=== PATIENT | female | born 1975 | race Caucasian/White ===

== ENCOUNTER 2019-04-24 13:04 | Outpatient (CLI) | payer OTHER, SELFPAY ==
[2019-04-24 14:05] LABS: Alanine Aminotransferase 18 U/L (14-59); Albumin Level 3.8 g/dL (3.4-5.0); Alkaline Phosphatase 133 U/L (46-116); Anion Gap 14.6 mmol/L (7-16); Aspartate Amino Transferase 16 U/L (15-37); Bilirubin,Total 0.3 mg/dL (0.00-1.00); Blood Urea Nitrogen 18 mg/dL (7-18); Carbon Dioxide 28 mmol/L (21-32); Chloride 98 mmol/L (98-108); Cholesterol 177 mg/dL (0-200); Estimated Glomerular Filt Rate 53; Glucose 221 mg/dL (70-99); HDL Direct 48 mg/dL (40-60); LDL Cholesterol Calculated 113 mg/dL (<130); Osmolality Calculated 292 mOsm/kg (285-295); Potassium 3.6 mmol/L (3.5-5.1); Sodium 137 mmol/L (136-145); Triglycerides 78 mg/dL (0-150)
[2019-04-29 04:31] LABS: Hepatitis A Antibody IgM Nonreactive; Hepatitis B Core Antibody Nonreactive (Nonreactive); Hepatitis B Surface Antigen Nonreactive (Nonreactive); Hepatitis C Signal to Cutoff 0.01 ratio (<1.00); Hepatitis C Virus Antibody Nonreactive (Nonreactive)
== END 2019-04-24 13:05 | disposition home or self-care (01) ==
LOC: CHSLAB 13:07
PROVIDERS: PCP Nurse Practitioner Family; Visit Provider Nurse Practitioner Family
DX: E10.9 Type 1 diabetes mellitus without complications (principal); Z20.5 Contact with and (suspected) exposure to viral hepatitis
CPT/HCPCS: 36415; 80053; 80061; 80074; 83036

== ENCOUNTER 2019-08-07 19:58 | Emergency (ER) | payer OTHER, SELFPAY ==
--- NOTE | ~2019-08-07 | XR_ITS ---
EXAMINATION: XR foot LT min 3V DATE: 08/07/2019 20:36 INDICATION: Left foot pain TECHNIQUE: Dorsoplantar, lateral, and 2 oblique views of the left foot were obtained. COMPARISON: 03/15/2018 FINDINGS: There is no fracture, dislocation, or subluxation. The bones and joint spaces are normal. C alcified atherosclerosis is noted. IMPRESSION: 1. No acute osseous abnormality. 2. Calcified atherosclerosis somewhat atypical for patient age. Reviewed, dictated and finalized at location A.
--- NOTE | ~2019-08-07 | XR_ITS ---
EXAMINATION: XR knee LT 3V DATE: 08/07/2019 20:35 INDICATION: Left knee pain TECHNIQUE: Three views of the left knee were obtained. COMPARISON: None. FINDINGS: Alignment is normal. No fracture or osteochondral lesion. There is mild tricompartmental os teoarthritis characterized by tiny marginal osteophytes. No joint effusion/synovitis. Calcified athe rosclerosis is noted. IMPRESSION: 1. No acute osseous abnormality. 2. Calcified atherosclerosis somewhat atypical for patient age. Reviewed, dictated and finalized at location A.
[2019-08-07 20:16] VITALS: BP 149/85; PULSE 100; RESP 15; TEMP 36.8; O2SAT 100
--- NOTE | 2019-08-07 20:20 | ED.GENADULT ---
HPI - General Adult General Chief complaint: Extremity Injury, Lower Stated complaint: l foot pain Source: patient History of Present Illness HPI narrative: Lucy is a 44F with a PMH of anxiety depression and insulin dependent diabetes as well as tobacco abuse that presented to the ED with pain in her left foot after a fall. 30 minutes before coming to the ED she tripped, fell, then had immediate pain in her left foot and knee where she had an abriason. She did not hit her head and has no headache or neck pain. Her foot feels like when she broke it before. Related Data Allergies Allergy/AdvReac Type Severity Reaction Status Date / Time metformin [From Glucophage] Allergy Mild Unknown Verified 07/19/19 11:08 Review of Systems Constitutional: Constitutional: Denies chills and Denies fever(s) Eyes: Eyes: Reports no additional eye complaints Cardiovascular: Cardiovascular: Reports no additional cardiovascular complaints Respiratory: Respiratory: Reports no additional respiratory complaints Gastrointestinal: Gastrointestinal: Reports no additional gastrointestinal complaints Genitourinary: Genitourinary: Reports no additional female genitourinary complaints Musculoskeletal: Musculoskeletal: Reports as per HPI Integumentary/Breasts: Skin/Breast: Reports system reviewed and no additional complaints, except as docu Neurologic: Reports system reviewed and no additional complaints, except as documented Psychiatric: Psychiatric: Reports no additional psychiatric complaints [facility] Past Medical History Medical History Depression GERD (gastroesophageal reflux disease) Tobacco dependence syndrome Type 1 diabetes Surgical History Surgical History History of bilateral tubal ligation 2012 Social History Social History Smoking packs per day: 1 Smoking cigarettes per day: 20.0 Smoking status: Current every day smoker Tobacco type: cigarettes Additional smoking assessment comments: Patient states she uses vape at 6mg of nicotine Exam Const: General: cooperative and healthy appearing Other: Well appearing that walked into the ED with a limp favoring her left foot HENMT: Head: normal to inspection Eyes: General: appearance normal, both eyes and all related structures Neck: Neck: normal visual inspection Resp: Effort & Inspection: normal respiratory effort, able to speak in complete sentences and no cough Cardio: Jugular venous distension: no JVD Rate: regular rate Skin: General skin exam: normal color and no rashes or lesions noted Neuro: General: oriented to person, oriented to place and oriented to time Extrem: General: normal to inspection Other: TTP over the medial side of the dorsal foot without swelling or erythema. 4x4cm abraison of the left knee. No TTP of it. Psych: Appearance: grossly normal and well kempt Course Course Emergency Course: Lucy was seen and evaluated. Ordered radiographs of the left foot and knee. EXAMINATION: XR foot LT min 3V DATE: 08/07/2019 20:36 INDICATION: Left foot pain TECHNIQUE: Dorsoplantar, lateral, and 2 oblique views of the left foot were obtained. COMPARISON: 03/15/2018 FINDINGS: There is no fracture, dislocation, or subluxation. The bones and joint spaces are normal. Calcified atherosclerosis is noted. IMPRESSION: 1. No acute osseous abnormality. 2. Calcified atherosclerosis somewhat atypical for patient age. EXAMINATION: XR knee LT 3V DATE: 08/07/2019 20:35 INDICATION: Left knee pain TECHNIQUE: Three views of the left knee were obtained. COMPARISON: None. FINDINGS: Alignment is normal. No fracture or osteochondral lesion. There is mild tricompartmental osteoarthritis characterized by tiny marginal osteophytes. No joint effusion/synovitis. Calcified atherosclerosis is noted. IMPRESSION: 1.
[2019-08-07] MEDS: KETOROLAC (*BKC) 60 MG/2 ML VIAL 30 MG IM (20:37)
[2019-08-07 21:01] VITALS: RESP 15; O2SAT 100
== END 2019-08-07 21:03 | disposition home or self-care (01) ==
PROVIDERS: Emergency Provider Family Medicine; PCP Nurse Practitioner Family
DX: M79.672 Pain in left foot (principal)
CPT/HCPCS: 73562; 73630; 96372; 99282; 99284; J1885

== ENCOUNTER 2019-08-15 11:34 | Outpatient (CLI) | payer OTHER, SELFPAY ==
[2019-08-15 12:43] LABS: Creatinine Urine 73.47 mg/dL (40-278)
[2019-08-15 13:01] LABS: MALB Creatinine Ratio 4.6 mg/g (0-30); Microalbumin Urine Random 3.4 mg/L
[2019-08-15 13:03] LABS: Alanine Aminotransferase 27 U/L (14-59); Albumin Level 3.2 g/dL (3.4-5.0); Alkaline Phosphatase 171 U/L (46-116); Anion Gap 13.7 mmol/L (7-16); Aspartate Amino Transferase 23 U/L (15-37); Bilirubin,Total 0.3 mg/dL (0.00-1.00); Blood Urea Nitrogen 10 mg/dL (7-18); Calcium 8.5 mg/dL (8.5-10.1); Carbon Dioxide 27 mmol/L (21-32); Chloride 99 mmol/L (98-108); Cholesterol 171 mg/dL (0-200); Estimated Glomerular Filt Rate 54; Glucose 331 mg/dL (70-99); HDL Direct 60 mg/dL (40-60); LDL Cholesterol Calculated 87 mg/dL (<130); Osmolality Calculated 292 mOsm/kg (285-295); Potassium 4.7 mmol/L (3.5-5.1); Sodium 135 mmol/L (136-145); Total Protein 6.3 g/dL (6.4-8.2); Triglycerides 119 mg/dL (0-150)
[2019-08-15 13:15] LABS: Hemoglobin A1C 11.8 % (<5.7)
== END 2019-08-15 11:35 | disposition home or self-care (01) ==
PROVIDERS: PCP Nurse Practitioner Family; Visit Provider Nurse Practitioner Family
DX: E10.9 Type 1 diabetes mellitus without complications (principal)
CPT/HCPCS: 36415; 80053; 80061; 82043; 83036

== ENCOUNTER 2019-08-30 04:30 | Emergency (ER) | payer OTHER, SELFPAY ==
[2019-08-30 04:30] VITALS: BP 105/74; PULSE 110; RESP 20; TEMP 36.2; O2SAT 98
--- NOTE | 2019-08-30 04:47 | ECG_ITS ---
Measurements Intervals [place] Rate: 91 P: 53 IN: 127 QRS: 24 QRSD: 82 T: 40 QT: 377 QTc: 465 Interpretive Statements SINUS RHYTHM LOW QRS VOLTAGE IN PRECORDIAL LEADS RSR' IN V1 OR V2, CONSIDER RIGHT VENTRICULAR HYPERTROPHY OR RIGHT VCD BORDERLINE ECG Electronically Signed On 08-30-2019 7:18:08 CDT by Moises Gerardo D.O.
[2019-08-30] MEDS: ONDANSETRON INJ 4 MG/2 ML VIAL IV PUSH (05:10)
[2019-08-30] MEDS: SODIUM CHLORIDE 0.9% IV 1,000 ML 999 ML IV CONT (05:10)
[2019-08-30 05:27] LABS: Base Excess ABG -2.5 mmol/L (0-2); Carboxyhemoglobin 2.6 % (0-1.5); HCO3 ABG 21.4 mmol/L (23-29); Methemoglobin ABG 0.2 % (0-1.5); Oxygen Content ABG 15.6 %vol (16.0-22.0); Oxygen Saturation ABG 83.7 % (95-97); Oxyhemoglobin 81.4 % (94-100); PCO2 ABG 34.5 mmHg (35-45); PO2 ABG 42.8 mmHg (80-90); Reduced Hemoglobin 15.8 % (0-1.5); Total Hemoglobin 13.7 g/dL; pH ABG 7.41 (7.35-7.45)
[2019-08-30 05:28] LABS: Device ROOM AIR; Modified Allen's Test Pass; Site Drawn RIGHT RADIAL
--- NOTE | 2019-08-30 05:30 | PC.NURSE ---
no vomiting since arrival to er
[2019-08-30 05:31] LABS: Basophils Absolute Auto 0.08 K/mm3 (0.00-0.10); Basophils Percent Auto 0.9 % (0.0-1.0); Eosinophils Absolute Auto 0.48 K/mm3 (0.02-0.50); Eosinophils Percent Auto 5.4 % (1.0-6.0); Hematocrit 37.5 % (35.0-49.0); Hemoglobin 13.2 g/dL (12.0-15.0); Immature Granulocyte Absolute 0.03 K/mm3 (0.00-0.00); Immature Granulocyte Percent A 0.3 % (0.0-0.0); Lymphocytes Percent Auto 49.3 % (18.0-42.0); Mean Corpuscular HGB Conc 35.2 g/dL (32.0-36.0); Mean Corpuscular Hemoglobin 30.6 pg (27.0-31.0); Mean Corpuscular Volume 86.8 fL (78.0-102.0); Mean Platelet Volume 10.2 fl (9.2-11.8); Monocytes Absolute Auto 0.35 K/mm3 (0.10-0.90); Monocytes Percent Auto 3.9 % (2.0-11.0); Neutrophils Absolute Auto 3.6 K/mm3 (1.7-7.2); Neutrophils Percent Auto 40.2 % (50.0-70.0); Platelet Count Result 338 K/mm3 (150-420); Red Blood Count 4.32 M/mm3 (4.20-5.40); Red Cell Distribution Width 12.1 % (11.6-14.4); White Blood Count 8.9 K/mm3 (4.8-10.8)
[2019-08-30 05:38] LABS: Pregnancy On Board Control Positive; Urine Pregnancy Test Negative
[2019-08-30 05:47] LABS: Alanine Aminotransferase 22 U/L (14-59); Albumin Level 3.5 g/dL (3.4-5.0); Alkaline Phosphatase 180 U/L (46-116); Anion Gap 11.6 mmol/L (7-16); Aspartate Amino Transferase 17 U/L (15-37); Bilirubin,Total 0.3 mg/dL (0.00-1.00); Blood Urea Nitrogen 14 mg/dL (7-18); Calcium 8.2 mg/dL (8.5-10.1); Carbon Dioxide 28 mmol/L (21-32); Chloride 100 mmol/L (98-108); Estimated CRCL calculation 49 ml/min; Estimated Glomerular Filt Rate 50; Osmolality Calculated 304 mOsm/kg (285-295); Phosphorus 2.4 mg/dL (2.6-4.7); Potassium 3.6 mmol/L (3.5-5.1); Sodium 136 mmol/L (136-145)
[2019-08-30 05:52] LABS: Lactic Acid 1.8 mmol/L (0.4-2.0)
[2019-08-30 05:53] LABS: Glucose Point of Care 377 (65-105)
[2019-08-30 05:56] LABS: Glucose 492 mg/dL (70-99)
[2019-08-30] MEDS: INSULIN HUMAN REGULAR (*BKC) 100 UNITS/ML 7 UNITS IV PUSH (06:05)
--- NOTE | 2019-08-30 06:08 | ED.GENADULT ---
HPI - General Adult General Chief complaint: Unspecified Stated complaint: Vomiting Source: patient Mode of arrival: ambulatory Limitations: no limitations History of Present Illness HPI narrative: This is a 44-year-old female that presents with some history of diabetes type 1 with some blood sugars around 492, patient is currently on Lantus and lispro insulin last A1c noted in her primary care physician's chart was 11 point 2. Currently she is having mild abdominal discomfort diffuse location with some nausea currently no vomiting, there is no chest pain no fever chills no shortness of breath the patient is compliant with her medication. Onset (ago): hour(s) Radiation: abdomen Severity: mild Severity scale (1-10): 2 Pain Consistency: constant Relieving factors: none Exacerbating factors: none Associated symptoms: nausea/vomiting Related Data Home Medications Medication Instructions Recorded Confirmed sertraline 50 mg PO DAILY 08/30/19 08/30/19 Allergies Allergy/AdvReac Type Severity Reaction Status Date / Time metformin [From Glucophage] Allergy Mild Unknown Verified 08/15/19 10:51 Review of Systems Review of Systems: All systems reviewed & are unremarkable except as noted in HPI and below PMFSH Past Medical History Medical History BMI 24.0-24.9, adult Depression GERD (gastroesophageal reflux disease) Tobacco dependence syndrome Type 1 diabetes Surgical History Surgical History History of bilateral tubal ligation 2012 Family History Family History Father Family history of coronary artery disease Family history of type 2 diabetes mellitus Social History Social History Smoking packs per day: 1 Smoking cigarettes per day: 20.0 Smoking status: Current every day smoker Tobacco type: cigarettes Additional smoking assessment comments: Patient states she uses vape at 6mg of nicotine Exam Const: General: no acute distress Orientation/consciousness: patient oriented x3 HENMT: Head: normal to inspection Eyes: Conjunctivae: conjunctivae normal Pupils: Equal, round and reactive pupils present Neck: Neck: normal visual inspection Chest: Chest palpation & inspection: normal inspection of the chest Resp: Effort & Inspection: normal respiratory effort Auscultation: clear to auscultation bilaterally Cardio: Rate: regular rate Rhythm: regular rhythm GI: GI Palp: Yes Soft to palpation Skin: General skin exam: normal color Rashes: no rashes Psych: Appearance: grossly normal Mental Status: mental status grossly normal Course Course Emergency Course: After reassessment of patient after receiving IV fluids, and reviewed labs with the patient and reassured her that she is not in DKA and her current blood sugars are 377 and will be giving her 7units of regular insulin. The patient appears more comfortable currently her abdominal discomfort has some decreased and currently there is no nausea or vomiting. repeat blood sugar after 7units of regular insulin was 277. Vital Signs Vital signs: Vital Signs Temperature 36.2 C L 08/30/19 04:30 Pulse Rate 110 H 08/30/19 04:30 Respiratory Rate 08/30/19 04:30 Blood Pressure 105/74 08/30/19 04:30 Pulse Oximetry 98 08/30/19 04:30 Temperature 36.2 C L 08/30/19 04:30 Pulse Rate 110 H 08/30/19 04:30 Respiratory Rate 08/30/19 04:30 Blood Pressure 105/74 08/30/19 04:30 Pulse Oximetry 98 08/30/19 04:30 Medical Decision Making Vital Signs Vital Signs: Vital Signs Temperature 36.2 C L 08/30/19 04:30 Pulse Rate 110 H 08/30/19 04:30 Respiratory Rate 08/30/19 04:30 Blood Pressure 105/74 08/30/19 04:30 Pulse Oximetry 98 08/30/19 04:30 Temperature 36.2 C L 08/30/19 04:30
[2019-08-30 06:15] LABS: Add Urine Microscopic? YES; Appearance Urine Sl Cloudy (Clear); Bilirubin Urine Negative (Negative); Blood Urine 3+ (Negative); Color Urine Yellow (Yellow); Glucose Urine UA 3+ (Negative); Ketones Urine Negative (Negative); Leukocyte Esterase Ur Negative (Negative); Nitrate Urine Positive (Negative); Protein Urine Negative (Negative); Specific Grav Ur <= 1.005 (1.010-1.020); Urobilinogen Urine 0.2 mg/dL (0.2-1.0); pH Urine 5.5 (5.0-8.0)
[2019-08-30 06:21] LABS: Bacteria Urine 3+ /hpf; RBC Urine >75 /hpf (0-2); Squamous Epithelial Cell Urine None seen /hpf (Few); WBC Urine 0-3 /hpf (0-3)
[2019-08-30 06:24] VITALS: BP 137/76; PULSE 94; RESP 20; TEMP 36.6; O2SAT 100
--- NOTE | 2019-08-30 06:25 | PC.NURSE ---
resting per cot, watching tv and on cell phone.
[2019-08-30 06:37] LABS: Glucose Point of Care 272 (65-105)
[2019-08-30 06:38] VITALS: BP 122/77; PULSE 78; RESP 20; O2SAT 98
== END 2019-08-30 06:41 | disposition home or self-care (01) ==
PROVIDERS: Emergency Provider Emergency Medicine; PCP Nurse Practitioner Family
DX: E10.9 Type 1 diabetes mellitus without complications (principal); N30.00 Acute cystitis without hematuria
CPT/HCPCS: 36415; 36600; 80053; 81001; 81025; 82375; 82805; 82948; 83050; 83605; 83735; 84100; 85025; 87040; 93005; 96361; 96374; 96375; 99284; J1815; J2405; J7030

== ENCOUNTER 2019-12-28 18:24 | Observation (INO) | payer OTHER, SELFPAY ==
--- NOTE | ~2019-12-28 | XR_ITS ---
XR chest 2V DATE: 12/28/2019 19:03 INDICATION: Shortness of breath TECHNIQUE: PA and lateral views COMPARISON: 03/08/2017 PA chest FINDINGS: Diffuse osteopenia. No pulmonary infiltrate or consolidation, pleural effusion or pulmonary vascular congestion or pneumo thorax. Normal heart size. No hilar or mediastinal enlargement. IMPRESSION: No active cardiopulmonary disease Reviewed, dictated and finalized at location A.
[2019-12-28 18:30] VITALS: BP 98/59; PULSE 102; PULSE 98; RESP 14; TEMP 36.6; O2SAT 98
[2019-12-28 18:40] LABS: Glucose Point of Care > 450 (65-105)
--- NOTE | 2019-12-28 18:43 | ED.GENADULT ---
HPI - General Adult General Chief complaint: Unspecified Stated complaint: Keeps Blacking out Source: patient Mode of arrival: ambulatory History of Present Illness HPI narrative: This is a 44-year-old female that has a history diabetes type 1 on insulin, who presents with episode of weakness while at work with nausea, and just felt that her chest was tight then took her breath away. No audible wheezing no fever chills no abdominal pain no dysuria no frequency had diarrhea constipation is patient has for not taking her insulin today and or has not eaten throughout the day. Currently there is no chest pain no headaches no blurry vision. Onset (ago): hour(s) Pain Consistency: constant Relieving factors: none Exacerbating factors: none Associated symptoms: nausea/vomiting, shortness of breath and weakness Related Data Allergies Allergy/AdvReac Type Severity Reaction Status Date / Time metformin [From Glucophage] Allergy Mild Unknown Verified 08/15/19 10:51 Review of Systems Review of Systems: All systems reviewed & are unremarkable except as noted in HPI and below PMFSH Past Medical History Medical History BMI 24.0-24.9, adult Depression GERD (gastroesophageal reflux disease) Tobacco dependence syndrome Type 1 diabetes Surgical History Surgical History History of bilateral tubal ligation 2012 Family History Family History Father Family history of coronary artery disease Family history of type 2 diabetes mellitus Social History Social History Smoking packs per day: 1 Smoking cigarettes per day: 20.0 Smoking status: Current every day smoker Tobacco type: cigarettes Additional smoking assessment comments: Patient states she uses vape at 6mg of nicotine Exam Const: General: cooperative, healthy appearing and anxious HENMT: Head: normal to inspection Ears: hearing grossly normal bilaterally General nose exam: Normal external nose present Face and sinus: normal facial exam Mouth: Yes Normal oral and palatal mucosa present Eyes: General: appearance normal, both eyes and all related structures Alignment and Position: alignment normal Eyelids: eyelids normal Conjunctivae: conjunctivae normal Sclera: sclerae normal Cornea: corneas normal Neck: Neck: normal visual inspection, full ROM, no lymphadenopathy and no meningeal signs Thyroid: thyroid normal Lymphatic: no lymphadenopathy noted Chest: Chest palpation & inspection: normal inspection of the chest Resp: Effort & Inspection: normal respiratory effort and able to speak in complete sentences Auscultation: clear to auscultation bilaterally Cardio: Jugular venous distension: no JVD Palpation: normal PMI Rate: regular rate Rhythm: regular rhythm Heart sounds: S1 normal heart sound present GI: Inspection: normal to inspection Skin: General skin exam: normal color and no rashes or lesions noted Neuro: General: oriented to person, oriented to place, oriented to time, patient oriented x3, gait normal, tone normal, moves all extremities, Normal light touch and pain sensation and no meningeal signs Psych: Appearance: grossly normal and well kempt Mental Status: mental status grossly normal Speech and movement: Normal speech and movement present Affect: normal affect Thought process: Normal thought process present Thought content: Yes Normal thought content present Course Course Emergency Course: Patient current sitting comfortably received IV fluids, and had a blood sugar of 517 received 10 units of insulin. Will admit the patient to observation and spoke with patient about admission. Medical Decision Making Lab Data Labs: Lab Results 12/28/19 Range/Units 18:31 POC Capillary Glucose > 450 H (65-105) mg/dl
--- NOTE | 2019-12-28 18:48 | ECG_ITS ---
Measurements Intervals [place] Rate: 94 P: 34 NV: 125 QRS: 24 QRSD: 77 T: 33 QT: 349 QTc: 437 Interpretive Statements SINUS RHYTHM INCOMPLETE RIGHT BUNDLE BRANCH BLOCK LOW QRS VOLTAGE IN PRECORDIAL LEADS BASELINE ARTIFACT- II, III, AVL, AVF, V3 BORDERLINE ECG Electronically Signed On 12-29-2019 8:52:22 CDT by Moises Gerardo D.O.
[2019-12-28] MEDS: SODIUM CHLORIDE 0.9% IV 1,000 ML 999 ML IV CONT (19:11)
[2019-12-28 19:17] LABS: Base Excess ABG -5.8 mmol/L (0-2); HCO3 ABG 17.2 mmol/L (23-29); Oxygen Content ABG 17.1 %vol (16.0-22.0); Oxygen Saturation ABG 93.8 % (95-97); Oxyhemoglobin 91.3 % (94-100); PCO2 ABG 27.2 mmHg (35-45); PO2 ABG 69.9 mmHg (80-90); Total Hemoglobin 13.3 g/dL; pH ABG 7.42 (7.35-7.45)
[2019-12-28 19:18] LABS: Device ROOM AIR; Modified Allen's Test Pass; Site Drawn LEFT RADIAL
[2019-12-28 19:23] LABS: Hematocrit 37.6 % (35.0-49.0); Mean Corpuscular HGB Conc 34.6 g/dL (32.0-36.0); Mean Corpuscular Hemoglobin 29.7 pg (27.0-31.0); Platelet Count Result 336 K/mm3 (150-420); Red Blood Count 4.37 M/mm3 (4.20-5.40); Red Cell Distribution Width 12.5 % (11.6-14.4); White Blood Count 8.5 K/mm3 (4.8-10.8)
[2019-12-28 19:35] LABS: D Dimer 0.49 mg/L (0.19-0.50)
[2019-12-28 19:48] LABS: Alanine Aminotransferase 17 U/L (14-59); Albumin Level 3.4 g/dL (3.4-5.0); Alkaline Phosphatase 109 U/L (46-116); Anion Gap 14 mmol/L (8-16); Aspartate Amino Transferase 11 U/L (15-37); Bilirubin,Total 0.7 mg/dL (0.00-1.00); Blood Urea Nitrogen 15 mg/dL (7-18); Calcium 8.7 mg/dL (8.5-10.1); Carbon Dioxide 21 mmol/L (21-32); Chloride 97 mmol/L (98-108); Estimated CRCL calculation 39 ml/min; Estimated Glomerular Filt Rate 38; Potassium 4.2 mmol/L (3.5-5.1); Sodium 132 mmol/L (136-145); Total Protein 7.2 g/dL (6.4-8.2)
[2019-12-28 19:50] LABS: Troponin I < 0.02 ng/mL (0.00-0.056)
[2019-12-28 19:52] LABS: Glucose 517 mg/dL (70-99); Lipase 102 U/L (73-393); Magnesium 1.8 mg/dL (1.8-2.4); Osmolality Calculated 297 mOsm/kg (285-295)
[2019-12-28] MEDS: INSULIN HUMAN REGULAR (*BKC) 100 UNITS/ML 10 UNITS IV PUSH (20:08)
[2019-12-28 20:28] LABS: Add Urine Microscopic? YES; Appearance Urine Sl Cloudy (Clear); Bilirubin Urine Negative (Negative); Blood Urine Negative (Negative); Color Urine Yellow (Yellow); Glucose Urine UA 3+ (Negative); Ketones Urine Negative (Negative); Leukocyte Esterase Ur Negative (Negative); Nitrate Urine Negative (Negative); Protein Urine Negative (Negative); Urobilinogen Urine 0.2 mg/dL (0.2-1.0); pH Urine 5.5 (5.0-8.0)
[2019-12-28 20:34] LABS: Glucose Point of Care 296 (65-105)
[2019-12-28 20:38] LABS: Bacteria Urine 2+ /hpf; RBC Urine None seen /hpf (0-2); Squamous Epithelial Cell Urine Few /hpf (Few); WBC Clumps Urine Present /hpf; WBC Urine 0-3 /hpf (0-3)
[2019-12-28 20:39] LABS: Mucus Urine Few /lpf
[2019-12-28 20:45] LABS: Amphetamine Screen Urine Negative (Negative); Barbiturate Screen Urine Negative (Negative); Benzodiazepines Screen Urine Negative (Negative); Cannabinoid Screen Urine Negative (Negative); Cocaine Screen Urine Negative (Negative); Methadone Screen Urine Negative (Negative); Opiate Screen Urine Negative (Negative); Phencyclidine Screen Urine Negative (Negative)
[2019-12-28 21:00] VITALS: BP 121/77; PULSE 90; RESP 12; O2SAT 100
--- NOTE | 2019-12-28 21:02 | PC.NURSE ---
RN CONTACTED DOMINIQUE RN AT 2014 TO REQUEST OBS BED. ROOM 205 PROVIDED. REGISTRATION NOTIFIED.
--- NOTE | 2019-12-28 21:15 | ADMGEN ---
This patient, Lucy Arambula, was admitted to 2nd Floor Room 205-2. Patient oriented to hospital policies and general routines including ID bracelet, bed and alarms, visiting hours, pain management, procedures, bathroom and other care routines, personal items, smoking policy, room service/diet, and visiting hours. Valuables list has been completed. Patient encouraged to report perceived risks to care and to ask questions if they do not understand what they are told or what they should do.
[2019-12-28 21:24] VITALS: BMI 24.9
--- NOTE | 2019-12-28 21:30 | PC.NURSE ---
pt blood glucose still decreasing, pt given sandwich and cottage cheese
[2019-12-28 21:41] LABS: Glucose Point of Care 159 (65-105)
[2019-12-28 22:00] VITALS: BP 121/89; PULSE 107; RESP 16; TEMP 36.8; O2SAT 100
[2019-12-28] MEDS: SODIUM CHLORIDE 0.9% IV 1,000 ML 100 ML IV CONT (22:10)
--- NOTE | 2019-12-28 23:15 | PC.NURSE ---
pt resting in bed watching tv, denies any pain or needs at this time, no c/o dizziness, iv fluids infusing per order
--- NOTE | 2019-12-29 00:15 | PC.NURSE ---
pt resting in bed watching tv, denies any pain or needs at this time, no c/o dizziness
--- NOTE | 2019-12-29 02:12 | PC.NURSE ---
pt sleeping, respirations even and regular, no evidence of distress noted at this time, iv fluids infusing per order
[2019-12-29 03:46] VITALS: BP 104/68; PULSE 88; RESP 16; TEMP 36.9; O2SAT 97
--- NOTE | 2019-12-29 04:00 | PC.NURSE ---
pt ambulated to bathroom, tolerated well, no c/o dizziness or lightheadedness, iv fluids infusing per order
--- NOTE | 2019-12-29 06:04 | PC.NURSE ---
pt sleeping, respirations even and regular, no s/s of distress noted
[2019-12-29 07:26] LABS: Basophils Absolute Auto 0.09 K/mm3 (0.00-0.10); Eosinophils Absolute Auto 0.35 K/mm3 (0.02-0.50); Eosinophils Percent Auto 3.9 % (1.0-6.0); Hematocrit 33.7 % (35.0-49.0); Hemoglobin 11.8 g/dL (12.0-15.0); Immature Granulocyte Absolute 0.02 K/mm3 (0.00-0.00); Immature Granulocyte Percent A 0.2 % (0.0-0.0); Lymphocytes Absolute Auto 4.71 K/mm3 (1.10-4.50); Lymphocytes Percent Auto 52.4 % (18.0-42.0); Mean Corpuscular Hemoglobin 30.2 pg (27.0-31.0); Mean Corpuscular Volume 86.2 fL (78.0-102.0); Mean Platelet Volume 9.5 fl (9.2-11.8); Monocytes Percent Auto 5.6 % (2.0-11.0); Neutrophils Absolute Auto 3.3 K/mm3 (1.7-7.2); Neutrophils Percent Auto 36.9 % (50.0-70.0); Platelet Count Result 300 K/mm3 (150-420); Red Blood Count 3.91 M/mm3 (4.20-5.40); Red Cell Distribution Width 12.7 % (11.6-14.4)
--- NOTE | 2019-12-29 07:30 | PC.NURSE ---
cooperative, no complaints of dizziness, up in dependent in room
[2019-12-29 07:42] LABS: Alanine Aminotransferase 17 U/L (14-59); Albumin Level 2.8 g/dL (3.4-5.0); Alkaline Phosphatase 91 U/L (46-116); Anion Gap 9 mmol/L (8-16); Aspartate Amino Transferase 10 U/L (15-37); Bilirubin,Total 0.5 mg/dL (0.00-1.00); Blood Urea Nitrogen 17 mg/dL (7-18); Calcium 7.8 mg/dL (8.5-10.1); Carbon Dioxide 23 mmol/L (21-32); Chloride 108 mmol/L (98-108); Estimated CRCL calculation 59 ml/min; Estimated Glomerular Filt Rate > 60; Glucose 115 mg/dL (70-99); Osmolality Calculated 292 mOsm/kg (285-295); Potassium 4.1 mmol/L (3.5-5.1); Sodium 140 mmol/L (136-145); Total Protein 5.5 g/dL (6.4-8.2)
[2019-12-29 07:49] VITALS: PULSE 83; RESP 18; TEMP 36.6; O2SAT 95
[2019-12-29 07:49] LABS: Magnesium 1.8 mg/dL (1.8-2.4)
--- NOTE | 2019-12-29 08:30 | PC.NURSE ---
states takes lantus at night, refused this am, ate well for breakfast, fluids infused, wanting to go home, no dizzyness when up, back to baseline
[2019-12-29] MEDS: SERTRALINE HCL 50 MG TABLET PO (08:40)
[2019-12-29] MEDS: QUEtiapine FUMARATE 100 MG TABLET PO (08:40)
--- NOTE | 2019-12-29 08:45 | PM.SD ---
Same Day Admit/Disch: HPI History of Present Illness Chief complaint: Keeps Blacking out Narrative: Lucy Arambula is a 44 year old female that presented to the ED yesterday with complaints of lightheaded,and dizziness. Patient has a past medical history of diabetes type 1, tobacco dependence, GERD, depression. According to patient she was at work yesterday and started experiencing lightheadedness and dizziness with blurry vision and sob while at work . Patient noted that she works 2 blocks from her home and did not feel safe to walk home she was transported here to our ED. Patient's vital signs are 104/68, 83, 18, 98, 95% on room air. Patient labs are sodium 140 potassium 4.1 BUN 17, creatinine 0.97, blood sugar 115, WBCs 9.0, hemoglobin 11.8, hematocrit 33.7, platelets 300, chest x-ray unremarkable, EKG sinus rhythm with a heart rate of 91, blood cultures pending, lactic acid within normal limits and troponin within normal limits. On admission patient's blood sugar was 517 patient has received a total of 25 units and on high dose sliding scale blood sugars currently below 200. Patient denies any lightheadedness, dizziness, syncopal episodes, visual disturbance since admission. Patient admitted for hypoglycemia. Patient agrees that she is ready for discharge. The patient denies SOB, CP, palpitation, extremity numbness, lightheadedness, dizziness, constipation, diarrhea, chills, or fever. [facility] Past Medical History Medical History (Updated 12/28/19 @ 20:31 by [facility]) BMI 24.0-24.9, adult Depression GERD (gastroesophageal reflux disease) Tobacco dependence syndrome Type 1 diabetes Surgical History Surgical History History of bilateral tubal ligation 2012 Family History Family History Father Family history of coronary artery disease Family history of type 2 diabetes mellitus Social History Social History Smoking packs per day: 1 Smoking cigarettes per day: 20.0 Years smoked: 30 Smoking pack-years: 30.00 Smoking status: Current every day smoker Tobacco type: cigarettes Additional smoking assessment comments: Patient states she uses vape at 6mg of nicotine Alcohol intake: never Substance use: current Substance use type: marijuana Last use: 12/27/19 Gender identity (if verbalized by the patient): Female Spiritual care concerns: No Same Day Admit/Disch: Med Pre-admit Medications Home Medications Medication Instructions Recorded Confirmed Type insulin glargine 100 unit/mL (3 15 unit SUB-Q DAILY #15 ml 04/24/19 12/28/19 Rx mL) subcutaneous pen insulin lispro 100 unit/mL See Rx Instructions SUB-Q QAM #15 04/24/19 12/28/19 Rx subcutaneous pen ml quetiapine 100 mg tablet 100 mg PO BID #60 tablet 10/01/19 12/28/19 Rx sertraline 50 mg tablet 50 mg PO DAILY #30 tablet 12/10/19 12/28/19 Rx pantoprazole [Protonix] 20 mg PO QAM 28 Days #28 tablet 12/29/19 Rx Exam Narrative: Exam Narrative: GENERAL: This is a well-nourished, well-developed patient, in no apparent distress. HEAD: normocephalic, atraumatic. EYES: PERRL. Sclera clear/white. Vision is grossly intact. EARS: External ears normal, auditory canals clear and without drainage, TMs normal without perforation. Hearing grossly intact. NOSE: External nose normal with no obvious nasal discharge, nares without redness, no rhinorrhea. THROAT: Mucous membranes moist, posterior pharynx clear. NECK: Neck supple, non-tender without lymphadenopathy, masses or thyromegaly. CARDIOVASCULAR: Regular rate and rhythm without murmurs, gallops, or rubs. RESPIRATORY: Clear to auscultation. Breath sounds equal bilaterally. No wheezes, rales, or rhonchi. GASTROINTESTINAL: Abdomen soft, non-tender, nondistended. Bowel sounds are active. No hepato-splenomegaly, or palpable masses.
--- NOTE | 2019-12-29 09:29 | PC.NURSE ---
will discharge after rounds today, states can shower at home, denies needs at this time, given coffee per request
--- NOTE | 2019-12-29 10:24 | PC.NURSE ---
INFLUENZA INJECTION GIVEN PRIOR TO DISCHARGE TO LEFT ARM
--- NOTE | 2019-12-29 10:40 | PC.NURSE ---
SALINE LOCK REMOVED, DISCHARGE TO HOME, PERSONAL ITEMS RETURNED, DISCHARGE INSTRUCTIONS REVIEWED, NO QUESTIONS OR CONCERNS VOICED
--- NOTE | 2020-01-01 12:52 | PC.NURSE ---
Discharge call back attempted x2 without success.
== END 2019-12-29 10:40 | disposition home or self-care (01) ==
LOC: CHSED 18:29 → CHS2ND 20:31
PROVIDERS: Admitting Provider Emergency Medicine; Emergency Provider Emergency Medicine; PCP Nurse Practitioner Family; Visit Provider Emergency Medicine
DX: E10.65 Type 1 diabetes mellitus with hyperglycemia (principal); E87.1 Hypo-osmolality and hyponatremia; K21.9 Gastro-esophageal reflux disease without esophagitis; F32.9 Major depressive disorder, single episode, unspecified; F17.210 Nicotine dependence, cigarettes, uncomplicated; Z79.4 Long term (current) use of insulin; Z23 Encounter for immunization
CPT/HCPCS: 36415; 36600; 71046; 80053; 80307; 81001; 82805; 83605; 83690; 83735; 84484; 85025; 85027; 85380; 87040; 90471; 90653; 93005; 96360; 96361; 96374; 99283; 99285; A9270; G0008; G0378; G0379; J1815; J7030

== ENCOUNTER 2020-02-08 18:04 | Emergency (ER) | payer OTHER, SELFPAY ==
--- NOTE | ~2020-02-08 | XR_ITS ---
EXAMINATION: XR chest-chest tube insert/pos EXAM DATE: 02/08/2020 23:23 INDICATION: Chest tube insertion. TECHNIQUE: Portable AP frontal chest x-ray was obtained. Comparison is made to prior examination from earlier 02/07. FINDINGS: Endotracheal tube has been retracted, is now about 1 cm above the chayo. There is been int erval reexpansion of most of the left lung with residual pockets of atelectasis. There is a left-side d chest tube which is in the axilla, does not appear to be extending into the pleural cavity. Feeding tube is in position. Moderate to large amount of colonic gas. IMPRESSION: 1. ET tube above chayo, could be safely retracted 1 additional centimeter. 2. Mostly reexpanded left lung with some residual atelectasis. 3. Left-sided chest tube along the axilla soft tissue. No evidence of pneumothorax. Reviewed, dictated and finalized at location A. LOADER IMPRESSION: 1. ET tube above chayo, could be safely retracted 1 additional centimeter. 2. Mostly reexpanded left lung with some residual atelectasis. 3. Left-sided chest tube along the axilla soft tissue. No evidence of pneumoth orax.
--- NOTE | ~2020-02-08 | CT_ITS ---
EXAMINATION: CT brain wo con DATE: 02/08/2020 19:26 INDICATION: Overdose. Unresponsive. TECHNIQUE: Computed tomography (CT) of the head was performed without intravenous contrast. Sagittal and coronal reconstructions were performed. The mA was adjusted according to patient size. Iterative reconstruction technique was employed. The dose-length product was 681.00 mGy-cm. COMPARISON: head CT dated 04/04/17 FINDINGS: No acute intracranial hemorrhage, acute infarction or abnormal extra axial fluid collection. Ventricl es are normal and symmetric. No mass/mass effect. Mild mucosal thickening in the paranasal sinuses wi th small amount of fluid layering in the right maxillary and left sphenoid sinuses. The orbits, paran yong sinuses and mastoid air cells are normal. IMPRESSION: 1. No acute intracranial process. Reviewed, dictated and finalized at [facility]. ER PANTY HOSE
--- NOTE | ~2020-02-08 | XR_ITS ---
EXAMINATION: XR chest ET placement EXAM DATE: 02/08/2020 21:59 INDICATION: ET tube placement. TECHNIQUE: Portable AP frontal chest x-ray was obtained. Comparison is made to prior examination from 12/28/2019. FINDINGS: There is an endotracheal tube in the right mainstem bronchus, with completely collapsed lef t lung. Tube should be retracted 5 cm. Feeding tube is in position. Right lung is clear. Can't evaluate cardiac silhouette. Moderate to large amount of colonic gas. Ther e are no osseous abnormalities identified. IMPRESSION: ET tube in right mainstem, should be retracted 5 cm. Collapsed left lung. STAT Rad radiologist phoned, discussed this case with clinician as per documentation in their report, which was faxed and scanned into PACS with this exam. Reviewed, dictated and finalized at location A. PHONE OPERATORS SUPERVISOR IMPRESSION: ET tube in right mainstem, should be retracted 5 cm. Collapsed left lung. STAT Rad radiologist phoned, discussed this case with clinician as per document ation in their report, which was faxed and scanned into PACS with this exam.
--- NOTE | ~2020-02-08 | XR_ITS ---
EXAMINATION: XR abdomen NG/feed tube insert EXAM DATE: 02/08/2020 21:58 INDICATION: NG Tube placement . TECHNIQUE: Frontal projection(s) of the abdomen for interpretation. There is no prior study for edith mckoy. FINDINGS: Feeding tube tip and side-port overlie the position of collapsed stomach, adequate. Moderat e to large amount of colonic gas. No dilated small bowel. There is no organomegaly. IMPRESSION: 1. Feeding tube adequate. 2. Moderate to large colonic gas. Reviewed, dictated and finalized at location A. NT KILN OPERATOR
[2020-02-08 18:04] VITALS: BP 106/71; PULSE 73; RESP 26; TEMP 36.6; O2SAT 98
--- NOTE | 2020-02-08 18:14 | ECG_ITS ---
Measurements Intervals [place] Rate: 76 P: 42 [place]: 176 QRS: -88 QRSD: 114 T: 59 QT: 414 QTc: 467 Interpretive Statements SINUS RHYTHM LEFT AXIS DEVIATION INCOMPLETE RIGHT BUNDLE BRANCH BLOCK BASELINE ARTIFACT- I, III, AVR, AVL, AVF, V1-V3 BORDERLINE ECG Electronically Signed On 02-10-2020 7:29:37 [employer]ATIONS LEADER by Moises Gerardo D.O.
[2020-02-08 18:30] VITALS: RESP 26
[2020-02-08] MEDS: LORazepam INJ (*CRX) 2 MG/ML VIAL IV PUSH (18:40)
[2020-02-08] MEDS: SODIUM CHLORIDE 0.9% IV 1,000 ML 999 ML IV CONT ×3 (18:49→20:30)
[2020-02-08 18:51] LABS: Add Urine Microscopic? YES; Appearance Urine Sl Cloudy (Clear); Bilirubin Urine Negative (Negative); Blood Urine Negative (Negative); Color Urine Yellow (Yellow); Glucose Urine UA 3+ (Negative); Ketones Urine 1+ (Negative); Leukocyte Esterase Ur Negative LEU/UL (Negative); Nitrate Urine Positive (Negative); Protein Urine Negative (Negative); Urobilinogen Urine 0.2 mg/dL (0.2-1.0)
[2020-02-08 18:56] LABS: Basophils Absolute Auto 0.07 K/mm3 (0.00-0.10); Basophils Percent Auto 0.7 % (0.0-1.0); Eosinophils Absolute Auto 0.21 K/mm3 (0.02-0.50); Eosinophils Percent Auto 2.1 % (1.0-6.0); Hematocrit 37.9 % (35.0-49.0); Hemoglobin 13.1 g/dL (12.0-15.0); Immature Granulocyte Absolute 0.04 K/mm3 (0.00-0.00); Immature Granulocyte Percent A 0.4 % (0.0-0.0); Lymphocytes Absolute Auto 2.92 K/mm3 (1.10-4.50); Lymphocytes Percent Auto 29.2 % (18.0-42.0); Mean Corpuscular HGB Conc 34.6 g/dL (32.0-36.0); Mean Corpuscular Hemoglobin 29.2 pg (27.0-31.0); Mean Corpuscular Volume 84.6 fL (78.0-102.0); Mean Platelet Volume 9.8 fl (9.2-11.8); Monocytes Absolute Auto 0.44 K/mm3 (0.10-0.90); Monocytes Percent Auto 4.4 % (2.0-11.0); Neutrophils Absolute Auto 6.3 K/mm3 (1.7-7.2); Neutrophils Percent Auto 63.2 % (50.0-70.0); Platelet Count Result 370 K/mm3 (150-420); Red Blood Count 4.48 M/mm3 (4.20-5.40); Red Cell Distribution Width 12.1 % (11.6-14.4)
[2020-02-08 19:00] LABS: Partial Thromboplastin Time 26.8 SEC (22.3-31.6); Prothrombin Time 10.5 Seconds (9.64-11.0)
[2020-02-08 19:02] LABS: RBC Urine 0-2 /hpf (0-2); Squamous Epithelial Cell Urine None seen /hpf (Few); WBC Urine 0-3 /hpf (0-3)
[2020-02-08 19:02] LABS: Lactic Acid Reflex 3.7 mmol/L (0.4-2.0)
[2020-02-08 19:03] LABS: Bacteria Urine 4+ /hpf
--- NOTE | 2020-02-08 19:09 | PC.NURSE ---
poison control notified at [phone]
[2020-02-08 19:10] LABS: Amphetamine Screen Urine Negative (Negative); Barbiturate Screen Urine Negative (Negative); Benzodiazepines Screen Urine Negative (Negative); Cannabinoid Screen Urine Negative (Negative); Cocaine Screen Urine Negative (Negative); Methadone Screen Urine Negative (Negative); Opiate Screen Urine Negative (Negative); Phencyclidine Screen Urine Negative (Negative)
[2020-02-08 19:15] LABS: Acetaminophen 0 ug/mL (10-30); Ammonia < 10 umol/L (11-32); Creatine Kinase 57 U/L (26-192); Ethanol < 3 mg/dL (0-6); Phosphorus 3.6 mg/dL (2.6-4.7); Salicylate 2.7 mg/dL (2.8-20.0)
--- NOTE | 2020-02-08 19:16 | PC.NURSE ---
posin control contacted at 1918 for updated history
[2020-02-08 19:19] LABS: Anion Gap 14 mmol/L (8-16); Blood Urea Nitrogen 11 mg/dL (7-18); Carbon Dioxide 21 mmol/L (21-32); Chloride 98 mmol/L (98-108); Estimated CRCL calculation 48 ml/min; Estimated Glomerular Filt Rate 45; Potassium 4.1 mmol/L (3.5-5.1); Sodium 133 mmol/L (136-145)
[2020-02-08 19:20] LABS: Alanine Aminotransferase 18 U/L (14-59); Albumin Level 3.4 g/dL (3.4-5.0); Alkaline Phosphatase 116 U/L (46-116); Aspartate Amino Transferase 11 U/L (15-37); Bilirubin,Total 0.8 mg/dL (0.00-1.00); Glucose 423 mg/dL (70-99); Osmolality Calculated 293 mOsm/kg (285-295); Total Protein 6.9 g/dL (6.4-8.2)
[2020-02-08 19:21] LABS: Magnesium 1.8 mg/dL (1.8-2.4)
[2020-02-08 19:25] LABS: SARS-CoV-2 Ag Negative (Negative)
[2020-02-08 19:35] LABS: Base Excess ABG -8.2 mmol/L (0-2); HCO3 ABG 17.3 mmol/L (23-29); Oxygen Content ABG 16.2 %vol (16.0-22.0); Oxygen Saturation ABG 97.1 % (95-97); Oxyhemoglobin 93.8 % (94-100); PCO2 ABG 35.9 mmHg (35-45); PO2 ABG 100.3 mmHg (80-90); Total Hemoglobin 12.2 g/dL
[2020-02-08 19:36] LABS: Device NASAL CANNULA; Modified Allen's Test Unable to perform; Site Drawn LEFT RADIAL
[2020-02-08] MEDS: ETOMIDATE 20 MG/10 ML AMPUL 40 MG (20:00)
[2020-02-08] MEDS: SUCCINYLCHOLINE CHLORIDE 200 MG/10 ML SYRINGE (20:00)
--- NOTE | 2020-02-08 20:09 | PC.NURSE ---
RSI: 20 ETOMIDATE, 100 SUCCINYLCHOLINE. NUMEROUS UNSUCCESSFUL ATTEMPTS. LMA PLACED WITH 45 ML BALLOON. VITAL SIGNS STABILIZING. VENT SETTING 360, RATE 16, AND 100%. ERP CONTACTING [facility] FOR POSSIBLE TRANSFER. REGISTRATION CONTACTING [facility], [facility], [facility].
--- NOTE | 2020-02-08 20:19 | ED.OVERDOSE ---
HPI - Overdose General Chief Complaint: Overdose Stated Complaint: ambulance Source: patient and EMS Mode of arrival: EMS Limitations: altered mental status History of Present Illness HPI Narrative: This is a 44-year-old female that presents via EMS after she took an unknown amount of sertraline / Vistaril / Seroquel an attempt to commit suicide. The patient was some found by family members and called EMS and was brought into the emergency department. The patient apparently received an eviction notice some and was distraught and attempted suicide. Upon presentation the patient had mild chronic jerks with hyperreflexia, initially appeared alert but unresponsive and ventrally became unresponsive with some sluggish pupils had myoclonic jerks and hyperreflexia. Patient has a history of diabetes type 1 on insulin and some currently afebrile. EKG was obtained which showed incomplete right bundle-branch block with no prolonged QTC interval. The patient upon arrival was unresponsive but more alert and subsequently became less and less responsive. No known quantity of medications were missing from her bottles that were brought via EMS that were with some sertraline and Seroquel and Vistaril and initially according to patient she took approximately 100 pills. complaint: intentional overdose Onset (ago): hour(s) Timing confirmed by: other Intent: suicide attempt Related Data Allergies Allergy/AdvReac Type Severity Reaction Status Date / Time metformin [From Glucophage] Allergy Mild Unknown Verified 01/08/20 10:56 Review of Systems Review of Systems: All systems reviewed & are unremarkable except as noted in HPI and below PMFSH Past Medical History Medical History (Updated 02/08/20 @ 21:04 by Darshan Frost MD) BMI 24.0-24.9, adult Depression GERD (gastroesophageal reflux disease) Tobacco dependence syndrome Type 1 diabetes Surgical History Surgical History History of bilateral tubal ligation 2012 Family History Family History Father Family history of coronary artery disease Family history of type 2 diabetes mellitus Social History Social History Smoking packs per day: 1 Smoking cigarettes per day: 20.0 Years smoked: 30 Smoking pack-years: 30.00 Tobacco type: cigarettes Additional smoking assessment comments: Patient states she uses vape at 6mg of nicotine Alcohol intake: never Substance use: current Substance use type: marijuana Last use: 12/27/19 Gender identity (if verbalized by the patient): Female Spiritual care concerns: No Exam Const: General: ill appearing HENMT: Other: Pupils some mildly reactive to light Neck: Neck: no lymphadenopathy Resp: Effort & Inspection: labored Cardio: Rate: regular rate Rhythm: regular rhythm GI: GI Palp: Yes Soft to palpation Other: distant Back/Spine/Pelvis: Back: no CVA tenderness Skin: General skin exam: normal color Rashes: no rashes Neuro: Other: lethargic Extrem: General: no pedal edema Course Course Emergency Course: reassessment patient the patient's pupils were sluggish attempted intubation and eventually placed LMA patient has a to peripheral access lines with IV fluids normal saline given pressure initially had dropped after being given succinylcholine and /Ativan and etomidate currently receiving IV fluids and all pressure currently 99/77. Respiratory was called for assistance and LMA was eventually placed after numerous attempts at intubation and currently on a vent with 100% oxygen satting at 98%. Patient currently stable on a vent with LMA and placed and with IV fluids received. patient also had a seizure event and was given 2 mg of Ativan. Current reassessment patient is satting 100%, blood pressure currently is 101/70. Talk to automotive detailer
--- NOTE | 2020-02-08 20:35 | PC.NURSE ---
Vent check done per respiratory Wanda Sinha COPER HAND. hr 66 spo2 84% c02 18, ventilatory rate dropped to 18.
[2020-02-08 20:47] LABS: Glucose Point of Care 363 (65-105)
--- NOTE | 2020-02-08 21:18 | PC.NURSE ---
2105 100mg succinylcholine as directed by ERP
[2020-02-08] MEDS: SODIUM CHLORIDE 0.9% IV 2,000 ML 999 ML (21:31)
[2020-02-08 21:41] LABS: Reflex Lactic Acid Yes or No Add Lactic
[2020-02-08 22:24] VITALS: BP 75/40; PULSE 50
[2020-02-08] MEDS: DOPamine 400 MG/D5W 250 ML 400 MG/250 ML BAG 27 MG IV CONT (22:24)
[2020-02-08] MEDS: VECURONIUM BROMIDE 10 MG VIAL (22:40)
[2020-02-08 22:46] VITALS: BP 80/60; PULSE 64; RESP 18; O2SAT 96
--- NOTE | 2020-02-08 22:52 | PC.NURSE ---
MARK PENA at [facility], nurse receiving pt updated on pt status and departure.
--- NOTE | 2020-02-09 00:38 | PC.NURSE ---
DOPAMINE INFUSING UPON ARRIVAL TO [facility] ICU ROOM 6. SEE BECKY OLIVEIRALIGHT EQUIPMENT OPERATOR FOR STOP TIME
--- NOTE | 2020-02-09 00:46 | PC.NURSE ---
2053 RN CONTACTED CHRISTIANO NUÑEZ TO CHECK ON THE WELLBEING ON PATIENTS 14 YEAR OLD DAUGHTER. RN REQUESTING THAT POLICE CONTACT DCFS, PTS DAUGHTER HAS NO PROPER PARENTAL PERSON AT THIS TIME DURING PATIENTS CONDITION. OFFICER PATRICIO STATES HE WILL DO A WELL CHILD CHECK AND CONTACT DCFS.
--- NOTE | 2020-02-09 12:32 | PC.NURSE ---
[address] TEE VECURONIUM 10 MG GIVEN IVP
--- NOTE | 2020-02-09 15:59 | PC.NURSE ---
RN contacted [facility] for patients unsupervised 14 year old daughter. RN spoke with Lupe Mata and was provided with an intake #[id number]. Lupe states she will initiate an investigation right away. BECKY then contacted [employer] to perform well-child check on minor. Officer Kyleigh states he also called [facility] on 02/08/20 (intake #[id number]).
== END 2020-02-08 22:46 | disposition short-term general hospital (02) ==
PROVIDERS: Emergency Provider Emergency Medicine; PCP Nurse Practitioner Family
DX: G93.40 Encephalopathy, unspecified (principal); R73.9 Hyperglycemia, unspecified; T50.902A Poisoning by unspecified drugs, medicaments and biological substances, intentional self-harm, initial encounter; T50.912A Poisoning by multiple unspecified drugs, medicaments and biological substances, intentional self-harm, initial encounter
CPT/HCPCS: 31500; 36415; 36600; 70450; 80053; 80307; 81001; 82140; 82550; 82805; 83605; 83735; 84100; 84443; 85025; 85610; 85730; 87077; 87086; 87088; 87186; 87426; 93005; 96361; 96365; 96375; 99285; J0330; J1265; J2060; J7030

== ENCOUNTER 2020-02-09 00:26 | Inpatient (IN) | payer OTHER, SELFPAY ==
[2020-02-08 23:25] VITALS: PULSE 70; O2SAT 96
[2020-02-09] VITALS (46 sets, daily range): BP systolic 89–165; BP diastolic 55–123; PULSE 63–90; RESP 13–29; TEMP 35.8–36.4; O2SAT 95–100; BMI 28.1
--- NOTE | ~2020-02-09 | CT_ITS ---
EXAMINATION: CT soft tiss nk chst ab pel w EXAM DATE: 02/09/2020 01:53 INDICATION: Pneumothorax - r/o tracheal injury. TECHNIQUE: Spiral CT of the neck, chest, abdomen and pelvis was performed following intravenous injec tion of 100 mL Omnipaque 350. Axial, coronal and sagittal images of the neck were reviewed. Axial, coronal and sagittal images of the chest were reviewed. Coronal maximum intensity pixel images of ch est reviewed. Axial, coronal and sagittal images of the abdomen and pelvis were reviewed. The dose- length product (DLP) for this examination was 1616.83 mGy-cm. The exposure was tailored according to patient size (auto mA exposure control), and iterative reconstruction (ASIR) was used as additional dose reduction technique. Comparison is made to prior examination from 12/30/2011. FINDINGS: Nasogastric and endotracheal tubes present. Endotracheal tube tip is slightly in the left m ainstem bronchus, but both lungs are being aerated at present. Nasopharyngeal opacities, retropharyng eal edema likely from these tubes. NECK: No evidence of tracheal injury. The thyroid gland is unremarkable. The submandibular and par otid glands are symmetric. There is no cervical lymphadenopathy. There are no masses identified. Parapharyngeal and pre-glottic fat planes are preserved. The opacified vasculature is patent. The orbits are unremarkable. Some fluid within the right maxillary, bilateral sphenoid and ethmoid sin uses. There is cervical spondylosis. The tongue appears edematous. CHEST: There is a chest tube within the left chest lateral wall, just external to the ribs. There is completely collapsed left lower lobe. There is right lower lobe segmental atelectasis. No pneumomedi astinum. There are no pleural or pericardial effusions. There is endobronchial mucus or debris with in the left mainstem bronchus. Can't exclude aspiration pneumonitis There is no mediastinal, hilar o r axillary lymphadenopathy. There is no pneumothorax. Heart normal in size. No evidence of adithya nary arterial calcification. Old right rib fractures. ABDOMEN PELVIS: Small to moderate amount of nonspecific free pelvic fluid and small amount of perihep atic ascites. Stomach wall appears diffusely edematous. Consider gastroenteritis. The liver, spleen, adrenal glands and pancreas are unremarkable. Gallbladder is unremarkable. No biliary obstruction. Portal and splenic veins are patent. Kidneys enhance symmetrically. There is no hydronephrosis. There is bicornuate uterus. Balloon catheter within collapsed bladder. There is mild mucosal wall edema, possible cystitis. Correlate with urinalysis. There is no retroperitoneal or pelvic lymphaden opathy. The appendix is normal. Colon is moderately distended with gas and fluid, correlate for diarrhea. No free intraperitoneal gas. There are no osteoblastic or osteolytic lesions identified. IMPRESSION: 1. ET tube tip entering left mainstem bronchus; please note this was subsequently repositioned on a chest x-ray obtained after this. 2. Left-sided chest tube external to the pleural cavity. No evidence of pneumothorax. Consider remov ing. 3. Left lower lobe collapse, with endobronchial mucus or debris. Aspiration pneumonitis not excludab le. 4. Right lung segmental atelectasis. 5. Nonspecific gastric wall edema and significantly distended colon mostly with gas but also fluid. Consider gastroenteritis. 6. Possible cystitis, correlate with urinalysis. Reviewed, dictated and finalized at location A. G[employer] MARKETING SALES IMPRESSION: 1. ET tube tip entering left mainstem bronchus; please note this was subsequen tly repositioned on a chest x-ray obtained after this. 2. Left-sided chest tube external to the pleural cavity. No
--- NOTE | ~2020-02-09 | XR_ITS ---
XR chest 2V 02/11/2020 13:52 Indication: Pneumonia. Procedure: AP and lateral views of the chest Comparison: 02/08/2020 Findings: Retrocardiac infiltrates. Possible small effusion. Heart size normal. Multiple healed right rib fractures. No acute osseous abnormality. Impression: 1: Retrocardiac infiltrates, atelectasis versus pneumonia. Reviewed, dictated and finalized at location A. CARDIOLOGY Impression: 1: Retrocardiac infiltrates, atelectasis versus pneumonia.
--- NOTE | ~2020-02-09 | XR_ITS ---
XR chest 1V portable 02/10/2020 09:14 Indication: Aspiration pneumonia Procedure: AP portable chest Comparison: Comparison to multiple prior studies sequentially, with oldest reviewed study dated 01/19. Findings: NG tube in the stomach. Heart size normal. Left basilar infiltrates. No focal pneumonia, ed hui, pleural effusion or pneumothorax. There are healed right lower rib fractures. Impression: 1: Left basilar infiltrates which may represent atelectasis and/or pneumonia. Reviewed, dictated and finalized at location A. TAL WATCH ASSEMBLER Impression: 1: Left basilar infiltrates which may represent atelectasis and/or pneumonia.
--- NOTE | ~2020-02-09 | XR_ITS ---
XR abdomen obstructive series 02/10/2020 11:27 INDICATION: Distended colon TECHNIQUE: KUB COMPARISON: 02/09/2020 FINDINGS: Bowel gas pattern is normal. Decreased bowel gas in the colon compared with prior study. NG tube in the stomach. Retrocardiac airspace disease may represent atelectasis and/or pneumonia. There is no evidence of free air, mass, organomegaly, ascites or obstruction. No abnormal calculi are see n. The bones appear intact. IMPRESSION: 1: No acute abdominal abnormality identified. 2: Retrocardiac airspace consolidation, which may represent atelectasis and/or pneumonia. Reviewed, dictated and finalized at location A. D EXAMINER
--- NOTE | ~2020-02-09 | XR_ITS ---
EXAMINATION: XR chest 1V portable EXAM DATE: 02/09/2020 09:03 INDICATION: Chest tube removal. Respiratory failure. TECHNIQUE: Portable AP frontal chest x-ray was obtained. Comparison is made to prior examination from earlier same day. FINDINGS: Endotracheal tube tip is 4 centimeters above the chayo. Feeding tube is in position. The left chest tube has been removed. There is segmental left lower lobe, subsegmental bilateral upper lobe atelectasis. Possible small pl eural effusion. There is no pneumothorax suspected. The cardiomediastinal silhouette is prominent but magnified on this AP technique. There are old right mid rib fractures laterally. Compared to prior study, the atelectasis is improving. IMPRESSION: 1. ET, NG tube in position 2. Improving bilateral atelectasis. Left basilar pneumonia or aspiration not excludable. Reviewed, dictated and finalized at location A. ECT ECONOMIST IMPRESSION: 1. ET, NG tube in position 2. Improving bilateral atelectasis. Left basilar pneumonia or aspiration not e xcludable.
--- NOTE | ~2020-02-09 | XR_ITS ---
EXAMINATION: XR chest 1V portable EXAM DATE: 02/09/2020 01:07 INDICATION: Intubation. TECHNIQUE: Portable AP frontal chest x-ray was obtained. Comparison is made to prior examination from 02/07. FINDINGS: Endotracheal tube tip is 1 centimeters above the chayo. This could be safely retracted 1- 2 cm. There is a feeding tube in position. There is a left-sided chest tube along the axilla soft tis della, with no evidence of left pneumothorax. Scattered regions of left lung segmental atelectasis although it is mostly aerated. Some linear right suprahilar airspace disease probably subsegmental atelectasis as well. Moderate to large amount of c olonic gas. The cardiomediastinal silhouette is prominent but magnified on this AP technique. Osseous IMPRESSION: 1. ET tube could be safely retracted 1-2 cm. 2. Left chest tube axillary soft tissue without pneumothorax identified. 3. Nasogastric tube in position. 4. Segmental left-sided, subsegmental right-sided atelectasis. Reviewed, dictated and finalized at location A. ING AND EMBOSSING UNIT OPERATOR
--- NOTE | ~2020-02-09 | XR_ITS ---
EXAMINATION: XR abdomen obstructive series EXAM DATE: 02/09/2020 09:54 INDICATION: Abdominal distention. TECHNIQUE: Frontal upright projection of the upper abdomen, frontal projection of the lower abdomen f or interpretation. Comparison is made to prior examination from 02/08/2020. FINDINGS: There is been interval improvement in amount of gaseous distention of the abdomen compared to yesterday's exam, moderately distended transverse colon and rectosigmoid colon remains, mostly verónica led with gas. Nonobstructive bowel gas pattern. Feeding tube is in position. There is no organomegaly . No evidence of free intraperitoneal gas. Left basilar atelectasis. IMPRESSION: 1. Improving amount of colonic gaseous distention. 2. Feeding tube in position. Reviewed, dictated and finalized at location A. MAN
[2020-02-09 00:25] LABS: Alveolar/Arterial O2 Gradient 598.8 mmHg; Base Excess ABG -13.8 mEq/l (+/-2.0); Fractional Inspired Oxygen 100 %; HCO3 ABG 14.8 mEq/l (22.0-26.0); Oxygen Content ABG 16.7 %vol (16.0-22.0); Oxygen Saturation ABG 88.3 % (95.0-100.0); PCO2 ABG 44.6 mmHg (35.0-45.0); PO2 ABG 69.6 mmHg (80.0-100.0); Total Hemoglobin 13.3 g/dL (12.0-18.0)
[2020-02-09 00:29] LABS: Arterial Blood Gas Vent Mode CMV; Arterial Blood Gas Ventilator rate 14 /MIN; Device VENTILATOR; Modified Allen's Test Unable to perform; Site Drawn RIGHT RADIAL; pH ABG 7.139 (7.350-7.450)
[2020-02-09 00:30] LABS: Arterial Blood Gas PEEP 5 cmH2O; Arterial Blood Gas Tidal Volume 360 ml
--- NOTE | 2020-02-09 00:30 | ECG_ITS ---
Measurements Intervals [place] Rate: 69 P: 56 [place]: 191 QRS: 26 QRSD: 120 T: 30 QT: 516 QTc: 555 Interpretive Statements SINUS RHYTHM INTRAVENTRICULAR CONDUCTION DELAY PROLONGED QT INTERVAL ABNORMAL ECG Electronically Signed On 02-09-2020 8:33:36 SENIOR FRONT END WEB DEVELOPER by Moises Gerardo D.O.
[2020-02-09] MEDS: NOREPINEPHRINE 8 MG/D5W 250 ML 8 MG/250 ML BAG 28.13 MG IV CONT (00:58)
--- NOTE | 2020-02-09 01:23 | PM.IMHP ---
H&P: HPI History of Present Illness Date/Time: 02/09/20 01:23 Chief complaint: direct admission from [facility] Narrative: this is a 44-year-old female who presented to our hospital as a direct admission secondary to an intentional suicide attempt and respiratory failure. Apparently the patient was found by her family members and it was believed that she overdosed on sertraline, Seroquel, and Vistaril. it is believed that she took about 100 pills. The patient arrived to the emergency room with mild clonic jerks and hyperreflexia and sluggish pupil reflex. She was initially alert but quickly became unresponsive. ER provider attempted to intubate the patient numerous times and finally had to place an LMA. The patient became hypotensive and was treated with approximately 4 L of IV fluids. CT brain was obtained which was unremarkable for acute pathology. Our reconciling clerk, Dr. Waters was consulted by ER provider. I was called and discussed the case with ER provider and shortly afterwards accepted the patient for transfer to our facility. Afterwards ER provider re-intubated the patient and repeat CXR demonstrated a complete left sided atelectasis. A 16 gauge Angiocath was placed midclavicular 2nd intercostal space by ER provider and subsequent chest tube was placed in the [facility]. Left lower extremity IO was placed and the patient was started on IV Dopamine for vasopressor support. On arrival to our hospital, the patient was on 20 mcgs of IV Dopamine. The patient is not currently on any sedatives and is not responsive to any painful stimuli. She has dilated and sluggishly reactive pupils. Review of Systems Review of Systems: ROS unobtainable: Yes unobtainable due to medical condition and unobtainable due to mental status PMF Past Medical History Medical History (Updated 02/09/20 @ 05:09 by Julius Akhtar MD) BMI 24.0-24.9, adult Depression GERD (gastroesophageal reflux disease) Tobacco dependence syndrome Type 1 diabetes Surgical History Surgical History History of bilateral tubal ligation 2012 Family History Family History Father Family history of coronary artery disease Family history of type 2 diabetes mellitus Social History Social History Smoking packs per day: 1 Smoking cigarettes per day: 20.0 Years smoked: 30 Smoking pack-years: 30.00 Tobacco type: cigarettes Additional smoking assessment comments: Patient states she uses vape at 6mg of nicotine Alcohol intake: never Substance use: current Substance use type: marijuana Last use: 12/27/19 Gender identity (if verbalized by the patient): Female Spiritual care concerns: No Comments Past medical histories are unobtainable secondary to medical condition. Meds Home Medications and Allergies Home Medications Medication Instructions Recorded Confirmed Type insulin glargine 100 unit/mL (3 15 unit SUB-Q DAILY #15 ml 04/24/19 02/08/20 Rx mL) subcutaneous pen insulin lispro 100 unit/mL See Rx Instructions SUB-Q QAM #15 04/24/19 02/08/20 Rx subcutaneous pen ml quetiapine 100 mg tablet 100 mg PO BID #60 tablet 10/01/19 02/08/20 Rx pantoprazole [Protonix] 20 mg PO QAM 28 Days #28 tablet 12/29/19 02/08/20 Rx blood sugar diagnostic #400 ea 01/08/20 02/08/20 Rx blood-glucose meter #1 ea 01/08/20 02/08/20 Rx capsaicin 0.075 % topical cream 1 applic TOPICAL TID #57 g 01/08/20 02/08/20 Rx diclofenac sodium 50 mg 50 mg PO TID PRN #45 tablet 01/08/20 02/08/20 Rx tablet,delayed release hydroxyzine HCl 25 mg tablet 25 mg PO TID PRN #20 tablet 01/08/20 02/08/20 Rx lancets 26 gauge #400 ea 01/08/20 02/08/20 Rx lancing device with lancets kit #100 ea 01/08/20 02/08/20 Rx sertraline 50 mg tablet 50 mg PO DAILY #30 tablet 01/08/20 02/08/20 Rx Allergies Aller
--- NOTE | 2020-02-09 02:13 | P.PCNBED_ITS ---
Procedures Central Line Placement Right Femoral: Central Line Date: 02/09/20 Central Line Time: 01:00 Performed Emergently - Given emergent patient condition, temporal constraints may have precluded informed consent.: Yes Time Out Performed: Yes Patient Position: supine Patient placed on monitor/pulse ox: Yes Provider Prep: mask, sterile gown, sterile gloves, Max. sterile barrier precautions, cap and hand hygiene with conventional soap/water or alcohol based hand rub Central line prep: 2% Chlorhexidine scrub Sterile US Technique with sterile gel/sterile probe covers: Yes Central line lumen inserted: triple Portuguese: 7 Length (cm): 20 Depth of Insertion (cm): 20 Post Procedure: sutured in place, good blood return, all ports aspirated, flushed, capped, transparent dressing, securement product and aseptic technique maintained throughout procedure Patient tolerated procedure: well Complications: none Additional comments: Date of service was 02/09/2020 at 01:00 hrs.
[2020-02-09] MEDS: PANTOPRAZOLE SODIUM IV 40 MG VIAL IV PUSH (03:09)
[2020-02-09 03:24] LABS: INR 0.9; Prothrombin Time 13.2 Seconds (11.1-14.7)
--- NOTE | 2020-02-09 03:34 | PC.NURSE ---
This patient, Lucy Arambula, was admitted to Intensive Care Unit-6 on 02/08/20 at 2315 Patient/family oriented to hospital policies and general routines including ID bracelet, bed and alarms, visiting hours, pain management, procedures, bathroom and other care routines, personal items, smoking policy, room service/diet, and visiting hours. Information on how to activate the Rapid Response Team has been discussed. Patient/Family are encouraged to report perceived risks to care and to ask questions if they do not understand what they are told or what they should do.
--- NOTE | 2020-02-09 03:47 | PC.NURSE ---
RECEIVED THIS PATIENT A DIRECT ADMIT FROM [facility]. CURRENTLY HAS DOPAMINE RUNNING AT 20MCG THROUGH AN IO SITE TO THE LEFT TIBIA. PATIENT IS UNRESPONSIVE, PUPILS ARE DILATED AND VERY SLUGGISH. INTUBATED WITH A LEFT PLEURAL CHEST TUBE IN PLACE THAT IS WITHOUT AIR LEAK. NO RESPONSE TO DEEP PAIN. NG TO RIGHT NARE PLACED TO LWIS. PATIENT'S SON, LIZABETH CALLED FOR AN UPDATE. I ALSO SPOKE WITH POISON CONTROL OF [place] FOR AN UPDATE. DR RAMSAY AT THE BEDSIDE FOR CVL INSERTION WHICH WAS DONE SUCCESSFULLY TO THE RIGHT FEMORAL VEIN.
--- NOTE | 2020-02-09 03:53 | PC.NURSE ---
TO CAT SCAN VIA BED WITH RT AND SPECIAL EDUCATION ASSOCIATE AT 0130
[2020-02-09] MEDS: SODIUM CHLORIDE 0.9% IV 1,000 ML 125 ML IV CONT ×2 (03:54→12:22)
[2020-02-09 03:55] LABS: Ethanol < 10 mg/dL (<10); Lactic Acid Reflex 1.2 mmol/L (0.7-2.1)
[2020-02-09 04:02] LABS: Anion Gap 8 mmol/L (8-16); Blood Urea Nitrogen 11 mg/dL (7-17); Calcium 6.4 mg/dL (8.4-10.2); Carbon Dioxide 19 mmol/L (22-30); Chloride 110 mmol/L (98-107); Estimated CRCL calculation 74 ml/min; Estimated Glomerular Filt Rate > 60; Glucose 347 mg/dL (65-105); Potassium 4.9 mmol/L (3.4-5.0); Sodium 137 mmol/L (137-145)
[2020-02-09 04:08] LABS: Troponin I < 0.012 ng/mL (0.000-0.034)
--- NOTE | 2020-02-09 04:12 | PC.NURSE ---
LEVOPHED DRIP STARTED AT 15 MCG AND DOPAMINE DISCONTINUED AT 0114. B/P REMAINS STABLE.. SHOULD BE ABLE TO WEAN LEVOPHED.
[2020-02-09 04:17] LABS: Anion Gap 8 mmol/L (8-16); Blood Urea Nitrogen 11 mg/dL (7-17); Calcium 6.4 mg/dL (8.4-10.2); Carbon Dioxide 19 mmol/L (22-30); Chloride 110 mmol/L (98-107); Estimated CRCL calculation 74 ml/min; Estimated Glomerular Filt Rate > 60; Glucose 350 mg/dL (65-105); Potassium 4.8 mmol/L (3.4-5.0); Sodium 137 mmol/L (137-145)
--- NOTE | 2020-02-09 04:35 | PC.NURSE ---
LT TIBIA IO CATHETER REMOVED WITHOUT DIFFICULTY.
[2020-02-09 04:58] LABS: Alveolar/Arterial O2 Gradient 540.9 mmHg; Base Excess ABG -12.2 mEq/l (+/-2.0); Fractional Inspired Oxygen 100 %; HCO3 ABG 14.1 mEq/l (22.0-26.0); Oxygen Content ABG 19.4 %vol (16.0-22.0); Oxygen Saturation ABG 98.4 % (95.0-100.0); Oxyhemoglobin 97.4 % THb (90.0-100.0); PCO2 ABG 33.7 mmHg (35.0-45.0); PO2 ABG 138.4 mmHg (80.0-100.0); PO2 FiO2 Ratio Arterial Blood 1.38 %
--- NOTE | 2020-02-09 05:00 | ECG_ITS ---
Measurements Intervals [place] Rate: 67 P: 48 WV: 188 QRS: 9 QRSD: 101 T: 42 QT: 502 QTc: 532 Interpretive Statements SINUS RHYTHM LOW QRS VOLTAGE- DIFFUSE LEADS PROLONGED QT INTERVAL ABNORMAL ECG Electronically Signed On 02-09-2020 17:07:37 INTERLACER by Moises Gerardo D.O.
[2020-02-09 05:02] LABS: Device VENTILATOR; Modified Allen's Test Pass; Site Drawn RIGHT RADIAL; pH ABG 7.239 (7.350-7.450)
[2020-02-09 05:03] LABS: Arterial Blood Gas PEEP 5 cmH2O; Arterial Blood Gas Tidal Volume 360 ml; Arterial Blood Gas Vent Mode CMV; Arterial Blood Gas Ventilator rate 14 /MIN
[2020-02-09] MEDS: INSULIN ASPART (*BKC) 100 UNITS/ML SUB-Q ×2 (06:38→09:19)
[2020-02-09 07:18] LABS: Ammonia < 9 umol/L (9-30)
--- NOTE | 2020-02-09 07:48 | PC.NURSE ---
Unable to complete [place] suicide screening score due to patient clinical condition
[2020-02-09 08:24] LABS: Folic Acid 16.3 ng/mL (2.76->20)
[2020-02-09] MEDS: CALCIUM GLUC 2,000 MG/NS 100ML 2,000 MG/100 ML BAG 100 MG IVPB (09:08)
[2020-02-09] MEDS: MAGNESIUM SULF 2 GM/WATER 50ML 2 GM/50 ML BAG IVPB (09:08)
[2020-02-09] MEDS: SODIUM BICARBONATE 8.4% 50 MEQ/50 ML VIAL IV PUSH (09:08)
[2020-02-09] MEDS: LACTATED RINGERS 1,000 ML 999 ML IV CONT (09:08)
[2020-02-09] MEDS: INSULIN GLARGINE (*BKC) 100 UNITS/ML 10 UNITS SUB-Q (09:09)
--- NOTE | 2020-02-09 09:10 | PM.PROC ---
Procedure Note - Detailed Date of procedure: 02/09/20 Pre-op diagnosis: direct admission from [facility] Recent attempted placement of a left chest tube. Post-op diagnosis: same Procedure performed: Removal of left-sided chest tube which was extra thoracic. Description of procedure: Procedure done with expected consent since patient is incapacitated and on the ventilator. Also no reachable next of kin contact. Brief history: Patient is a 44-year-old female who presented to the emergency room in [place] as an overdose patient. It became necessary to intubate her and apparently intubation was difficult. First a chest x-ray showed the endotracheal tube into the right main stem bronchus and complete atelectatic collapse of the left lung. This was mistaken as possible Lt pneumothorax so a decompressive needle was placed anteriorly and then attempted chest tube placement was done on the left which later chest x-ray and CT scan revealed was still extrathoracic going up along the chest wall but outside the chest cavity. I talked to Dr. Julius Akhtar who admitted the patient last night and after sorting out the details he asked me to stop by today and remove the extrathoracic tube and closed the wound. I check with Dr. Waters today and she is doing okay on the vent and they are planning on extubating her. Therefore, I came by to remove the chest tube. Procedure note: With patient Laying in her ICU bed we carefully removed all the tape on the chest tube prior to switching to more sterile technique. The tube appeared to be held in place by a single silk suture which was not positioned to be able close the wound. Following this using a sterile gloves I carefully prepped the area with Betadine and used a suture removal kit an a 2-0 silk on a Fransico needle to 1st remove the suture holding the in the tube, remove the tube, and then placed local anesthetic in both the edges of the wound since the patient was becoming alert. Local anesthetic used was 1% plain xylocaine approximately 3 cc. Following this 2 simple sutures of 2- 0 silk were used to approximate the wound edges and a dressing of 2 x 2 and tape was applied. I asked the nurses to replace this tomorrow and begin applying bacitracin to the wound followed by gauze and tape dressing to be changed daily. Patient tolerated the procedure well. Implants: none Anesthesia: local (1% plain xylocaine) Surgeon: Andrea Craig MD Patent Law Specialist: BECKY Montalvo, ICU nurse Estimated blood loss (mL): 1 Drains: No Packing: No Pathology: none sent Complications: No immediate complications Condition: stable Disposition: ICU Findings: And approximate 3 cm transverse incision in the lateral chest wall on the left. Wound edges were clean. Minimal bleeding occurred as I close the wound.
[2020-02-09 09:25] LABS: Glucose Point of Care 311 (65-105)
[2020-02-09 09:25] LABS: Glucose Point of Care 217 (65-105)
[2020-02-09 11:07] LABS: Alveolar/Arterial O2 Gradient 176.4 mmHg; Base Excess ABG -5.4 mEq/l (+/-2.0); Fractional Inspired Oxygen 40 %; HCO3 ABG 18.4 mEq/l (22.0-26.0); Oxygen Content ABG 16.6 %vol (16.0-22.0); Oxyhemoglobin 94.1 % THb (90.0-100.0); PCO2 ABG 30.6 mmHg (35.0-45.0); PO2 ABG 73.6 mmHg (80.0-100.0); PO2 FiO2 Ratio Arterial Blood 1.84 %; Total Hemoglobin 12.5 g/dL (12.0-18.0); pH ABG 7.396 (7.350-7.450)
[2020-02-09 11:08] LABS: Arterial Blood Gas Vent Mode SPONTANEOUS; Device VENTILATOR; Modified Allen's Test Pass; Site Drawn RIGHT RADIAL
[2020-02-09 11:09] LABS: Arterial Blood Gas PEEP 5 cmH2O; Arterial Blood Gas Pressure Support 8 cmH2O
--- NOTE | 2020-02-09 11:20 | WPDCNINT ---
Assessment and Plan Assessment and plan (1) Acute respiratory failure: Qualifiers: Respiratory failure complication: unspecified whether with hypoxia or hypercapnia Qualified Code(s): J96.00 - Acute respiratory failure, unspecified whether with hypoxia or hypercapnia Code(s): J96.00 - Acute respiratory failure, unspecified whether with hypoxia or hypercapnia Status: Acute Assessment and Plan: Patient with acute respiratory failure likely related to encephalopathy secondary to intentional drug overdose -patient was unable to protect her airway and was intubated at the outside hospital by the ER physician after multiple attempts -, peep of 5 and 40% FiO2 on CMV mode of ventilation -patient is off sedation, will place patient on SBT and evaluate for extubation -patient did will on her SBT, she did not have cuff leak, give patient Decadron and re-evaluate later this afternoon (2) Intentional drug overdose: Qualifiers: Encounter type: initial encounter Qualified Code(s): T50.902A - Poisoning by unspecified drugs, medicaments and biological substances, intentional self-harm, initial encounter Code(s): T50.902A - Poisoning by unspecified drugs, medicaments and biological substances, intentional self-harm, initial encounter Status: Acute Assessment and Plan: Patient with intentional overdose of Seroquel, Vistaril, sertraline. According the records his believe that she took about 100 pills -patient is stressed she was given eviction notice -she is at high risk for serotonin syndrome, currently no rigidity, no hyperreflexia, CK levels within normal limits -will continue to monitor closely (3) Suicide attempt by multiple drug overdose: Qualifiers: Encounter type: initial encounter Qualified Code(s): T50.912A - Poisoning by multiple unspecified drugs, medicaments and biological substances, intentional self-harm, initial encounter Code(s): T50.912A - Poisoning by multiple unspecified drugs, medicaments and biological substances, intentional self-harm, initial encounter Status: Acute Assessment and Plan: Patient with suicide attempt, will have one-to-one sitter -suicide precaution -once patient is extubated and medically stable will have care coordination and crisis management evaluate the patient -patient will need to be placed at a facility (4) Encephalopathy acute: Code(s): G93.40 - Encephalopathy, unspecified Status: Acute Assessment and Plan: Acute encephalopathy likely related to multiple medication ingestion -patient adequately fluid-resuscitated, good urine output -this morning off all sedation, patient is awake, follows simple commands and nods to questions -continue to monitor (5) Type 1 diabetes: Qualifiers: Diabetes mellitus complication status: without complication Qualified Code(s): E10.9 - Type 1 diabetes mellitus without complications Code(s): E10.9 - Type 1 diabetes mellitus without complications Status: Acute Assessment and Plan: Patient hyperglycemic -switched to high-dose sliding scale and added Lantus (6) Tobacco dependence syndrome: Code(s): F17.200 - Nicotine dependence, unspecified, uncomplicated Status: Acute Assessment and Plan: Patient currently intubated, extubated patient will be counseled for tobacco cessation (7) Pneumothorax: Qualifiers: Encounter type: initial encounter Code(s): J93.9 - Pneumothorax, unspecified Status: Acute Assessment and Plan: Pneumothorax diagnosed at an outside facility, CT chest and or chest x-ray did not reveal any pneumothorax, chest tube was placed at the outside hospital [facility] which was in the extrathoracic space. -surgery was consulted for removal of the chest tube, appreciate Dr. Craig's evaluation, and recommendations. Chest tube was removed this morning Additional Plan Discussed
[2020-02-09] MEDS: DEXTROSE 50% 25 GM/50 ML SYRINGE IV PUSH (13:45)
[2020-02-09 13:52] LABS: Glucose Point of Care < 20 (65-105)
[2020-02-09 13:52] LABS: Glucose Point of Care < 20 (65-105)
--- NOTE | 2020-02-09 14:20 | PM.IMPN ---
Progress Note: A&P Assessment and Plan (1) Acute respiratory failure: Qualifiers: Respiratory failure complication: unspecified whether with hypoxia or hypercapnia Qualified Code(s): J96.00 - Acute respiratory failure, unspecified whether with hypoxia or hypercapnia Code(s): J96.00 - Acute respiratory failure, unspecified whether with hypoxia or hypercapnia Status: Acute Assessment and Plan: The patient has been admitted to the ICU, telemetry. Continue ventilatory support and wean off of ventilator when possible. Monitor ABG. RT assess and treat. We will sedate the patient with Versed and fentanyl if she wakes up or becomes combative. Acute respiratory failure is likely secondary to multiple drug overdose. Mathematics Academic Chair, Dr. Waters has been consulted. 02/09/20 14:20 Patient is a 44-year-old female with history of depression, type 1 diabetes, and substance abuse, patient is under lot of stress from social and financial situation and took several for anti depression medication an attempt to commit suicide, was found unresponsive by her family, was taken to the [facility] and from there patient was transferred to the hospital and was intubated, patient was not able to protect her airways, currently patient is on vent unable to provide any history review of symptom, patient is on SBT in hope patient will be extubated today. Upon arrival patient was in septic shock with a elevated lactic acid and hypotension however white counts are normal, chest x-ray does not show any significant infiltrate there is no fever, will follow-up on blood and urine culture, will continue to monitor the patient, once the patient is off vent and clinically stable will have crisis team evaluate the patient, will benefit going into inpatient psychiatry care for further evaluation and management (2) Encephalopathy acute: Code(s): G93.40 - Encephalopathy, unspecified Status: Acute Assessment and Plan: Likely secondary to drug overdose, respiratory failure, and possible septic shock. Neurochecks when possible. We will need to evaluate the patient's mental status once she is extubated and awake. The patient is currently not making any purposeful movements and she is on mechanical ventilation. TSH w/ reflex T4, B12 and folate, ammonia levels. (3) Intentional drug overdose: Qualifiers: Encounter type: initial encounter Qualified Code(s): T50.902A - Poisoning by unspecified drugs, medicaments and biological substances, intentional self-harm, initial encounter Code(s): T50.902A - Poisoning by unspecified drugs, medicaments and biological substances, intentional self-harm, initial encounter Status: Acute Assessment and Plan: The patient's daughter had mentioned to ER staff that the patient was distraught over an eviction notice and wanted to commit suicide. Suicide precautions. Continue supportive care. Monitor EKG. Monitor cardiopulmonary function closely. Poison control has been consulted. Crisis intervention when possible. (4) Suicide attempt by multiple drug overdose: Qualifiers: Encounter type: initial encounter Qualified Code(s): T50.912A - Poisoning by multiple unspecified drugs, medicaments and biological substances, intentional self-harm, initial encounter Code(s): T50.912A - Poisoning by multiple unspecified drugs, medicaments and biological substances, intentional self-harm, initial encounter Status: Acute Assessment and Plan: Suicide precautions. One on one sitter. Harm precautions. The patient will likely need to be transferred to inpatient psychiatry when she is medically stable. (5) Prolonged QT interval: Code(s): R94.31 - Abnormal electrocardiogram [ECG] [EKG] Status: Acute Assessment and Plan: appears to be secondary to sertraline and Seroquel overdose. We will monitor QTC closely. We will consider l
[2020-02-09 14:33] LABS: Glucose Point of Care 47 (65-105)
[2020-02-09] MEDS: DEXTROSE 5% 1,000 ML 1,000 ML 50 ML IVPB (14:43)
[2020-02-09 16:00] LABS: Glucose Point of Care 30 (65-105)
[2020-02-09] MEDS: DEXTROSE 10% 1,000 ML 50 ML IV CONT (16:15)
[2020-02-09 18:26] LABS: Glucose Point of Care 61 (65-105)
--- NOTE | 2020-02-09 18:49 | PC.NURSE ---
[facility] contacted for welfare check on daughter Any, intake# [id number]
[2020-02-09] MEDS: DEXAMETHASONE SOD PHOS INJ 4 MG/ML VIAL IV PUSH (19:01)
[2020-02-09 21:34] LABS: Glucose Point of Care 132 (65-105)
[2020-02-09 23:10] LABS: Glucose Point of Care 184 (65-105)
[2020-02-10] VITALS (15 sets, daily range): BP systolic 86–107; BP diastolic 42–72; PULSE 82–94; RESP 16–22; TEMP 36–37.8; O2SAT 96–100
[2020-02-10] MEDS: DEXAMETHASONE SOD PHOS INJ 4 MG/ML VIAL IV PUSH ×3 (00:27→13:34)
[2020-02-10 00:39] LABS: Glucose Point of Care 228 (65-105)
[2020-02-10] MEDS: DEXTROSE 5%/0.9% SOD CHL 1,000 ML 70 ML IV CONT (01:50)
--- NOTE | 2020-02-10 02:38 | PC.NURSE ---
transfered to 231 report givene to giovana pt on room air. IVF d5ns @70. pt c/o kevan galeana clamped for transport
--- NOTE | 2020-02-10 02:50 | PC.NURSE ---
This patient, Lucy Arambula, was received from [ ic[facility]6] on 02/10/20 at 0250. Patient/family oriented to unit policies and routines
[2020-02-10] MEDS: ACETAMINOPHEN 325 MG TABLET 650 MG PO (03:11)
[2020-02-10 05:57] LABS: Anion Gap 7 mmol/L (8-16); Blood Urea Nitrogen 9 mg/dL (7-17); Calcium 7.1 mg/dL (8.4-10.2); Carbon Dioxide 23 mmol/L (22-30); Chloride 108 mmol/L (98-107); Estimated CRCL calculation 73 ml/min; Estimated Glomerular Filt Rate > 60; Glucose 262 mg/dL (65-105); Magnesium 1.8 mg/dL (1.6-2.3); Potassium 3.1 mmol/L (3.4-5.0); Sodium 138 mmol/L (137-145)
[2020-02-10 06:03] LABS: Hemoglobin A1C 10.1 % (<5.7)
[2020-02-10 06:05] LABS: Basophils Percent Auto 0.1 % (0.2-1.2); Hemoglobin 9.7 g/dL (12.0-15.0); Immature Granulocyte Percent A 0.6 % (0-0.5); Lymphocytes Absolute Auto 0.88 K/mm3 (0.9-3.2); Lymphocytes Percent Auto 5.5 % (18.3-44.2); Mean Corpuscular HGB Conc 35.9 g/dl (32-36); Mean Corpuscular Hemoglobin 29.9 pg (26-34); Mean Corpuscular Volume 83.3 fl (80-100); Mean Platelet Volume 10.3 fl (7.4-10.4); Monocytes Absolute Auto 0.3 K/mm3 (0.1-0.6); Monocytes Percent Auto 1.6 % (2.6-8.5); Neutrophils Absolute Auto 14.8 K/mm3 (1.3-6.7); Neutrophils Percent Auto 92.2 % (45.5-73.1); Platelet Count Result 248 k/mm3 (150-375); Red Blood Count 3.24 M/mm3 (4.2-5.4); Red Cell Distribution Width 12.4 % (11.5-14.5); White Blood Count 16.1 K/mm3 (4.5-10.0)
[2020-02-10 06:29] LABS: Glucose Point of Care 292 (65-105)
--- NOTE | 2020-02-10 08:48 | ECG_ITS ---
Measurements Intervals Brent Rate: 89 P: 65 IA: 128 QRS: 14 QRSD: 86 T: 64 QT: 395 QTc: 482 Interpretive Statements SINUS RHYTHM LOW QRS VOLTAGE- DIFFUSE LEADS BORDERLINE ECG Electronically Signed On 02-10-2020 11:01:11 FREIGHT TEAM ASSOCIATE by Moises Gerardo D.O.
--- NOTE | 2020-02-10 08:49 | WPDINTPN ---
Progress Note: A&P Assessment and Plan (1) Intentional drug overdose: Qualifiers: Encounter type: initial encounter Qualified Code(s): T50.902A - Poisoning by unspecified drugs, medicaments and biological substances, intentional self-harm, initial encounter <Angela Wilkins PA-C - Last Filed: 02/10/20 09:56> Code(s): T50.902A - Poisoning by unspecified drugs, medicaments and biological substances, intentional self-harm, initial encounter <Angela Wilkins PA-C - Last Filed: 02/10/20 09:56> Status: Acute <Angela Wilkins PA-C - Last Filed: 02/10/20 09:56> Assessment and Plan: Patient with intentional overdose of Seroquel, Vistaril, sertraline. According the records his believe that she took about 100 pills -patient is stressed she was given eviction notice -she is at high risk for serotonin syndrome, currently no rigidity, no hyperreflexia -Check CK level -Check Qtc, last being 532 -will continue to monitor closely <Angela Wilkins PA-C - Last Filed: 02/10/20 09:56> (2) Acute respiratory failure: Qualifiers: Respiratory failure complication: unspecified whether with hypoxia or hypercapnia Qualified Code(s): J96.00 - Acute respiratory failure, unspecified whether with hypoxia or hypercapnia <Angela Wilkins PA-C - Last Filed: 02/10/20 09:56> Code(s): J96.00 - Acute respiratory failure, unspecified whether with hypoxia or hypercapnia <Angela Wilkins PA-C - Last Filed: 02/10/20 09:56> Status: Acute <Angela Wilkins PA-C - Last Filed: 02/10/20 09:56> Assessment and Plan: Patient with acute respiratory failure likely related to encephalopathy secondary to intentional drug overdose -patient was unable to protect her airway and was intubated at the outside hospital by the ER physician after multiple attempts 02/07 -patient is doing well and back to baseline, 97% on room air -Decadron ordered for inflammation from multiple attempts of intubation at outside area hospital <Angela Wilkins PA-C - Last Filed: 02/10/20 09:56> (3) Type 1 diabetes: Qualifiers: Diabetes mellitus complication status: without complication Qualified Code(s): E10.9 - Type 1 diabetes mellitus without complications <Angela Wilknis PA-C - Last Filed: 02/10/20 09:56> Code(s): E10.9 - Type 1 diabetes mellitus without complications <Angela Wilkins PA-C - Last Filed: 02/10/20 09:56> Status: Chronic <Angela Wilkins PA-C - Last Filed: 02/10/20 09:56> Assessment and Plan: Last glucose 292 -Ranges from 20-311 -A1c 10.1 -Lantus was previously given 02/08 but caused hypoglycemia so this is on hold -Glucose will likely worsen with Decadron, will monitor -Pt on basaglar 15 u at home with SSI with a range of 3-15U -Continue Accu-Cheks, sliding scale insulin coverage. Hypoglycemia protocol. <Angela Wilkins PA-C - Last Filed: 02/10/20 09:56> (4) Encephalopathy acute: Code(s): G93.40 - Encephalopathy, unspecified <Angela Wilkins PA-C - Last Filed: 02/10/20 09:56> Status: Inactive <Angela Wilkins PA-C - Last Filed: 02/10/20 09:56> Assessment and Plan: Likely secondary to drug overdose, respiratory failure, and possible septic shock. -back to baseline -TSH w/ reflex T4, B12 and folate, ammonia levels normal. <Angela Wilkins PA-C - Last Filed: 02/10/20 09:56> (5) Suicide attempt by multiple drug overdose: Qualifiers: Encounter type: initial encounter Qualified Code(s): T50.912A - Poisoning by multiple unspecified drugs, medicaments and biological substances, intentional self-harm, initial encounter <Angela Wilkins PA-C - Last Filed: 02/10/20 09:56> Code(s): T50.912A - Poisoning by multiple unspecified drugs, medicaments and biological substances, intentional self-harm, initial encounter <Angela
[2020-02-10] MEDS: SODIUM CHLORIDE 0.9% IV 1,000 ML 75 ML IV CONT (09:52)
[2020-02-10 09:58] LABS: Creatine Kinase 203 U/L (30-135)
[2020-02-10 11:59] LABS: Glucose Point of Care 278 (65-105)
[2020-02-10] MEDS: INSULIN ASPART (*BKC) 100 UNITS/ML SUB-Q (13:32)
[2020-02-10] MEDS: CENTRAL LINE FLUSH 10 ML IV PUSH (13:34)
[2020-02-10 15:38] LABS: Vancomycin Trough 11.8 ug/mL (10.0-20.0)
[2020-02-10 16:50] LABS: Glucose Point of Care 157 (65-105)
--- NOTE | 2020-02-10 18:25 | PM.IMPN ---
Progress Note: A&P Assessment and Plan (1) Intentional drug overdose: Qualifiers: Encounter type: initial encounter Qualified Code(s): T50.902A - Poisoning by unspecified drugs, medicaments and biological substances, intentional self-harm, initial encounter Code(s): T50.902A - Poisoning by unspecified drugs, medicaments and biological substances, intentional self-harm, initial encounter Status: Acute Assessment and Plan: Patient with intentional overdose of Seroquel, Vistaril, sertraline. According the records his believe that she took about 100 pills -patient is stressed she was given eviction notice -she is at high risk for serotonin syndrome, currently no rigidity, no hyperreflexia -Check CK level -Check Qtc, last being 532 -will continue to monitor closely 02/10/20 18:25 Patient is a 44-year-old female with history of depression, type 1 diabetes, and substance abuse, patient is under lot of stress from social and financial situation and took several for anti depression medication an attempt to commit suicide, was found unresponsive by her family, was taken to the [place] [facility] and from there patient was transferred to the hospital and was intubated, patient was not able to protect her airways, on 02/08 patient was on SBT later patient was extubated, Upon arrival patient was in septic shock with a elevated lactic acid and hypotension however white counts were normal, chest x-ray did not show any significant and free however suspect patient may have aspiration pneumonia and takes time for to manifest an x-ray, is repeat x-ray today shows infiltrate, patient is treated with cefepime and vancomycin patient was transferred out of ICU and to IMU today, patient still is quite distraughted and unable to provide review of symptom or history and with sitter, will continue present managed once clinically stable will have crisis team evaluate the patient patient will benefit with inpatient psychiatry care (2) Acute respiratory failure: Qualifiers: Respiratory failure complication: unspecified whether with hypoxia or hypercapnia Qualified Code(s): J96.00 - Acute respiratory failure, unspecified whether with hypoxia or hypercapnia Code(s): J96.00 - Acute respiratory failure, unspecified whether with hypoxia or hypercapnia Status: Acute Assessment and Plan: Patient with acute respiratory failure likely related to encephalopathy secondary to intentional drug overdose -patient was unable to protect her airway and was intubated at the outside hospital by the ER physician after multiple attempts 02/07 -patient is doing well and back to baseline, 97% on room air -Decadron ordered for inflammation from multiple attempts of intubation at outside area hospital (3) Type 1 diabetes: Qualifiers: Diabetes mellitus complication status: without complication Qualified Code(s): E10.9 - Type 1 diabetes mellitus without complications Code(s): E10.9 - Type 1 diabetes mellitus without complications Status: Chronic Assessment and Plan: Last glucose 292 -Ranges from 20-311 -A1c 10.1 -Lantus was previously given 02/08 but caused hypoglycemia so this is on hold -Glucose will likely worsen with Decadron, will monitor -Pt on basaglar 15 u at home with SSI with a range of 3-15U -Continue Accu-Cheks, sliding scale insulin coverage. Hypoglycemia protocol. (4) Encephalopathy acute: Code(s): G93.40 - Encephalopathy, unspecified Status: Inactive Assessment and Plan: Likely secondary to drug overdose, respiratory failure, and possible septic shock. -back to baseline -TSH w/ reflex T4, B12 and folate, ammonia levels normal. (5) Suicide attempt by multiple drug overdose: Qualifiers: Encounter type: initial encounter Qualified Code(s): T50.912A - Poisoning by multiple unspecified drugs, medicaments and biological substance
[2020-02-10 22:16] LABS: Glucose Point of Care 224 (65-105)
[2020-02-11] VITALS (11 sets, daily range): BP systolic 102–135; BP diastolic 52–68; PULSE 76–92; RESP 12–18; TEMP 36.6–37.1; O2SAT 97–100
[2020-02-11 00:26] LABS: Glucose Point of Care 235 (65-105)
[2020-02-11] MEDS: INSULIN ASPART (*BKC) 100 UNITS/ML SUB-Q ×2 (00:43→12:53)
[2020-02-11] MEDS: CENTRAL LINE FLUSH 10 ML IV PUSH ×2 (00:43→06:13)
[2020-02-11] MEDS: SODIUM CHLORIDE 0.9% IV 1,000 ML 100 ML IV CONT ×2 (00:46→11:08)
[2020-02-11 05:31] LABS: Basophils Percent Auto 0.1 % (0.2-1.2); Eosinophils Percent Auto 0.1 % (0-4.4); Hematocrit 28.1 % (37.0-47.0); Immature Granulocyte Absolute 0.08 K/mm3 (0.00-0.031); Immature Granulocyte Percent A 0.5 % (0-0.5); Lymphocytes Absolute Auto 3.19 K/mm3 (0.9-3.2); Lymphocytes Percent Auto 21.3 % (18.3-44.2); Mean Corpuscular HGB Conc 35.6 g/dl (32-36); Mean Corpuscular Hemoglobin 30.1 pg (26-34); Mean Corpuscular Volume 84.6 fl (80-100); Mean Platelet Volume 10.4 fl (7.4-10.4); Monocytes Absolute Auto 0.7 K/mm3 (0.1-0.6); Monocytes Percent Auto 4.8 % (2.6-8.5); Neutrophils Percent Auto 73.2 % (45.5-73.1); Platelet Count Result 252 k/mm3 (150-375); Red Blood Count 3.32 M/mm3 (4.2-5.4); Red Cell Distribution Width 12.8 % (11.5-14.5)
[2020-02-11 05:47] LABS: Alanine Aminotransferase 18 U/L (4-35); Albumin Level 2.5 g/dL (3.5-5.1); Alkaline Phosphatase 82 U/L (38-126); Anion Gap 5 mmol/L (8-16); Aspartate Amino Transferase 22 U/L (14-36); Bilirubin,Total 0.6 mg/dL (0.2-1.3); Blood Urea Nitrogen 13 mg/dL (7-17); Calcium 7.6 mg/dL (8.4-10.2); Carbon Dioxide 24 mmol/L (22-30); Chloride 109 mmol/L (98-107); Creatine Kinase 136 U/L (30-135); Estimated CRCL calculation 65 ml/min; Estimated Glomerular Filt Rate > 60; Glucose 154 mg/dL (65-105); Magnesium 1.9 mg/dL (1.6-2.3); Potassium 3.2 mmol/L (3.4-5.0); Sodium 138 mmol/L (137-145)
[2020-02-11 06:09] LABS: Glucose Point of Care 187 (65-105)
[2020-02-11 09:13] LABS: Glucose Point of Care 168 (65-105)
[2020-02-11 11:52] LABS: Glucose Point of Care 223 (65-105)
[2020-02-11] MEDS: POTASSIUM CHLORIDE 20 MEQ PACKET (FOR LIQUID) 40 MEQ PO (12:24)
[2020-02-11] MEDS: NEOMYCIN/POLYMYXIN/BACITRACIN OINTMENT PACKET 1 PACKET TOPICAL (12:37)
--- NOTE | 2020-02-11 15:38 | PM.IMPN ---
Progress Note: A&P Assessment and Plan (1) Intentional drug overdose: Qualifiers: Encounter type: initial encounter Qualified Code(s): T50.902A - Poisoning by unspecified drugs, medicaments and biological substances, intentional self-harm, initial encounter Code(s): T50.902A - Poisoning by unspecified drugs, medicaments and biological substances, intentional self-harm, initial encounter Status: Acute Assessment and Plan: Patient with intentional overdose of Seroquel, Vistaril, sertraline. According the records his believe that she took about 100 pills -patient is stressed she was given eviction notice -she is at high risk for serotonin syndrome, currently no rigidity, no hyperreflexia -Check CK level -Check Qtc, last being 532 -will continue to monitor closely 02/11/20 15:38 Patient is a 44-year-old female with history of depression, type 1 diabetes, and substance abuse, patient is under lot of stress from social and financial situation and took several for anti depression medication an attempt to commit suicide, was found unresponsive by her family, was taken to the [facility] [facility] and from there patient was transferred to the hospital and was intubated, patient was not able to protect her airways, on 02/08 patient was on SBT later patient was extubated, Upon arrival patient was in septic shock with a elevated lactic acid and hypotension however white counts were normal, chest x-ray did not show any significant infiltrates however suspect patient may have aspiration pneumonia and takes time for to manifest an x-ray, CT scan of the abdomen showed retrocardiac infiltrate and is repeat x-ray today shows infiltrate, patient is treated with cefepime and vancomycin patient was transferred out of ICU and to IMU on 02/09, there was concern the patient may have aspirated and was placed on NG tube, patient had a BM today, we clamped NG tube for 4hrs, remained clinically stable, we removed the NG tube will start the patient on full liquid and advance as tolerated, patient still is quite distraughted and unable to provide review of symptom or history and with sitter, will continue present management once clinically stable will have crisis team evaluate the patient patient will benefit with inpatient psychiatry care. Will culture so far no growth, wound culture is growing E coli pansensitive will continue cefepime, (2) Acute respiratory failure: Qualifiers: Respiratory failure complication: unspecified whether with hypoxia or hypercapnia Qualified Code(s): J96.00 - Acute respiratory failure, unspecified whether with hypoxia or hypercapnia Code(s): J96.00 - Acute respiratory failure, unspecified whether with hypoxia or hypercapnia Status: Acute Assessment and Plan: Patient with acute respiratory failure likely related to encephalopathy secondary to intentional drug overdose -patient was unable to protect her airway and was intubated at the outside hospital by the ER physician after multiple attempts 02/07 -patient is doing well and back to baseline, 97% on room air -Decadron ordered for inflammation from multiple attempts of intubation at outside area hospital (3) Type 1 diabetes: Qualifiers: Diabetes mellitus complication status: without complication Qualified Code(s): E10.9 - Type 1 diabetes mellitus without complications Code(s): E10.9 - Type 1 diabetes mellitus without complications Status: Chronic Assessment and Plan: Last glucose 292 -Ranges from 20-311 -A1c 10.1 -Lantus was previously given 02/08 but caused hypoglycemia so this is on hold -Glucose will likely worsen with Decadron, will monitor -Pt on basaglar 15 u at home with SSI with a range of 3-15U -Continue Accu-Cheks, sliding scale insulin coverage. Hypoglycemia protocol. Patient is started on full liquid will closely monitor patient blood sugar and adjust her insulin as needed
[2020-02-11 16:52] LABS: Glucose Point of Care 108 (65-105)
[2020-02-11 20:06] LABS: Glucose Point of Care 430 (65-105)
[2020-02-12 05:10] LABS: Vancomycin Trough 20.7 ug/mL (10.0-20.0)
[2020-02-12 08:00] VITALS: BP 119/56; PULSE 77; RESP 20; TEMP 36.6; O2SAT 98
[2020-02-12] MEDS: INSULIN ASPART (*BKC) 100 UNITS/ML SUB-Q ×3 (08:48→17:24)
[2020-02-12 09:12] LABS: Hematocrit 29.8 % (37.0-47.0); Hemoglobin 10.6 g/dL (12.0-15.0); Mean Corpuscular HGB Conc 35.6 g/dl (32-36); Mean Corpuscular Hemoglobin 29.9 pg (26-34); Mean Corpuscular Volume 84.2 fl (80-100); Mean Platelet Volume 9.8 fl (7.4-10.4); Platelet Count Result 269 k/mm3 (150-375); Red Blood Count 3.54 M/mm3 (4.2-5.4); Red Cell Distribution Width 12.5 % (11.5-14.5); White Blood Count 9.2 K/mm3 (4.5-10.0)
[2020-02-12 09:21] LABS: Glucose Point of Care 395 (65-105)
[2020-02-12 09:27] LABS: Alanine Aminotransferase 16 U/L (4-35); Albumin Level 2.9 g/dL (3.5-5.1); Alkaline Phosphatase 95 U/L (38-126); Anion Gap 12 mmol/L (8-16); Aspartate Amino Transferase 17 U/L (14-36); Bilirubin,Total 0.8 mg/dL (0.2-1.3); Blood Urea Nitrogen 14 mg/dL (7-17); Calcium 7.6 mg/dL (8.4-10.2); Carbon Dioxide 21 mmol/L (22-30); Chloride 101 mmol/L (98-107); Estimated CRCL calculation 65 ml/min; Estimated Glomerular Filt Rate > 60; Glucose 375 mg/dL (65-105); Magnesium 1.6 mg/dL (1.6-2.3); Potassium 3.8 mmol/L (3.4-5.0); Sodium 134 mmol/L (137-145)
[2020-02-12 11:41] LABS: Glucose Point of Care 351 (65-105)
[2020-02-12 12:00] VITALS: BP 131/71; PULSE 93; RESP 18; TEMP 36.9; O2SAT 97
--- NOTE | 2020-02-12 12:10 | PM.IMPN ---
Progress Note: A&P Assessment and Plan (1) Intentional drug overdose: Qualifiers: Encounter type: initial encounter Qualified Code(s): T50.902A - Poisoning by unspecified drugs, medicaments and biological substances, intentional self-harm, initial encounter Code(s): T50.902A - Poisoning by unspecified drugs, medicaments and biological substances, intentional self-harm, initial encounter Status: Acute Assessment and Plan: Patient with intentional overdose of Seroquel, Vistaril, sertraline. According the records his believe that she took about 100 pills -patient is stressed she was given eviction notice -she is at high risk for serotonin syndrome, currently no rigidity, no hyperreflexia -Check CK level -Check Qtc, last being 532 -will continue to monitor closely 02/12/20 12:10 Patient is a 44-year-old female with history of depression, type 1 diabetes, and substance abuse, patient is under lot of stress from social and financial situation and took several for anti depression medication an attempt to commit suicide, was found unresponsive by her family, was taken to the [facility] and from there patient was transferred to the hospital and was intubated, patient was not able to protect her airways, on 02/08 patient was on SBT later patient was extubated, Upon arrival patient was in septic shock with a elevated lactic acid and hypotension however white counts were normal, chest x-ray did not show any significant infiltrates however suspect patient may have aspiration pneumonia and takes time for to manifest an x-ray, CT scan of the abdomen showed retrocardiac infiltrate and is repeat x-ray today shows infiltrate, patient is treated with cefepime and vancomycin patient was transferred out of ICU and to IMU on 02/09, there was concern the patient may have aspirated and was placed on NG tube, patient had a BM today, we clamped NG tube for 4hrs, remained clinically stable, we removed the NG tube will start the patient on full liquid and advance as tolerated, patient still is quite distraughted and unable to provide review of symptom or history and with sitter, will continue present management once clinically stable will have crisis team evaluate the patient patient will benefit with inpatient psychiatry care. Will culture so far no growth, urine culture is growing E coli pansensitive will continue cefepime. today 02/11 today patient states feeling better was able to eat her breakfast denies any a nausea vomiting or abdominal pain, patient does complain slight dry cough but no fever or chills, patient white count is normal today, patient does not have any fever, patient chest x-ray showed retrocardiac infiltrate, will stop the IV antibiotic and switch her over to oral antibiotics for the pneumonia, she is clinically stable and clear to be discharged to inpatient psychiatry care, I believe patient will benefit from psychiatric evaluation and management (2) Acute respiratory failure: Qualifiers: Respiratory failure complication: unspecified whether with hypoxia or hypercapnia Qualified Code(s): J96.00 - Acute respiratory failure, unspecified whether with hypoxia or hypercapnia Code(s): J96.00 - Acute respiratory failure, unspecified whether with hypoxia or hypercapnia Status: Acute Assessment and Plan: Patient with acute respiratory failure likely related to encephalopathy secondary to intentional drug overdose -patient was unable to protect her airway and was intubated at the outside hospital by the ER physician after multiple attempts 02/07 -patient is doing well and back to baseline, 97% on room air -Decadron ordered for inflammation from multiple attempts of intubation at outside area hospital (3) Type 1 diabetes: Qualifiers: Diabetes mellitus complication status: without complication Qualified Code(s): E10.9 - Type 1 diabetes mellitus without complications
[2020-02-12 16:00] VITALS: BP 131/64; PULSE 90; RESP 16; TEMP 37; O2SAT 99
[2020-02-12 16:47] LABS: Glucose Point of Care 223 (65-105)
[2020-02-12] MEDS: ENOXAPARIN 40 MG/0.4 ML SYRINGE SUB-Q (17:23)
[2020-02-12 19:57] VITALS: BP 148/91; PULSE 101; RESP 20; TEMP 36.5; O2SAT 100
[2020-02-12 20:49] LABS: Glucose Point of Care 167 (65-105)
[2020-02-12] MEDS: AMOXICILLIN/CLAVULANATE K 500-125 MG TAB 1 TABLET PO (21:07)
[2020-02-12 22:33] LABS: Glucose Point of Care 178 (65-105)
[2020-02-12 23:55] VITALS: BP 133/65; PULSE 75; RESP 16; TEMP 36.7; O2SAT 99
[2020-02-13] MEDS: AMOXICILLIN/CLAVULANATE K 500-125 MG TAB 1 TABLET PO (05:08)
[2020-02-13 07:41] LABS: Alanine Aminotransferase 12 U/L (4-35); Albumin Level 2.5 g/dL (3.5-5.1); Alkaline Phosphatase 92 U/L (38-126); Anion Gap 11 mmol/L (8-16); Aspartate Amino Transferase 18 U/L (14-36); Bilirubin,Total 0.6 mg/dL (0.2-1.3); Blood Urea Nitrogen 10 mg/dL (7-17); Calcium 7.2 mg/dL (8.4-10.2); Carbon Dioxide 22 mmol/L (22-30); Chloride 100 mmol/L (98-107); Estimated CRCL calculation 73 ml/min; Estimated Glomerular Filt Rate > 60; Glucose 388 mg/dL (65-105); Potassium 3.6 mmol/L (3.4-5.0); Sodium 133 mmol/L (137-145)
--- NOTE | 2020-02-13 07:51 | PM.TDS ---
Transfer Discharge Sum: Prov Provider Date of admission: 02/09/20 00:26 Primary care physician: Shraddha Ward NP Admitting clinician: Julius Akhtar MD Consults: 02/09/20 00:28 Consult to Physician Routine Comment: Consulting Provider: Randall Waters director call center sales/MD group to consult: Dr. Waters Reason for consultation: ICU admit Has provider been notified: Yes 02/09/20 03:30 Consult to Physician Routine Comment: Consulting Provider: Hermes Craig director call center sales/MD group to consult: Dr. Craig Reason for consultation: Left sided chest tube removal. Has provider been notified: Yes DS: Admitting Diagnosis Admitting Diagnosis Admitting Diagnosis: Overdose, Acute respiratory failure DS: Discharge Diagnosis Discharge Diagnosis (1) Intentional drug overdose: Qualifiers: Encounter type: initial encounter Qualified Code(s): T50.902A - Poisoning by unspecified drugs, medicaments and biological substances, intentional self-harm, initial encounter Code(s): T50.902A - Poisoning by unspecified drugs, medicaments and biological substances, intentional self-harm, initial encounter Status: Acute Assessment and Plan: Patient with intentional overdose of Seroquel, Vistaril, sertraline. According the records his believe that she took about 100 pills -patient is stressed she was given eviction notice -she is at high risk for serotonin syndrome, currently no rigidity, no hyperreflexia -Check CK level -Check Qtc, last being 532 -will continue to monitor closely 02/12/20 12:10 Patient is a 44-year-old female with history of depression, type 1 diabetes, and substance abuse, patient is under lot of stress from social and financial situation and took several for anti depression medication an attempt to commit suicide, was found unresponsive by her family, was taken to the [facility] and from there patient was transferred to the hospital and was intubated, patient was not able to protect her airways, on 02/08 patient was on SBT later patient was extubated, Upon arrival patient was in septic shock with a elevated lactic acid and hypotension however white counts were normal, chest x-ray did not show any significant infiltrates however suspect patient may have aspiration pneumonia and takes time for to manifest an x-ray, CT scan of the abdomen showed retrocardiac infiltrate and is repeat x-ray today shows infiltrate, patient is treated with cefepime and vancomycin patient was transferred out of ICU and to IMU on 02/09, there was concern the patient may have aspirated and was placed on NG tube, patient had a BM today, we clamped NG tube for 4hrs, remained clinically stable, we removed the NG tube will start the patient on full liquid and advance as tolerated, patient still is quite distraughted and unable to provide review of symptom or history and with sitter, will continue present management once clinically stable will have crisis team evaluate the patient patient will benefit with inpatient psychiatry care. Will culture so far no growth, urine culture is growing E coli pansensitive will continue cefepime. today 02/11 today patient states feeling better was able to eat her breakfast denies any a nausea vomiting or abdominal pain, patient does complain slight dry cough but no fever or chills, patient white count is normal today, patient does not have any fever, patient chest x-ray showed retrocardiac infiltrate, will stop the IV antibiotic and switch her over to oral antibiotics for the pneumonia, she is clinically stable and clear to be discharged to inpatient psychiatry care, I believe patient will benefit from psychiatric evaluation and management (2) Acute respiratory failure: Qualifiers: Respiratory failure complication: unspecified whether with hypoxia or hypercapnia Qualified Code(s): J96.00 - Acute respiratory failure, unspecified whether with hypoxia or hypercap
== END 2020-02-13 06:50 | disposition other institution (70) | DRG 817 ==
LOC: ANHICU 17:24 → ANHIMU 02-10 05:07 → ANHICU 02-18 14:42 → ANHIMU 02-18 14:42
PROVIDERS: Internal Medicine; Physician Assistant; Admitting Provider Family Medicine; PCP Nurse Practitioner Family; Visit Provider Family Medicine
DX: T43.592A Poisoning by other antipsychotics and neuroleptics, intentional self-harm, initial encounter (principal); T43.222A Poisoning by selective serotonin reuptake inhibitors, intentional self-harm, initial encounter; J96.00 Acute respiratory failure, unspecified whether with hypoxia or hypercapnia; J69.0 Pneumonitis due to inhalation of food and vomit; G93.40 Encephalopathy, unspecified; R94.31 Abnormal electrocardiogram [ECG] [EKG]; A41.9 Sepsis, unspecified organism; R65.21 Severe sepsis with septic shock; R56.9 Unspecified convulsions; E87.2 Acidosis; J98.11 Atelectasis; E10.9 Type 1 diabetes mellitus without complications; F17.210 Nicotine dependence, cigarettes, uncomplicated; K21.9 Gastro-esophageal reflux disease without esophagitis; F32.9 Major depressive disorder, single episode, unspecified; F19.10 Other psychoactive substance abuse, uncomplicated; Z59.8 Other problems related to housing and economic circumstances; Z79.4 Long term (current) use of insulin; Z79.899 Other long term (current) drug therapy
CPT/HCPCS: 36415; 36600; 70491; 71045; 71046; 71260; 74019; 74177; 80048; 80053; 80076; 80202; 80307; 82140; 82550; 82607; 82746; 82805; 83036; 83605; 83735; 84484; 85025; 85027; 85610; 85730; 87040; 93005; 94002; A9270; C1751; C9113; J0610; J0692; J1100; J1650; J1815; J2250; J3010; J3370; J3475; J3480; J7030; J7042; J7070; J7120; Q9967

== ENCOUNTER 2020-04-20 23:34 | Observation (INO) | payer OTHER, SELFPAY ==
--- NOTE | ~2020-04-20 | CT_ITS ---
EXAMINATION: CTA chest PE protocol EXAM DATE: 04/21/2020 12:25 INDICATION: Elevated d-dimer, shortness of breath. TECHNIQUE: Spiral CTA of the chest (pulmonary arteries) was performed with 100 cc Omnipaque 350 intr avenous contrast injection. Images were acquired during the pulmonary arterial phase. Coronal maxi mum intensity projection 3D-reconstructions were created by the technologist on dedicated workstation . Axial, coronal and sagittal reformatted images were reviewed. The dose-length product (DLP) for t his examination was 248.04 mGy-cm. The exposure was tailored according to patient size (auto mA exp osure control), and iterative reconstruction (ASIR) was used as additional dose reduction technique. Comparison is made to prior examination from 02/09/2020. FINDINGS: Pulmonary arteries are well opacified and without intraluminal filling defects. No thora cic aortic dissection. There is right upper lobe granuloma, resolution of the previously seen extens aicha bilateral airspace disease. There are no pleural or pericardial effusions. Tracheobronchial tr ee is patent. There is no mediastinal, hilar or axillary lymphadenopathy. There is no pneumothora x. Heart normal in size. No evidence of coronary arterial calcification. Upper abdomen is unrema rkable. There is old sternal fracture with nonunion. There are old right rib fractures. IMPRESSION: 1. No pulmonary emboli or acute findings. 2. Chronic sternal fracture with nonunion. Reviewed, dictated and finalized at location B. ACTOR PLANT OPERATOR
--- NOTE | ~2020-04-20 | XR_ITS ---
XR chest 1V portable DATE: 04/21/2020 01:10 INDICATION: Shortness of breath TECHNIQUE: Portable AP chest on April 21, 2020 at 0113 hours COMPARISON: 02/11/2020 AP chest FINDINGS: Heart size is within normal range. No hilar or mediastinal enlargement. The lungs are clear of infiltrate or consolidation. No pleural effusion or pulmonary vascular congestion or pneumothorax . Diffuse osteopenia. Old healed right rib fracture deformities. IMPRESSION: No active cardiopulmonary disease; resolution of left lower lung infiltrate or atelectasi s since 02/11/2020 Reviewed, dictated and finalized at location A. LED NURSING CASE MANAGER IMPRESSION: No active cardiopulmonary disease; resolution of left lower lung in filtrate or atelectasis since 02/11/2020
[2020-04-20 23:35] VITALS: BP 116/81; PULSE 120; RESP 20; TEMP 38.3; O2SAT 100
[2020-04-21] VITALS (13 sets, daily range): BP systolic 74–110; BP diastolic 45–71; PULSE 98–110; RESP 18–20; TEMP 36.6–38.3; O2SAT 93–100
--- NOTE | 2020-04-21 00:03 | ECG_ITS ---
Measurements Intervals [place] Rate: 113 P: 58 WV: 129 QRS: 17 QRSD: 69 T: 58 QT: 340 QTc: 468 Interpretive Statements SINUS TACHYCARDIA BASELINE ARTIFACT- II, III, AVR, AVL, AVF, V1-V6 ABNORMAL ECG Electronically Signed On 04-21-2020 7:41:47 DIGITAL PUBLISHING SPECIALIST by Moises Gerardo D.O.
--- NOTE | 2020-04-21 00:13 | ED.FEVER ---
HPI - Fever General Chief Complaint: Syncope Stated Complaint: sob Time Seen by Provider: 04/21/20 00:03 Source: patient Mode of arrival: EMS Limitations: no limitations History of Present Illness HPI Narrative: 45-year-old woman with a history of type 1 diabetes and smoking comes in today complaining of fever off and on for last week and progressively worse shortness breath and cough. Patient states that she also an episode where she passed out in the shower this evening. She had loss of consciousness. She states her cough is productive, she has had intermittent vomiting, abdominal pain, chest pressure, and back pain. She denies hemoptysis, hematemesis, melena, diarrhea, and rash. She denies specific sick exposures. MD elicited complaint: fever Onset (ago): week(s) (1) Exacerbating factors: nothing Relieving factors: nothing Associated symptoms: myalgias, headache, cough, chest pain, shortness of breath, abdominal pain, nausea and vomiting Related Data Home Medications Medication Instructions Recorded Confirmed insulin aspart U-100 100 unit/mL 5 unit SUBCUT BIDWMEAL ml 03/17/20 04/20/20 (3 mL) subcutaneous pen insulin glargine 100 unit/mL (3 10 unit SUBCUT QPM ml 03/17/20 04/20/20 mL) subcutaneous pen pantoprazole 40 mg tablet,delayed 40 mg PO DAILY tablet 03/17/20 04/20/20 release Allergies Allergy/AdvReac Type Severity Reaction Status Date / Time metformin [From Glucophage] Allergy Mild Unknown Verified 03/17/20 13:35 Review of Systems Constitutional: Constitutional: Denies chills, Reports fatigue and Reports fever(s) Eyes: Eyes: Denies change in vision and Denies photophobia ENT: Denies dysphagia, Denies nasal congestion and Denies sore throat Cardiovascular: Cardiovascular: Reports chest pain and Denies radiating jaw, neck or arm pain Respiratory: Respiratory: Reports cough, Reports dyspnea and Denies wheezing Gastrointestinal: Gastrointestinal: Reports abdominal pain, Denies diarrhea, Reports nausea and Reports vomiting Genitourinary: Genitourinary: Denies hematuria, Denies nocturia and Denies dysuria Musculoskeletal: Musculoskeletal: Denies arthralgias and Denies joint swelling Integumentary/Breasts: Skin/Breast: Denies pruritus, Denies erythema and Denies rash Neurologic: Denies vertigo, Denies dizziness, Reports syncope, Denies focal weakness and Reports numbness (Chronic at distal lower extremities) Hematologic/Lymphatic: Hematologic/Lymphatic: Denies easy bleeding and Denies easy bruising Allergic/Immunologic: Allergic/Immunologic: Denies lip swelling and Denies throat swelling [facility] Past Medical History Medical History (Updated 04/21/20 @ 02:08 by Julius Griffith MD) BMI 24.0-24.9, adult Depression GERD (gastroesophageal reflux disease) Tobacco dependence syndrome Type 1 diabetes Surgical History Surgical History History of bilateral tubal ligation 2012 Family History Family History Father Family history of coronary artery disease Family history of type 2 diabetes mellitus Social History Social History Smoking packs per day: 1 Smoking cigarettes per day: 20.0 Years smoked: 30 Smoking pack-years: 30.00 Smoking status: Never smoker Tobacco type: cigarettes Additional smoking assessment comments: Patient states she uses vape at 6mg of nicotine Alcohol intake: current Substance use: former Substance use type: heroin, amphetamines, methamphetamine and prescription drug Last use: 12/27/19 Gender identity (if verbalized by the patient): Female Spiritual care concerns: No Exam Const: General: alert and ill appearing (mildly) acutely Orientation/consciousness: patient oriented x3 Other: Mild acute distress HENMT: Head: normal to inspection Ears: external ears normal
[2020-04-21] MEDS: SODIUM CHLORIDE 0.9% IV 1,000 ML 999 ML IV CONT (00:36)
[2020-04-21] MEDS: ONDANSETRON INJ 4 MG/2 ML VIAL IV PUSH (00:36)
[2020-04-21 01:02] LABS: Basophils Absolute Auto 0.11 K/mm3 (0.00-0.10); Basophils Percent Auto 0.6 % (0.0-1.0); Eosinophils Absolute Auto 0.02 K/mm3 (0.02-0.50); Eosinophils Percent Auto 0.1 % (1.0-6.0); Hematocrit 35.4 % (35.0-49.0); Hemoglobin 12.3 g/dL (12.0-15.0); Immature Granulocyte Percent A 0.5 % (0.0-0.0); Lymphocytes Absolute Auto 1.03 K/mm3 (1.10-4.50); Lymphocytes Percent Auto 5.4 % (18.0-42.0); Mean Corpuscular HGB Conc 34.7 g/dL (32.0-36.0); Mean Corpuscular Volume 83.5 fL (78.0-102.0); Mean Platelet Volume 10.1 fl (9.2-11.8); Monocytes Absolute Auto 0.53 K/mm3 (0.10-0.90); Monocytes Percent Auto 2.8 % (2.0-11.0); Neutrophils Absolute Auto 17.2 K/mm3 (1.7-7.2); Neutrophils Percent Auto 90.6 % (50.0-70.0); Platelet Count Result 275 K/mm3 (150-420); Red Blood Count 4.24 M/mm3 (4.20-5.40)
[2020-04-21 01:13] LABS: Add Urine Microscopic? YES; Appearance Urine Clear (Clear); Bilirubin Urine Negative (Negative); Blood Urine Negative (Negative); Color Urine Yellow (Yellow); Glucose Urine UA 3+ (Negative); Ketones Urine 1+ (Negative); Leukocyte Esterase Ur Negative LEU/UL (Negative); Nitrate Urine Positive (Negative); Protein Urine Negative (Negative); Urobilinogen Urine 0.2 mg/dL (0.2-1.0)
[2020-04-21 01:20] LABS: Alanine Aminotransferase 15 U/L (14-59); Albumin Level 3.3 g/dL (3.4-5.0); Alkaline Phosphatase 126 U/L (46-116); Anion Gap 12 mmol/L (8-16); Aspartate Amino Transferase 13 U/L (15-37); Bilirubin,Total 0.8 mg/dL (0.00-1.00); Blood Urea Nitrogen 16 mg/dL (7-18); CRP 3.8 mg/dL (0.0-0.9); Calcium 8.3 mg/dL (8.5-10.1); Carbon Dioxide 23 mmol/L (21-32); Chloride 98 mmol/L (98-108); Estimated CRCL calculation 47 ml/min; Estimated Glomerular Filt Rate 48; Glucose 231 mg/dL (70-99); Lipase 57 U/L (73-393); Osmolality Calculated 284 mOsm/kg (285-295); Potassium 4.7 mmol/L (3.5-5.1); Sodium 133 mmol/L (136-145); Total Protein 6.7 g/dL (6.4-8.2)
[2020-04-21 01:24] LABS: Lactic Acid Reflex 2.3 mmol/L (0.4-2.0)
[2020-04-21 01:28] LABS: Bacteria Urine 4+ /hpf; RBC Urine 0-2 /hpf (0-2); Squamous Epithelial Cell Urine Few /hpf (Few)
[2020-04-21 01:34] LABS: INR 0.9; Prothrombin Time 9.9 Seconds (9.50-12.10)
[2020-04-21 01:36] LABS: D Dimer 0.53 mg/L (0.19-0.50)
[2020-04-21 01:44] LABS: Influenza Control Valid (Valid); SARS-CoV-2 Ag Negative (Negative)
[2020-04-21 01:45] LABS: Partial Thromboplastin Time < 20.0 SEC (23.90-30.70)
[2020-04-21] MEDS: ACETAMINOPHEN 500 MG TABLET 1000 MG PO (02:00)
[2020-04-21] MEDS: PROMETHAZINE HCL 25 MG/ML AMPUL IM (02:02)
--- NOTE | 2020-04-21 02:45 | ADMGEN ---
This patient, Lucy Arambula, was admitted to 2nd Floor Room 210-1. Patient/family oriented to hospital policies and general routines including ID bracelet, bed and alarms, visiting hours, pain management, procedures, bathroom and other care routines, personal items, smoking policy, room service/diet, and visiting hours. Admitted as OBS for UTI. COVID pending Information on how to activate the Rapid Response Team has been discussed. Patient/Family are encouraged to report perceived risks to care and to ask questions if they do not understand what they are told or what they should do.
[2020-04-21 02:52] LABS: Amphetamine Screen Urine Negative (Negative); Barbiturate Screen Urine Negative (Negative); Benzodiazepines Screen Urine Negative (Negative); Cannabinoid Screen Urine Negative (Negative); Cocaine Screen Urine Negative (Negative); Methadone Screen Urine Negative (Negative); Opiate Screen Urine Negative (Negative); Phencyclidine Screen Urine Negative (Negative)
[2020-04-21] MEDS: SODIUM CHLORIDE 0.9% IV 1,000 ML 200 ML IV CONT (03:10)
[2020-04-21] MEDS: hydrOXYzine HCL 25 MG TABLET 50 MG PO ×4 (03:10→21:06)
[2020-04-21] MEDS: QUEtiapine FUMARATE 100 MG TABLET PO ×2 (03:10→23:27)
[2020-04-21 04:07] LABS: Reflex Lactic Acid Yes or No Add Lactic
[2020-04-21 06:14] LABS: Lactic Acid 1.1 mmol/L (0.4-2.0)
[2020-04-21 07:49] LABS: Glucose Point of Care 283 (65-105)
[2020-04-21] MEDS: PANTOPRAZOLE 40 MG TABLET PO (08:56)
[2020-04-21] MEDS: buPROPion HCL XL (24 HR) 150 MG TABCR 300 MG PO (08:57)
--- NOTE | 2020-04-21 09:00 | PC.NURSE ---
Patient refused patch
[2020-04-21] MEDS: SODIUM CHLORIDE 0.9% IV 500 ML 999 ML IV CONT (09:04)
[2020-04-21] MEDS: ESCITALOPRAM OXALATE 10 MG TABLET 20 MG PO (09:13)
[2020-04-21 11:59] LABS: Glucose Point of Care 227 (65-105)
--- NOTE | 2020-04-21 13:06 | PC.NURSE ---
NS at 200ml/hr was discontinued when bolus was given. Notified AMARILYS Alston. Awaiting AMARILYS Alston orders.
[2020-04-21] MEDS: MIDODRINE HCL 2.5 MG TABLET 10 MG PO ×2 (13:09→16:31)
--- NOTE | 2020-04-21 13:32 | PM.IMHP ---
H&P: HPI History of Present Illness Date/Time: 04/21/20 13:32 Chief Complaint: shortness of breath cough Narrative: Lucy Arambula is a 45 year old female who was admitted as an observation patient for urinary tract infection acute renal failure. Patient came to the hospital for increased shortness of breath and coughing over the past couple days with 1 episode of passing out in the shower with loss of consciousness. Patient Mets to having fevers off and on for about a week along with a productive cough intermittent vomiting. Review of Systems Constitutional: Constitutional: Reports no additional constitutional complaints, Denies body ache(s), Denies chills, Reports fever(s) (Often on past week), Reports headache(s) and Reports weakness Cardiovascular: Cardiovascular: Reports no additional cardiovascular complaints, Denies chest pain, Denies chest pain at rest and Denies chest pain with activity Respiratory: Respiratory: Reports no additional respiratory complaints and Reports dyspnea (this is improved little today) Gastrointestinal: Gastrointestinal: Reports no additional gastrointestinal complaints Comments: denied abdominal pain vomiting nausea today Musculoskeletal: Musculoskeletal: Reports muscle weakness [facility] Past Medical History Medical History (Updated 04/21/20 @ 13:56 by HARPAL Allen) BMI 24.0-24.9, adult Depression GERD (gastroesophageal reflux disease) Tobacco dependence syndrome Type 1 diabetes Surgical History Surgical History History of bilateral tubal ligation 2012 Family History Family History Father Family history of coronary artery disease Family history of type 2 diabetes mellitus Social History Social History Smoking packs per day: 1 Smoking cigarettes per day: 20.0 Years smoked: 30 Smoking pack-years: 30.00 Smoking status: Current every day smoker Tobacco type: cigarettes Additional smoking assessment comments: Patient states she uses vape at 6mg of nicotine Alcohol intake: unknown Substance use: unknown Substance use type: former substance user Last use: 12/27/19 Gender identity (if verbalized by the patient): Female Spiritual care concerns: No Meds Home Medications and Allergies Home Medications Medication Instructions Recorded Confirmed Type blood sugar diagnostic #400 ea 01/08/20 04/20/20 Rx blood-glucose meter #1 ea 01/08/20 04/20/20 Rx lancets 26 gauge #400 ea 01/08/20 04/20/20 Rx lancing device with lancets kit #100 ea 01/08/20 04/20/20 Rx pen needle, diabetic 32 gauge x #100 ea 03/04/20 04/20/20 Rx 1/4 bupropion HCl 300 mg 24 hr tablet, 300 mg PO DAILY #14 tablet 03/17/20 04/20/20 Rx extended release insulin aspart U-100 100 unit/mL 5 unit SUBCUT BIDWMEAL ml 03/17/20 04/20/20 History (3 mL) subcutaneous pen insulin glargine 100 unit/mL (3 10 unit SUBCUT QPM ml 03/17/20 04/20/20 History mL) subcutaneous pen pantoprazole 40 mg tablet,delayed 40 mg PO DAILY tablet 03/17/20 04/20/20 History release diclofenac sodium 50 mg See Rx Instructions .ROUTE 04/03/20 04/20/20 Rx tablet,delayed release .COMPLEX #45 tablet escitalopram oxalate 20 mg tablet 20 mg PO DAILY #14 tablet 04/13/20 04/20/20 Rx hydroxyzine HCl 25 mg tablet 50 mg PO Q6H #20 tablet 04/13/20 04/20/20 Rx quetiapine 100 mg tablet 100 mg PO .qhs #14 tablet 04/13/20 04/20/20 Rx Allergies Allergy/AdvReac Type Severity Reaction Status Date / Time metformin [From Glucophage] Allergy Mild Unknown Verified 03/17/20 13:35 Vital Signs Vital Signs - 24 hr 04/20/20 23:35 04/21/20 00:01 04/21/20 01:54 Temperature 101 F H Pulse Rate 120 H 110 H Respiratory Rate 20 20 Blood Pressure 116/81 107/71 Pulse Oximetry 100 100 100 04/21/20 02:09 04/21/20 02:35 04/21/20 08:01 Temperat
[2020-04-21 13:37] LABS: Pregnancy On Board Control Positive; Urine Pregnancy Test Negative
[2020-04-21] MEDS: SODIUM CHLORIDE 0.9% IV 1,000 ML 100 ML IV CONT ×2 (14:12→23:50)
[2020-04-21 16:53] LABS: Glucose Point of Care 270 (65-105)
[2020-04-21] MEDS: INSULIN GLARGINE (*BKC) 100 UNITS/ML 10 UNITS SUB-Q (17:57)
[2020-04-22] VITALS: BP 101/49; PULSE 83; RESP 20; TEMP 37.1; O2SAT 93
[2020-04-22 00:10] LABS: Glucose Point of Care 364 (65-105)
[2020-04-22 00:37] LABS: SARS-CoV-2 RNA PCR Negative
--- NOTE | 2020-04-22 04:02 | PC.NURSE ---
IV antibiotic infusing as ordered; Pt was offered her hydroxyzine 50 mg but she refused to take them and said I dont take antipsychotics in the middle of the night-turn the light off .
[2020-04-22 05:52] LABS: Hematocrit 30.1 % (35.0-49.0); Hemoglobin 10.4 g/dL (12.0-15.0); Mean Corpuscular HGB Conc 34.6 g/dL (32.0-36.0); Mean Corpuscular Hemoglobin 28.6 pg (27.0-31.0); Mean Corpuscular Volume 82.7 fL (78.0-102.0); Mean Platelet Volume 9.8 fl (9.2-11.8); Platelet Count Result 225 K/mm3 (150-420); Red Blood Count 3.64 M/mm3 (4.20-5.40); Red Cell Distribution Width 13.4 % (11.6-14.4); White Blood Count 8.2 K/mm3 (4.8-10.8)
[2020-04-22 06:00] LABS: Anion Gap 12 mmol/L (8-16); Blood Urea Nitrogen 12 mg/dL (7-18); Calcium 7.5 mg/dL (8.5-10.1); Carbon Dioxide 21 mmol/L (21-32); Chloride 104 mmol/L (98-108); Estimated CRCL calculation 53 ml/min; Estimated Glomerular Filt Rate 55; Glucose 321 mg/dL (70-99); Osmolality Calculated 295 mOsm/kg (285-295); Potassium 4.1 mmol/L (3.5-5.1); Sodium 137 mmol/L (136-145)
[2020-04-22 07:55] LABS: Glucose Point of Care 283 (65-105)
[2020-04-22 08:00] VITALS: BP 103/64; BP 106/59; PULSE 90; PULSE 93; RESP 20; TEMP 36.9; O2SAT 98
[2020-04-22 08:01] VITALS: BP 100/66; PULSE 98
[2020-04-22 08:02] VITALS: BP 99/65; PULSE 106
[2020-04-22] MEDS: ESCITALOPRAM OXALATE 10 MG TABLET 20 MG PO (08:33)
[2020-04-22] MEDS: hydrOXYzine HCL 25 MG TABLET 50 MG PO (08:33)
[2020-04-22] MEDS: buPROPion HCL XL (24 HR) 150 MG TABCR 300 MG PO (08:33)
[2020-04-22] MEDS: MIDODRINE HCL 2.5 MG TABLET 10 MG PO ×2 (08:33→12:25)
[2020-04-22] MEDS: PANTOPRAZOLE 40 MG TABLET PO (08:33)
--- NOTE | 2020-04-22 11:15 | PM.DS ---
DS: Admitting Diagnosis Admitting Diagnosis Admitting Diagnosis: UTI, Dehydration, ARF <Nirav NewtonFranco Morgan APN-C - Last Filed: 04/22/20 11:41> DS: Discharge Diagnosis Discharge Diagnosis (1) UTI (urinary tract infection): Qualifiers: Hematuria presence: without hematuria Urinary tract infection type: site unspecified Qualified Code(s): N39.0 - Urinary tract infection, site not specified <Nirav NewtonFranco Morgan APN-C - Last Filed: 04/22/20 11:41> Code(s): N39.0 - Urinary tract infection, site not specified <Nirav NewtonFranco Morgan APN-C - Last Filed: 04/22/20 11:41> Status: Acute <Nirav Stark ROSALIA Morgan-C - Last Filed: 04/22/20 11:41> Assessment and Plan: 04/21/2020 patient is currently on Rocephin blood in urine cultures pending 04/22/2020 patient has received 2 doses of Rocephin previous UTI from 02/07 culture shows E coli susceptible to Augmentin will discharge patient with same, currently blood and urine cultures are still pending <Nirav NewtonFranco Morgan APN-C - Last Filed: 04/22/20 11:41> (2) Acute dehydration: Code(s): E86.0 - Dehydration <Nirav NewtonFranco Morgan APN-C - Last Filed: 04/22/20 11:41> Status: Acute <Nirav NewtonFranco Morgan APN-C - Last Filed: 04/22/20 11:41> Assessment and Plan: 04/21/2020 patient was given 1 L saline bolus in the ER followed by 1 L infused over 5 hours yesterday another 500 mL bolus today due to decreased blood pressure with positive response though orthostatic pressure while standing was low now will continue with 100 mL normal saline per hour, patient is taking p.o. fluids well, midodrine was added to patient's medication list due to low BP 04/22/2020 patient has received over 3 L of saline the IV and over last 24 hours has been taking p.o. fluids very well patient was instructed to continue p.o. fluids when at home <Nirav Morgan APN-C - Last Filed: 04/22/20 11:41> (3) Acute renal failure (ARF): Qualifiers: Acute renal failure type: unspecified Qualified Code(s): N17.9 - Acute kidney failure, unspecified <Nirav Morgan CFO CONTROLLER-C - Last Filed: 04/22/20 11:41> Code(s): N17.9 - Acute kidney failure, unspecified <Nirav Morgan CFO CONTROLLER-C - Last Filed: 04/22/20 11:41> Status: Acute <Nirav Morgan CFO CONTROLLER-C - Last Filed: 04/22/20 11:41> Assessment and Plan: 04/21/2020 patient received a total of 2.5 L saline now normal saline infusing at 100 mils per hour will monitor labs 04/22/2020 renal function has improved <Nirav Morgan CFO CONTROLLER-C - Last Filed: 04/22/20 11:41> (4) Tobacco dependence syndrome: Code(s): F17.200 - Nicotine dependence, unspecified, uncomplicated <Nirav Morgan CFO CONTROLLER-C - Last Filed: 04/22/20 11:41> Status: Acute <Nirav Morgan CFO CONTROLLER-C - Last Filed: 04/22/20 11:41> Assessment and Plan: 04/21/2020 patient given nicotine patch, smoking cessation education 04/22/2020 patient states that does she has been refusing the nicotine patches and does not need script for them <Nirav Morgan CFO CONTROLLER-C - Last Filed: 04/22/20 11:41> (5) Depression: Code(s): F32.9 - Major depressive disorder, single episode, unspecified <Nirav Morgan CFO CONTROLLER-C - Last Filed: 04/22/20 11:41> Status: Acute <Nirav Morgan CFO CONTROLLER-C - Last Filed: 04/22/20 11:41> Assessment and Plan: 04/21/2020 continue home medication monitor patient's status 04/22/2020 continue home medication on discharge <Nirav Morgan CFO CONTROLLER-C - Last Filed: 04/22/20 11:41> (6) Type 1 diabetes: Qualifiers: Diabetes mellitus complication status: without complication Qualified Code(s): E10.9 - Type 1 diabetes mellitus without complications <HARPAL Allen - Last Filed: 04/22/20 11:41> Code(s): E10.9 - Type 1 diabetes mellitus without complications <HARPAL Allen - Last Filed: 04/22/20 11:41> Status: Acute <Nirav Morgan
[2020-04-22 11:52] LABS: Glucose Point of Care 255 (65-105)
--- NOTE | 2020-04-24 10:08 | PC.NURSE ---
Pt states she received and understood her discharge instructions. Pt has no other questions or comments.
== END 2020-04-22 12:55 | disposition home or self-care (01) ==
LOC: CHSED 04-21 02:08 → CHS2ND 04-21 07:11
PROVIDERS: Nurse Practitioner Family; Admitting Provider Emergency Medicine; Emergency Provider Emergency Medicine; PCP Nurse Practitioner Family; Visit Provider Emergency Medicine
DX: N39.0 Urinary tract infection, site not specified (principal); E86.0 Dehydration; N17.9 Acute kidney failure, unspecified; E10.8 Type 1 diabetes mellitus with unspecified complications; I95.9 Hypotension, unspecified; K21.9 Gastro-esophageal reflux disease without esophagitis; R79.89 Other specified abnormal findings of blood chemistry; S22.20XK Unspecified fracture of sternum, subsequent encounter for fracture with nonunion; F17.200 Nicotine dependence, unspecified, uncomplicated; F32.9 Major depressive disorder, single episode, unspecified; Z68.24 Body mass index [BMI] 24.0-24.9, adult; Z79.4 Long term (current) use of insulin; Z20.822 Contact with and (suspected) exposure to COVID-19
CPT/HCPCS: 36415; 71045; 71275; 80048; 80053; 80307; 81001; 81025; 82948; 83605; 83690; 85025; 85027; 85380; 85610; 85730; 86140; 87040; 87077; 87086; 87088; 87186; 87426; 87804; 93005; 96361; 96365; 96372; 96375; 99285; A9270; C9803; G0378; G0379; J0696; J1815; J2405; J2550; J7030; J7040; Q9967; U0003; U0005

== ENCOUNTER 2020-09-15 11:06 | Outpatient (NON) | payer OTHER, SELFPAY | END 2020-09-15 11:07 | disposition home or self-care (01) | LOC: CHSLAB 11:08 | PROVIDERS: PCP Nurse Practitioner Family; Visit Provider Nurse Practitioner Family | DX: N39.0 Urinary tract infection, site not specified (principal) | CPT/HCPCS: 87077; 87086; 87088; 87186; 87491; 87591; 87624; 88175; G0145 ==

== ENCOUNTER 2021-03-01 16:59 | Outpatient (CLI) | payer OTHER, SELFPAY ==
[2021-03-01 19:04] LABS: SARS-CoV-2 RNA PCR Negative (Negative)
[2021-03-01 19:18] LABS: Influenza A QL RT-PCR Negative (Negative); Influenza B QL RT-PCR Negative (Negative)
== END 2021-03-01 17:00 | disposition home or self-care (01) ==
LOC: CHSLAB 17:01
PROVIDERS: Nurse Practitioner Family; PCP Internal Medicine; Visit Provider Internal Medicine
DX: J06.9 Acute upper respiratory infection, unspecified (principal); Z20.822 Contact with and (suspected) exposure to COVID-19
CPT/HCPCS: 87502; C9803; U0003; U0005

== ENCOUNTER 2023-03-21 14:54 | Outpatient (CLI) | payer OTHER, SELFPAY ==
[2023-03-21 15:18] LABS: Basophils Absolute Auto 0.12 K/mm3 (0.00-0.10); Basophils Percent Auto 1.8 % (0.0-1.0); Eosinophils Absolute Auto 0.25 K/mm3 (0.02-0.50); Eosinophils Percent Auto 3.7 % (1.0-6.0); Hemoglobin 12.5 g/dL (12.0-15.0); Immature Granulocyte Absolute 0.02 K/mm3 (0.00-0.00); Immature Granulocyte Percent A 0.3 % (0.0-0.0); Lymphocytes Absolute Auto 2.89 K/mm3 (1.10-4.50); Lymphocytes Percent Auto 43.3 % (18.0-42.0); Mean Corpuscular HGB Conc 33.8 g/dL (32.0-36.0); Mean Corpuscular Volume 85.8 fL (78.0-102.0); Mean Platelet Volume 9.3 fl (9.2-11.8); Monocytes Absolute Auto 0.36 K/mm3 (0.10-0.90); Monocytes Percent Auto 5.4 % (2.0-11.0); Neutrophils Percent Auto 45.5 % (50.0-70.0); Platelet Count Result 409 K/mm3 (150-420); Red Blood Count 4.31 M/mm3 (4.20-5.40); Red Cell Distribution Width 12.1 % (11.6-14.4); White Blood Count 6.7 K/mm3 (4.8-10.8)
[2023-03-21 15:55] LABS: Alanine Aminotransferase 35 U/L (14-59); Albumin Level 3.8 g/dL (3.4-5.0); Alkaline Phosphatase 175 U/L (46-116); Anion Gap 6 mmol/L (8-16); Aspartate Amino Transferase 17 U/L (15-37); Bilirubin,Total 0.7 mg/dL (0.00-1.00); Blood Urea Nitrogen 17 mg/dL (7-18); Carbon Dioxide 29 mmol/L (21-32); Chloride 99 mmol/L (98-108); Cholesterol 215 mg/dL (0-200); Estimated Glomerular Filt Rate 50; Glucose 286 mg/dL (70-99); HDL Direct 106 mg/dL (40-60); LDL Cholesterol Calculated 101 mg/dL (<130); Osmolality Calculated 289 mOsm/kg (285-295); Potassium 4.6 mmol/L (3.5-5.1); Sodium 134 mmol/L (136-145); Total Protein 6.9 g/dL (6.4-8.2); Triglycerides 42 mg/dL (0-150)
[2023-03-22 12:16] LABS: Hemoglobin A1C 13.8 % (<5.7)
[2023-03-24 12:25] LABS: Vitamin D 25 Hydroxy 25 ng/mL (30-100)
== END 2023-03-21 14:55 | disposition home or self-care (01) ==
LOC: CHSLAB 14:57
PROVIDERS: PCP Nurse Practitioner Family; Visit Provider Nurse Practitioner Family
DX: E10.9 Type 1 diabetes mellitus without complications (principal); Z13.6 Encounter for screening for cardiovascular disorders; I10 Essential (primary) hypertension; Z79.899 Other long term (current) drug therapy; E10.65 Type 1 diabetes mellitus with hyperglycemia
CPT/HCPCS: 36415; 80053; 80061; 82306; 83036; 83735; 85025

== ENCOUNTER 2023-05-16 02:58 | Emergency (ER) | payer OTHER, SELFPAY ==
[2023-05-16] VITALS (16 sets, daily range): BP systolic 135–160; BP diastolic 84–105; PULSE 91–99; RESP 9–21; TEMP 35.3; O2SAT 98–100
--- NOTE | ~2023-05-16 | CT_ITS ---
Non-contrast Head CT History: Weakness COMPARISON: 02/08/2020 Technique: Axial non-contrast imaging of the brain was performed. Dose reduction technique was used on this scan by utilizing automated exposure control and iterative reconstruction technique. The dose -length product (DLP) was 681.00 mGy-cm. Findings: There is no evidence of intracranial hemorrhage, mass lesion, or acute infarct. Brain par enchyma appears normal. The ventricles and subarachnoid spaces are normal in size. The calvarium ap pears normal. The visualized paranasal sinuses and mastoid air cells are clear. Impression: No significant abnormality seen. Reviewed, dictated and finalized at location . OR NET PROGRAMMER Impression: No significant abnormality seen.
--- NOTE | 2023-05-16 03:03 | ECG_ITS ---
Measurements Intervals [place] Rate: 91 P: 50 [place]: 139 QRS: 7 QRSD: 81 T: 31 QT: 402 QTc: 497 Interpretive Statements SINUS RHYTHM LOW QRS VOLTAGE IN PRECORDIAL LEADS [QRS DEFLECTION < 1.0 mV IN CHEST LEADS] COMPARED TO ECG 04/21/2020 00:19:51 THE RATE IS SLOWER Electronically Signed On 05-16-2023 12:48:47 GRINDER SET UP OPERATOR by Chetna Irvin M.D.
[2023-05-16 03:04] LABS: Glucose Point of Care 138 mg/dl (65-105)
--- NOTE | 2023-05-16 03:09 | ED.GENADULT ---
HPI - General Adult General Chief complaint: Unspecified Stated complaint: low blood sugar Time Seen by Provider: 05/16/23 03:03 History of Present Illness HPI narrative: Lucy is a 48F with a PMH of DMI, takotsubo cardiomyelopathy, mood disorder, and GERD that was brought in by EMS for AMS and hypoglycemia. She was seen earlier in the day and was found to have a slightly low blood sugar and was given food. They were called back out to the house and she was obtunded with a sugar in the 40s. She was given nasal glucose which did not bring her sugar up so she was given a bag of D10. She did improve but she is still confused. She is A&Ox3, but is struggling to concentrate and Related Data Home Medications Medication Instructions Recorded Confirmed Women's Daily Multivitamin 1 tablet PO DAILY 05/16/23 05/16/23 escitalopram oxalate 20 mg tablet See Rx Instructions .Route .COMPLEX 05/16/23 05/16/23 (Lexapro) famotidine 20 mg tablet (Pepcid) See Rx Instructions .Route .COMPLEX 05/16/23 05/16/23 quetiapine 100 mg tablet (Seroquel) See Rx Instructions .Route .COMPLEX 05/16/23 05/16/23 Allergies Allergy/AdvReac Type Severity Reaction Status Date / Time metformin [From Glucophage] Allergy Mild Unknown Verified 05/16/23 03:23 Review of Systems Review of Systems: All systems reviewed & are unremarkable except as noted in HPI and below PMFSH Past Medical History Medical History Acute dehydration Acute renal failure (ARF) Acute vaginitis Amphetamine abuse Aspiration pneumonia Atelectasis of left lung BMI 24.0-24.9, adult Depression Elevated d-dimer GERD (gastroesophageal reflux disease) Hyperglycemia Hypotension Left wrist pain Metabolic acidosis Methamphetamine abuse Person under investigation for COVID-19 Pneumothorax Septic shock Tobacco dependence syndrome Type 1 diabetes Type 1 diabetes UTI (urinary tract infection) Weakness Well woman exam Surgical History Surgical History History of bilateral tubal ligation 2012 Family History Family History Father Family history of coronary artery disease Family history of type 2 diabetes mellitus Social History Social History Smoking packs per day: 1 Smoking cigarettes per day: 20.0 Years smoked: 30 Smoking pack-years: 30.00 Smoking status: Current every day smoker Tobacco type: cigarettes Additional smoking assessment comments: Patient states she uses vape at 6mg of nicotine Alcohol intake: unknown Substance use: unknown Substance use type: former substance user Last use: 12/27/19 Gender identity (if verbalized by the patient): Female Spiritual care concerns: No Exam Const: General: cooperative, healthy appearing, comfortable, no acute distress, well developed, alert, awake and Physically active Orientation/consciousness: oriented to person, oriented to place and oriented to time HENMT: Head: normal to inspection, normocephalic and atraumatic Ears: hearing grossly normal bilaterally and external ears normal Face/Nose/Sinus: Normal external nose present Eyes: General: appearance normal, both eyes and all related structures Periorbital: periorbital findings normal Sclera: sclerae normal Pupils: Equal, round and reactive pupils present Neck: Neck: normal visual inspection Chest: Chest palpation & inspection: normal inspection of the chest Resp: Effort & Inspection: normal respiratory effort, able to speak in complete sentences and no respiratory distress Auscultation: clear to auscultation bilaterally Cardio: Jugular venous distension: no JVD Rate: regular rate Rhythm: regular rhythm Skin: General skin exam: normal color and no rashes or lesions noted Neuro: General: oriented to person, oriented
--- NOTE | 2023-05-16 03:25 | PC.NURSE ---
patient returned from imaging. changed into fresh pants as hers had become saturated due to incontinence. patient given sandwich, chips, applesauce and a regular soda in attempt to boost BG numbers, encouraged to eat however patient states I don't like to eat. I only eat because I have to. Patient again encouraged by RN to at least drink the soda and eat some of the snacks provided. patient awaiting results.
[2023-05-16 03:47] LABS: Glucose Point of Care 105 mg/dl (65-105)
--- NOTE | 2023-05-16 03:49 | PC.NURSE ---
patient awake and alert, BG rechecked. VSS. patient again encouraged to eat the food provided by RN. lab phoned for blood draw.
[2023-05-16 04:07] LABS: Basophils Absolute Auto 0.15 K/mm3 (0.00-0.10); Basophils Percent Auto 1.7 % (0.0-1.0); Eosinophils Absolute Auto 0.57 K/mm3 (0.02-0.50); Eosinophils Percent Auto 6.5 % (1.0-6.0); Hematocrit 34.4 % (35.0-49.0); Hemoglobin 11.1 g/dL (12.0-15.0); Immature Granulocyte Absolute 0.06 K/mm3 (0.00-0.00); Immature Granulocyte Percent A 0.7 % (0.0-0.0); Lymphocytes Absolute Auto 2.46 K/mm3 (1.10-4.50); Mean Corpuscular HGB Conc 32.3 g/dL (32.0-36.0); Mean Corpuscular Hemoglobin 28.2 pg (27.0-31.0); Mean Corpuscular Volume 87.5 fL (78.0-102.0); Mean Platelet Volume 8.8 fl (9.2-11.8); Monocytes Absolute Auto 0.52 K/mm3 (0.10-0.90); Monocytes Percent Auto 5.9 % (2.0-11.0); Neutrophils Percent Auto 57.2 % (50.0-70.0); Platelet Count Result 349 K/mm3 (150-420); Red Blood Count 3.93 M/mm3 (4.20-5.40); Red Cell Distribution Width 13.1 % (11.6-14.4); White Blood Count 8.8 K/mm3 (4.8-10.8)
[2023-05-16 04:26] LABS: Alanine Aminotransferase 82 U/L (14-59); Albumin Level 3.3 g/dL (3.4-5.0); Alkaline Phosphatase 245 U/L (46-116); Anion Gap 7 mmol/L (8-16); Aspartate Amino Transferase 107 U/L (15-37); Bilirubin,Total 0.4 mg/dL (0.00-1.00); Blood Urea Nitrogen 20 mg/dL (7-18); Calcium 8.3 mg/dL (8.5-10.1); Carbon Dioxide 30 mmol/L (21-32); Chloride 102 mmol/L (98-108); Estimated CRCL calculation 64 ml/min; Estimated Glomerular Filt Rate > 60; Glucose 98 mg/dL (70-99); Magnesium 1.9 mg/dL (1.8-2.4); Osmolality Calculated 290 mOsm/kg (285-295); Potassium 3.8 mmol/L (3.5-5.1); Sodium 139 mmol/L (136-145); Total Protein 6.8 g/dL (6.4-8.2); Troponin I 5.9 ng/L (0.00-60.4)
[2023-05-16 04:28] LABS: Ethanol < 3 mg/dL (0-6)
--- NOTE | 2023-05-16 04:37 | PC.NURSE ---
patient awake and alert, finished applesauce and is eating sandwich at this time. provided with warm blanket and BG rechecked. RN monitoring. patient aware of request for urine specimen, stating Why?! after RN asked for specimen. education provided.
[2023-05-16 04:38] LABS: Glucose Point of Care 121 mg/dl (65-105)
--- NOTE | 2023-05-16 04:46 | PC.NURSE ---
Dr. Salgado at bedside for patient reevaluation, updated on improved BG and patient is actively eating a sandwich. plan for discharge, pending patient ride home.
== END 2023-05-16 05:05 | disposition home or self-care (01) ==
PROVIDERS: Emergency Provider Family Medicine; PCP Nurse Practitioner Family
DX: E10.649 Type 1 diabetes mellitus with hypoglycemia without coma (principal); R74.01 Elevation of levels of liver transaminase levels; F17.210 Nicotine dependence, cigarettes, uncomplicated
CPT/HCPCS: 36415; 70450; 80053; 80307; 82948; 83735; 84484; 85025; 93005; 99284

== ENCOUNTER 2023-06-14 09:52 | Outpatient (CLI) | payer OTHER, SELFPAY ==
--- NOTE | ~2023-06-14 | US_ITS ---
EXAMINATION: US abdomen complete DATE: 06/14/2023 10:27 INDICATION: Right upper quadrant pain TECHNIQUE: Multiple grayscale and Doppler ultrasound images of the abdomen were obtained. COMPARISON: None available FINDINGS: The head and body of the pancreas are normal. The pancreatic tail is obscured by bowel gas. The liver is normal with normal echogenicity and echotexture. No surface nodularity. Normal hepatope fannie flow in the main portal vein. The gallbladder is normal with no abnormal wall thickening, pericho lecystic fluid or stones. The normal common bile duct measures 2 mm. There was no sonographic Gary sign. The visualized portions of the aorta and inferior vena cava are normal. The spleen is normal in appearance and measures 8.2 cm. The right kidney measures 9.9 x 3.9 x 4.4 cm. The left kidney measures 10.0 x 3.8 x 5.2 cm. The kidneys demonstrate normal parenchymal echogenicit y. There is no hydronephrosis. IMPRESSION: 1. No sonographic correlate for the patient's symptoms. Reviewed, dictated and finalized at location F.
--- NOTE | 2023-06-14 10:00 | ECG_ITS ---
Measurements Intervals [place] Rate: 97 P: 69 [place]: 140 QRS: 89 QRSD: 76 T: 68 QT: 355 QTc: 451 Interpretive Statements SINUS RHYTHM RSR' IN V1 OR V2, PROBABLY NORMAL VARIANT NORMAL ECG COMPARED TO ECG 05/16/2023 03:17:36 NO SIGNIFICANT CHANGES Electronically Signed On 06-14-2023 10:38:45 CDT by Moises Gerardo D.O.
== END 2023-06-14 09:53 | disposition home or self-care (01) ==
LOC: CHSIMG 09:56
PROVIDERS: PCP Nurse Practitioner Family; Visit Provider Nurse Practitioner Family
DX: R10.11 Right upper quadrant pain (principal); R94.31 Abnormal electrocardiogram [ECG] [EKG]
CPT/HCPCS: 76700; 93005

== ENCOUNTER 2023-07-06 11:20 | Outpatient (CLI) | payer OTHER, SELFPAY ==
[2023-07-06 11:34] LABS: Basophils Absolute Auto 0.11 K/mm3 (0.00-0.10); Basophils Percent Auto 1.1 % (0.0-1.0); Eosinophils Absolute Auto 0.47 K/mm3 (0.02-0.50); Eosinophils Percent Auto 4.7 % (1.0-6.0); Hematocrit 38.5 % (35.0-49.0); Hemoglobin 13.4 g/dL (12.0-15.0); Immature Granulocyte Absolute 0.04 K/mm3 (0.00-0.00); Immature Granulocyte Percent A 0.4 % (0.0-0.0); Lymphocytes Percent Auto 32.1 % (18.0-42.0); Mean Corpuscular HGB Conc 34.8 g/dL (32-36); Mean Corpuscular Hemoglobin 29.2 pg (27.0-31.0); Mean Corpuscular Volume 83.9 fL (78.0-102.0); Mean Platelet Volume 9.4 fl (9.2-11.8); Monocytes Absolute Auto 0.48 K/mm3 (0.10-0.90); Monocytes Percent Auto 4.8 % (2.0-11.0); Neutrophils Absolute Auto 5.67 K/mm3 (1.70-7.20); Neutrophils Percent Auto 56.9 % (50.0-70.0); Platelet Count Result 349 K/mm3 (150-420); Red Blood Count 4.59 M/mm3 (4.20-5.40); Red Cell Distribution Width 12.8 % (11.6-14.4)
[2023-07-06 11:41] LABS: Hemoglobin A1C 12.4 % (<5.7)
[2023-07-06 13:02] LABS: Alanine Aminotransferase 31 U/L (14-59); Albumin Level 3.7 g/dL (3.4-5.0); Alkaline Phosphatase 198 U/L (46-116); Anion Gap 8 mmol/L (4-12); Aspartate Amino Transferase 21 U/L (15-37); Bilirubin,Total 0.5 mg/dL (0.00-1.00); Blood Urea Nitrogen 25 mg/dL (7-18); Calcium 8.6 mg/dL (8.5-10.1); Carbon Dioxide 29 mmol/L (21-32); Chloride 98 mmol/L (98-108); Estimated Glomerular Filt Rate 46; Free T4 Free Thyroxine 0.81 ng/dL (0.76-1.46); Glucose 322 mg/dL (70-99); Iron 46 ug/dL (50-170); Magnesium 1.9 mg/dL (1.8-2.4); Osmolality Calculated 296 mOsm/kg (285-295); Potassium 4.4 mmol/L (3.5-5.1); Sodium 135 mmol/L (136-145); Thyroid Stimulating Hormone 4.24 uIU/mL (0.36-3.74); Vitamin B12 652 pg/mL (193-986)
[2023-07-08 03:48] LABS: Vitamin D 25 Hydroxy 31 ng/mL (30-100)
== END 2023-07-06 11:21 | disposition home or self-care (01) ==
LOC: CHSLAB 11:21
PROVIDERS: PCP Nurse Practitioner Family; Visit Provider Nurse Practitioner Family
DX: D64.9 Anemia, unspecified (principal); Z79.899 Other long term (current) drug therapy; R53.83 Other fatigue; E10.9 Type 1 diabetes mellitus without complications
CPT/HCPCS: 36415; 80053; 82306; 82607; 83036; 83540; 83735; 84439; 84443; 85025

== ENCOUNTER 2023-12-11 11:34 | Outpatient (CLI) | payer OTHER, SELFPAY ==
[2023-12-11 11:54] LABS: Basophils Percent Auto 1.2 % (0.0-1.0); Eosinophils Absolute Auto 0.35 K/mm3 (0.02-0.50); Eosinophils Percent Auto 4.2 % (1.0-6.0); Hematocrit 35.3 % (35.0-49.0); Hemoglobin 12.4 g/dL (12.0-15.0); Immature Granulocyte Absolute 0.02 K/mm3 (0.00-0.00); Immature Granulocyte Percent A 0.2 % (0.0-0.0); Lymphocytes Absolute Auto 3.16 K/mm3 (1.10-4.50); Lymphocytes Percent Auto 37.7 % (18.0-42.0); Mean Corpuscular HGB Conc 35.1 g/dL (32-36); Mean Corpuscular Volume 85.3 fL (78.0-102.0); Mean Platelet Volume 9.6 fl (9.2-11.8); Monocytes Absolute Auto 0.45 K/mm3 (0.10-0.90); Monocytes Percent Auto 5.4 % (2.0-11.0); Neutrophils Absolute Auto 4.31 K/mm3 (1.70-7.20); Neutrophils Percent Auto 51.3 % (50.0-70.0); Platelet Count Result 362 K/mm3 (150-420); Red Blood Count 4.14 M/mm3 (4.20-5.40); Red Cell Distribution Width 11.9 % (11.6-14.4); White Blood Count 8.4 K/mm3 (4.8-10.8)
[2023-12-11 12:49] LABS: Alanine Aminotransferase 40 U/L (14-59); Albumin Level 3.8 g/dL (3.4-5.0); Alkaline Phosphatase 271 U/L (46-116); Anion Gap 9 mmol/L (4-12); Aspartate Amino Transferase 24 U/L (15-37); Bilirubin,Total 0.6 mg/dL (0.00-1.00); Blood Urea Nitrogen 17 mg/dL (7-18); Calcium 9.2 mg/dL (8.5-10.1); Carbon Dioxide 28 mmol/L (21-32); Chloride 93 mmol/L (98-108); Estimated Glomerular Filt Rate 47; Iron 65 ug/dL (50-170); Magnesium 1.9 mg/dL (1.8-2.4); Osmolality Calculated 290 mOsm/kg (285-295); Percent Iron Saturation 26 % (12-57); Potassium 4.6 mmol/L (3.5-5.1); Sodium 130 mmol/L (136-145); Total Protein 7.2 g/dL (6.4-8.2)
[2023-12-11 12:52] LABS: Glucose 446 mg/dL (70-99)
[2023-12-12 06:34] LABS: Vitamin D 25 Hydroxy 38 ng/mL (30-100)
== END 2023-12-11 11:35 | disposition home or self-care (01) ==
PROVIDERS: PCP Nurse Practitioner Family; Visit Provider Nurse Practitioner Family
DX: E61.2 Magnesium deficiency (principal); E61.1 Iron deficiency; Z79.899 Other long term (current) drug therapy
CPT/HCPCS: 36415; 80053; 82306; 83540; 83550; 83735; 85025

== ENCOUNTER 2024-03-09 10:57 | Outpatient (CLI) | payer OTHER, SELFPAY ==
[2024-03-09 12:28] LABS: MALB Creatinine Ratio 276.6 mg/g (0-30); Microalbumin Urine Random 107.6 mg/L
[2024-03-09 13:04] LABS: Alanine Aminotransferase 61 U/L (14-59); Alkaline Phosphatase 259 U/L (46-116); Anion Gap 9 mmol/L (4-12); Aspartate Amino Transferase 62 U/L (15-37); Bilirubin,Total 0.4 mg/dL (0.00-1.00); Blood Urea Nitrogen 16 mg/dL (7-18); Calcium 8.9 mg/dL (8.5-10.1); Carbon Dioxide 28 mmol/L (21-32); Chloride 103 mmol/L (98-108); Cholesterol 206 mg/dL (0-200); Estimated Glomerular Filt Rate 59; Free T4 Free Thyroxine 0.69 ng/dL (0.76-1.46); Glucose 89 mg/dL (70-99); HDL Direct 71 mg/dL (40-60); LDL Cholesterol Calculated 124 mg/dL (<130); Osmolality Calculated 290 mOsm/kg (285-295); Sodium 140 mmol/L (136-145); Thyroid Stimulating Hormone 5.25 uIU/mL (0.36-3.74); Triglycerides 54 mg/dL (0-150); Vitamin B12 470 pg/mL (193-986)
[2024-03-12 04:04] LABS: Vitamin D 25 Hydroxy 29 ng/mL (30-100)
[2024-03-12 05:53] LABS: C-Peptide <0.10 ng/mL (0.80-3.85)
[2024-03-15 14:14] LABS: Glutamic acid decarboxylase AA >250 IU/mL (<5)
== END 2024-03-09 10:58 | disposition home or self-care (01) ==
LOC: CHSLAB 10:58
PROVIDERS: PCP Nurse Practitioner Family; Visit Provider Nurse Practitioner Family
DX: E11.9 Type 2 diabetes mellitus without complications (principal)
CPT/HCPCS: 36415; 80053; 80061; 82043; 82306; 82607; 84439; 84443; 84681; 86341

== ENCOUNTER 2024-04-08 12:57 | Outpatient (CLI) | payer OTHER, SELFPAY ==
--- NOTE | ~2024-04-08 | US_ITS ---
EXAMINATION: US arterial ankle brachial ind DATE: 04/08/2024 14:41 INDICATION: Peripheral vascular disease with claudication TECHNIQUE: Segmental pressures and plethysmographic and Doppler waveforms of the brachial and lower e xtremity arteries were obtained. COMPARISON: None. FINDINGS: Right and left brachial artery pressures of 143 mm Hg and 147 mm Hg, respectively, are concordant (no rmal difference <= 30 mmHg). The right ankle-brachial index (CHIQUIS) is 1.07 (normal >= 0.9-1.0). The right great toe-brachial index (TBI) is 0.92 (normal >= 0.65). Arterial Doppler waveforms are biphasic with brisk systolic upstrokes at the right dorsalis pedis artery. There is reversed flow in the right posterior tibial artery. The left CHIQUIS is 1.14. The left TBI is 0.86. Arterial Doppler waveforms are biphasic with brisk systol ic upstrokes at the left dorsalis pedis artery. No dopplerable waveform identified at the region of t he left posterior tibial artery. IMPRESSION: 1. No discernible dopplerable arterial waveform at the left posterior tibial artery and reverse flow in the right posterior tibial artery. ABIs and TBIs however remain normal. Reviewed, dictated and finalized at location A. ESQUE DANCER IMPRESSION: 1. No discernible dopplerable arterial waveform at the left posterior tibial ar iker and reverse flow in the right posterior tibial artery. ABIs and TBIs howev er remain normal.
== END 2024-04-08 12:58 | disposition home or self-care (01) ==
LOC: CHSIMG 12:59
PROVIDERS: PCP Nurse Practitioner Family; Visit Provider Nurse Practitioner Family
DX: I73.9 Peripheral vascular disease, unspecified (principal)
CPT/HCPCS: 93922

== ENCOUNTER 2024-04-14 07:19 | Observation (INO) | payer OTHER, SELFPAY ==
[2024-04-14] VITALS (32 sets, daily range): BP systolic 115–158; BP diastolic 61–107; PULSE 108–127; RESP 16–20; TEMP 36.3–37.3; O2SAT 90–100; BMI 27.9
--- NOTE | ~2024-04-14 | XR_ITS ---
Portable chest x-ray Comparison: 04/21/2020 Clinical History: Shortness of breath Findings: There is patchy airspace consolidation extensively involving the right midlung region. Pos sible mild haziness left lung base. Cardiomediastinal silhouette is stable. Bones and soft tissues a re unremarkable. Impression: Patchy airspace consolidation and extensive on the right midlung region. Possible minimal involvement left lung base. Findings are suspicious for pneumonia, versus possibly asymmetric pulmonary edema pa ttern. Correlate clinically. Reviewed, dictated and finalized at location M. ORATE SECURITY OFFICER Impression: Patchy airspace consolidation and extensive on the right midlung region. Possib le minimal involvement left lung base. Findings are suspicious for pneumonia, v ersus possibly asymmetric pulmonary edema pattern. Correlate clinically.
--- NOTE | ~2024-04-14 | CT_ITS ---
Clinical Indication: Shortness of breath, elevated d-dimer CT Scan of the Chest with Contrast: Technique: Contiguous sections were acquired throughout the chest after intravenous administration of 100 cc of Omnipaque 350. Dose reduction technique was used on this scan by utilizing automated expos ure control and iterative reconstruction technique. The dose-length product (DLP) was 236.33 mGy-cm. COMPARISON: 04/21/2020 Findings: There is no evidence of any significant mediastinal, hilar or axillary lymphadenopathy. There is no f illing defect in the pulmonary arterial tree to suggest pulmonary embolus. There is no evidence of ao rtic dissection or aneurysm. There is no evidence of pleural or pericardial effusion. There is patchy consolidation predominantly in the right upper and lower lobes, with more mild involv ement in the right middle lobe. There is additional patchy consolidation at the left lower lobe. Images through the upper abdomen reveal no abnormalities. 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 Impression: No evidence of pulmonary embolus, aortic dissection, or aortic aneurysm. Multifocal, bilateral pneumonia, worse in the right upper and lower lobes. Please see details above. Reviewed, dictated and finalized at location . IC RELATIONS OFFICER Impression: No evidence of pulmonary embolus, aortic dissection, or aortic aneurysm. Multifocal, bilateral pneumonia, worse in the right upper and lower lobes. Plea se see details above.
--- NOTE | 2024-04-14 07:27 | ECG_ITS ---
Test Date: 2024-04-14 07:58:48 Measurements Intervals [place] Rate: 125 P: 52 [place]: 135 QRS: -9 QRSD: 68 T: 43 QT: 296 QTc: 428 Interpretive Statements SINUS TACHYCARDIA LOW QRS VOLTAGE IN PRECORDIAL LEADS [QRS DEFLECTION < 1.0 mV IN CHEST LEADS] ABNORMAL RHYTHM ECG No previous ECG available for comparison Electronically Signed On 04-14-2024 22:08:24 CARPET INSTALLATION SPECIALIST by Jimenez Mariscal M.D.
[2024-04-14 07:29] LABS: Glucose Point of Care > 450 mg/dl (65-105)
--- NOTE | 2024-04-14 07:34 | ED_ITS ---
HPI - General Adult General Chief complaint: Unspecified Stated complaint: hyperglycemia Source: patient and EMS Mode of arrival: EMS Limitations: no limitations History of Present Illness HPI narrative: Patient is a 49-year-old female with diabetes mellitus type 1 and here for hyperglycemia in the 400 range and higher overnight. She has an insulin basal pump and she turned off last night and for Dr. Ramirez gone. The insulin pump is back on at this time. She has some shortness of breath at times. No chest pain. Onset (ago): day(s) (1) Radiation: non-radiation Severity: moderate ( Elevated blood sugar) Severity scale (1-10): 5 Quality: other ( no pain) Pain Consistency: other ( none) Relieving factors: none Exacerbating factors: none Associated symptoms: nausea/vomiting and shortness of breath Treatments prior to arrival: none Related Data Allergies Allergy/AdvReac Type Severity Reaction Status Date / Time metformin (From Glucophage) Allergy Mild Unknown Verified 03/28/24 15:21 Review of Systems 2 Review of Systems: All systems reviewed & are unremarkable except as noted in HPI and below Constitutional: Constitutional: Reports no additional constitutional complaints Eyes: Eyes: Reports no additional eye complaints ENT: Reports system reviewed and no additional complaints, except as documented Cardiovascular: Cardiovascular: Reports no additional cardiovascular complaints Respiratory: Respiratory: Reports no additional respiratory complaints Gastrointestinal: Gastrointestinal: Reports no additional gastrointestinal complaints Genitourinary: Genitourinary: Reports no additional female genitourinary complaints Musculoskeletal: Musculoskeletal: Reports no additional musculoskeletal complaints Integumentary/Breasts: Skin/Breast: Reports system reviewed and no additional complaints, except as docu Neurologic: Reports system reviewed and no additional complaints, except as documented Psychiatric: Psychiatric: Reports no additional psychiatric complaints Endocrine: Endocrine: Reports no additional endocrine complaints Hematologic/Lymphatic: Hematologic/Lymphatic: Reports no additional hematologic/lymphatic complaints Allergic/Immunologic: Allergic/Immunologic: Reports no additional allergic/immunologic complaints [facility] Past Medical History Medical History Methamphetamine abuse Amphetamine abuse Acute vaginitis Well woman exam Hypotension Elevated d-dimer Person under investigation for COVID-19 Acute renal failure (ARF) Acute dehydration UTI (urinary tract infection) Aspiration pneumonia Metabolic acidosis Atelectasis of left lung Septic shock Pneumothorax Left wrist pain Type 1 diabetes Weakness Hyperglycemia BMI 24.0-24.9, adult Tobacco dependence syndrome Depression GERD (gastroesophageal reflux disease) Type 1 diabetes Surgical History Surgical History History of bilateral tubal ligation 2012 Family History Family History Father Family history of coronary artery disease Family history of type 2 diabetes mellitus Social History Social History Smoking packs per day: 1 Smoking cigarettes per day: 20.0 Years smoked: 30 Smoking pack-years: 30.00 Smoking status: Current every day smoker Tobacco type: cigarettes Additional smoking assessment comments: Patient states she uses vape at 6mg of nicotine Alcohol intake: unknown Substance use: unknown Substance use type: former substance user Last use: 12/27/19 Do You Feel Safe in your Home?: Yes Lack of Transportation: YES Lack of Food: Never True Current Housing: I Have Housing Concerned About Future Housing: No Difficulty Paying Gas/Electric Bills: Decline to Answer Difficulty Paying for Meds: No Currently Unemployed: Decline to Answer Education: High School Diploma/GED Difficulty w/ Childcare or Family Care: No Gender identity (if verbalized by the patient): Female Spiritual care concerns: No Exam 2 Const: General: cooperative, healthy appearing and comfortable HENMT: Head: normal to inspection, No palpable skull fracture present and normocephalic Eyes: General: appearance normal, both eyes and all related structures V isual Naik: normal visual naik by confrontation Alignment and Position: a lignment normal Neck: Neck: normal visual inspection, full ROM and no lymphadenopathy Chest: Chest palpation & inspection: normal inspection of the chest, normal palpation of entire chest wall and normal inspection of the chest Resp: Effort & Inspection: normal respiratory effort, able to speak in complete sentences, normal respiratory pattern, not labored, no nasal flaring, no paradoxical thoraco-abdom movements, no pursed lip breathing, no respiratory distress and no retractions Auscultation: not clear to auscultation bilaterally and crackles ( Lower lung naik) bilateral Cardio: Jugular venous distension: no JVD Palpation: normal PMI Rate: r egular rate Rhythm: regular rhythm Heart sounds: S1 normal heart sound present and S2 normal heart sound present GI: Inspection: normal to inspection GI Palp: No abdominal tenderness Back/Spine/Pelvis: Back: no CVA tenderness Skin: General skin exam: normal color, no rashes or lesions noted and elasticity normal Neuro: General: oriented to person, oriented to place, oriented to time, patient oriented x3, gait normal, tone normal and moves all extremities Extrem: General: normal to inspection, full ROM, capillary refill normal and normal exam except as noted Psych: Appearance: grossly normal, well kempt and not disheveled Course Vital Signs Vital signs: Vital Signs Temperature 37.3 C 04/14/24 07:30 Pulse Rate 127 H 04/14/24 07:30 Respiratory Rate 18 04/14/24 07:30 Blood Pressure 150/69 H 04/14/24 07:30 Pulse Oximetry 100 04/14/24 07:30 Oxygen Delivery Room Air 04/14/24 07:30 Temperature 37.3 C 04/14/24 07:30 Pulse Rate 126 H 04/14/24 08:15 Respiratory Rate 20 04/14/24 08:15 Blood Pressure 158/75 H 04/14/24 08:15 Pulse Oximetry 96 04/14/24 08:15 Oxygen Delivery Room Air 04/14/24 08:15 Medical Decision Making MDM Narrative Medical decision making narrative: patient is a 49-year-old female diabetes mellitus type 1 with hyperglycemia. We will do a diabetic 1 workup at this time. she will get insulin IV. We will give her IV fluids. Patient has bilateral pneumonia and we will admit to this facility at this time. Patient agrees. Vital Signs Vital Signs: Vital Signs Temperature 37.3 C 04/14/24 07:30 Pulse Rate 127 H 04/14/24 07:30 Respiratory Rate 18 04/14/24 07:30 Blood Pressure 150/69 H 04/14/24 07:30 Pulse Oximetry 100 04/14/24 07:30 Oxygen Delivery Room Air 04/14/24 07:30 Temperature 37.3 C 04/14/24 07:30 Pulse Rate 126 H 04/14/24 08:15 Respiratory Rate 20 04/14/24 08:15 Blood Pressure 158/75 H 04/14/24 08:15 Pulse Oximetry 96 04/14/24 08:15 Oxygen Delivery Room Air 04/14/24 08:15 Lab Data Lab results reviewed: Yes I reviewed the patient's lab results. 04/14/24 07:52 04/14/24 07:52 Labs: Lab Results 04/14/24 04/14/24 04/14/24 Range/Units 07:23 07:52 08:08 WBC 11.6 H (4.8-10.8) K/mm3 RBC 3.22 L (4.20-5.40) M/mm3 Hgb 9.4 L (12.0-15.0) g/dL Hct 28.4 L (35.0-49.0) % MCV 88.2 (78.0-102.0) fL MCH 29.2 (27.0-31.0) pg MCHC 33.1 (32-36) g/dL RDW 12.8 (11.6-14.4) % Plt Count 319 (150-420) K/mm3 MPV 9.5 (9.2-11.8) fl Immature Gran % (Auto) 0.3 H (0.0-0.0) % Neut % (Auto) 80.9 H (50.0-70.0) % Lymph % (Auto) 12.4 L (18.0-42.0) % Charles % (Auto) 4.7 (2.0-11.0) % Eos % (Auto) 1.2 (1.0-6.0) % Baso % (Auto) 0.5 (0.0-1.0) % Lymph # (Auto) 1.44 (1.10-4.50) K/mm3 Charles # (Auto) 0.54 (0.10-0.90) K/mm3 Eos # (Auto) 0.14 (0.02-0.50) K/mm3 Baso # (Auto) 0.06 (0.00-0.10) K/mm3 Abs Immat Gran (auto) 0.04 H (0.00-0.00) K/mm3 Absolute Neuts (auto) 9.37 H (1.70-7.20) K/mm3 Absolute Nucleated RBC 0.00 (0.00-0.00) K/mm3 Nucleated RBC % 0.0 (0-0.0) % PT 10.0 (9.50-12.1) Seconds INR 0.9 APTT 25.5 (23.9-30.70) Sec D-Dimer 0.93 H* (0.19-0.50) mg/L Sodium 140 (136-145) mmol/L Potassium 4.9 (3.5-5.1) mmol/L Chloride 107 (98-108) mmol/L Carbon Dioxide 27 (21-32) mmol/L Anion Gap 6 (4-12) mmol/L BUN 23 H (7-18) mg/dL Creatinine 1.41 H (0.55-1.02) mg/dL Estim Creat Clear Calc 44 ml/min Estimated GFR 40 L (59 - ) Glucose 413 H* (70-99) mg/dL POC Capillary Glucose > 450 H 409 H (65-105) mg/dl Calculated Osmolality 310 H (285-295) mOsm/kg Lactic Acid 2.1 H (0.4-2.0) mmol/L Calcium 8.3 L (8.5-10.1) mg/dL Total Bilirubin 0.6 (0.00-1.00) mg/dL AST 41 H (15-37) U/L ALT 47 (14-59) U/L Alkaline Phosphatase 259 H (46-116) U/L Troponin I 22.5 (0.00-60.4) ng/L NT-Pro-B Natriuret Pep 703 H (0-125) pg/mL Total Protein 6.0 L (6.4-8.2) g/dL Albumin 2.8 L (3.4-5.0) g/dL Acetone Level Negative (Negative) 04/14/24 04/14/24 Range/Units 09:15 10:11 WBC (4.8-10.8) K/mm3 RBC (4.20-5.40) M/mm3 Hgb (12.0-15.0) g/dL Hct (35.0-49.0) % MCV (78.0-102.0) fL MCH (27.0-31.0) pg MCHC (32-36) g/dL RDW (11.6-14.4) % Plt Count (150-420) K/mm3 MPV (9.2-11.8) fl Immature Gran % (Auto) (0.0-0.0) % Neut % (Auto) (50.0-70.0) % Lymph % (Auto) (18.0-42.0) % Charles % (Auto) (2.0-11.0) % Eos % (Auto) (1.0-6.0) % Baso % (Auto) (0.0-1.0) % Lymph # (Auto) (1.10-4.50) K/mm3 Charles # (Auto) (0.10-0.90) K/mm3 Eos # (Auto) (0.02-0.50) K/mm3 Baso # (Auto) (0.00-0.10) K/mm3 Abs Immat Gran (auto) (0.00-0.00) K/mm3 Absolute Neuts (auto) (1.70-7.20) K/mm3 Absolute Nucleated RBC (0.00-0.00) K/mm3 Nucleated RBC % (0-0.0) % PT (9.50-12.1) Seconds INR APTT (23.9-30.70) Sec D-Dimer (0.19-0.50) mg/L Sodium (136-145) mmol/L Potassium (3.5-5.1) mmol/L Chloride (98-108) mmol/L Carbon Dioxide (21-32) mmol/L Anion Gap (4-12) mmol/L BUN (7-18) mg/dL Creatinine (0.55-1.02) mg/dL Estim Creat Clear Calc ml/min Estimated GFR (59 - ) Glucose (70-99) mg/dL POC Capillary Glucose 300 H 221 H (65-105) mg/dl Calculated Osmolality (285-295) mOsm/kg Lactic Acid (0.4-2.0) mmol/L Calcium (8.5-10.1) mg/dL Total Bilirubin (0.00-1.00) mg/dL AST (15-37) U/L ALT (14-59) U/L Alkaline Phosphatase (46-116) U/L Troponin I (0.00-60.4) ng/L NT-Pro-B Natriuret Pep (0-125) pg/mL Total Protein (6.4-8.2) g/dL Albumin (3.4-5.0) g/dL Acetone Level (Negative) ABG Data ABG results: 04/14/24 07:52 Puncture Site Right radial ABG pH 7.45 ABG pCO2 28.0 L ABG pO2 79.3 L ABG PO2/FiO2 Ratio Not Reportable ABG HCO3 18.9 L ABG O2 Saturation 94.4 L ABG O2 Content 14.9 L ABG Base Excess -4.0 L A-a Gradient Not Reportable Oxyhemoglobin 94.0 O2 Delivery Device Room air O2 Liters/Min 0.0 Imaging Data Attestation: I personally reviewed and interpreted this imaging study as follows: Radiologist's impression: Chest x-ray shows Impression: Patchy airspace consolidation and extensive on the right midlung region. Possible minimal involvement left lung base. Findings are suspicious for pneumonia, versus possibly asymmetric pulmonary edema pattern. Correlate clinically. CTA of the chest shows Impression: No evidence of pulmonary embolus, aortic dissection, or aortic aneurysm. Multifocal, bilateral pneumonia, worse in the right upper and lower lobes. Please see details above. ECG Data EKG #1: Attestation: I personally reviewed and interpreted this ECG as follows: ECG completion date: 04/14/24 ECG completion time: 09:12 EKG Interpretation: tachycardia, no ectopy, no ST changes, normal QRS, normal QT and NL axis Discharge Plan Discharge Clinical Impression: SILVESTRE (acute kidney injury), Elevated liver enzymes Type 1 diabetes Qualifiers: Diabetes mellitus complication status: without complication Qualified Code(s): E10.9 - Type 1 diabetes mellitus without complications Pneumonia Qualifiers: Pneumonia type: due to unspecified organism Laterality: bilateral Lung location: unspecified part of lung Qualified Code(s): J18.9 - Pneumonia, unspecified organism Patient Disposition: [facility] Condition: Improved Patient Language: Citizen Of [place] Prescriptions: No Action (DME) Dexcom G7 Sensor Device See Rx Instructions .ROUTE .MEDSUPPLY Qty: 9 3RF Rx Instructions: Use to monitor glcuose (DME) Dexcom G7 Grazing Aide Misc See Rx Instructions .Route Qty: 1 1RF Rx Instructions: As directed (DME) urine glucose-ketones test Strip See Rx Instructions .ROUTE .MEDSUPPLY Qty: 50 0RF Rx Instructions: As directed glucose [Dex4 Glucose] 4 gram tablet,chewable 16 g PO Q15M PRN (Reason: hypoglycemia) Qty: 60 1RF Rx Instructions: until symptoms of low blood sugar are controlled (DME) OneTouch Ultra Test Strip See Rx Instructions .Route Qty: 100 2RF Rx Instructions: QID quetiapine 150 mg tablet 150 mg PO QHS Qty: 135 2RF insulin lispro [Humalog KwikPen Insulin] 100 unit/mL insulin pen 10 unit subcut BID Qty: 15 2RF Rx Instructions: BID with meal (DME) lancets [OneTouch UltraSoft 2 Lancet] 30 gauge misc See Rx Instructions .Route Qty: 200 2RF Rx Instructions: QID (DME) blood-glucose meter [OneTouch Ultra2 Meter] Misc See Rx Instructions .ROUTE .COMPLEX Qty: 1 0RF Dose Instruction: USE DIRECTED Rx Instructions: USE DIRECTED (DME) pen needle, diabetic [TRUEplus Pen Needle] 31 gauge x 1/4 needle See Rx Instructions .ROUTE .COMPLEX Qty: 100 0RF Dose Instruction: INJECT FOUR TIMES DAILY FOR INSULIN INJECTIONS Rx Instructions: INJECT FOUR TIMES DAILY FOR INSULIN INJECTIONS famotidine 20 mg tablet See Rx Instructions .ROUTE .COMPLEX Qty: 90 0RF Dose Instruction: TAKE 1 TABLET BY MOUTH ONCE DAILY AT BEDTIME NEEDED FOR HEARTBURN Rx Instructions: TAKE 1 TABLET BY MOUTH ONCE DAILY AT BEDTIME NEEDED FOR HEARTBURN levothyroxine 100 mcg capsule 100 mcg PO DAILY Qty: 90 1RF escitalopram oxalate 20 mg tablet See Rx Instructions .ROUTE .COMPLEX Qty: 90 0RF Dose Instruction: Take 1 tablet by mouth once daily Rx Instructions: Take 1 tablet by mouth once daily Follow-up/Referrals: Shraddha Ward [employer]ATOR [Primary Care Provider] - Time of Disposition: 10:22
[2024-04-14 07:57] LABS: HCO3 ABG 18.9 mmol/L (23-29); Oxygen Content ABG 14.9 %vol (16.0-22.0); Oxygen Saturation ABG 94.4 % (95-97); PO2 ABG 79.3 mmHg (80-90); pH ABG 7.45 (7.35-7.45)
[2024-04-14] MEDS: SODIUM CHLORIDE 0.9% IV 1,000 ML 999 ML IV CONT (08:02)
[2024-04-14 08:04] LABS: Basophils Absolute Auto 0.06 K/mm3 (0.00-0.10); Basophils Percent Auto 0.5 % (0.0-1.0); Eosinophils Absolute Auto 0.14 K/mm3 (0.02-0.50); Eosinophils Percent Auto 1.2 % (1.0-6.0); Hematocrit 28.4 % (35.0-49.0); Hemoglobin 9.4 g/dL (12.0-15.0); Immature Granulocyte Absolute 0.04 K/mm3 (0.00-0.00); Immature Granulocyte Percent A 0.3 % (0.0-0.0); Lymphocytes Absolute Auto 1.44 K/mm3 (1.10-4.50); Lymphocytes Percent Auto 12.4 % (18.0-42.0); Mean Corpuscular HGB Conc 33.1 g/dL (32-36); Mean Corpuscular Hemoglobin 29.2 pg (27.0-31.0); Mean Corpuscular Volume 88.2 fL (78.0-102.0); Mean Platelet Volume 9.5 fl (9.2-11.8); Monocytes Absolute Auto 0.54 K/mm3 (0.10-0.90); Monocytes Percent Auto 4.7 % (2.0-11.0); Neutrophils Absolute Auto 9.37 K/mm3 (1.70-7.20); Neutrophils Percent Auto 80.9 % (50.0-70.0); Platelet Count Result 319 K/mm3 (150-420); Red Blood Count 3.22 M/mm3 (4.20-5.40); Red Cell Distribution Width 12.8 % (11.6-14.4); White Blood Count 11.6 K/mm3 (4.8-10.8)
[2024-04-14 08:10] LABS: Glucose Point of Care 409 mg/dl (65-105)
[2024-04-14 08:22] LABS: Device ROOM AIR; INR 0.9; Modified Allen's Test Pass; Partial Thromboplastin Time 25.5 Sec (23.9-30.70); Site Drawn RIGHT RADIAL
[2024-04-14 08:24] LABS: D Dimer 0.93 mg/L (0.19-0.50)
[2024-04-14 08:25] LABS: Lactic Acid Reflex 2.1 mmol/L (0.4-2.0)
[2024-04-14 08:36] LABS: Alanine Aminotransferase 47 U/L (14-59); Albumin Level 2.8 g/dL (3.4-5.0); Alkaline Phosphatase 259 U/L (46-116); Anion Gap 6 mmol/L (4-12); Aspartate Amino Transferase 41 U/L (15-37); Bilirubin,Total 0.6 mg/dL (0.00-1.00); Blood Urea Nitrogen 23 mg/dL (7-18); Calcium 8.3 mg/dL (8.5-10.1); Carbon Dioxide 27 mmol/L (21-32); Chloride 107 mmol/L (98-108); Estimated CRCL calculation 44 ml/min; Estimated Glomerular Filt Rate 40; NT Pro B Type Natriuretic Pept 703 pg/mL (0-125); Osmolality Calculated 310 mOsm/kg (285-295); Potassium 4.9 mmol/L (3.5-5.1); Sodium 140 mmol/L (136-145); Troponin I 22.5 ng/L (0.00-60.4)
[2024-04-14 09:14] LABS: Glucose 413 mg/dL (70-99)
[2024-04-14 09:17] LABS: Acetone Negative (Negative)
[2024-04-14 09:18] LABS: Glucose Point of Care 300 mg/dl (65-105)
[2024-04-14] MEDS: levoFLOXacin 500 MG/D5W 100 ML 500 MG/100 ML BAG 100 MG IVPB (09:19)
[2024-04-14] MEDS: ACETAMINOPHEN 325 MG TABLET 650 MG PO (09:23)
[2024-04-14 10:14] LABS: Glucose Point of Care 221 mg/dl (65-105)
--- NOTE | 2024-04-14 11:00 | ED_ITS ---
HPI - General Adult General Chief complaint: Unspecified <Lindsay Finney APRN - Last Filed: 04/14/24 14:14> Stated complaint: hyperglycemia <Lindsay Finney APRN - Last Filed: 04/14/24 14:14> ERROR CHART <Lindsay Finney APRN - Last Filed: 04/14/24 14:14> Source: patient and EMS <Lindsay Finney APRN - Last Filed: 04/14/24 14:14> Mode of arrival: EMS <Lindsay Finney APRN - Last Filed: 04/14/24 14:14> Limitations: no limitations <Lindsay Finney APRN - Last Filed: 04/14/24 14:14> History of Present Illness HPI narrative: error chart <Donald Simmons MD - Last Filed: 04/14/24 11:02> Severity scale (1-10): 5 <Lindsay Finney APRN - Last Filed: 04/14/24 14:14> Quality: other ( no pain) <Lindsay Finney APRN - Last Filed: 04/14/24 14:14> Relieving factors: none <Lindsay Finney APRN - Last Filed: 04/14/24 14:14> Exacerbating factors: none <Lindsay Finney APRN - Last Filed: 04/14/24 14:14> Associated symptoms: nausea/vomiting and shortness of breath <Lindsay Finney APRN - Last Filed: 04/14/24 14:14> Treatments prior to arrival: none <Lindsay Finney APRN - Last Filed: 04/14/24 14:14> Related Data Allergies/adverse reactions: Allergies Allergy/AdvReac Type Severity Reaction Status Date / Time metformin (From Glucophage) Allergy Mild Unknown Verified 04/14/24 11:01 <Lindsay Finney APRN - Last Filed: 04/14/24 14:14> PMFSH Past Medical History Medical History: Medical History (Updated 04/14/24 @ 12:02 by Lindsay Finney APRN) Hypothyroidism Methamphetamine abuse Amphetamine abuse Acute vaginitis Well woman exam Hypotension Elevated d-dimer Person under investigation for COVID-19 Acute renal failure (ARF) Acute dehydration UTI (urinary tract infection) Aspiration pneumonia Metabolic acidosis Atelectasis of left lung Septic shock Pneumothorax Left wrist pain Type 1 diabetes Weakness Hyperglycemia BMI 24.0-24.9, adult Tobacco dependence syndrome Depression GERD (gastroesophageal reflux disease) Type 1 diabetes <Lindsay Finney APRN - Last Filed: 04/14/24 14:14> Surgical History Surgical History: Surgical History History of bilateral tubal ligation 2012 <Lindsay Finney APRN - Last Filed: 04/14/24 14:14> Family History Family History: Family History Father Family history of coronary artery disease Family history of type 2 diabetes mellitus <Lindsay Finney APRN - Last Filed: 04/14/24 14:14> Social History Social History: Social History (Updated 04/14/24 @ 12:01 by Lindsay Finney APRN) Social History: denies any illicit drug use, still smokes and vapes, she does not consume any alcohol. She lives with a roommate. Smoking packs per day: 1 Smoking cigarettes per day: 20.0 Years smoked: 30 Smoking pack-years: 30.00 Smoking status: Current every day smoker Tobacco type: cigarettes Additional smoking assessment comments: Patient states she uses vape at 6mg of nicotine Alcohol intake: unknown Substance use: unknown Substance use type: former substance user Last use: 12/27/19 Do You Feel Safe in your Home?: Yes Lack of Transportation: YES Lack of Food: Never True Current Housing: I Have Housing Concerned About Future Housing: No Difficulty Paying Gas/Electric Bills: Decline to Answer Difficulty Paying for Meds: No Currently Unemployed: Decline to Answer Education: High School Diploma/GED Difficulty w/ Childcare or Family Care: No Gender identity (if verbalized by the patient): Female Spiritual care concerns: No <Lindsay Finney APRN - Last Filed: 04/14/24 14:14> Course Vital Signs Vital signs: Vital Signs Temperature 99.1 F 04/14/24 07:30 Pulse Rate 127 H 04/14/24 07:30 Respiratory Rate 18 04/14/24 07:30 Blood Pressure 150/69 H 04/14/24 07:30 Pulse Oximetry 100 04/14/24 07:30 Oxygen Delivery Room Air 04/14/24 07:30 Temperature 98.3 F 04/14/24 11:31 Pulse Rate 114 H 04/14/24 11:45 Respiratory Rate 16 04/14/24 11:45 Blood Pressure 117/65 04/14/24 11:31 Pulse Oximetry 95 04/14/24 11:45 Oxygen Delivery Room Air 04/14/24 11:45 <Lindsay Finney APRN - Last Filed: 04/14/24 14:14> Vital Signs Temperature 99.1 F 04/14/24 07:30 Pulse Rate 127 H 04/14/24 07:30 Respiratory Rate 18 04/14/24 07:30 Blood Pressure 150/69 H 04/14/24 07:30 Pulse Oximetry 100 04/14/24 07:30 Oxygen Delivery Room Air 04/14/24 07:30 Temperature 98.3 F 04/14/24 11:31 Pulse Rate 114 H 04/14/24 11:45 Respiratory Rate 16 04/14/24 11:45 Blood Pressure 117/65 04/14/24 11:31 Pulse Oximetry 95 04/14/24 11:45 Oxygen Delivery Room Air 04/14/24 11:45 <Donald Simmons MD - Last Filed: 04/14/24 11:02> Medical Decision Making Vital Signs Vital Signs: Vital Signs Temperature 99.1 F 04/14/24 07:30 Pulse Rate 127 H 04/14/24 07:30 Respiratory Rate 18 04/14/24 07:30 Blood Pressure 150/69 H 04/14/24 07:30 Pulse Oximetry 100 04/14/24 07:30 Oxygen Delivery Room Air 04/14/24 07:30 Temperature 98.3 F 04/14/24 11:31 Pulse Rate 114 H 04/14/24 11:45 Respiratory Rate 16 04/14/24 11:45 Blood Pressure 117/65 04/14/24 11:31 Pulse Oximetry 95 04/14/24 11:45 Oxygen Delivery Room Air 04/14/24 11:45 <Lindsay Finney APRN - Last Filed: 04/14/24 14:14> Vital Signs Temperature 99.1 F 04/14/24 07:30 Pulse Rate 127 H 04/14/24 07:30 Respiratory Rate 18 04/14/24 07:30 Blood Pressure 150/69 H 04/14/24 07:30 Pulse Oximetry 100 04/14/24 07:30 Oxygen Delivery Room Air 04/14/24 07:30 Temperature 98.3 F 04/14/24 11:31 Pulse Rate 114 H 04/14/24 11:45 Respiratory Rate 16 04/14/24 11:45 Blood Pressure 117/65 04/14/24 11:31 Pulse Oximetry 95 04/14/24 11:45 Oxygen Delivery Room Air 04/14/24 11:45 <Donald Simmons MD - Last Filed: 04/14/24 11:02> Lab Data Result diagrams: 04/14/24 07:52 04/14/24 13:43 <Lindsay Finney APRN - Last Filed: 04/14/24 14:14> Labs: Lab Results 04/14/24 04/14/24 04/14/24 Range/Units 07:23 07:52 08:08 WBC 11.6 H (4.8-10.8) K/mm3 RBC 3.22 L (4.20-5.40) M/mm3 Hgb 9.4 L (12.0-15.0) g/dL Hct 28.4 L (35.0-49.0) % MCV 88.2 (78.0-102.0) fL MCH 29.2 (27.0-31.0) pg MCHC 33.1 (32-36) g/dL RDW 12.8 (11.6-14.4) % Plt Count 319 (150-420) K/mm3 MPV 9.5 (9.2-11.8) fl Immature Gran % (Auto) 0.3 H (0.0-0.0) % Neut % (Auto) 80.9 H (50.0-70.0) % Lymph % (Auto) 12.4 L (18.0-42.0) % [place] % (Auto) 4.7 (2.0-11.0) % Eos % (Auto) 1.2 (1.0-6.0) % Baso % (Auto) 0.5 (0.0-1.0) % Lymph # (Auto) 1.44 (1.10-4.50) K/mm3 [place] # (Auto) 0.54 (0.10-0.90) K/mm3 Eos # (Auto) 0.14 (0.02-0.50) K/mm3 Baso # (Auto) 0.06 (0.00-0.10) K/mm3 Abs Immat Gran (auto) 0.04 H (0.00-0.00) K/mm3 Absolute Neuts (auto) 9.37 H (1.70-7.20) K/mm3 Absolute Nucleated RBC 0.00 (0.00-0.00) K/mm3 Nucleated RBC % 0.0 (0-0.0) % PT 10.0 (9.50-12.1) Seconds INR 0.9 APTT 25.5 (23.9-30.70) Sec D-Dimer 0.93 H* (0.19-0.50) mg/L Sodium 140 (136-145) mmol/L Potassium 4.9 (3.5-5.1) mmol/L Chloride 107 (98-108) mmol/L Carbon Dioxide 27 (21-32) mmol/L Anion Gap 6 (4-12) mmol/L BUN 23 H (7-18) mg/dL Creatinine 1.41 H (0.55-1.02) mg/dL Estim Creat Clear Calc 44 ml/min Estimated GFR 40 L (59 - ) Glucose 413 H* (70-99) mg/dL POC Capillary Glucose > 450 H 409 H (65-105) mg/dl Calculated Osmolality 310 H (285-295) mOsm/kg Lactic Acid 2.1 H (0.4-2.0) mmol/L Calcium 8.3 L (8.5-10.1) mg/dL Total Bilirubin 0.6 (0.00-1.00) mg/dL AST 41 H (15-37) U/L ALT 47 (14-59) U/L Alkaline Phosphatase 259 H (46-116) U/L Troponin I 22.5 (0.00-60.4) ng/L NT-Pro-B Natriuret Pep 703 H (0-125) pg/mL Total Protein 6.0 L (6.4-8.2) g/dL Albumin 2.8 L (3.4-5.0) g/dL Urine Color Pending Urine Appearance Pending Urine pH Pending Ur Specific [place] Pending Urine Protein Pending Urine Glucose (UA) Pending Urine Ketones Pending Ur Blood (Man) Pending Urine Nitrate Pending Urine Bilirubin Pending Urine Urobilinogen Pending Leukocyte Esterase Rfl Pending Acetone Level Negative (Negative) 04/14/24 04/14/24 Range/Units 09:15 10:11 WBC (4.8-10.8) K/mm3 RBC (4.20-5.40) M/mm3 Hgb (12.0-15.0) g/dL Hct (35.0-49.0) % MCV (78.0-102.0) fL MCH (27.0-31.0) pg MCHC (32-36) g/dL RDW (11.6-14.4) % Plt Count (150-420) K/mm3 MPV (9.2-11.8) fl Immature Gran % (Auto) (0.0-0.0) % Neut % (Auto) (50.0-70.0) % Lymph % (Auto) (18.0-42.0) % [place] % (Auto) (2.0-11.0) % Eos % (Auto) (1.0-6.0) % Baso % (Auto) (0.0-1.0) % Lymph # (Auto) (1.10-4.50) K/mm3 [place] # (Auto) (0.10-0.90) K/mm3 Eos # (Auto) (0.02-0.50) K/mm3 Baso # (Auto) (0.00-0.10) K/mm3 Abs Immat Gran (auto) (0.00-0.00) K/mm3 Absolute Neuts (auto) (1.70-7.20) K/mm3 Absolute Nucleated RBC (0.00-0.00) K/mm3 Nucleated RBC % (0-0.0) % PT (9.50-12.1) Seconds INR APTT (23.9-30.70) Sec D-Dimer (0.19-0.50) mg/L Sodium (136-145) mmol/L Potassium (3.5-5.1) mmol/L Chloride (98-108) mmol/L Carbon Dioxide (21-32) mmol/L Anion Gap (4-12) mmol/L BUN (7-18) mg/dL Creatinine (0.55-1.02) mg/dL Estim Creat Clear Calc ml/min Estimated GFR (59 - ) Glucose (70-99) mg/dL POC Capillary Glucose 300 H 221 H (65-105) mg/dl Calculated Osmolality (285-295) mOsm/kg Lactic Acid (0.4-2.0) mmol/L Calcium (8.5-10.1) mg/dL Total Bilirubin (0.00-1.00) mg/dL AST (15-37) U/L ALT (14-59) U/L Alkaline Phosphatase (46-116) U/L Troponin I (0.00-60.4) ng/L NT-Pro-B Natriuret Pep (0-125) pg/mL Total Protein (6.4-8.2) g/dL Albumin (3.4-5.0) g/dL Urine Color Urine Appearance Urine pH Ur Specific [place] Urine Protein Urine Glucose (UA) Urine Ketones Ur Blood (Man) Urine Nitrate Urine Bilirubin Urine Urobilinogen Leukocyte Esterase Rfl Acetone Level (Negative) <Lindsay Finney, [employer]ATOR - Last Filed: 04/14/24 14:14> Lab Results 04/14/24 04/14/24 04/14/24 Range/Units 07:23 07:52 08:08 WBC 11.6 H (4.8-10.8) K/mm3 RBC 3.22 L (4.20-5.40) M/mm3 Hgb 9.4 L (12.0-15.0) g/dL Hct 28.4 L (35.0-49.0) % MCV 88.2 (78.0-102.0) fL MCH 29.2 (27.0-31.0) pg MCHC 33.1 (32-36) g/dL RDW 12.8 (11.6-14.4) % Plt Count 319 (150-420) K/mm3 MPV 9.5 (9.2-11.8) fl Immature Gran % (Auto) 0.3 H (0.0-0.0) % Neut % (Auto) 80.9 H (50.0-70.0) % Lymph % (Auto) 12.4 L (18.0-42.0) % [place] % (Auto) 4.7 (2.0-11.0) % Eos % (Auto) 1.2 (1.0-6.0) % Baso % (Auto) 0.5 (0.0-1.0) % Lymph # (Auto) 1.44 (1.10-4.50) K/mm3 [place] # (Auto) 0.54 (0.10-0.90) K/mm3 Eos # (Auto) 0.14 (0.02-0.50) K/mm3 Baso # (Auto) 0.06 (0.00-0.10) K/mm3 Abs Immat Gran (auto) 0.04 H (0.00-0.00) K/mm3 Absolute Neuts (auto) 9.37 H (1.70-7.20) K/mm3 Absolute Nucleated RBC 0.00 (0.00-0.00) K/mm3 Nucleated RBC % 0.0 (0-0.0) % PT 10.0 (9.50-12.1) Seconds INR 0.9 APTT 25.5 (23.9-30.70) Sec D-Dimer 0.93 H* (0.19-0.50) mg/L Sodium 140 (136-145) mmol/L Potassium 4.9 (3.5-5.1) mmol/L Chloride 107 (98-108) mmol/L Carbon Dioxide 27 (21-32) mmol/L Anion Gap 6 (4-12) mmol/L BUN 23 H (7-18) mg/dL Creatinine 1.41 H (0.55-1.02) mg/dL Estim Creat Clear Calc 44 ml/min Estimated GFR 40 L (59 - ) Glucose 413 H* (70-99) mg/dL POC Capillary Glucose > 450 H 409 H (65-105) mg/dl Calculated Osmolality 310 H (285-295) mOsm/kg Lactic Acid 2.1 H (0.4-2.0) mmol/L Calcium 8.3 L (8.5-10.1) mg/dL Total Bilirubin 0.6 (0.00-1.00) mg/dL AST 41 H (15-37) U/L ALT 47 (14-59) U/L Alkaline Phosphatase 259 H (46-116) U/L Troponin I 22.5 (0.00-60.4) ng/L NT-Pro-B Natriuret Pep 703 H (0-125) pg/mL Total Protein 6.0 L (6.4-8.2) g/dL Albumin 2.8 L (3.4-5.0) g/dL Urine Color Pending Urine Appearance Pending Urine pH Pending Ur Specific [place] Pending Urine Protein Pending Urine Glucose (UA) Pending Urine Ketones Pending Ur Blood (Man) Pending Urine Nitrate Pending Urine Bilirubin Pending Urine Urobilinogen Pending Leukocyte Esterase Rfl Pending Acetone Level Negative (Negative) 04/14/24 04/14/24 Range/Units 09:15 10:11 WBC (4.8-10.8) K/mm3 RBC (4.20-5.40) M/mm3 Hgb (12.0-15.0) g/dL Hct (35.0-49.0) % MCV (78.0-102.0) fL MCH (27.0-31.0) pg MCHC (32-36) g/dL RDW (11.6-14.4) % Plt Count (150-420) K/mm3 MPV (9.2-11.8) fl Immature Gran % (Auto) (0.0-0.0) % Neut % (Auto) (50.0-70.0) % Lymph % (Auto) (18.0-42.0) % [place] % (Auto) (2.0-11.0) % Eos % (Auto) (1.0-6.0) % Baso % (Auto) (0.0-1.0) % Lymph # (Auto) (1.10-4.50) K/mm3 [place] # (Auto) (0.10-0.90) K/mm3 Eos # (Auto) (0.02-0.50) K/mm3 Baso # (Auto) (0.00-0.10) K/mm3 Abs Immat Gran (auto) (0.00-0.00) K/mm3 Absolute Neuts (auto) (1.70-7.20) K/mm3 Absolute Nucleated RBC (0.00-0.00) K/mm3 Nucleated RBC % (0-0.0) % PT (9.50-12.1) Seconds INR APTT (23.9-30.70) Sec D-Dimer (0.19-0.50) mg/L Sodium (136-145) mmol/L Potassium (3.5-5.1) mmol/L Chloride (98-108) mmol/L Carbon Dioxide (21-32) mmol/L Anion Gap (4-12) mmol/L BUN (7-18) mg/dL Creatinine (0.55-1.02) mg/dL Estim Creat Clear Calc ml/min Estimated GFR (59 - ) Glucose (70-99) mg/dL POC Capillary Glucose 300 H 221 H (65-105) mg/dl Calculated Osmolality (285-295) mOsm/kg Lactic Acid (0.4-2.0) mmol/L Calcium (8.5-10.1) mg/dL Total Bilirubin (0.00-1.00) mg/dL AST (15-37) U/L ALT (14-59) U/L Alkaline Phosphatase (46-116) U/L Troponin I (0.00-60.4) ng/L NT-Pro-B Natriuret Pep (0-125) pg/mL Total Protein (6.4-8.2) g/dL Albumin (3.4-5.0) g/dL Urine Color Urine Appearance Urine pH Ur Specific [place] Urine Protein Urine Glucose (UA) Urine Ketones Ur Blood (Man) Urine Nitrate Urine Bilirubin Urine Urobilinogen Leukocyte Esterase Rfl Acetone Level (Negative) <Donald Simmons MD - Last Filed: 04/14/24 11:02> ABG Data ABG results: 04/14/24 07:52 Puncture Site Right radial ABG pH 7.45 ABG pCO2 28.0 L ABG pO2 79.3 L ABG PO2/FiO2 Ratio Not Reportable ABG HCO3 18.9 L ABG O2 Saturation 94.4 L ABG O2 Content 14.9 L ABG Base Excess -4.0 L A-a Gradient Not Reportable Oxyhemoglobin 94.0 O2 Delivery Device Room air O2 Liters/Min 0.0 <Lindsay Finney APRN - Last Filed: 04/14/24 14:14> 04/14/24 07:52 Puncture Site Right radial ABG pH 7.45 ABG pCO2 28.0 L ABG pO2 79.3 L ABG PO2/FiO2 Ratio Not Reportable ABG HCO3 18.9 L ABG O2 Saturation 94.4 L ABG O2 Content 14.9 L ABG Base Excess -4.0 L A-a Gradient Not Reportable Oxyhemoglobin 94.0 O2 Delivery Device Room air O2 Liters/Min 0.0 <Donald Simmons MD - Last Filed: 04/14/24 11:02> Discharge Plan Discharge Clinical Impression: SILVESTRE (acute kidney injury), Elevated liver enzymes, Regular sinus tachycardia Type 1 diabetes Qualifiers: Diabetes mellitus complication status: without complication Qualified Code(s): E10.9 - Type 1 diabetes mellitus without complications Pneumonia Qualifiers: Pneumonia type: due to unspecified organism Laterality: bilateral Lung location: unspecified part of lung Qualified Code(s): J18.9 - Pneumonia, unspecified organism <Lindsay Finney APRN - Last Filed: 04/14/24 14:14> Patient Disposition: [facility] <Lindsay Finney APRN - Last Filed: 04/14/24 14:14> Condition: Improved <Lindsay Finney APRN - Last Filed: 04/14/24 14:14> Time of Disposition: 10:22 <Lindsay Finney APRN - Last Filed: 04/14/24 14:14> 10:22 <Donald Simmons MD - Last Filed: 04/14/24 11:02>
[2024-04-14 11:01] LABS: Reflex Lactic Acid Yes or No Add Lactic
--- NOTE | 2024-04-14 11:01 | P.HP_ITS ---
H&P: HPI History of Present Illness Date/Time: 04/14/24 11:01 Chief Complaint: hyperglycemia SOB Narrative: This is a 49 year old female with a significant past medical history of type 1 DM, depression, GERD, current daily smoker who presented to the hospital with complaints of hyperglycemia and shortness of breath. Patient states that she initially came in for her hyperglycemia. She reports that last night her blood sugars dropped to 45 after her evening bolus with her dinner. Her insulin pump list of should off since then and when she woke up she had high blood sugars prompting her to come in for further evaluation. She denies any fever, chills, nausea, vomiting, diarrhea, abdominal pain, chest pain, shortness a breath. She did have a sore throat, postnasal drip, and productive cough. she also has been reporting foul odor with her urine. Work up in the hospital included A chest x- ray which showed patchy airspace consolidation in right mid lung region suspicious for pneumonia. Chest CTA was negative for PE, aortic dissection, aortic aneurysm; showed multifocal bilateral pneumonia worse in the right upper and lower lobes. Initial labs showed a white blood cell count of 11.6, hemoglobin 9.4, D-dimer 0.93, creatinine 1.41, EGFR 40, initial blood sugar greater than 450 now down to 221, lactic acid 2.1, AST 41, alkaline phos 259, proBNP 703, troponin 22.5. Blood cultures were obtained and pending. EKG showed sinus tachycardia with a rate of 125, QTC 428. Patient was given 1 L of normal saline, Tylenol, 6 units of regular insulin IV push, and a dose of Levaquin while in the ED. Review of Systems Review of Systems: All systems reviewed & are unremarkable except as noted in HPI and below Constitutional: Constitutional: Reports as per HPI and Reports no additional constitutional complaints Eyes: Eyes: Reports as per HPI and Reports no additional eye complaints ENT: Reports system reviewed and no additional complaints, except as documented and Reports as per HPI Cardiovascular: Cardiovascular: Reports as per HPI and Reports no additional cardiovascular complaints Respiratory: Respiratory: Reports as per HPI and Reports no additional respiratory complaints Gastrointestinal: Gastrointestinal: Reports as per HPI and Reports no additional gastrointestinal complaints Genitourinary: Genitourinary: Reports no additional female genitourinary complaints and Reports as per HPI Musculoskeletal: Musculoskeletal: Reports no additional musculoskeletal complaints and Reports as per HPI Integumentary/Breasts: Skin/Breast: Reports system reviewed and no additional complaints, except as docu and Reports as per HPI Neurologic: Reports system reviewed and no additional complaints, except as documented and Reports as per HPI Psychiatric: Psychiatric: Reports no additional psychiatric complaints and Reports as per HPI [facility] Past Medical History Medical History (Updated 04/14/24 @ 12:02 by Lindsay Finney APRN) Hypothyroidism Methamphetamine abuse Amphetamine abuse Acute vaginitis Well woman exam Hypotension Elevated d-dimer Person under investigation for COVID-19 Acute renal failure (ARF) Acute dehydration UTI (urinary tract infection) Aspiration pneumonia Metabolic acidosis Atelectasis of left lung Septic shock Pneumothorax Left wrist pain Type 1 diabetes Weakness Hyperglycemia BMI 24.0-24.9, adult Tobacco dependence syndrome Depression GERD (gastroesophageal reflux disease) Type 1 diabetes Surgical History Surgical History History of bilateral tubal ligation 2012 Family History Family History Father Family history of coronary artery disease Family history of type 2 diabetes mellitus Social History Social History (Updated 04/14/24 @ 12:01 by Lindsay Finney APRN) Social History: denies any illicit drug use, still smokes and vapes, she does not consume any alcohol. She lives with a roommate. Smoking packs per day: 1 Smoking cigarettes per day: 20.0 Years smoked: 30 Smoking pack-years: 30.00 Smoking status: Current every day smoker Tobacco type: cigarettes Additional smoking assessment comments: Patient states she uses vape at 6mg of nicotine Alcohol intake: unknown Substance use: unknown Substance use type: former substance user Last use: 12/27/19 Do You Feel Safe in your Home?: Yes Lack of Transportation: YES Lack of Food: Never True Current Housing: I Have Housing Concerned About Future Housing: No Difficulty Paying Gas/Electric Bills: Decline to Answer Difficulty Paying for Meds: No Currently Unemployed: Decline to Answer Education: High School Diploma/GED Difficulty w/ Childcare or Family Care: No Gender identity (if verbalized by the patient): Female Spiritual care concerns: No Meds Home Medications and Allergies Home Medications ?Medication ?Instructions ?Recorded ?Confirmed ?Type insulin lispro 100 unit/mL 10 unit (0.1 mL) subcut BID #15 mL 03/24/23 02/21/24 Rx subcutaneous pen (Humalog KwikPen (U-100) Insulin) lancets 30 gauge (OneTouch #200 ea 04/13/23 02/21/24 Rx UltraSoft 2 Lancet) blood-glucose meter (OneTouch #1 ea 07/10/23 02/21/24 Rx Ultra2 Meter) blood sugar diagnostic (OneTouch #100 ea 12/11/23 02/21/24 Rx Ultra Test strips) pen needle, diabetic 31 gauge x #100 ea 01/15/24 02/21/24 Rx 1/4 (TRUEplus Pen Needle) blood-glucose meter,continuous #1 ea 02/21/24 02/21/24 Rx (Dexcom G7 Recreation Professor) blood-glucose sensor (Dexcom G7 #9 ea 02/21/24 02/21/24 Rx Sensor device) glucose 4 gram chewable tablet 16 g (4 x 4 gram) PO Q15M PRN 02/21/24 02/21/24 Rx (Dex4 Glucose) hypoglycemia #60 tabs urine glucose-ketones test #50 ea 02/21/24 02/21/24 Rx famotidine 20 mg tablet See Rx Instructions .Route 03/04/24 Rx .COMPLEX #90 tabs levothyroxine 100 mcg capsule 100 mcg PO DAILY #90 caps 03/12/24 Rx quetiapine 150 mg tablet 150 mg PO QHS #135 tabs 03/28/24 03/28/24 Rx escitalopram oxalate 20 mg tablet See Rx Instructions .Route 04/01/24 Rx .COMPLEX #90 tabs Allergies Allergy/AdvReac Type Severity Reaction Status Date / Time metformin (From Glucophage) Allergy Mild Unknown Verified 04/14/24 11:01 Vital Signs Vital Signs - 24 hr 04/14/24 07:30 04/14/24 07:30 04/14/24 08:15 Temperature 99.1 F Pulse Rate 127 H 126 H 126 H Respiratory Rate 18 20 20 Blood Pressure 150/69 H 123/61 158/75 H Pulse Oximetry 100 96 96 Oxygen Delivery Room Air Room Air Room Air Exam Narrative: General: In no acute distress, well nourished Head: atraumatic, no encephalopathy Eyes: PERRLA, sclera clear ENT: moist mucous membranes, nasal passages clear , missing teeth Neck: supple, no JVD, no adenopathy, trachea midline Cardiac: Normal S1 and S2. RRR,No murmur, gallops or friction rubs, peripheral pulses intact. Respiratory: bilateral lower lobe crackles, right upper lobe crackles, left upper lobe clear, productive cough, postnasal drip, no other adventitious lung sounds, currently on room air Gastrointestinal: soft, non-distended, non-tender, normoactive bowel sounds. : voiding without difficulty. Extremities: moves all extremities well, no edema Skin: clean, dry, intact. No wounds or lesions. Neuro: Alert and oriented x4, cranial nerves intact, no neuro deficits. Psych: normal mood, normal affect, interactive H&P: Results Labs Labs: Short CBC 04/14/24 Range/Units 07:52 WBC 11.6 H (4.8-10.8) K/mm3 Hgb 9.4 L (12.0-15.0) g/dL Hct 28.4 L (35.0-49.0) % Plt Count 319 (150-420) K/mm3 BMP 04/14/24 07:52 Sodium 140 Potassium 4.9 Chloride 107 Carbon Dioxide 27 BUN 23 H Creatinine 1.41 H Glucose 413 H* Calcium 8.3 L Cardiac Enzymes 04/14/24 Range/Units 07:52 Troponin I 22.5 (0.00-60.4) ng/L Liver Function 04/14/24 Range/Units 07:52 Total Bilirubin 0.6 (0.00-1.00) mg/dL AST 41 H (15-37) U/L ALT 47 (14-59) U/L Alkaline Phosphatase 259 H (46-116) U/L Albumin 2.8 L (3.4-5.0) g/dL Imaging Chest x-ray: Radiologist's impression: Portable chest x-ray Comparison: 04/21/2020 Clinical History: Shortness of breath Findings: There is patchy airspace consolidation extensively involving the right midlung region. Possible mild haziness left lung base. Cardiomediastinal silhouette is stable. Bones and soft tissues are unremarkable. Impression: Patchy airspace consolidation and extensive on the right midlung region. Possible minimal involvement left lung base. Findings are suspicious for pneumonia, versus possibly asymmetric pulmonary edema pattern. Correlate clinically. Reviewed, dictated and finalized at location . ANCE EDUCATION COORDINATOR Chest CTA: Radiologist's impression: CT Scan of the Chest with Contrast: Technique: Contiguous sections were acquired throughout the chest after intravenous administration of 100 cc of Omnipaque 350. Dose reduction technique was used on this scan by utilizing automated exposure control and iterative reconstruction technique. The dose-length product (DLP) was 236.33 mGy-cm. COMPARISON: 04/21/2020 Findings: There is no evidence of any significant mediastinal, hilar or axillary lymphadenopathy. There is no filling defect in the pulmonary arterial tree to suggest pulmonary embolus. There is no evidence of aortic dissection or a neurysm. There is no evidence of pleural or pericardial effusion. There is patchy consolidation predominantly in the right upper and lower lobes, with more mild involvement in the right middle lobe. There is additional patchy consolidation at the left lower lobe. Images through the upper abdomen reveal no abnormalities. 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 Impression: No evidence of pulmonary embolus, aortic dissection, or aortic aneurysm. Multifocal, bilateral pneumonia, worse in the right upper and lower lobes. Please see details above. Reviewed, dictated and finalized at location . ANCE EDUCATION COORDINATOR Assessment and Plan Assessment and plan (1) Pneumonia: Qualifiers: Laterality: bilateral Lung location: unspecified part of lung Pneumonia type: due to unspecified organism Qualified Code(s): J18.9 - Pneumonia, unspecified organism Code(s): J18.9 - Pneumonia, unspecified organism Status: Acute Assessment and Plan: * did not meet SIRS criteria however heart rate was 125, lactic acid 2.1 * chest x-ray showed patchy airspace consolidation in right mid lung region suspicious for pneumonia * chest CTA was negative for pulmonary embolism, aortic dissection, aortic aneurysm. It did show multifocal bilateral pneumonia worse in the right upper and lower lobes * initial white blood cell count 11.6, D-dimer 0.93, lactic acid 2.1 * patient was given 1 L of normal saline while in the ED * blood cultures were obtained and pending * continue Levaquin * DuoNebs p.r.n. (2) Type 1 diabetes: Qualifiers: Diabetes mellitus complication status: without complication Qualified Code(s): E10.9 - Type 1 diabetes mellitus without complications Code(s): E10.9 - Type 1 diabetes mellitus without complications Status: Acute Assessment and Plan: initial blood sugar greater than 450. Patient normally wears an insulin pump however that was off overnight. She restarted her insulin pump while in the ED in her blood sugar corrected to 221. She is not in DKA, anion gap of 6, pH 7.45 * Blood sugars ranging 221-310 * Hgb A1C 11.6 on 02/21/2024 * Accu checks AC/HS * moderate dose SSI ordered * Lantus 12 units ordered for tonight * hypoglycemic protocol in place * Diabetic diet ordered * insulin pump on hold (3) Hypothyroidism: Code(s): E03.9 - Hypothyroidism, unspecified Status: Acute Assessment and Plan: * continue Synthroid (4) Depression: Code(s): F32.9 - Major depressive disorder, single episode, unspecified Status: Acute Assessment and Plan: * continue home medication Quality VTE Prophylaxis VTE prophylaxis: pharmacologic ordered Hospitalist [facility] Advance Care Plan I have confirmed that the patient's Advanced Care Plan is present, code status is documented, or surrogate decision maker is listed in patient medical record.: Yes Medication Reconciliation I have utilized all available resources to obtain, update and review the patients current medications (includes all prescriptions, OTC, herbals, cannabis, and nutritional supplements).: Yes The patient is not eligible for med reconciliation; the patient is in a emergent medical situation where delaying treatment would jeopardize the patients health.: Yes
--- NOTE | 2024-04-14 11:45 | ADMGEN ---
This patient, Lucy Arambula, was admitted to 2nd Floor Room 204-2. Patient/family oriented to hospital policies and general routines including ID bracelet, bed and alarms, visiting hours, pain management, procedures, bathroom and other care routines, personal items, smoking policy, room service/diet, and visiting hours. Information on how to activate the Rapid Response Team has been discussed. Patient/Family are encouraged to report perceived risks to care and to ask questions if they do not understand what they are told or what they should do.
[2024-04-14 12:06] LABS: Glucose Point of Care 62 mg/dl (65-105)
--- NOTE | 2024-04-14 12:42 | PC.NURSE ---
Called [facility] GUILLERMO for confirmation of medications. Insulin supplies not picked up since December. Pt informs she is now on insulin pump.
--- NOTE | 2024-04-14 12:51 | PC.NURSE ---
Informed PLC TECHNICIAN of admission and home meds confirmed.
[2024-04-14 13:57] LABS: Estimated CRCL calculation 48 ml/min; Estimated Glomerular Filt Rate 46
[2024-04-14 14:13] LABS: Add Urine Microscopic? YES; Bilirubin Urine Negative (Negative); Blood Urine Trace-intact (Negative); Color Urine Light Yellow (Yellow); Glucose Urine UA 3+ (Negative); Ketones Urine Negative (Negative); Leukocyte Esterase Ur 1+ LEU/UL (Negative); Nitrate Urine Negative (Negative); Protein Urine Trace (Negative); Urobilinogen Urine 0.2 mg/dL (0.2-1.0); pH Urine 5.5 (5.0-8.0)
[2024-04-14 14:25] LABS: Appearance Urine Cloudy (Clear); RBC Urine 0-2 /hpf (0-2); WBC Clumps Urine Present /hpf; WBC Urine 21-30 /hpf (0-3)
[2024-04-14 14:26] LABS: Amorphous Sediment Urine Heavy; Bacteria Urine 4+ /hpf; Squamous Epithelial Cell Urine Moderate /hpf (Few)
[2024-04-14 14:42] LABS: Glucose Point of Care 219 mg/dl (65-105)
--- NOTE | 2024-04-14 14:42 | PC.NURSE ---
LIBRARIAN ASSISTANT called concerned with admitting blood sugar of 62. Informed LIBRARIAN ASSISTANT she consumed lunch right after blood sugar taken. LIBRARIAN ASSISTANT requested to recheck.
--- NOTE | 2024-04-14 14:45 | PC.NURSE ---
Informed SECOND MATE blood sugar reading now 212.
--- NOTE | 2024-04-14 14:50 | PC.NURSE ---
Insulin pump placed in med room, marker with sticker.
[2024-04-14 17:01] LABS: Glucose Point of Care 324 mg/dl (65-105)
[2024-04-14] MEDS: INSULIN HUMAN LISPRO (*BKC) 1,000 UNITS/10 ML VIAL SUB-Q (17:09)
[2024-04-14] MEDS: ONDANSETRON INJ 4 MG/2 ML VIAL IV PUSH (18:01)
[2024-04-14] MEDS: QUEtiapine FUMARATE 25 MG TABLET 50 MG PO (20:47)
[2024-04-14] MEDS: QUEtiapine FUMARATE 100 MG TABLET PO (20:47)
[2024-04-14] MEDS: ESCITALOPRAM OXALATE 10 MG TABLET 20 MG PO (20:47)
[2024-04-14] MEDS: INSULIN GLARGINE (*BKC) 1,000 UNITS/10 ML VIAL 12 UNITS SUB-Q (20:48)
[2024-04-14] MEDS: FAMOTIDINE 20 MG TABLET PO (20:48)
[2024-04-14 20:56] LABS: Glucose Point of Care 234 mg/dl (65-105)
[2024-04-14] MEDS: NICOTINE (*PBKC) 21 MG PATCH 1 PATCH TRANSDERM (21:26)
[2024-04-15 04:00] VITALS: PULSE 107
[2024-04-15 05:54] LABS: Basophils Absolute Auto 0.06 K/mm3 (0.00-0.10); Basophils Percent Auto 0.5 % (0.0-1.0); Eosinophils Absolute Auto 0.19 K/mm3 (0.02-0.50); Eosinophils Percent Auto 1.6 % (1.0-6.0); Hematocrit 23.1 % (35.0-49.0); Hemoglobin 7.7 g/dL (12.0-15.0); Immature Granulocyte Absolute 0.03 K/mm3 (0.00-0.00); Immature Granulocyte Percent A 0.3 % (0.0-0.0); Lymphocytes Absolute Auto 2.92 K/mm3 (1.10-4.50); Lymphocytes Percent Auto 25.2 % (18.0-42.0); Mean Corpuscular HGB Conc 33.3 g/dL (32-36); Mean Corpuscular Hemoglobin 29.4 pg (27.0-31.0); Mean Corpuscular Volume 88.2 fL (78.0-102.0); Mean Platelet Volume 9.6 fl (9.2-11.8); Monocytes Absolute Auto 0.74 K/mm3 (0.10-0.90); Monocytes Percent Auto 6.4 % (2.0-11.0); Neutrophils Absolute Auto 7.65 K/mm3 (1.70-7.20); Platelet Count Result 262 K/mm3 (150-420); Red Blood Count 2.62 M/mm3 (4.20-5.40); Red Cell Distribution Width 13.2 % (11.6-14.4); White Blood Count 11.6 K/mm3 (4.8-10.8)
[2024-04-15] MEDS: LEVOTHYROXINE SODIUM 100 MCG TABLET PO (06:07)
[2024-04-15 06:10] LABS: Alanine Aminotransferase 41 U/L (14-59); Albumin Level 2.3 g/dL (3.4-5.0); Alkaline Phosphatase 187 U/L (46-116); Anion Gap 7 mmol/L (4-12); Aspartate Amino Transferase 23 U/L (15-37); Bilirubin,Total 0.7 mg/dL (0.00-1.00); Blood Urea Nitrogen 23 mg/dL (7-18); Calcium 8.1 mg/dL (8.5-10.1); Carbon Dioxide 28 mmol/L (21-32); Chloride 107 mmol/L (98-108); Estimated CRCL calculation 43 ml/min; Estimated Glomerular Filt Rate 40; Glucose 136 mg/dL (70-99); Osmolality Calculated 299 mOsm/kg (285-295); Potassium 3.8 mmol/L (3.5-5.1); Sodium 142 mmol/L (136-145); Total Protein 5.3 g/dL (6.4-8.2)
[2024-04-15 08:00] VITALS: BP 133/71; PULSE 106; PULSE 107; RESP 20; TEMP 36.9; O2SAT 96
[2024-04-15 08:10] LABS: Glucose Point of Care 118 mg/dl (65-105)
[2024-04-15] MEDS: ENOXAPARIN 40 MG/0.4 ML SYRINGE SUB-Q (09:14)
[2024-04-15] MEDS: NICOTINE (*PBKC) 21 MG PATCH 1 PATCH TRANSDERM (09:51)
--- NOTE | 2024-04-15 10:54 | P.DS_ITS ---
DS: Admitting Diagnosis Discharge Date 04/15/24 Admitting Diagnosis Pneumonia type 1 diabetes mellitus hypothyroidism depression DS: Discharge Diagnosis Discharge Diagnosis (1) Pneumonia: Qualifiers: Laterality: bilateral Lung location: unspecified part of lung Pneumonia type: due to unspecified organism Qualified Code(s): J18.9 - Pneumonia, unspecified organism Code(s): J18.9 - Pneumonia, unspecified organism Status: Acute (2) Type 1 diabetes: Qualifiers: Diabetes mellitus complication status: without complication Qualified Code(s): E10.9 - Type 1 diabetes mellitus without complications Code(s): E10.9 - Type 1 diabetes mellitus without complications Status: Acute (3) Hypothyroidism: Code(s): E03.9 - Hypothyroidism, unspecified Status: Acute (4) Depression: Code(s): F32.9 - Major depressive disorder, single episode, unspecified Status: Acute DS: Summary Hospital Course Reason for hospitalization: Pneumonia type 1 diabetes mellitus hypothyroidism depression Hospital Course: This is a 49 year old female with a significant past medical history of type 1 DM, depression, GERD, current daily smoker who presented to the hospital with complaints of hyperglycemia and shortness of breath. Patient states that she initially came in for her hyperglycemia. She reports that last night her blood sugars dropped to 45 after her evening bolus with her dinner. Her insulin pump list of should off since then and when she woke up she had high blood sugars p rompting her to come in for further evaluation. She denies any fever, chills, nausea, vomiting, diarrhea, abdominal pain, chest pain, shortness a breath. She did have a sore throat, postnasal drip, and productive cough. she also has been reporting foul odor with her urine. Work up in the hospital included A chest x- ray which showed patchy airspace consolidation in right mid lung region suspicio us for pneumonia. Chest CTA was negative for PE, aortic dissection, aortic aneurysm; showed multifocal bilateral pneumonia worse in the right upper and lower lobes. Initial labs showed a white blood cell count of 11.6, hemoglobin 9.4, D-dimer 0.93, creatinine 1.41, EGFR 40, initial blood sugar greater than 450 now down to 221, lactic acid 2.1, AST 41, alkaline phos 259, proBNP 703, troponin 22.5. Blood cultures were obtained and pending. EKG showed sinus tachycardia with a rate of 125, QTC 428. Patient was given 1 L of normal saline, Tylenol, 6 units of regular insulin IV push, and a dose of Levaquin while in the ED. Her blood sugars stabilized. She has not required any oxygen overnight. she is stable for discharge today. She can restart her home insulin pump and then follow up with her livestock speculator which she already has set up for Monday. We will start her on Levaquin for 7 day course. She will need to follow up with her primary care physician after finishing the Levaquin. a UA was obtained which showed 1+ leukocyte, 21-30 urine WBC, moderate urine squamous epithelial cells, heavy amorphous sediment, 4+ urine bacteria. Urine culture was obtained and pending. Urine cultures reviewed in the past were positive for E coli which were pansensitive. We will continue her on Oral Levaquin and watch the culture. final diagnosis: community-acquired pneumonia, hyperglycemia, acute UTI Status at Discharge Cognitive/behavioral status at discharge: alert oriented x3 Functional status at discharge: independent ambulation Overall status at discharge: patient is progressing back to baseline Time Spent with Patient Time attestation: Total time spent providing and/or coordinating discharge services: Time spent: Greater than 30 minutes Exam Narrative: General: In no acute distress, well nourished Cardiac: Normal S1 and S2. RRR,No murmur, gallops or friction rubs, peripheral pulses intact. Respiratory: bilateral lower lobe crackles, right upper lobe crackles, left upper lobe clear, productive cough, postnasal drip, no other adventitious lung sounds, currently on room air Gastrointestinal: soft, non-distended, non-tender, normoactive bowel sounds. : voiding without difficulty. Neuro: Alert and oriented x4 DS: Data Data Completed and Pending Completed studies during hospitalization: chest CTA chest x-ray Pending studies at discharge: urine culture Labs on day of discharge: Labs from last 24 hours 04/15/24 04/15/24 04/14/24 08:04 05:22 20:53 WBC 11.6 H RBC 2.62 L Hgb 7.7 L Hct 23.1 L MCV 88.2 MCH 29.4 MCHC 33.3 RDW 13.2 Plt Count 262 MPV 9.6 Immature Gran % (Auto) 0.3 H Neut % (Auto) 66.0 Lymph % (Auto) 25.2 [place] % (Auto) 6.4 Eos % (Auto) 1.6 Baso % (Auto) 0.5 Lymph # (Auto) 2.92 [place] # (Auto) 0.74 Eos # (Auto) 0.19 Baso # (Auto) 0.06 Abs Immat Gran (auto) 0.03 H Absolute Neuts (auto) 7.65 H Absolute Nucleated RBC 0.00 Nucleated RBC % 0.0 Sodium 142 Potassium 3.8 Chloride 107 Carbon Dioxide 28 Anion Gap 7 BUN 23 H Creatinine 1.41 H Estim Creat Clear Calc 43 Estimated GFR 40 L Glucose 136 H POC Capillary Glucose 118 H 234 H Calculated Osmolality 299 H Lactic Acid Calcium 8.1 L Total Bilirubin 0.7 AST 23 ALT 41 Alkaline Phosphatase 187 H Total Protein 5.3 L Albumin 2.3 L Urine Color Urine Appearance Urine pH Ur Specific [place] Urine Protein Urine Glucose (UA) Urine Ketones Ur Blood (Man) Urine Nitrate Urine Bilirubin Urine Urobilinogen Leukocyte Esterase Rfl Urine RBC Urine WBC Urine WBC Clumps Ur Squamous Epith Cells Amorphous Sediment Urine Bacteria 04/14/24 04/14/24 04/14/24 16:55 14:41 13:43 WBC RBC Hgb Hct MCV MCH MCHC RDW Plt Count MPV Immature Gran % (Auto) Neut % (Auto) Lymph % (Auto) [place] % (Auto) Eos % (Auto) Baso % (Auto) Lymph # (Auto) [place] # (Auto) Eos # (Auto) Baso # (Auto) Abs Immat Gran (auto) Absolute Neuts (auto) Absolute Nucleated RBC Nucleated RBC % Sodium Potassium Chloride Carbon Dioxide Anion Gap BUN Creatinine 1.24 H Estim Creat Clear Calc 48 Estimated GFR 46 L Glucose POC Capillary Glucose 324 H 219 H Calculated Osmolality Lactic Acid 1.0 Calcium Total Bilirubin AST ALT Alkaline Phosphatase Total Protein Albumin Urine Color Urine Appearance Urine pH Ur Specific [place] Urine Protein Urine Glucose (UA) Urine Ketones Ur Blood (Man) Urine Nitrate Urine Bilirubin Urine Urobilinogen Leukocyte Esterase Rfl Urine RBC Urine WBC Urine WBC Clumps Ur Squamous Epith Cells Amorphous Sediment Urine Bacteria 04/14/24 04/14/24 12:01 07:52 WBC RBC Hgb Hct MCV MCH MCHC RDW Plt Count MPV Immature Gran % (Auto) Neut % (Auto) Lymph % (Auto) [place] % (Auto) Eos % (Auto) Baso % (Auto) Lymph # (Auto) [place] # (Auto) Eos # (Auto) Baso # (Auto) Abs Immat Gran (auto) Absolute Neuts (auto) Absolute Nucleated RBC Nucleated RBC % Sodium Potassium Chloride Carbon Dioxide Anion Gap BUN Creatinine Estim Creat Clear Calc Estimated GFR Glucose POC Capillary Glucose 62 L Calculated Osmolality Lactic Acid Calcium Total Bilirubin AST ALT Alkaline Phosphatase Total Protein Albumin Urine Color Light yellow Urine Appearance Cloudy A Urine pH 5.5 Ur Specific [place] 1.010 Urine Protein Trace H Urine Glucose (UA) 3+ H Urine Ketones Negative Ur Blood (Man) Trace-intact H Urine Nitrate Negative Urine Bilirubin Negative Urine Urobilinogen 0.2 Leukocyte Esterase Rfl 1+ H Urine RBC 0-2 Urine WBC 21-30 H Urine WBC Clumps Present H Ur Squamous Epith Cells Moderate H Amorphous Sediment Heavy H Urine Bacteria 4+ H Preliminary micro results at discharge 04/14/24 08:00 Blood Culture - Preliminary Blood 04/14/24 07:52 Blood Culture - Preliminary Blood Procedures/Treatments: none Discharge Plan Discharge Attending physician on discharge: Carlos Levi Discharging Clinician: Lindsay Finney Anticipated Discharge Date/Time: 04/15/24 10:49 Patient Disposition: Home, Self-Care Activity: as tolerated Diet: as tolerated and diabetic Discharge Instructions: * Finish all your antibiotic as directed, even if you are feeling better * You may restart your insulin pump today. Continue to monitor blood sugars at home. * Follow up with your Lieutenant/Deputy on Monday Patient Instructions: Antibiotic Form Patient Language: Irish Stand Alone Forms: General Discharge Information Follow-up/Referrals: Shraddha Ward ELECTRIC TRUCK DRIVER [Primary Care Provider] - 1 week Discharge Medications: New albuterol sulfate 90 mcg/actuation aero powdr breath act w/sensor 90 mcg inhalation Q6H PRN (Reason: shortness of breath or wheezing) Qty: 1 0RF levofloxacin 750 mg Tablet 750 mg PO DAILY Qty: 5 0RF Continued (DME) Dexcom G7 Sensor Device See Rx Instructions .ROUTE .MEDSUPPLY Qty: 9 3RF Rx Instructions: Use to monitor glcuose (DME) Dexcom G7 Customer Support Manager Misc See Rx Instructions .Route Qty: 1 1RF Rx Instructions: As directed (DME) urine glucose-ketones test Strip See Rx Instructions .ROUTE .MEDSUPPLY Qty: 50 0RF Rx Instructions: As directed (DME) OneTouch Ultra Test Strip See Rx Instructions .Route Qty: 100 2RF Rx Instructions: QID quetiapine 150 mg tablet 150 mg PO QHS Qty: 135 2RF insulin lispro [Humalog KwikPen Insulin] 100 unit/mL insulin pen 10 unit subcut BID Qty: 15 2RF Patient Comments: Lispro 30 units/24hr with pump Rx Instructions: BID with meal (DME) lancets [OneTouch UltraSoft 2 Lancet] 30 gauge misc See Rx Instructions .Route Qty: 200 2RF Rx Instructions: QID (DME) blood-glucose meter [OneTouch Ultra2 Meter] Misc See Rx Instructions .ROUTE .COMPLEX Qty: 1 0RF Dose Instruction: USE DIRECTED Rx Instructions: USE DIRECTED (DME) pen needle, diabetic [TRUEplus Pen Needle] 31 gauge x 1/4 needle See Rx Instructions .ROUTE .COMPLEX Qty: 100 0RF Dose Instruction: INJECT FOUR TIMES DAILY FOR INSULIN INJECTIONS Rx Instructions: INJECT FOUR TIMES DAILY FOR INSULIN INJECTIONS famotidine 20 mg tablet See Rx Instructions .ROUTE .COMPLEX Qty: 90 0RF Dose Instruction: TAKE 1 TABLET BY MOUTH ONCE DAILY AT BEDTIME NEEDED FOR HEARTBURN Rx Instructions: TAKE 1 TABLET BY MOUTH ONCE DAILY AT BEDTIME NEEDED FOR HEARTBURN levothyroxine 100 mcg capsule 100 mcg PO DAILY Qty: 90 1RF escitalopram oxalate 20 mg tablet See Rx Instructions .ROUTE .COMPLEX Qty: 90 0RF Dose Instruction: Take 1 tablet by mouth once daily Rx Instructions: Take 1 tablet by mouth once daily Date of admission: 04/14/24 11:18 Primary Care Provider: Shraddha Ward Admitting Provider: Carlos Levi Attending physician on admission: Lindsay Finney Condition: Improved Quality VTE Prophylaxis VTE prophylaxis: pharmacologic ordered Hospitalist MIPS Heart Failure (Exclusion) Patient has history of Heart Transplant or Left Ventricular Assistive Device?: No IF YES, STOP HERE Heart Failure (Qualifier) Patient has current or prior documentation of LVEF less than or equal to 40%, or mod/servere depressed LVSF?: No IF NO, STOP HERE
[2024-04-15 11:39] LABS: Glucose Point of Care 315 mg/dl (65-105)
[2024-04-15] MEDS: levoFLOXacin TAB 500 MG, levoFLOXacin TAB 250 MG 750 MG PO (11:42)
[2024-04-15] MEDS: INSULIN HUMAN LISPRO (*BKC) 1,000 UNITS/10 ML VIAL SUB-Q (11:43)
[2024-04-15 16:00] VITALS: BP 128/68; PULSE 104; RESP 18; TEMP 37; O2SAT 96
--- NOTE | 2024-04-15 16:15 | PC.NURSE ---
Discharge instructions reviewed with patient, verbalized understanding. Patient taken off floor per wheelchair.
--- NOTE | 2024-04-16 12:49 | PC.NURSE ---
Discharge call back completed, doing well, has appointment with PMD scheduled, no questions regarding dc instructions
== END 2024-04-15 16:15 | disposition home or self-care (01) ==
LOC: CHSED 10:35 → CHS2ND 11:20
PROVIDERS: Admitting Provider Internal Medicine; Emergency Provider Emergency Medicine; PCP Nurse Practitioner Family; Visit Provider Nurse Practitioner Acute Care
DX: J18.9 Pneumonia, unspecified organism (principal); E10.65 Type 1 diabetes mellitus with hyperglycemia; E03.9 Hypothyroidism, unspecified; F32.9 Major depressive disorder, single episode, unspecified; N17.9 Acute kidney failure, unspecified; R00.0 Tachycardia, unspecified; R74.8 Abnormal levels of other serum enzymes; K21.9 Gastro-esophageal reflux disease without esophagitis; F17.210 Nicotine dependence, cigarettes, uncomplicated; F17.290 Nicotine dependence, other tobacco product, uncomplicated; Z79.4 Long term (current) use of insulin; Z96.41 Presence of insulin pump (external) (internal)
CPT/HCPCS: 36415; 36600; 71045; 71275; 80053; 81001; 82010; 82565; 82805; 82948; 83605; 83880; 84484; 85018; 85025; 85380; 85610; 85730; 87040; 87086; 93005; 96361; 96365; 96372; 96375; 99285; A9270; G0378; G0379; J1650; J1815; J1956; J2405; J7030; Q9967

== ENCOUNTER 2024-05-29 14:18 | Outpatient (CLI) | payer OTHER, SELFPAY ==
[2024-05-29 15:07] LABS: Creatinine Urine 112.05 mg/dL (40-278); MALB Creatinine Ratio 89.1 mg/g (0-30); Microalbumin Urine Random 99.9 mg/L
[2024-05-29 15:25] LABS: Alanine Aminotransferase 33 U/L (14-59); Albumin Level 3.2 g/dL (3.4-5.0); Alkaline Phosphatase 196 U/L (46-116); Anion Gap 6 mmol/L (4-12); Aspartate Amino Transferase 23 U/L (15-37); Bilirubin,Total 0.6 mg/dL (0.00-1.00); Blood Urea Nitrogen 25 mg/dL (7-18); Calcium 8.7 mg/dL (8.5-10.1); Carbon Dioxide 28 mmol/L (21-32); Chloride 110 mmol/L (98-108); Cholesterol 160 mg/dL (0-200); Estimated Glomerular Filt Rate 49; Glucose 61 mg/dL (70-99); HDL Direct 63 mg/dL (40-60); LDL Cholesterol Calculated 85 mg/dL (<130); Osmolality Calculated 300 mOsm/kg (285-295); Potassium 4.9 mmol/L (3.5-5.1); Sodium 144 mmol/L (136-145); Total Protein 6.2 g/dL (6.4-8.2); Triglycerides 60 mg/dL (0-150); Vitamin B12 398 pg/mL (193-986)
[2024-05-29 16:00] LABS: Thyroid Stimulating Hormone < 0.01 uIU/mL (0.36-3.74)
--- OUTSIDE RECORDS SUMMARY | 2024-05-29 16:16 | XMS_ITS | Referral Summary ---
Author Organization [facility] Address [address] [place] [address] Care Team Providers Care Personnel Coordinator Name Role Phone Shraddha Ward MACHINE TOOL OPERATOR-STORAGE GARAGE MANAGER Primary Care Provid er Source Comments [facility],non-owned Affiliates and Associated Physician Practices is amultiple site organization consisting of ambulatory clinics and hospital sitesin [place], [place], [place] and [place]. This disclosure is being madepursuant to the Care Everywhere program and may not contain all information available regarding this patient. Last updated 17.[facility] Encounters Date Type Department Care Team Description 04/03/2024 Orders Only [facility] - Orthopedics [address] [place] [address] [place] [address] Melania Rosa MD Closed displaced comminuted fracture of right patella with routine healing from Last 3 Months Allergies Active Allergy Reactions Criticality Noted Date Comments Metformin GI Discomfort 08/20/2023 Endorses drops blood sugar instantly Medications * Be aware that medications may not be up to date on this document. Alwaysverify current medications with the patient. Medication Sig Dispensed Refills Start Date End Date Status hydrOXYzine hcl (ATARAX) 50 MG tabletIndication s:Anxiety Take 1 tablet by mouth every 6 hours as needed Reasons: Feeling Anxious 30 tablet 1 02/27/2020 Active buPROPion XL 24hr (WELLBUTRIN-XL) 300 MG tabletIndication s:Depression Take 1 tablet by mouth once daily Reasons: Depression 15 tablet 1 02/28/2020 Active escitalopram (LEXAPRO) 5 MG tabletIndication s:Generalized Anxiety Disorder,Major Depressive Disorder Take 3 tablets by mouth once daily Reasons: Generalized Anxiety Disorder, Major Depressive Disorder 45 tablet 1 02/28/2020 Active insulin aspart (NOVOLOG) penIndications:T ype 2 Diabetes Mellitus Inject 6 Units subcutaneously 3 times daily with meals Reasons: Type 2 Diabetes 3 mL 02/27/2020 Active insulin glargine (LANTUS) penIndications:T ype 2 Diabetes Mellitus Inject 18 Units subcutaneously once daily Reasons: Type 2 Diabetes 3 mL 02/28/2020 Active QUEtiapine (SEROQUEL) 100 MG tabletIndication s:Major Depressive Disorder,MDD Single episode Take 1 tablet by mouth at bedtime Reasons: Major Depressive Disorder, MDD Single episode 15 tablet 1 02/27/2020 Active famotidine (Pepcid) 40 MG tablet Take 1 (one) tablet by mouth once daily Active oxyCODONE, immediate release, (Roxicodone) 5 MG tabletIndication s:Displaced transverse fracture of right patella, initial encounter for closed fracture TAKE ONE TABLET BY MOUTH EVERY 4 HOURS NEEDED FOR SEVERE PAIN 42 tablet 09/08/2023 Active Additional Information Patient not taking.Reported on 01/15/2024 apixaban (Eliquis) 2.5 MG tablet TAKE ONE TABLET BY MOUTH 2 TIMES A DAY 70 tablet 09/08/2023 09/07/2024 Active Additional Information Patient not taking.Reported on 01/15/2024 acetaminophen (Tylenol) 500 MG tablet TAKE 2 TABLETS BY MOUTH EVERY 8 HOURS. MAXIMUM ALLOWABLE ACETAMINOPHEN AMOUNT: 4 GRAMS (4,000MG) PER 24 HOURS. 42 tablet 09/08/2023 09/07/2024 Active Additional Information Patient not taking.Reported on 01/15/2024 docusate sodium (Colace) 100 MG capsule TAKE ONE CAPSULE BY MOUTH ONCE DAILY NEEDED FOR CONSTIPATION 21 capsule 09/08/2023 09/07/2024 Active Additional Information Patient not taking.Reported on 01/15/2024 ibuprofen (Motrin) 200 MG tablet Take by mouth every 6 hours as needed for Pain Active Active Problems Problem Noted Date Diagnosed Date Severe major depression without psychotic featur es 02/13/2020 Immunizations Name Administration Dates Next Due TDAP (7yrs+) 08/20/2023 Social History Tobacco Use Types Packs/Day Years Used Date Smoking Tobacco: Every Day Cigars Smokeless Tobacco: Never Tobacco Cessation:Ready to Q uit: Not Asked; Counseling Given: Not Answered Alcohol Use Standard Drinks/Week Comments Not Currently 0 (1 standard drink = 0.6 oz pur e alcohol) Sex and Gender Information Value Date Recorded Sex Assigned at Not on file Gender Identity Not on file Sexual Orientation Not on file Last Filed Vital Signs Vital Sign Reading Time Taken Comments Blood Pressure 134/83 09/08/2023 3:45 PM CDT Pulse 96 09/08/2023 3:45 PM CDT Temperature 36.5 C (97.7 F) 09/08/2023 3:23 PM CDT Respiratory Rate 16 09/08/2023 3:50 PM CDT Oxygen Saturation 97% 09/08/2023 3:45 PM CDT Inhaled Oxygen Concentration - - Weight 64 kg (141 lb) 01/15/2024 11:00 AM CDT Height 162.6 cm (5' 4 ) 11/13/2023 11:21 AM CDT Body Mass Index 24.2 11/13/2023 11:21 AM CDT Functional Status Functional Status Response Date of Assess ment Is person deaf or have serious hearing difficult y? No 02/16/2020 Is person blind or have serious difficulty seein g? No 02/16/2020 Does person have serious dif ficulty walking/climbing stairs? No 02/16/2020 Does person have difficulty dressing/bathing? No 02/16/2020 Does person have difficulty doing errands alone? No 02/16/2020 Cognitive Status Response Date of Assessm ent Does person have difficulty concentrating/remembering/making decisions? No 02/16/2020 Plan of Treatment Not on file Medical Devices Implanted Type Area Boiler Room Operator Device Identifier Shelf Expiration Date Model / Serial / Lot Screw 3.5mm 5mm 34mm Ft Rvrs Cut Flut Implanted:Qty: 1 on 09/08/2023 by Melania Rosa MD at [facility] Right: [employer] [id number] / / Screw 3.5mm 5mm 36mm Ft Rvrs Cut Flut Implanted:Qty: 1 on 09/08/2023 by Melania Rosa MD at [facility] Right: [employer] [id number] / / Explanted Type Area Boiler Room Operator Device Identifier Shelf Expiration Date Model / Serial / Lot Screw 3.5mm 5mm 44mm Ft Rvrs Cut Flut Explanted:Qty: 1 on 09/08/2023 by Melania Rosa MD at [facility] Right: [employer] [id number] / / Procedures Procedure Name Priority Date/Time Associated Diagnosis Comments LIPID PROFILE Routine 02/13/2020 1:42 PM BONE PLANT SUPERVISOR from Last 3 Months or Most Recently Relevant to Health Maintenance Results * LIPID PROFILE (02/13/2020 1:42 PM BONE PLANT SUPERVISOR) Cholesterol 139 <200 mg/dL 02/13/2020 2:13 PM BONE PLANT SUPERVISOR [facility] Triglycerides 95 <150 mg/dL 02/13/2020 2:13 PM BONE PLANT SUPERVISOR [facility] HDL Cholesterol 42 >40 mg/dL 0 2:13 PM BONE PLANT SUPERVISOR [facility] LDL Calculated 78 <130 mg/dL 02/13/2020 2:13 PM BONE PLANT SUPERVISOR [facility] VLDL Calculated 19 <=30 mg/dL 0 2:13 PM BONE PLANT SUPERVISOR [facility] Chol HDL Ratio 3.3 <4.5 02/13/2020 2:13 PM BONE PLANT SUPERVISOR [facility] LDL/HDL Ratio 1.9 <5.0 02/13/2020 2:13 PM BONE PLANT SUPERVISOR [facility] Blood BLOOD SPECIMEN / Unknown Venipuncture / Unknown 02/13/2020 1:42 PM BONE PLANT SUPERVISOR 02/13/2020 1:52 PM BONE PLANT SUPERVISOR Meghan Murillo MACHINE TOOL OPERATOR-STORAGE GARAGE MANAGER LAB - CHEMISTRY ORDERABLES [facility] [id number] [place] [address] from Last 3 Months or Most Recently Relevant to Health Maintenance Advance Directives * Full Code (Latest Code Status on File) Date Activated Date Inactivated Comments 02/16/2020 4:16 PM 02/28/2020 3:28 PM * Full Code Date Activated Date Inactivated Comments 02/13/2020 10:40 AM 02/16/2020 4:07 PM Care Teams Personnel Coordinator Relationship Specialty Start Date End Date Shraddha Ward, MACHINE TOOL OPERATOR-STORAGE GARAGE MANAGER [address] [place] [address] PCP - General 03/23/20
--- OUTSIDE RECORDS SUMMARY | 2024-05-29 16:16 | XMS_ITS | Encounter Summary ---
Author Organization [facility] Address [address] [place] [address] Care Team Providers Care Rail Switchman Name Role Phone EdShraddha Chaz PHOTOENGRAVING ETCHER-SUPERINTENDENT DRILLING Primary Care Provid er Reason for Visit * Reason Onset Date Comments Follow-up 10/17/2023 Spk to Lucy, stated before she went to bed last night she was experiencing swollen, warm and discolored right knee, she was having some concerns, not knowing how to handle the situation. She is looking for direction on how to proceed. Encounter Details Date Type Department Care Team (Late Contact Info) Description 10/17/2023 Telephone [facility] - Centralized Scheduling [address] [place] [address] Melania Rosa MD [address] [place] [id number] Follow-up (Spk to Lucy, stated before she went to bed last night she was experiencing swollen, warm and discolored right knee, she was having some concerns, not knowing how to handle the situation. She is looking for direction on how to proceed.) Social History Tobacco Use Types Packs/Day Years Used Date Smoking Tobacco: Every Day Cigars Smokeless Tobacco: Never Alcohol Use Standard Drinks/Week Comments Not Currently 0 (1 standard drink = 0.6 oz pur e alcohol) Sex and Gender Information Value Date Recorded Sex Assigned at Not on file Gender Identity Not on file Sexual Orientation Not on file documented as of this encounter Functional Status Functional Status Response Date of [...] person have difficulty concentrating/remembering/making decisions? No 02/16/2020 documented as of this encounter Miscellaneous Notes * Telephone Encounter - Rufina Clark - 10/17/2023 10:46 AM CDT Spk to Lucy, stated before she went to bed last night she was experiencing swollen, warm and discolored right knee, she was having some concerns, not knowing how to handle the situation. She is looking for direction on how to proceed. 09/08/2023 DOS documented in this encounter Plan of Treatment Not on file documented as of this encounter Visit Diagnoses Not on filedocumented in this encounter Care Teams Rail Switchman Relationship Specialty Start Date End Date Shraddha Ward, PHOTOENGRAVING ETCHER-SUPERINTENDENT DRILLING [address] [place] [address] PCP - General 03/23/20 documented as of this encounter
--- OUTSIDE RECORDS SUMMARY | 2024-05-29 16:16 | XMS_ITS | Patient Health Summary ---
Author Organization [facility] Address [address] [place] [address] Care Team Providers [employer] Delivery Consultant Name Role Phone Shraddha Ward METAL [employer] ARCHITECT Primary Care Provid er Note from [facility],non-owned Affiliates and Associated Physician Practices is amultiple site organization consisting of ambulatory clinics and hospital sitesin [place], [place], [place] and [place]. This disclosure is being madepursuant to the Care Everywhere program and may not contain all information available regarding this patient. Last updated 17.[facility] Allergies * Metformin(GI Discomfort) Medications * Be aware that medications may not be up to date on this document. Alwaysverify current medications with the patient. * hydrOXYzine hcl (ATARAX) 50 MG tablet(Started 02/27/2020) Take 1 tablet by mouth every 6 hours as needed Reasons: Feeling Anxious 1 refill by 02/26/2021 * buPROPion XL 24hr (WELLBUTRIN-XL) 300 MG tablet(Started 02/28/2020) Take 1 tablet by mouth once daily Reasons: Depression 1 refill by 02/26/2021 * escitalopram (LEXAPRO) 5 MG tablet(Started 02/28/2020) Take 3 tablets by mouth once daily Reasons: Generalized Anxiety Disorder, Major Depressive Disorder 1 refill by 02/26/2021 * insulin aspart (NOVOLOG) pen(Started 02/27/2020) Inject 6 Units subcutaneously 3 times daily with meals Reasons: Type 2 Diabetes * insulin glargine (LANTUS) pen(Started 02/28/2020) Inject 18 Units subcutaneously once daily Reasons: Type 2 Diabetes * QUEtiapine (SEROQUEL) 100 MG tablet(Started 02/27/2020) Take 1 tablet by mouth at bedtime Reasons: Major Depressive Disorder, MDD Single episode 1 refill by 02/26/2021 * famotidine (Pepcid) 40 MG tablet Take 1 (one) tablet by mouth once daily * oxyCODONE, immediate release, (Roxicodone) 5 MG tablet(Started 09/08/2023) TAKE ONE TABLET BY MOUTH EVERY 4 HOURS NEEDED FOR SEVERE PAIN * apixaban (Eliquis) 2.5 MG tablet(Started 09/08/2023) TAKE ONE TABLET BY MOUTH 2 TIMES A DAY * acetaminophen (Tylenol) 500 MG tablet(Started 09/08/2023) TAKE 2 TABLETS BY MOUTH EVERY 8 HOURS. MAXIMUM ALLOWABLE ACETAMINOPHEN AMOUNT: 4 GRAMS (4,000MG) PER 24 HOURS. * docusate sodium (Colace) 100 MG capsule(Started 09/08/2023) TAKE ONE CAPSULE BY MOUTH ONCE DAILY NEEDED FOR CONSTIPATION * ibuprofen (Motrin) 200 MG tablet Take by mouth every 6 hours as needed for Pain Active Problems Problem Noted Date Diagnosed Date Severe major depression without psychotic featur es 02/13/2020 Immunizations * TDAP (7yrs+)(Given 08/20/2023) Social History Tobacco Use Types Packs/Day Years [...] Mass Index 24.2 11/13/2023 11:21 AM CDT Medical Devices Implanted Type Area Record Label Intern Device Identifier Shelf Expiration Date Model / Serial / Lot Screw 3.5mm 5mm 34mm Ft Rvrs Cut Flut Implanted:Qty: 1 on 09/08/2023 by Melania Rosa MD at [facility] Right: [employer] [id number] / / Screw 3.5mm 5mm 36mm Ft Rvrs Cut Flut Implanted:Qty: 1 on 09/08/2023 by Melania Rosa MD at [facility] Right: [employer] [id number] / / Explanted Type Area Record Label Intern Device Identifier Shelf Expiration Date Model / Serial / Lot Screw 3.5mm 5mm 44mm Ft Rvrs Cut Flut Explanted:Qty: 1 on 09/08/2023 by Melania Rosa MD at [facility] Right: [employer] [id number] / / Procedures * XR KNEE RIGHT 3VW(Performed 01/15/2024) Performed for Closed displaced comminuted fracture of right patella with routine healing, subsequent encounter * XR KNEE RIGHT 3VW(Performed 11/13/2023) Performed for Closed displaced comminuted fracture of right patella with routine healing, subsequent encounter * XR KNEE RIGHT 3VW(Performed 10/09/2023) Performed for Closed displaced comminuted fracture of right patella with routine healing, subsequent encounter * PERIPHERAL BLOCK(Performed 09/08/2023) * XR KNEE RIGHT 2VW OR LESS(Performed 09/08/2023) Performed for Pre-op evaluation * GLUCOSE - POINT OF CARE(Performed 09/08/2023) * FL REANNA SURGERY(Performed 09/08/2023) Performed for Pre-op evaluation * GLUCOSE - POINT OF CARE(Performed 09/08/2023) * ENDOTRACHEAL TUBE NOTE(Performed 09/08/2023) * GLUCOSE - POINT OF CARE(Performed 09/08/2023) * FL OPEN RX PATELLA FX(Performed 09/08/2023) Performed for Closed displaced comminuted fracture of right patella, initial encounter * GLUCOSE - POINT OF CARE(Performed 09/08/2023) * EKG 12-LEAD(Performed 09/08/2023) Performed for Pre-op evaluation * GLUCOSE - POINT OF CARE(Performed 09/08/2023) * HCG URINE QUALITATIVE - POCT (IP) INTERFACED(Performed 09/08/2023) * HCG URINE QUAL POCT NOTIFICATION(Performed 09/08/2023) Performed for Pre-op evaluation * XR KNEE RIGHT 2VW OR LESS(Performed 09/04/2023) Performed for Acute pain of right knee * XR KNEE RIGHT 2VW OR LESS(Performed 08/20/2023) Performed for Right knee pain, unspecified chronicity * XR TIBIA FIBULA RIGHT 2VW(Performed 08/20/2023) Performed for Right knee pain, unspecified chronicity * XR FEMUR RIGHT 2VW(Performed 08/20/2023) Performed for Right knee pain, unspecified chronicity * TYPE + SCREEN PANEL(Performed 08/20/2023) * PT-INR [facility](Performed 08/20/2023) * XR KNEE RIGHT 3VW(Performed 08/20/2023) Performed for Right knee pain, unspecified chronicity * HCG BETA BLOOD QUANTITATIVE(Performed 08/20/2023) * HYDROXYBUTYRATE BETA(Performed 08/20/2023) * BLOOD GASES FLOWER + COOX PANEL(Performed 08/20/2023) * COMPREHENSIVE METABOLIC PANEL(Performed 08/20/2023) * CBC W AUTO DIFFERENTIAL(Performed 08/20/2023) * CARDIAC RHYTHM STRIP ORDER(Performed 03/02/2020) * GLUCOSE - POINT OF CARE(Performed 02/28/2020) * GLUCOSE - POINT OF CARE(Performed 02/28/2020) * GLUCOSE - POINT OF CARE(Performed 02/27/2020) * GLUCOSE - POINT OF CARE(Performed 02/27/2020) * GLUCOSE - POINT OF CARE(Performed 02/27/2020) * HCG BETA BLOOD QUANTITATIVE(Performed 02/27/2020) * FOLATE(Performed 02/27/2020) * VITAMIN B12(Performed 02/27/2020) * IRON + TRANSFERRIN PANEL(Performed 02/27/2020) * COMPREHENSIVE METABOLIC PANEL(Performed 02/27/2020) * CBC W AUTO DIFFERENTIAL(Performed 02/27/2020) * GLUCOSE - POINT OF CARE(Performed 02/27/2020) * GLUCOSE - POINT OF CARE(Performed 02/26/2020) * OCCULT BLOOD FECES(Performed 02/26/2020) * GLUCOSE - POINT OF CARE(Performed 02/26/2020) * GLUCOSE - POINT OF CARE(Performed 02/26/2020) * GLUCOSE - POINT OF CARE(Performed 02/26/2020) * URINE MICROSCOPIC ONLY(Performed 02/26/2020) * URINALYSIS REFLEX TO MICROSCOPIC NO CULTURE(Performed 02/26/2020) * GLUCOSE - POINT OF CARE(Performed 02/26/2020) * GLUCOSE - POINT OF CARE(Performed 02/25/2020) * GLUCOSE - POINT OF CARE(Performed 02/25/2020) * GLUCOSE - POINT OF CARE(Performed 02/25/2020) * GLUCOSE - POINT OF CARE(Performed 02/25/2020) * GLUCOSE - POINT OF CARE(Performed 02/24/2020) * GLUCOSE - POINT OF CARE(Performed 02/24/2020) * GLUCOSE - POINT OF CARE(Performed 02/24/2020) * GLUCOSE - POINT OF CARE(Performed 02/24/2020) * GLUCOSE - POINT OF CARE(Performed 02/24/2020) * GLUCOSE - POINT OF CARE(Performed 02/23/2020) * GLUCOSE - POINT OF CARE(Performed 02/23/2020) * BASIC METABOLIC PANEL (CALCIUM TOTAL)(Performed 02/23/2020) * CBC W AUTO DIFFERENTIAL(Performed 02/23/2020) * XR CHEST 1VW PORTABLE(Performed 02/23/2020) Performed for Fever, unspecified fever cause * GLUCOSE - POINT OF CARE(Performed 02/23/2020) * GLUCOSE - POINT OF CARE(Performed 02/23/2020) * GLUCOSE - POINT OF CARE(Performed 02/23/2020) * GLUCOSE - POINT OF CARE(Performed 02/22/2020) * GLUCOSE - POINT OF CARE(Performed 02/22/2020) * GLUCOSE - POINT OF CARE(Performed 02/22/2020) * GLUCOSE - POINT OF CARE(Performed 02/22/2020) * GLUCOSE - POINT OF CARE(Performed 02/21/2020) * GLUCOSE - POINT OF CARE(Performed 02/21/2020) * GLUCOSE - POINT OF CARE(Performed 02/21/2020) * GLUCOSE - POINT OF CARE(Performed 02/21/2020) * GLUCOSE - POINT OF CARE(Performed 02/21/2020) * GLUCOSE - POINT OF CARE(Performed 02/21/2020) * GLUCOSE - POINT OF CARE(Performed 02/21/2020) * GLUCOSE(Performed 02/20/2020) * GLUCOSE - POINT OF CARE(Performed 02/20/2020) * GLUCOSE - POINT OF CARE(Performed 02/20/2020) * GLUCOSE - POINT OF CARE(Performed 02/20/2020) * GLUCOSE - POINT OF CARE(Performed 02/20/2020) * GLUCOSE - POINT OF CARE(Performed 02/19/2020) * GLUCOSE - POINT OF CARE(Performed 02/19/2020) * SARS-COV-2 (COVID-19) IN HOUSE(Performed 02/19/2020) * GLUCOSE - POINT OF CARE(Performed 02/19/2020) * GLUCOSE - POINT OF CARE(Performed 02/19/2020) * GLUCOSE - POINT OF CARE(Performed 02/18/2020) * GLUCOSE - POINT OF CARE(Performed 02/18/2020) * GLUCOSE - POINT OF CARE(Performed 02/18/2020) * GLUCOSE - POINT OF CARE(Performed 02/18/2020) * GLUCOSE - POINT OF CARE(Performed 02/17/2020) * GLUCOSE - POINT OF CARE(Performed 02/17/2020) * GLUCOSE - POINT OF CARE(Performed 02/17/2020) * GLUCOSE - POINT OF CARE(Performed 02/17/2020) * GLUCOSE - POINT OF CARE(Performed 02/16/2020) * GLUCOSE - POINT OF CARE(Performed 02/16/2020) * GLUCOSE - POINT OF CARE(Performed 02/16/2020) * URINE DRUG SCREEN IMMUNOASSAY(Performed 02/16/2020) * URINALYSIS REFLEX TO MICROSCOPIC NO CULTURE(Performed 02/16/2020) * GLUCOSE - POINT OF CARE(Performed 02/16/2020) * GLUCOSE - POINT OF CARE(Performed 02/16/2020) * GLUCOSE - POINT OF CARE(Performed 02/16/2020) * GLUCOSE - POINT OF CARE(Performed 02/15/2020) * GLUCOSE - POINT OF CARE(Performed 02/15/2020) * GLUCOSE - POINT OF CARE(Performed 02/15/2020) * GLUCOSE - POINT OF CARE(Performed 02/15/2020) * GLUCOSE - POINT OF CARE(Performed 02/15/2020) * GLUCOSE - POINT OF CARE(Performed 02/14/2020) * GLUCOSE - POINT OF CARE(Performed 02/14/2020) * GLUCOSE - POINT OF CARE(Performed 02/14/2020) * GLUCOSE - POINT OF CARE(Performed 02/14/2020) * SYPHILIS ANTIBODY CASCADING REFLEX(Performed 02/13/2020) * CBC W AUTO DIFFERENTIAL(Performed 02/13/2020) * FOLATE(Performed 02/13/2020) * HEMOGLOBIN A1C(Performed 02/13/2020) * GLUCOSE - POINT OF CARE(Performed 02/13/2020) * GLUCOSE - POINT OF CARE(Performed 02/13/2020) * GLUCOSE - POINT OF CARE(Performed 02/13/2020) * COMPREHENSIVE METABOLIC PANEL(Performed 02/13/2020) * LIPID PROFILE(Performed 02/13/2020) * TSH REFLEX FREE T4(Performed 02/13/2020) * GLUCOSE - POINT OF CARE(Performed 02/13/2020) * GLUCOSE - POINT OF CARE(Performed 02/13/2020) * EYE EXAM(Performed 05/13/2019) Results * XR Knee Right 3Vw (01/15/2024 10:53 AM CDT) Only the most recent of4 resultswithin the time period is included. Anatomical Region Laterality Modality Lower Extremity Computed Radiogr aphy 01/15/2024 10:5 7 AM CDT Impressions 01/15/2024 11:00 AM CDT IMPRESSION: Patellar fracture fixation, unchanged. Report dictated by Hernan De Los Santos MD, PhD (radiology supervisor). I, Segundo Cazares MD have personally reviewed and interpreted this examination/study. > Interpreting Provider: Segundo Cazares MD on 01/15/2024 11:00 AM Narrative 01/15/2024 11:00 AM CDT PROCEDURE: XR KNEE RIGHT 3VW, DATE/TIME OF EXAM: 01/15/2024 10:53 AM, LOCATION [facility] INDICATION: S82.041D: Closed displaced comminuted fracture of right patella with routine healing, subsequent encounter ADDITIONAL CLINICAL INFORMATION: Ordering Provider Reason For Exam: RIGHT KNEE FX Technologist Note: Additional: COMPARISON: Right knee radiograph from 11/13/2023 FINDINGS: Postsurgical changes of patellar fracture fixation with screw and wire. No evidence of hardware failure. Alignment is unchanged. Joint spaces are normal. There is mild anterior soft tissue swelling. Procedure Note Segundo Cazares MD - 01/15/2024 PROCEDURE: XR KNEE RIGHT 3VW, DATE/TIME OF EXAM: 01/15/2024 10:53 AM, LOCATION [facility] INDICATION: S82.041D: Closed displaced comminuted fracture of right patella with routine healing, subsequent encounter ADDITIONAL CLINICAL INFORMATION: Ordering Provider Reason For Exam: RIGHT KNEE FX Technologist Note: Additional: COMPARISON: Right knee radiograph from 11/13/2023 FINDINGS: Postsurgical changes of patellar fracture fixation with screw and wire.No evidence of hardware failure. Alignment is unchanged. Joint spaces are normal. There is mild anterior soft tissue swelling. IMPRESSION: Patellar fracture fixation, unchanged. Report dictated by Hernan De Los Santos MD, PhD (radiology supervisor). I, Segundo Cazares MD have personally reviewed and interpreted this examination/study. > Interpreting Provider: Segundo Cazares MD on 01/15/2024 11:00 AM Melania Rosa MD DIAGNOSTIC IMAGING O RDERABLES * Peripheral Nerve Block (09/08/2023 2:46 PM CDT) Narrative Ramon Rodriguez MD - 09/08/2023 2:46 PM CDT Ramon Rodriguez MD 09/08/2023 2:48 PM Peripheral Nerve Block Procedure: Peripheral Nerve Block Patient Location: Pre-op Preprocedure Section: Indications: at surgeon's request and postop pain management. Pre-anesthetic Checklist: Patient identified, IV Checked, Site examined and clear, Risks and benefits discussed, Surgical consent verified, Monitors and equipment, Time-out performed, Informed consent obtained, Pre-op evaluation done, Questions answered/anesthesia questions answered, Allergies reviewed and Removal hand/wrist jewelry Monitors: BP, Pulse Ox and EKG. Patient Condition: awake Patient Position: supine Procedure Section Laterality: right Block Performed: Adductor Canal Prep: Chloraprep Strerile Field: gloves, mask and hat/cap Needle Type: Echogenic insulated Needle Gauge: 21 Needle Length: 90 mm Needle Depth: 3 cm Catheter? No Ultrasound Guided? Yes Technique: in plane Visualization: Preliminary scan performed, Important anatomical structures identified, Needle tip visualized throughout the procedure, Target identified, No intraneural or intravascular puncture occurred, Ultrasound image in chart, Local visualized surrounding nerve on ultrasound and Hydrodissection utilized Injection Assessment: Slow fractionated injection Block Agents or Additives used? Yes Block agents used: bupivacaine PF (MARCAINE PF) 0.25 % injection - Infiltration 30 mL - 09/08/2023 2:37:00 PM Procedure Tolerance: tolerated well Procedure Start Time: 09/08/2023 2:32 PM. Procedure End Time: 09/08/2023 2:37 PM. Procedure Total Time: 5 minutes. Staff Section Anesthesia Provider: Juan Antonio Browne DO, Performed the procedure Provider #1: Ramon Rodriguez MD. Additional Comments: Procedure was performed for post operative right knee pain. I was present for and supervised the entire procedure. PS3 Post operative right knee pain Ramon Rodriguez MD 09/08/2023 2:48 PM . Danny Sharma MD GENERAL ANESTHESIA O RDERABLES * XR KNEE RIGHT 2VW OR LESS (09/08/2023 2:22 PM CDT) Only the most recent of3 resultswithin the time period is included. Anatomical Region Laterality Modality Lower Extremity Radiographic Darling ging 09/12/2023 8:53 AM CDT Impressions 09/12/2023 8:55 AM CDT IMPRESSION: Interval ORIF of patellar fracture. > Interpreting Provider: Michell Mccartney MD on 09/12/2023 8:55 AM Narrative 09/12/2023 8:55 AM CDT PROCEDURE: XR KNEE RIGHT 2VW OR LESS DATE/TIME OF EXAM: 09/08/2023 2:22 PM CLINICAL INFORMATION: None relevant/not provided if blank. Indication: Z01.818: Pre-op evaluation Additional History: Surgery COMPARISON: 09/04/2023. FINDINGS: There has been interval open reduction internal fixation of the patellar fracture with screws and wire. Osseous alignment is improved. There is soft tissue swelling. Procedure Note Michell Mccartney MD - 09/12/2023 PROCEDURE: XR KNEE RIGHT 2VW OR LESS DATE/TIME OF EXAM: 09/08/2023 2:22 PM CLINICAL INFORMATION: None relevant/not provided if blank. Indication: Z01.818: Pre-op evaluation Additional History: Surgery COMPARISON: 09/04/2023. FINDINGS: There has been interval open reduction internal fixation of the patellar fracture with screws and wire. Osseous alignment is improved. There issoft tissue swelling. IMPRESSION: Interval ORIF of patellar fracture. > Interpreting Provider: Michell Mccartney MD on 09/12/2023 8:55 AM Melania Rosa MD DIAGNOSTIC IMAGING O RDERABLES * (ABNORMAL) GLUCOSE - POINT OF CARE (09/08/2023 2:15 PM CDT) Only the most recent of77 resultswithin the time period is included. Glucose WB/POC 162(H) 70 - 115 mg/dL 09/09/2023 10:37 AM CDT [facility] Specimen Type Cap Fingerstick 2023 10:37 AM CDT [facility] Blood BLOOD SPECIMEN / Unknown 09/08/2023 2:15 PM CDT 09/09/2023 10:37 AM CDT Melania Rosa MD LAB - POINT OF CARE ORDERABLES Performing Organization Address [facility]/ZIP Co de Phone Number [facility] [address] [address], [facility] [phone] * FL REANNA SURGERY (09/08/2023 1:45 PM CDT) Narrative [facility] - 09/08/2023 3:15 PM CDT Fluoroscopy was used for this exam in the OR. Please see the Operative report. Melania Rosa MD FLUOROSCOPY ORDERABL ES Performing Organization Address [facility]/ZIP Co de Phone Number [facility] * ETT LINE PERFORMABLE (09/08/2023 1:08 PM CDT) Narrative Ricardo Donovan MD - 09/08/2023 1:08 PM CDT Ricardo Donovan MD 09/08/2023 1:09 PM Endotracheal Tube Placement: Patient Location: OR. Intubation Event Date/Time: 09/08/2023 12:32 PM Procedure: intubation (02289) Procedure Section: Sedation: under general anesthesia. Indications for Airway Management: anesthesia Procedure pretreatments used? No Induction: standard IV Patient Position: sniffing and supine Mask Ventilation: easy with oral airway. Blade Type: Mini Blade Size: 3 Laryngoscopy View: grade 2 (partial cords) Intubation Adjuncts: stylet Tube: endotracheal tube Placement: oral Tube type: cuff - inflated Tube Size (MM): 7 Depth of Insertion (CM): 22 Measured From: gums Cuff volume (mL): 6 Cuff Inflated With: air Number of Attempts: 1. Placement Verified By: direct visualization, bilateral breath sounds, chest auscultation and CO2 monitor Tube secured with: adhesive tape. Dentition unchanged? Yes Difficult Airway? No. Procedure Start Time: 09/08/2023 12:32 PM. Staff Section Anesthesia Provider: Ricardo Donovan MD, Performed the procedure Provider #1: Danny Sharma MD. Danny Sharma MD GENERAL ANESTHESIA O RDERABLES * EKG 12-LEAD (09/08/2023 9:58 AM CDT) Ventricular Rate 90 BPM [facility] Atrial Rate 90 BPM [facility] P-R Interval 116 ms [facility] QRS Duration ms 72 ms [facility] Q-T Interval ms 386 ms [facility] QTC Calculation (Bezet) 472 ms [facility] Calculated P Kenn[place] 27 degrees [facility] Calculated R Kenn[place] 2 degrees [facility] Calculated T Kennard 41 degrees [facility] Interpretation EKG NORMAL SINUS RHYTHM LOW VOLTAGE QRS BORDERLINE ECG NO PREVIOUS ECGS AVAILABLE Confirmed by KYLER MOROE MD ([id number]) on 09/12/2023 11:40:43 AM [facility] 09/08/2023 9:58 AM CDT 09/12/2023 11:40 AM CDT Danny Sharma MD ECG ORDERABLES [facility] * HCG URINE QUALITATIVE - POCT (IP) INTERFACED (09/08/2023 9:26 AM CDT) HCG Qual Urine Negative Negative 09/08/2023 9:32 AM CDT [facility] Urine URINE / Unknown 09/08/2023 9 :26 AM CDT 09/08/2023 9:32 AM CDT Melania Rosa MD LAB - POINT OF CARE ORDERABLES [address] [address], [facility] [phone] * HCG URINE QUAL POCT NOTIFICATION (09/08/2023 8:34 AM CDT) Comment Notification Label Only - See Separate Report 09/08/2023 10:00 AM CDT [facility] Urine URINE / Unknown 09/08/2023 8 :34 AM CDT 09/08/2023 8:35 AM CDT Dorothy Garrido APRN-CLAIM EXAMINER LAB - URI NALYSIS ORDERABLES Performing Organization Address City/[facility]/ZIP Co de Phone Number [address] [address], [facility] [phone] * XR TIBIA FIBULA RIGHT 2VW (08/20/2023 7:30 PM CDT) Anatomical Region Laterality Modality Lower Extremity Radiographic Darling ging 08/20/2023 7:44 PM CDT Impressions 08/21/2023 12:36 AM CDT IMPRESSION: Fracture through the patella with minimal distraction. Large suprapatellar joint effusion. Report dictated by Rosalee Guerra Dr, MD (radiology supervisor). I, Tim De Los Santos MD have personally reviewed and interpreted this examination/study. > Interpreting Provider: Tim De Los Santos MD on 08/21/2023 12:36 AM Narrative 08/21/2023 12:36 AM CDT PROCEDURE: XR FEMUR RIGHT 2VW, XR TIBIA FIBULA RIGHT 2VW, DATE/TIME OF EXAM: 08/20/2023 7:30 PM, LOCATION [facility] INDICATION: M25.561: Right knee pain, unspecified chronicity ADDITIONAL CLINICAL INFORMATION: Ordering Provider Reason For Exam: Fall Technologist Note: Additional: COMPARISON: None. RIGHT FEMUR FINDINGS: Possible callus formation at the right inferior pubic rami may represent healing fracture. Fracture through the patella with minimal distraction. Large suprapatellar joint effusion. The femur is intact without acute fracture. The joint spaces are preserved. Bone density and texture are normal. Vascular calcifications present. RIGHT TIBIA/FIBULA FINDINGS: The tibia and fibula are intact without evidence of acute fracture. Bone density and texture are normal. No soft tissue swelling is present. Procedure Note Tim De Los Santos MD - 08/21/2023 PROCEDURE: XR FEMUR RIGHT 2VW, XR TIBIA FIBULA RIGHT 2VW, DATE/TIME OF EXAM: 08/20/2023 7:30 PM, LOCATION [facility] INDICATION: M25.561: Right knee pain, unspecified chronicity ADDITIONAL CLINICAL INFORMATION: Ordering Provider Reason For Exam: Fall Technologist Note: Additional: COMPARISON: None. RIGHT FEMUR FINDINGS: Possible callus formation at the right inferior pubic rami may represent healing fracture. Fracture through the patella with minimal distraction. Large suprapatellar joint effusion. The femur is intact without acute fracture. The joint spaces arepreserved. Bone density and texture are normal. Vascular calcifications present. RIGHT TIBIA/FIBULA FINDINGS: The tibia and fibula are intact without evidence of acute fracture. Bone density and texture are normal. No soft tissue swelling is present. IMPRESSION: Fracture through the patella with minimal distraction. Large suprapatellar joint effusion. Report dictated by Rosalee Guerra Dr, MD (radiology supervisor). Tim Villalta MD have personally reviewed and interpreted this examination/study. > Interpreting Provider: Tim De Los Santos MD on 08/21/2023 12:36 AM Kee Still MD DIAGNOSTIC IMAGING O RDERABLES * XR FEMUR RIGHT 2VW (08/20/2023 7:30 PM CDT) Anatomical Region Laterality Modality Lower Extremity Radiographic Darling ging 08/20/2023 7:44 PM CDT Impressions 08/21/2023 12:36 AM CDT IMPRESSION: Fracture through the patella with minimal distraction. Large suprapatellar joint effusion. Report dictated by Rosalee Guerra Dr, MD (radiology supervisor). Tim iVllalta MD have personally reviewed and interpreted this examination/study. > Interpreting Provider: Tim De Los Santos MD on 08/21/2023 12:36 AM Narrative 08/21/2023 12:36 AM CDT PROCEDURE: XR FEMUR RIGHT 2VW, XR TIBIA FIBULA RIGHT 2VW, DATE/TIME OF EXAM: 08/20/2023 7:30 PM, LOCATION [facility] INDICATION: M25.561: Right knee pain, unspecified chronicity ADDITIONAL CLINICAL INFORMATION: Ordering Provider Reason For Exam: Fall Technologist Note: Additional: COMPARISON: None. RIGHT FEMUR FINDINGS: Possible callus formation at the right inferior pubic rami may represent healing fracture. Fracture through the patella with minimal distraction. Large suprapatellar joint effusion. The femur is intact without acute fracture. The joint spaces are preserved. Bone density and texture are normal. Vascular calcifications present. RIGHT TIBIA/FIBULA FINDINGS: The tibia and fibula are intact without evidence of acute fracture. Bone density and texture are normal. No soft tissue swelling is present. Procedure Note Tim De Los Santos MD - 08/21/2023 PROCEDURE: XR FEMUR RIGHT 2VW, XR TIBIA FIBULA RIGHT 2VW, DATE/TIME OF EXAM: 08/20/2023 7:30 PM, LOCATION [facility] INDICATION: M25.561: Right knee pain, unspecified chronicity ADDITIONAL CLINICAL INFORMATION: Ordering Provider Reason For Exam: Fall Technologist Note: Additional: COMPARISON: None. RIGHT FEMUR FINDINGS: Possible callus formation at the right inferior pubic rami may represent healing fracture. Fracture through the patella with minimal distraction. Large suprapatellar joint effusion. The femur is intact without acute fracture. The joint spaces arepreserved. Bone density and texture are normal. Vascular calcifications present. RIGHT TIBIA/FIBULA FINDINGS: The tibia and fibula are intact without evidence of acute fracture. Bone density and texture are normal. No soft tissue swelling is present. IMPRESSION: Fracture through the patella with minimal distraction. Large suprapatellar joint effusion. Report dictated by Rosalee Guerra Dr, MD (radiology supervisor). I, Tim De Los Santos MD have personally reviewed and interpreted this examination/study. > Interpreting Provider: Tim De Los Santos MD on 08/21/2023 12:36 AM Kee Still MD DIAGNOSTIC IMAGING O RDERABLES * PT-INR [facility] (08/20/2023 7:03 PM CDT) Pathologist [facility] PT 12.3 12.1 - 14.8 Seconds 08/20/2023 7:46 PM CDT [facility] INR 0.9 See Comment 08/20/2023 7:46 PM CDT [facility] Comment:The suggested therap eutic range for standard coumadin (warfarin) therapy is an INR of 2.0-3.0. For high-risk patients (Mechanical Mitral Valve Prosthesis, etc.), the suggested prophylactic therapeutic range is an INR of 2.5-3.5. Blood BLOOD SPECIMEN / Unknown Venipuncture / Unknown 08/20/2023 7:03 PM CDT 08/20/2023 7:10 PM CDT Kee Still MD LAB - COAGULATION OR DERABLES Performing Organization Address City/[facility]/ZIP Co de Phone Number [address] [address], [place] [phone] * TYPE + SCREEN PANEL (08/20/2023 7:03 PM CDT) Pathologist [facility] Antibody Screen NEG 7:46 PM CDT [facility] ABO Rh O POS 08/20/2023 7:46 PM CDT [facility] Blood Bank BLOOD SPECIMEN / Unknown Venipuncture / Unknown 08/20/2023 7:03 PM CDT 08/20/2023 7:11 PM CDT Kee Still MD LAB - BLOOD BANK ORD ERABLES [facility] [address] [place] [address], [place] [phone] * (ABNORMAL) BLOOD GASES FLOWER + COOX PANEL (08/20/2023 3:26 PM CDT) pH Venous 7.32 7.32 - 7.42 pH 08/20/2023 3:53 PM CDT [facility] pO2 Venous 30(L) 35 - 40 mmHg 08/20/2023 3:53 PM [facility] pCO2 Venous 52(H) 40 - 50 mmHg 08/20/2023 3:53 PM [facility] HCO3 Venous 26.8 20 - 30 mmol/L 08/20/2023 3:53 PM [facility] Base Excess Venous -0.1 -2.0 - 2.0 mmol/L 08/20/2023 3:53 PM [facility] Oxyhemoglobin Venous 59.4 % 04/2023 3:53 PM [facility] Deoxyhemoglobin (HHB) Venous % 37.2 % 08/20/2023 3:53 PM [facility] Methemoglobin <0.8 0.0 - 2.0 % 08/20/2023 3:53 PM [facility] Carboxyhemoglobin 3.2(H) 0.0 - 2.0 % 2023 3:53 PM [facility] O2 Content Venous 11.2 Interpret within clinical context ml/dL 08/20/2023 3:53 PM [facility] Hemoglobin by COOX 13.5 12.0 - 15.6 g/dL 08/20/2023 3:53 PM [facility] O2 Saturation Venous 62(L) >=70 % 04/2023 3:53 PM [facility] FI O2 Mixed Venous 21.0 % 2023 3:53 PM [facility] Blood BLOOD SPECIMEN / Unknown Venipuncture / Unknown 08/20/2023 3:26 PM CDT 08/20/2023 3:[address] [facility] - 08/20/2023 3:53 PM T Carboxyhemoglobin Normal Concentration: Non-smokers: 0-2%; Smokers: 0-9%; Toxic: >20% Kee Still MD LAB - BLOOD GASES OR DERABLES [facility] [address] [place] [address], [facility] [phone] * HYDROXYBUTYRATE BETA (08/20/2023 3:26 PM CDT) [facility] Beta-Hydroxybu tyrate <0.50 <0.50 mmol/L 08/20/2023 4:24 PM [facility] Blood BLOOD SPECIMEN / Unknown Venipuncture / Unknown 08/20/2023 3:26 PM CDT 08/20/2023 3:50 PM CDT Kee Still MD LAB - CHEMISTRY MAURY ROQUE [facility] Organization Address City/State/ZIP Co de Phone Number [facility] [address] [place] [address], [facility] [phone] * CBC W AUTO DIFFERENTIAL (08/20/2023 3:26 PM CDT) Only the most recent of4 resultswithin the time period is included. [facility] WBC 7.1 4.0 - 10.7 x10E9/L 08/20/2023 4:06 PM [facility] RBC Count 4.30 3.90 - 5.20 x10E12/L 08/20/2023 4:06 PM [facility] Hemoglobin 12.6 11.9 - 15.8 g/dL 08/20/2023 4:06 PM [facility] Hematocrit 35.9 34.8 - 46.1 % 08/20/2023 4:06 PM [facility] MCV 83.5 80.0 - 98.0 fL 08/20/2023 4:06 PM [facility] MCH 29.3 26.7 - 33.6 pg 08/20/2023 4:06 PM [facility] MCHC 35.1 31.7 - 36.3 g/dL 08/20/2023 4:06 PM [facility] RDW-CV 12.2 11.3 - 14.8 % 08/20/2023 4:06 PM [facility] Platelet Count 309 150 - 420 x10E9/L 08/20/2023 4:06 PM [facility] MPV 9.9 7.8 - 11.4 fL 08/20/2023 4:06 PM [facility] Neutrophil % 54.1 41.0 - 74.0 % 08/20/2023 4:06 PM [facility] Lymphocyte % 35.8 17.0 - 47.0 % 08/20/2023 4:06 PM [facility] Monocyte % 4.7 3.0 - 11.0 % 08/20/2023 4:06 PM [facility] Eosinophil % 4.0 0.0 - 7.0 % 08/20/2023 4:06 PM [facility] Basophil % 1.3 0.0 - 1.6 % 08/20/2023 4:06 PM [facility] Immature Granulocytes % 0.1 0.0 - 1.0 % 08/20/2023 4:06 PM [facility] Neutrophil Absolute 3.82 1.60 - 7.50 x10E9/L 08/20/2023 4:06 PM [facility] Lymphocyte Absolute 2.53 1.00 - 4.40 x10E9/L 08/20/2023 4:06 PM [facility] Monocyte Absolute 0.33 0.15 - 1.00 x10E9/L 08/20/2023 4:06 PM [facility] Eosinophil Absolute 0.28 0.00 - 0.60 x10E9/L 08/20/2023 4:06 PM [facility] Basophil Absolute 0.09 0.00 - 0.13 x10E9/L 08/20/2023 4:06 PM [facility] Blood BLOOD SPECIMEN / Unknown Venipuncture / Unknown 08/20/2023 3:26 PM CDT 08/20/2023 3:54 PM CDT Kee Still MD LAB - HEMATOLOGY ORD ERABLES [facility] [address] [place] [address], [facility] [phone] * (ABNORMAL) COMPREHENSIVE METABOLIC PANEL (08/20/2023 3:26 PM CDT) Only the most recent of3 resultswithin the time period is included. BUN 22 7 - 26 mg/dL 08/20/2023 4:24 PM [facility] Creatinine 0.97(H) 0.56 - 0.96 mg/dL 08/20/2023 4:24 PM [facility] Sodium 134(L) 136 - 145 mmol/L 08/20/2023 4:24 PM [facility] Potassium 4.4 3.5 - 4.5 mmol/L 08/20/2023 4:24 PM [facility] Chloride 98 98 - 107 mmol/L 08/20/2023 4:24 PM [facility] CO2 28 22 - 29 mmol/L 08/20/2023 4:24 PM [facility] Glucose 378(H) 70 - 115 mg/dL 08/20/2023 4:24 PM [facility] Calcium 9.2 8.4 - 10.2 mg/dL 08/20/2023 4:24 PM [facility] Protein Total 7.1 6.0 - 8.3 g/dL 08/20/2023 4:24 PM [facility] Albumin 3.8 3.4 - 5.0 g/dL 08/20/2023 4:24 PM [facility] Bilirubin Total 0.5 0.2 - 1.2 mg/dL 08/20/2023 4:24 PM [facility] Alkaline Phosphatase 191(H) 40 - 150 U/L 08/20/2023 4:24 PM [facility] ALT 28 5 - 55 U/L 08/20/2023 4:24 PM [facility] AST 22 5 - 34 U/L 08/20/2023 4:24 PM [facility] Anion Gap 8 6 - 16 08/20/2023 4:24 PM [facility] BUN/Creatinine Ratio 23 7 - 23 08/20/2023 4:24 PM [facility] Osmolality Calculated 297(H) 275 - 295 mOsm/kg 08/20/2023 4:24 PM [facility] Albumin/Globulin Ratio 1.2 1.1 - 2.3 08/20/2023 4:24 PM [facility] eGFR by CKD-EPI 72(L) >=90 mL/min/1.7 3 m2 08/20/2023 4:24 PM CDT [facility] Blood BLOOD SPECIMEN / Unknown Venipuncture / Unknown 08/20/2023 3:26 PM CDT 08/20/2023 3:50 PM CDT Kee Still MD LAB - CHEMISTRY MAURY ROQUE Performing Organization Address City/[facility]/ZIP Co de Phone Number [place] [phone] [place] [address], [facility] [phone] * HCG BETA BLOOD QUANTITATIVE (08/20/2023 3:26 PM CDT) Only the most recent of2 resultswithin the time period is included. Pathologist [facility] Beta-hCG Total Quantitative <3 mIU/mL 08/20/2023 4:29 PM CDT [facility] Comment: HCG Numeric Result Interpretation: Non- Females: < 5 mIU/mL Post-Menopausal Females: < 7 mIU/mL This assay is cleared for use in the early detection of only. It is not approved for any other uses such as tumor marker screening, tumor marker monitoring, etc. and should not be used for any other purposes. Blood BLOOD SPECIMEN / Unknown Venipuncture / Unknown 08/20/2023 3:26 PM CDT 08/20/2023 3:50 PM CDT Kee Still MD LAB - CHEMISTRY MAURY ROQUE Performing Organization Address City/[facility]/ZIP Co de Phone Number [address] [address], [facility] [phone] * CARDIAC RHYTHM STRIP ORDER (03/02/2020 8:56 PM [employer]) Narrative 03/02/2020 8:56 PM [employer] [employer] Ordered by an unspecified provider. Scanned Document CARDIAC SERVICES ORD ERABLES * FOLATE (02/27/2020 7:22 AM [employer]) Only the most recent of2 resultswithin the time period is included. Folate 9.8 7.0 - 31.4 ng/mL 02/27/2020 8:42 AM [employer] Blood BLOOD SPECIMEN / Unknown Venipuncture / Unknown 02/27/2020 7:22 AM [employer] 02/27/2020 7:27 AM [employer] Nehemiah Anderson MD LAB - CHEMISTRY ORD ERABLES Performing Organization Address [facility] Co de Phone Number [facility] [phone] [place] [phone] * VITAMIN B12 (02/27/2020 7:22 AM [employer]) Vitamin B12 449 213 - 816 pg/mL 02/27/2020 8:42 AM [employer] Blood BLOOD SPECIMEN / Unknown Venipuncture / Unknown 02/27/2020 7:22 AM [facility] 02/27/2020 7:27 AM [facility] Nehemiah Anderson MD LAB - CHEMISTRY ORD ERABLES Performing Organization Address [facility] de Phone Number [facility] [phone] [place] [phone] * (ABNORMAL) IRON + TRANSFERRIN PANEL (02/27/2020 7:22 AM [facility] [employer]) Iron 43(L) 50 - 170 ug/dL 02/27/2020 8:34 AM [employer] Comment:Attention clinician: Reference Range change. Transferrin 225 180 - 382 mg/dL 02/27/2020 8:34 AM [employer] Comment:Attention clinician: Reference Range change. TIBC Calculated 281 240 - 450 ug/dL 02/27/2020 8:34 AM [facility] Iron Saturation % 15(L) 20 - 50 % 02/27/2020 8:34 AM [employer] [facility] Blood BLOOD SPECIMEN / Unknown Venipuncture / Unknown 02/27/2020 7:22 AM [employer] 02/27/2020 7:27 AM [employer] Nehemiah Anderson MD LAB - CHEMISTRY ORD ERABLES Performing Organization Address [facility] de Phone Number [facility] [phone] [place] [phone] * OCCULT BLOOD FECES (02/26/2020 7:28 PM [employer]) Occult Blood Negative Negative 02/26/2020 7:54 PM [facility] Stool STOOL SPECIMEN / Unknown Collection / Unknown 02/26/2020 7:28 PM [facility] [employer] 02/26/2020 7:32 PM [employer] Nehemiah Anderson MD LAB - BODY FLUID OR DERABLES [facility] [address] [place] [address] * (ABNORMAL) URINALYSIS REFLEX TO MICROSCOPIC NO CULTURE (02/26/2020 8:20 AM [employer]) Only the most recent of2 resultswithin the time period is included. Color UA Yellow Straw, Yellow 02/26/2020 9:31 AM [facility] Clarity UA Slt Cloudy(A) Clear 02/26/2020 9:31 AM [facility] Glucose UA 1+(A) Negative 02/26/2020 9:31 AM [facility] Bilirubin UA Negative Negative 02/26/2020 9:31 AM [facility] Ketone UA Negative Negative 02/26/2020 9:31 AM [facility] Specific [place] UA 1.015 1.005 - 1.030 02/26/2020 9:31 AM [facility] Blood UA Negative Negative 02/26/2020 9:31 AM [facility] pH UA 5.5 5.0 - 8.0 pH 02/26/2020 9:31 AM [facility] Protein UA Negative Negative 02/26/2020 9:31 AM [facility] Urobilinogen UA Negative Negative mg/dL 02/26/2020 9:31 AM [facility] Nitrite UA Negative Negative 02/26/2020 9:31 AM [facility] Leukocyte UA 2+(A) Negative 02/26/2020 9:31 AM [facility] Urine Microscopy Urine microscopy to follow 02/26/2020 9:31 AM [facility] Urine URINE SPECIMEN OBTAINED BY CLEAN CATCH PROCEDURE / Unknown Collection / Unknown 02/26/2020 8:20 AM [facility] [employer] 02/26/2020 8:32 AM [facility] Narrative [facility] - 02/26/2020 9:31 AM [facility] [employer] Nehemiah Anderson MD LAB - URINALYSIS OR DERABLES Performing Organization Address [facility] Co de Phone Number [facility] [phone] [place] [phone] * (ABNORMAL) URINE MICROSCOPIC ONLY (02/26/2020 8:20 AM [facility] [employer]) RBC UA 0-2 None Seen, 0-2, 3-5 # /hpf 02/26/2020 9:33 AM [facility] WBC UA 21-50(A) None Seen, 0-5 # /hpf 02/26/2020 9:33 AM [facility] Bacteria UA 3+(A) None Seen 02/26/2020 9:33 AM [facility] Squamous Epithelial Cells 0-2 None Seen, 0-2, 3-5 /hpf 02/26/2020 9:33 AM [facility] Mucus UA 1+ /LPF 02/26/2020 9:33 AM [facility] Urine URINE SPECIMEN OBTAINED BY CLEAN CATCH PROCEDURE / Unknown Collection / Unknown 02/26/2020 8:20 AM [facility] [employer] 02/26/2020 8:32 AM [facility] Narrative [facility] - 02/26/2020 9:33 AM [facility] [employer] [employer] Nehemiah Anderson MD LAB - URINALYSIS OR DERABLES Performing Organization Address [facility] de Phone Number [facility] [address] [place] [phone] * (ABNORMAL) BASIC METABOLIC PANEL (CALCIUM TOTAL) (02/23/2020 4:02 PM [facility] [employer]) Glucose 262(H) 70 - 105 mg/dL 02/23/2020 4:50 PM [facility] Sodium 136 136 - 145 mmol/L 02/23/2020 4:50 PM [facility] Potassium 4.3 3.5 - 5.1 mmol/L 02/23/2020 4:50 PM [facility] Chloride 100 98 - 107 mmol/L 02/23/2020 4:50 PM [facility] CO2 25 23 - 31 mmol/L 02/23/2020 4:50 PM [facility] Calcium 8.5 8.4 - 10.4 mg/dL 02/23/2020 4:50 PM [facility] [employer] Anion Gap 11 8 - 18 mmol/L 02/23/2020 4:50 PM [facility] Comment:Attention clinician: Reference Range change. BUN 18 7 - 18.7 mg/dL 02/23/2020 4:50 PM [facility] [employer] Creatinine 0.95 0.57 - 1.11 mg/dL 02/23/2020 4:50 PM [facility] eGFR by MDRD >60 >60 mL/min/1.7 3m2 02/23/2020 4:50 PM [facility] eGFR by MDRD >60 >60 mL/min/1.7 3m2 02/23/2020 4:50 PM [facility] Blood BLOOD SPECIMEN / Unknown Venipuncture / Unknown 02/23/2020 4:02 PM [facility] [employer] 02/23/2020 4:26 PM [facility] Nehemiah Anderson MD LAB - CHEMISTRY ORD ERABLES [facility] [address] [place] [phone] * XR CHEST 1VW PORTABLE (02/23/2020 1:25 PM [facility]) Anatomical Region Laterality Modality Chest Radiographic Darling ging 02/23/2020 1:40 PM [facility] [employer] Impressions 02/23/2020 1:41 PM [facility] [employer] [facility] No priors are available for comparison. Old right-sided rib fractures with pleural thickening. No consolidation or edema. No pleural effusion pneumothorax. Heart size is normal. *Reading Radiologist: Drake Barbour on 02/23/2020 at 1:41 PM Narrative 02/23/2020 1:41 PM [facility] [employer] [facility] Portable Chest AP History: Fever. Procedure Note Drake Barbour MD - 02/23/2020 Portable Chest AP History: Fever. IMPRESSION No priors are available for comparison. Old right-sided rib fractures with pleural thickening. No consolidation or edema. No pleural effusion pneumothorax. Heart size is normal. *Reading Radiologist: Drake Barbour on 02/23/2020 at 1:41 PM Nehemiah Anderson MD DIAGNOSTIC IMAGING ORDERABLES * (ABNORMAL) GLUCOSE (02/20/2020 9:09 PM [facility] [employer]) Glucose 522(HH) 70 - 105 mg/dL 02/20/2020 10:08 PM [facility] Blood BLOOD SPECIMEN / Unknown Venipuncture / Unknown 02/20/2020 9:09 PM [facility] [employer] [facility] 02/20/2020 9:30 PM [facility] Brandi Todd MD LAB - CHEMI STRY ORDERABLES [facility] [address] [place] [address] * SARS-COV-2 (COVID-19) IN HOUSE (02/19/2020 1:53 PM [facility]) COVID-19 PCR Not detected Not detected 02/20/2020 11:25 AM [facility] Microbiology SPECIMEN FROM NASOPHARYNGEAL STRUCTURE / Unknown Collection / Unknown 02/19/2020 1:53 PM [facility] [employer] [facility] 02/19/2020 2:13 PM [facility] Narrative [facility] - 02/20/2020 11:25 AM [facility] [employer] This nucleic acid amplification assay performance was validated by [facility]. This test has been authorized by the Food and Drug administration (FDA)under an Emergency Use Authorization (EUA). This test has been validated in accordance with the FDA's guidance document Policy for Diagnostic Testing in Laboratories Certified to perform High Complexity Testing under CLIA prior to Emergency Use Authorization for Coronavirus Disease-2019 during the Public Health Emergency issued on May 18, 2019. FDA independent review of this validation is pending. This test is only authorized for the duration of time the declaration that circumstances exist justifying the authorization of emergency use of in vitro diagnostic tests for detection of SARS-CoV-2 virus and/or diagnosis of COVID-19 infection under section 564(b)(1) of the Act, 21 U.S.C 360bbb-3 (b)(1), unless the authorization is terminated or revoked sooner. Fact Sheets for this EUA assay are available upon request. Nehemiah Anderson MD LAB - MICROBIOLOGY ORDERABLES [facility] [address] [place] [phone] * DRUG SCREEN TOX URINE PANEL (02/16/2020 2:20 PM [facility]) [facility] Amphetamines Screen Urine Not detected Not detected 02/16/2020 3:20 PM [facility] Barbiturates Screen Urine Not detected Not detected 02/16/2020 3:20 PM [facility] Benzodiazepines Screen Urine Not detected Not detected 02/16/2020 3:20 PM [facility] Cannabinoids Screen Urine Not detected Not detected 02/16/2020 3:20 PM [facility] Cocaine Screen Urine Not detected Not detected 02/16/2020 3:20 PM [facility] Fentanyl Urine Not detected Not detected 02/16/2020 3:20 PM [facility] Methadone Screen Urine Not detected Not detected 02/16/2020 3:20 PM [facility] Opiate Screen Urine Not detected Not detected 02/16/2020 3:20 PM [facility] Phencyclidine Screen Urine Not detected Not detected 02/16/2020 3:20 PM [facility] Urine URINE / Unknown Collection / Unknown 02/16/2020 2:20 PM [facility] [employer] [facility] 02/16/2020 2:47 PM [facility] Narrative [facility] - 02/16/2020 3:20 PM [facility] This drug screen is designed for MEDICAL purposes only. It is not to be used for legal purposes, including but not limited to worker's comp, police investigations, occupational issues, child custody, etc. Any positive result is only presumptive and must be confirmed with a separate confirmatory test ordered by the physician. Drug Screening Test Cutoff Values: AMPHETAMINES 1000 ng/mL BARBITURATES 200 ng/mL BENZODIAZEPINES 200 ng/mL CANNABINOIDS(THC) 50 ng/mL COCAINE 300 ng/mL FENTANYL 1 ng/mL METHADONE 300 ng/mL OPIATES 300 ng/mL PHENCYCLIDINE(PCP) 25 ng/mL Meghan Murillo [employer] ARCHITECT LAB - URINE SHEBA SHINE ORDERABLES [facility] [address] [place] [address] * SYPHILIS ANTIBODY CASCADING REFLEX (02/13/2020 8:20 PM [facility] [facility]) Treponema pallidum Antibody Non Reactive Non Reactive 02/13/2020 9:06 PM [facility] Comment: No Laboratory evidence of syphilis infection. Note: Circulating antibodies may be low or undetectable in early infection. If recent exposure is suspected, re-draw sample in 2-4 weeks and repeat testing. Blood BLOOD SPECIMEN / Unknown Venipuncture / Unknown 02/13/2020 8:20 PM [facility] [employer] [facility] 02/13/2020 8:27 PM [facility] Meghan Lidia [employer]CHIT[employer] LAB - SEROLOGY ORDERABLES [facility] [address] [place] [address] * (ABNORMAL) HEMOGLOBIN A1C (02/13/2020 8:20 PM [facility]) Hemoglobin A1c 10.3(H) 4.2 - 5.6 % 02/13/2020 8:41 PM [employer] Estimated Average Glucose 249 mg/dL 02/13/2020 8:41 PM [employer] [facility] Blood BLOOD SPECIMEN / Unknown Venipuncture / Unknown 02/13/2020 8:20 PM [employer] 02/13/2020 8:27 PM [employer] Narrative [facility] - 02/13/2020 8:41 PM [employer] The following cutoff levels are recommended by [place] [employer]. A1c > 6.5% : considered as diabetes if two separate tests >6.5% or in an appropriate clinical setting. A1c 5.7% - 6.4% : considered as prediabetes (suggest increased risk for diabetes and cardiovascular disease) Control target level: Should be individualized. < 7 for general (non-) , < 8% less stringent goal, < 6.5 more stringent goal. Hemoglobin A1c measurements are used as an aid in the diagnosis of diabetic mellitus, as an aid to identify patients who may be at the risk for developing diabetic mellitus, and for the monitoring long-term blood glucose control in individuals with diabetes mellitus. This test should not replace glucose testing for patients with Type 1 diabetes, pediatric patients, or women. Falsely low HbA1c results may be observed in patients with clinical conditions that shorten erythrocyte life span or decrease mean erythrocyte age such as the presence of unstable hemoglobin variants, elevated hemoglobin F level or other causes of hemolytic anemia . HbA1c may not accurately reflect glycemic control when clinical conditions that affect erythrocyte survival are present. Severe Iron deficiency anemia may yield falsely high results. Hemoglobin A1c assay should not be used to diagnose or monitor diabetes in patients with malignancy, recent blood transfusion, chronic kidney or liver disease. This method may yield falsely low results when hemoglobin (HbF) exceeds 5% in the specimen. Meghan Murillo APRNBOSTON [facility] FOR [facility] - CHEMISTRY ORDERABLES Performing Organization Address [facility] Co de Phone Number [facility] [id number] [place] [id number] * TSH REFLEX FREE T4 (02/13/2020 1:42 PM BLINDSTITCH LINING FELLER) Pathologist [facility] TSH 2.482 0.350 - 4.940 uIU/mL 02/13/2020 2:33 PM BLINDSTITCH LINING FELLER [facility] Blood BLOOD SPECIMEN / Unknown Venipuncture / Unknown 02/13/2020 1:42 PM BLINDSTITCH LINING FELLER 02/13/2020 1:52 PM BLINDSTITCH LINING FELLER Meghan Murillo APRN[facility]STON HOME FOR [facility]AB[facility] LAB - CHEMISTRY ORDERABLES Performing Organization Address [facility] Co de Phone Number [facility] [id number] [place] [phone] * LIPID PROFILE (02/13/2020 1:42 PM BLINDSTITCH LINING FELLER) Pathologist [facility] Cholesterol 139 <200 mg/dL 02/13/2020 2:13 PM BLINDSTITCH LINING FELLER [facility] Triglycerides 95 <150 mg/dL 02/13/2020 2:13 PM BLINDSTITCH LINING FELLER [facility] HDL Cholesterol 42 >40 mg/dL 0 2:13 PM BLINDSTITCH LINING FELLER [facility] LDL Calculated 78 <130 mg/dL 02/13/2020 2:13 PM [facility] VLDL Calculated 19 <=30 mg/dL 0 2:13 PM BLINDSTITCH LINING FELLER [facility] Chol HDL Ratio 3.3 <4.5 02/13/2020 2:13 PM BLINDSTITCH LINING FELLER [facility] LDL/HDL Ratio 1.9 <5.0 02/13/2020 2:13 PM BLINDSTITCH LINING FELLER [facility] Blood BLOOD SPECIMEN / Unknown Venipuncture / Unknown 02/13/2020 1:42 PM BLINDSTITCH LINING FELLER 02/13/2020 1:52 PM BLINDSTITCH LINING FELLER Meghan Murillo METAL SPRAYER MACHINED PARTS-PRINCIPAL SOLUTIONS ARCHITECT LAB - CHEMISTRY ORDERABLES [facility] [address] [place] [address] * EYE EXAM (05/13/2019 9:48 AM BLINDSTITCH LINING FELLER) Anatomical Region Laterality Modality Other Narrative 05/13/2019 9:48 AM BLINDSTITCH LINING FELLER Ordered by an unspecified provider. Scanned Document SCANNING ONLY Care Teams Solutions Delivery Consultant Relationship Specialty Start Date End Date Shraddha Ward, METAL SPRAYER MACHINED PARTS-PRINCIPAL SOLUTIONS ARCHITECT [address] [place] [address] PCP - General 03/23/20
--- OUTSIDE RECORDS SUMMARY | 2024-05-29 16:16 | XMS_ITS | Clinical Summary ---
Author Organization [facility] Address [address] [place] [address] Care Team Providers Care Inspector Air Carrier Name Role Phone Shraddha Ward BATTERBOARD SETTER-LABORER [employer] Primary Care Provid er Source Comments [facility],non-owned Affiliates and Associated Physician Practices is amultiple site organization consisting of ambulatory clinics and hospital sitesin [place], [place], [place] and [place]. This disclosure is being madepursuant to the Care Everywhere program and may not contain all information available regarding this patient. Last updated 17.[facility] Allergies Active Allergy Reactions Criticality Noted Date [...] major depression without psychotic featur es 02/13/2020 Encounters Date Type Department Care Team Description 04/03/2024 Orders Only [facility] - Orthopedics [address], [place] [address] Melania Rosa MD Closed displaced comminuted fracture of right patella with routine healing from Last 3 Months Immunizations Name Administration Dates Next Due TDAP (7yrs+) 08/20/2023 Family History Medical History Relation Name Comments Diabetes - Type 1 Brother Relation Name Status Comments Brother Social History Tobacco Use Types Packs/Day Years [...] Mass Index 24.2 11/13/2023 11:21 AM CDT Plan of Treatment Health Maintenance Due Date Last Done Comments COLOGUARD (AGES 45-75) - COL ON CA SCREENING 1975 COLON MONITORING 1975 COLONOSCOPY - COLON CA SCREENING 1975 CT COLONOGRAPHY - COLON CA SCREENING 1975 Colorectal Cancer Screening 1975 FIT - COLON CA SCREENING 1975 FLEX SIG - COLON CA SCREENING 1975 HIV SCREENING 1990 HEPATITIS C SCREENING 03/22/1993 HEPATITIS B VACCINE (1 of 3 - 19+ 3-dose series) 1994 PAP SMEAR 09/16/2023 09/15/2020 MAMMOGRAM 09/24/2023 09/23/2021, 09/23/2021 COVID-19 VACCINE ( - 2023-2 5 season) 2023 INFLUENZA VACCINE (#1) 2023 12/29/2019 DEPRESSION SCREENING 03/20/2024 LIPID TESTING 02/12/2025 02/13/2020 ZOSTER VACCINE (1 of 2) 2025 DTAP/TDAP/TD VACCINES (2 - T d or Tdap) 08/19/2033 08/20/2023 HIB VACCINE Aged Out No longer eligi ble based on patient's age to complete this topic HPV VACCINE Aged Out No longer eligi ble based on patient's age to complete this topic MENINGOCOCCAL (Group B) VACCINE SHARED DECISION-MAKING Aged Out No longer eligible based on patient's age to complete this topic MENINGOCOCCAL GROUPS A/C/Y/W VACCINE Aged Out No longer eligible b ased on patient's age to complete this topic Medical Devices Implanted Type Area Director Organizational Device Identifier Shelf Expiration Date Model / Serial / Lot Screw 3.5mm 5mm 34mm Ft Rvrs Cut Flut Implanted:Qty: 1 on 09/08/2023 by Melania Rosa MD at [facility] Right: [employer] [id number] / / Screw 3.5mm 5mm 36mm Ft Rvrs Cut Flut Implanted:Qty: 1 on 09/08/2023 by Melania Rosa MD at [facility] Right: [employer] [id number] / / Explanted Type Area Director Organizational Device Identifier Shelf Expiration Date Model / Serial / Lot Screw 3.5mm 5mm 44mm Ft Rvrs Cut Flut Explanted:Qty: 1 on 09/08/2023 by Melania Rosa MD at [facility] Right: [employer] [id number] / / Procedures Procedure Name Priority Date/Time Associated Diagnosis Comments LIPID PROFILE Routine 02/13/2020 1:42 PM NEEDLE BOARD REPAIRER from Last 3 Months or Most Recently Relevant to Health Maintenance Results * LIPID PROFILE (02/13/2020 1:42 PM NEEDLE BOARD REPAIRER) Cholesterol 139 <200 mg/dL 02/13/2020 2:13 PM NEEDLE BOARD REPAIRER [facility] Triglycerides 95 <150 mg/dL 02/13/2020 2:13 PM NEEDLE BOARD REPAIRER [facility] HDL Cholesterol 42 >40 mg/dL 0 2:13 PM NEEDLE BOARD REPAIRER [facility] LDL Calculated 78 <130 mg/dL 02/13/2020 2:13 PM NEEDLE BOARD REPAIRER [facility] VLDL Calculated 19 <=30 mg/dL 0 2:13 PM NEEDLE BOARD REPAIRER [facility] Chol HDL Ratio 3.3 <4.5 02/13/2020 2:13 PM NEEDLE BOARD REPAIRER [facility] LDL/HDL Ratio 1.9 <5.0 02/13/2020 2:13 PM NEEDLE BOARD REPAIRER [facility] Blood BLOOD SPECIMEN / Unknown Venipuncture / Unknown 02/13/2020 1:42 PM NEEDLE BOARD REPAIRER 02/13/2020 1:52 PM NEEDLE BOARD REPAIRER Meghan Coellocarol MEJIA-LABORER [employer] LAB - CHEMISTRY ORDERABLES [facility] [address] [place] [address] from Last 3 Months or Most Recently Relevant to Health Maintenance Advance Directives * Full Code (Latest Code Status on File) Date Activated Date Inactivated Comments 02/16/2020 4:16 PM 02/28/2020 3:28 PM * Full Code Date Activated Date Inactivated Comments 02/13/2020 10:40 AM 02/16/2020 4:07 PM Care Teams Inspector Air Carrier Relationship Specialty Start Date End Date Shraddha Ward, BATTERBOARD SETTER-LABORER [employer] [address] [place] [address] PCP - General 03/23/20
[2024-05-31 04:28] LABS: C-Peptide 0.14 ng/mL (0.80-3.85); Vitamin D 25 Hydroxy 30 ng/mL (30-100)
== END 2024-05-29 14:19 | disposition home or self-care (01) ==
PROVIDERS: PCP Nurse Practitioner Family; Visit Provider Nurse Practitioner Family
DX: E10.65 Type 1 diabetes mellitus with hyperglycemia (principal); E10.9 Type 1 diabetes mellitus without complications; I73.9 Peripheral vascular disease, unspecified
CPT/HCPCS: 36415; 80053; 80061; 82043; 82306; 82607; 84439; 84443; 84681; 86341

== ENCOUNTER 2024-06-06 15:30 | Emergency (ER) | payer OTHER, SELFPAY ==
--- NOTE | ~2024-06-06 | US_ITS ---
EXAMINATION: US venous doppler LE RT DATE: 06/06/2024 17:41 INDICATION: edema TECHNIQUE: Grayscale ultrasound images without and with compression and Doppler ultrasound images of the right lower extremity veins were obtained. COMPARISON: None. FINDINGS: The visualized portions of right common femoral vein, profunda (deep) femoral vein, femoral vein, pop liteal vein, peroneal veins, posterior tibial veins, and greater saphenous vein outflow are patent. IMPRESSION: 1. No deep venous thrombosis. Reviewed, dictated and finalized at location A.
[2024-06-06 15:33] VITALS: BP 147/69; PULSE 94; RESP 16; TEMP 36.6; O2SAT 100
--- OUTSIDE RECORDS SUMMARY | 2024-06-06 15:42 | XMS_ITS | Clinical Summary ---
Author Organization [facility] Address [address] [place] [address] Care Team Providers Care Oil And Gas Drafter Name Role Phone Shraddha Ward ASSEMBLY MEMBER-PROGRAM ELIGIBILITY SPECIALIST Primary Care Provid er Source Comments [facility],non-owned Affiliates and Associated Physician Practices is amultiple site organization consisting of ambulatory clinics and hospital sitesin [place], [place], [place] and [place]. This disclosure is being madepursuant to the Care Everywhere program and may not contain all information available regarding this patient. Last updated 17.[facility] Allergies Active Allergy Reactions Criticality [...] Only [facility] [address], [place] [address] Melania Rosa MD Closed displaced comminuted fracture [...] VACCINE (#1) 2023 12/29/2019 DEPRESSION SCREENING 03/20/2024 ZOSTER VACCINE (1 of 2) 2025 LIPID TESTING 11/01/2025 11/01/2020, 02/13/2020 DTAP/TDAP/TD VACCINES (2 - T d or [...] this topic Medical Devices Implanted Type Area Window Cutter Device Identifier Shelf Expiration Date Model / Serial / Lot Screw 3.5mm 5mm 34mm Ft Rvrs Cut Flut Implanted:Qty: 1 on 09/08/2023 by Melania Rosa MD at [facility] Right: [employer] [id number] / / Screw 3.5mm 5mm 36mm Ft Rvrs Cut Flut Implanted:Qty: 1 on 09/08/2023 by Melania Rosa MD at [facility] Right: [employer] [id number] / / Explanted Type Area Window Cutter Device Identifier Shelf Expiration Date Model / Serial / Lot Screw 3.5mm 5mm 44mm Ft Rvrs Cut Flut Explanted:Qty: 1 on 09/08/2023 by Melania Rosa MD at [facility] Right: [employer] [id number] / / Procedures Procedure Name Priority Date/Time Associated Diagnosis Comments LIPID PROFILE Routine 02/13/2020 1:42 PM SCISSORS SHARPENER from Last 3 Months or Most Recently Relevant to Health Maintenance Results * LIPID PROFILE (02/13/2020 1:42 PM SCISSORS SHARPENER) Cholesterol 139 <200 mg/dL 02/13/2020 2:13 PM SCISSORS SHARPENER [facility] Triglycerides 95 <150 mg/dL 02/13/2020 2:13 PM SCISSORS SHARPENER [facility] HDL Cholesterol 42 >40 mg/dL 0 2:13 PM SCISSORS SHARPENER [facility] LDL Calculated 78 <130 mg/dL 02/13/2020 2:13 PM SCISSORS SHARPENER [facility] VLDL Calculated 19 <=30 mg/dL 0 2:13 PM SCISSORS SHARPENER [facility] Chol HDL Ratio 3.3 <4.5 02/13/2020 2:13 PM SCISSORS SHARPENER [facility] LDL/HDL Ratio 1.9 <5.0 02/13/2020 2:13 PM SCISSORS SHARPENER [facility] Blood BLOOD SPECIMEN / Unknown Venipuncture / Unknown 02/13/2020 1:42 PM SCISSORS SHARPENER 02/13/2020 1:52 PM SCISSORS SHARPENER Meghan Murillo ASSEMBLY MEMBER-PROGRAM ELIGIBILITY SPECIALIST LAB - CHEMISTRY ORDERABLES [facility] [address] [place] [address] from Last 3 Months or Most Recently Relevant to Health Maintenance Advance Directives * Full Code (Latest Code Status on File) Date Activated Date Inactivated Comments 02/16/2020 4:16 PM 02/28/2020 3:28 PM * Full Code Date Activated Date Inactivated Comments 02/13/2020 10:40 AM 02/16/2020 4:07 PM Care Teams Oil And Gas Drafter Relationship Specialty Start Date End Date Shraddha Ward, ASSEMBLY MEMBER-PROGRAM ELIGIBILITY SPECIALIST [address] [place] [address] PCP - General 03/23/20
--- OUTSIDE RECORDS SUMMARY | 2024-06-06 15:42 | XMS_ITS | Encounter Summary ---
Author Organization [facility] Address [address] [place] [address] Care Team Providers Care Word Processor Technician Name Role Phone EdShraddha Chaz SEAL SKINNER-CANDY ROLLING MACHINE OPERATOR Primary Care Provid er Reason for Visit [...] [facility] - Central[facility] Scheduling [address] [place] [address] Melania Rosa MD [address] [place] [phone] Follow-up (Spk to Lucy, stated before she [...] on filedocumented in this encounter Care Teams Word Processor Technician Relationship Specialty Start Date End Date Shraddha Ward, SEAL SKINNER-CANDY ROLLING MACHINE OPERATOR [address] [place] [address] PCP - General 03/23/20 documented as of this encounter
--- OUTSIDE RECORDS SUMMARY | 2024-06-06 16:12 | XMS_ITS | Clinical Summary ---
Author Organization [facility] Address [address] [place] [address] Care Team Providers Care Bottle Blowing Machine Tender Name Role Phone Shraddha Ward COLOR MATCHER-MERCHANDISE MARKER Primary Care Provid er Source Comments [facility],non-owned Affiliates and Associated Physician Practices is amultiple site organization consisting of ambulatory clinics and hospital sitesin [place], [place], [place] and [place]. This disclosure is being madepursuant to the Care Everywhere program and may not contain all information available regarding this patient. Last updated 17.[facility] Allergies Active Allergy Reactions Criticality Noted Date [...] Only [facility] [address] [place] [address] Melania Rosa MD Closed displaced comminuted fracture [...] this topic Medical Devices Implanted Type Area Alumni Relations Officer Device Identifier Shelf Expiration Date Model / Serial / Lot Screw 3.5mm 5mm 34mm Ft Rvrs Cut Flut Implanted:Qty: 1 on 09/08/2023 by Melania Rosa MD at [facility] Right: [employer] [id number] / / Screw 3.5mm 5mm 36mm Ft Rvrs Cut Flut Implanted:Qty: 1 on 09/08/2023 by Melania Rosa MD at [facility] Right: [employer] [id number] / / Explanted Type Area Alumni Relations Officer Device Identifier Shelf Expiration Date Model / Serial / Lot Screw 3.5mm 5mm 44mm Ft Rvrs Cut Flut Explanted:Qty: 1 on 09/08/2023 by Melania Rosa MD at [facility] Right: [employer] [id number] / / Procedures Procedure Name Priority Date/Time Associated Diagnosis Comments LIPID PROFILE Routine 02/13/2020 1:42 PM CHANGE PERSON from Last 3 Months or Most Recently Relevant to Health Maintenance Results * LIPID PROFILE (02/13/2020 1:42 PM CHANGE PERSON) Cholesterol 139 <200 mg/dL 02/13/2020 2:13 PM CHANGE PERSON [facility] Triglycerides 95 <150 mg/dL 02/13/2020 2:13 PM CHANGE PERSON [facility] HDL Cholesterol 42 >40 mg/dL 0 2:13 PM CHANGE PERSON [facility] LDL Calculated 78 <130 mg/dL 02/13/2020 2:13 PM CHANGE PERSON [facility] VLDL Calculated 19 <=30 mg/dL 0 2:13 PM CHANGE PERSON [facility] Chol HDL Ratio 3.3 <4.5 02/13/2020 2:13 PM CHANGE PERSON [facility] LDL/HDL Ratio 1.9 <5.0 02/13/2020 2:13 PM CHANGE PERSON [facility] Blood BLOOD SPECIMEN / Unknown Venipuncture / Unknown 02/13/2020 1:42 PM CHANGE PERSON 02/13/2020 1:52 PM CHANGE PERSON Meghan Murillo COLOR MATCHER-MERCHANDISE MARKER LAB - CHEMISTRY ORDERABLES [facility] [address] [place] [address] from Last 3 Months or Most Recently Relevant to Health Maintenance Advance Directives * Full Code (Latest Code Status on File) Date Activated Date Inactivated Comments 02/16/2020 4:16 PM 02/28/2020 3:28 PM * Full Code Date Activated Date Inactivated Comments 02/13/2020 10:40 AM 02/16/2020 4:07 PM Care Teams Bottle Blowing Machine Tender Relationship Specialty Start Date End Date Shraddha Ward, COLOR MATCHER-MERCHANDISE MARKER [address] [place] [address] PCP - General 03/23/20
--- OUTSIDE RECORDS SUMMARY | 2024-06-06 16:12 | XMS_ITS | Encounter Summary ---
Author Organization [facility] Address [address] [place] [address] Care Team Providers Care Traffic Rate Analyst Name Role Phone EdShraddha Chaz FLEXBOARD OPERATOR-PEDIATRIC PSYCHOLOGIST Primary Care Provid er Reason for Visit [...] [facility] Scheduling [address] [place] [address] Melania Rosa MD [address] [place] [phone] Follow-up (Spk to Lucy, stated before she [...] on filedocumented in this encounter Care Teams Traffic Rate Analyst Relationship Specialty Start Date End Date Shraddha Ward, FLEXBOARD OPERATOR-PEDIATRIC PSYCHOLOGIST [address] [place] [address] PCP - General 03/23/20 documented as of this encounter
--- NOTE | 2024-06-06 17:10 | ED.EXTPRO ---
HPI - Extremity Problem General Chief complaint: Extremity Problem,Nontraumatic Stated complaint: Sent by PMD for US of RLE for poss DVT, Diabetic Time Seen by Provider: 06/06/24 15:58 History of Present Illness HPI Narrative: Patient is a 49-year-old female who presents ER with lower extremity swelling. Reports she has had some mild swelling in her lower extremities but the right side is markedly more affected. She is scheduled for outpatient ultrasound but was not covered due to insurance issues so she came here. No chest pain or shortness of breath. No trauma to the leg. She has had vascular studies for the arterial flow in the past and that is been fine. 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 Patient is a smoker. She is not on hormone therapy and does not have known cancer. She does have history of right sided knee surgery years ago. Related Data Allergies Allergy/AdvReac Type Severity Reaction Status Date / Time metformin (From Glucophage) Allergy Mild Unknown Verified 06/06/24 13:59 Review of Systems Review of Systems: All systems reviewed & are unremarkable except as noted in HPI and below Constitutional: Constitutional: Reports no additional constitutional complaints Cardiovascular: Cardiovascular: Reports no additional cardiovascular complaints Respiratory: Respiratory: Reports no additional respiratory complaints Musculoskeletal: Musculoskeletal: Reports no additional musculoskeletal complaints [facility] Past Medical History Medical History Hypothyroidism Methamphetamine abuse Amphetamine abuse Acute vaginitis Well woman exam Hypotension Elevated d-dimer Person under investigation for COVID-19 Acute renal failure (ARF) Acute dehydration UTI (urinary tract infection) Aspiration pneumonia Metabolic acidosis Atelectasis of left lung Septic shock Pneumothorax Left wrist pain Type 1 diabetes Weakness Hyperglycemia BMI 24.0-24.9, adult Tobacco dependence syndrome Depression GERD (gastroesophageal reflux disease) Type 1 diabetes Surgical History Surgical History History of bilateral tubal ligation 2012 Family History Family History Father Family history of coronary artery disease Family history of type 2 diabetes mellitus Social History Social History Social History: denies any illicit drug use, still smokes and vapes, she does not consume any alcohol. She lives with a roommate. Smoking packs per day: 1 Smoking cigarettes per day: 20.0 Years smoked: 30 Smoking pack-years: 30.00 Smoking status: Current every day smoker Tobacco type: cigarettes Additional smoking assessment comments: Patient states she uses vape at 6mg of nicotine Alcohol intake: unknown Substance use: unknown Substance use type: former substance user Last use: 12/27/19 Do You Feel Safe in your Home?: Yes Lack of Transportation: YES Lack of Food: Never True Current Housing: I Have Housing Concerned About Future Housing: No Difficulty Paying Gas/Electric Bills: Decline to Answer Difficulty Paying for Meds: No Currently Unemployed: Decline to Answer Education: High School Diploma/GED Difficulty w/ Childcare or Family Care: No Gender identity (if verbalized by the patient): Female Spiritual care concerns: No Exam Narrative: GENERAL: Well-appearing, well-nourished, and in no acute distress. HEAD: Normocephalic, atraumatic. ENT: Mucous membranes moist. CHEST: Clear to auscultation. No respiratory distress. HEART: Regular rate and rhythm. Normal peripheral pulses.. EXTREMITIES: Normal range of motion. 2+ Edema RLE, trace LLE. SKIN: Warm, dry, no rash. NEURO: Alert and oriented x3. PSYCH: Normal mood and affect. Course Course Emergency Course: No DVT. Recommend compression stockings and increased activity. Also discussed low-salt diet. Discharge home. Vital Signs Vital signs: Vital Signs Temperature 97.8 F 06/06/24 15:33 Pulse Rate 94 06/06/24 15:33 Respiratory Rate 16 06/06/24 15:33 Blood Pressure 147/69 H 06/06/24 15:33 Pulse Oximetry 100 06/06/24 15:33 Oxygen Delivery Room Air 06/06/24 15:33 Temperature 97.8 F 06/06/24 15:33 Pulse Rate 94 06/06/24 15:33 Respiratory Rate 16 06/06/24 15:33 Blood Pressure 147/69 H 06/06/24 15:33 Pulse Oximetry 100 06/06/24 15:33 Oxygen Delivery Room Air 06/06/24 15:33 MDM - Extremity (Nontraumatic) Imaging Data Radiologist's impression: ITS Impressions Venous Doppler Study 06/06/24 17:52 IMPRESSION: 1. No deep venous thrombosis. Discharge Plan Discharge Clinical Impression: Leg edema, right Patient Disposition: Home, Self-Care Condition: Stable Instructions: Leg Edema (ED), Low-Sodium Diet (ED) Additional Instructions: Wear compression stockings, increase your activity, and adhere to a low-sodium diet to help with your edema. Patient Language: Lao Prescriptions: No Action albuterol sulfate 90 mcg/actuation aero powdr breath act w/sensor 90 mcg inhalation Q6H PRN (Reason: shortness of breath or wheezing) Qty: 1 0RF (DME) Dexcom G7 Sensor Device See Rx Instructions .ROUTE .MEDSUPPLY Qty: 9 3RF Rx Instructions: Use to monitor glcuose (DME) Dexcom G7 Engraver Tender Misc See Rx Instructions .Route Qty: 1 1RF Rx Instructions: As directed (DME) urine glucose-ketones test Strip See Rx Instructions .ROUTE .MEDSUPPLY Qty: 50 0RF Rx Instructions: As directed Gvoke HypoPen 2-Pack 1 mg/0.2 mL auto-injector 1 mg subcut ONCE Qty: 0.4 4RF Rx Instructions: may repeat once after 15 minutes if no response insulin lispro [Humalog U-100 Insulin] 100 unit/mL solution 50 unit continuous subcutaneous infusion DAILY Qty: 50 1RF gabapentin 300 mg capsule 300 mg PO TID Qty: 90 1RF sulfamethoxazole-trimethoprim [Bactrim DS] 800-160 mg tablet 1 tablet PO Q12H 10 Days Qty: 20 1RF (DME) OneTouch Ultra Test Strip See Rx Instructions .Route Qty: 100 2RF Rx Instructions: QID quetiapine 150 mg tablet 150 mg PO QHS Qty: 135 2RF nicotine 14 mg/24 hr patch 24 hour 1 patch transdermal DAILY Qty: 28 0RF (DME) lancets [OneTouch UltraSoft 2 Lancet] 30 gauge misc See Rx Instructions .Route Qty: 200 2RF Rx Instructions: QID (DME) blood-glucose meter [OneTouch Ultra2 Meter] Misc See Rx Instructions .ROUTE .COMPLEX Qty: 1 0RF Dose Instruction: USE DIRECTED Rx Instructions: USE DIRECTED (DME) pen needle, diabetic [TRUEplus Pen Needle] 31 gauge x 1/4 needle See Rx Instructions .ROUTE .COMPLEX Qty: 100 0RF Dose Instruction: INJECT FOUR TIMES DAILY FOR INSULIN INJECTIONS Rx Instructions: INJECT FOUR TIMES DAILY FOR INSULIN INJECTIONS escitalopram oxalate 20 mg tablet See Rx Instructions .ROUTE .COMPLEX Qty: 90 0RF Dose Instruction: Take 1 tablet by mouth once daily Rx Instructions: Take 1 tablet by mouth once daily famotidine 20 mg tablet See Rx Instructions .ROUTE .COMPLEX Qty: 90 3RF Dose Instruction: TAKE 1 TABLET BY MOUTH ONCE DAILY AT BEDTIME NEEDED FOR HEARTBURN Rx Instructions: TAKE 1 TABLET BY MOUTH ONCE DAILY AT BEDTIME NEEDED FOR HEARTBURN levothyroxine [Levoxyl] 100 mcg tablet 100 mcg PO .COMPLEX Qty: 90 1RF Rx Instructions: 100 mcg orally 6 days a week; Follow-up/Referrals: Mila Dietz APRN [Primary Care Provider] - 1 Week
== END 2024-06-07 03:00 | disposition home or self-care (01) ==
PROVIDERS: Emergency Provider Emergency Medicine; PCP Nurse Practitioner Family
DX: R60.0 Localized edema (principal); E03.9 Hypothyroidism, unspecified; F15.10 Other stimulant abuse, uncomplicated; E10.9 Type 1 diabetes mellitus without complications; K21.9 Gastro-esophageal reflux disease without esophagitis; F17.210 Nicotine dependence, cigarettes, uncomplicated
CPT/HCPCS: 93971; 99284

== ENCOUNTER 2024-09-19 08:27 | Outpatient (CLI) | payer OTHER, SELFPAY ==
[2024-09-19 09:18] LABS: Alanine Aminotransferase 27 U/L (6-35); Albumin Level 3.3 g/dL (3.5-5.1); Alkaline Phosphatase 176 U/L (38-126); Anion Gap 2 mmol/L (4-12); Aspartate Amino Transferase 30 U/L (14-36); Bilirubin,Total 0.4 mg/dL (0.2-1.3); Blood Urea Nitrogen 25 mg/dL (7-17); Calcium 8.3 mg/dL (8.4-10.2); Carbon Dioxide 26 mmol/L (22-30); Chloride 110 mmol/L (98-107); Estimated Glomerular Filt Rate 51; Glucose 98 mg/dL (65-110); Osmolality Calculated 290 mOsm/kg (285-295); Potassium 3.9 mmol/L (3.4-5.0); Sodium 138 mmol/L (137-145); Total Protein 5.9 g/dL (6.3-8.2)
[2024-09-19 09:47] LABS: Thyroid Stimulating Hormone 0.464 uIU/mL (0.465-4.680)
[2024-09-23 15:29] LABS: Thyroid Peroxidase Antibodies. 1 IU/mL (<9)
== END 2024-09-19 08:28 | disposition home or self-care (01) ==
LOC: CHSLAB 08:28
PROVIDERS: PCP Nurse Practitioner Family; Visit Provider Nurse Practitioner Family
DX: E10.65 Type 1 diabetes mellitus with hyperglycemia (principal); E03.9 Hypothyroidism, unspecified; R74.8 Abnormal levels of other serum enzymes
CPT/HCPCS: 36415; 80053; 84075; 84080; 84443

== ENCOUNTER 2024-10-07 14:02 | Emergency (ER) | payer OTHER, SELFPAY ==
--- NOTE | ~2024-10-07 | XR_ITS ---
EXAM/ PROCEDURE: XR tibia fibula LT 2V - 10/07/2024 16:30 CDT HISTORY: 49 years old Female with pain/injury COMPARISON: None available TECHNIQUE: Three view(s) FINDINGS/ IMPRESSION: There are no fractures or dislocations.Joint spaces are within normal limits. Reviewed, dictated and finalized at location A.
--- NOTE | ~2024-10-07 | XR_ITS ---
EXAM/ PROCEDURE: XR knee LT 3V - 10/07/2024 16:30 CDT HISTORY: 49 years old Female with injury COMPARISON: None available TECHNIQUE: Three view(s) FINDINGS/ IMPRESSION: There are no fractures or dislocations.Joint spaces are within normal limits. Reviewed, dictated and finalized at location A.
[2024-10-07 14:02] VITALS: BP 135/80; PULSE 95; RESP 18; TEMP 36.9; O2SAT 100
--- NOTE | 2024-10-07 15:52 | ED_ITS ---
HPI - Extremity Injury (Lower) General Chief Complaint: Extremity Injury, Lower Stated Complaint: fall x 8 days ago; left leg pain Time Seen by Provider: 10/07/24 15:52 Source: patient Mode of arrival: ambulatory Limitations: no limitations History of Present Illness HPI Narrative: Patient is a 49-year-old female with diabetes type 1 having left lower extremity from the knee to the ankle pain after hurting this area 1 week ago. Patient fell out of bed and hit this area on the dresser. She has neuropathy in general and sees a neurologist. Her diabetes is controlled. MD complaint: knee injury ( left) and leg injury ( left) Onset (ago): week(s) ( 1) Type of Injury: blunt Place: home Severity: moderate Severity scale (1-10): 4 Relieving factors: immobilization Exacerbating factors: weight bearing, movement and palpation Context: direct blow Associated symptoms: able to partially bear weight Other symptoms: none Treatments prior to arrival: other ( none) Related Data Allergies Allergy/AdvReac Type Severity Reaction Status Date / Time metformin (From Glucophage) Allergy Mild Unknown Verified 10/07/24 16:05 Review of Systems Review of Systems: All systems reviewed & are unremarkable except as noted in HPI and below Constitutional: Constitutional: Reports no additional constitutional complaints Eyes: Eyes: Reports no additional eye complaints ENT: Reports system reviewed and no additional complaints, except as documented Cardiovascular: Cardiovascular: Reports no additional cardiovascular complaints Respiratory: Respiratory: Reports no additional respiratory complaints Gastrointestinal: Gastrointestinal: Reports no additional gastrointestinal complaints Genitourinary: Genitourinary: Reports no additional female genitourinary complaints Musculoskeletal: Musculoskeletal: Reports no additional musculoskeletal complaints Integumentary/Breasts: Skin/Breast: Reports system reviewed and no additional complaints, except as docu Neurologic: Reports system reviewed and no additional complaints, except as documented Psychiatric: Psychiatric: Reports no additional psychiatric complaints Endocrine: Endocrine: Reports no additional endocrine complaints Hematologic/Lymphatic: Hematologic/Lymphatic: Reports no additional hematologic/lymphatic complaints Allergic/Immunologic: Allergic/Immunologic: Reports no additional allergic/immunologic complaints PMFSH Past Medical History Medical History Hypothyroidism Methamphetamine abuse Amphetamine abuse Acute vaginitis Well woman exam Hypotension Elevated d-dimer Person under investigation for COVID-19 Acute renal failure (ARF) Acute dehydration UTI (urinary tract infection) Aspiration pneumonia Metabolic acidosis Atelectasis of left lung Septic shock Pneumothorax Left wrist pain Type 1 diabetes Weakness Hyperglycemia BMI 24.0-24.9, adult Tobacco dependence syndrome Depression GERD (gastroesophageal reflux disease) Type 1 diabetes Surgical History Surgical History History of delivery H/O knee surgery H/O excision of mass excision of cysts x2 06/20/24 excision of scalp cyst. Dr. Burns History of bilateral tubal ligation 2013 Family History Family History Father Family history of coronary artery disease Family history of type 2 diabetes mellitus Social History Social History Social History: denies any illicit drug use, still smokes and vapes, she does not consume any alcohol. She lives with a roommate. Smoking packs per day: 1 Smoking cigarettes per day: 20.0 Years smoked: 30 Smoking pack-years: 30.00 Smoking status: Current every day smoker Tobacco type: cigarettes Additional smoking assessment comments: Patient states she uses vape at 6mg of nicotine Alcohol intake: unknown Substance use: unknown Substance use type: former substance user Last use: 12/27/19 Do You Feel Safe in your Home?: Yes Lack of Transportation: YES Lack of Food: Never True Current Housing: I Have Housing Concerned About Future Housing: No Difficulty Paying Gas/Electric Bills: Decline to Answer Difficulty Paying for Meds: No Currently Unemployed: Decline to Answer Education: High School Diploma/GED Difficulty w/ Childcare or Family Care: No Gender identity (if verbalized by the patient): Female Spiritual care concerns: No Exam Const: General: healthy appearing Nutritional Appearance: well nourished Orientation/consciousness: patient oriented x3 HENMT: Head: normal to inspection Ears: external ears normal Face/Nose/Sinus: Normal external nose present Eyes: Conjunctivae: conjunctivae normal Pupils: Equal, round and reactive pupils present EOM: EOMs intact bilaterally Neck: Neck: normal visual inspection Chest: Chest palpation & inspection: normal inspection of the chest Resp: Effort & Inspection: normal respiratory effort and not labored Auscultation: clear to auscultation bilaterally and no crackles Cardio: Rate: regular rate Rhythm: regular rhythm Heart sounds: no murmurs GI: Inspection: non-distended GI Palp: Yes Soft to palpation and No Tenderness to palpation present (GI) Auscultation: normal bowel sounds : General: Yes bladder normal to palpation Back/Spine/Pelvis: Back: no CVA tenderness Skin: General skin exam: normal color Rashes: no rashes Wounds: no wounds Neuro: General: patient oriented x3 and moves all extremities Cranial nerv es: Yes Nystagmus not present Speech: normal speech Extrem: General: abnormal to inspection Other: tender left lower extremity at than lower knee and the mid shaft of the tib-fib region without obvious deformity but slight swelling and tender to palpation Psych: Mental Status: mental status grossly normal Affect: normal affect Attitude: cooperative Course Vital Signs Vital signs: Vital Signs Temperature 36.9 C 10/07/24 14:02 Pulse Rate 95 10/07/24 14:02 Respiratory Rate 18 10/07/24 14:02 Blood Pressure 135/80 10/07/24 14:02 Pulse Oximetry 100 10/07/24 14:02 Oxygen Delivery Room Air 10/07/24 14:02 Temperature 36.9 C 10/07/24 14:02 Pulse Rate 79 10/07/24 17:20 Respiratory Rate 16 10/07/24 17:20 Blood Pressure 156/82 H 10/07/24 17:20 Pulse Oximetry 100 10/07/24 17:20 Oxygen Delivery Room Air 10/07/24 17:20 MDM - Extremity Injury (Lower) MDM Narrative Medical decision making narrative: patient is a 49-year-old female diabetic 1 with left lower extremity pain after an injury a week ago. We will get x-rays at this time. Imaging Data Attestation: I personally reviewed and interpreted this imaging study as follows: Radiologist's impression: X-ray left knee is negative for acute process x-ray left tib-fib is negative for acute process Discharge Plan Discharge Clinical Impression: Contusion of left leg Qualifiers: Encounter type: initial encounter Qualified Code(s): S80.12XA - Contusion of left lower leg, initial encounter Sprain of left knee/leg Qualifiers: Encounter type: initial encounter Qualified Code(s): S83.92XA - Sprain of unspecified site of left knee, initial encounter Type 1 diabetes Qualifiers: Diabetes mellitus complication status: without complication Qualified Code(s): E10.9 - Type 1 diabetes mellitus without complications Patient Disposition: Home Condition: Stable Instructions: Contusion in Adults (ED), Knee Pain (ED) Patient Language: Monegasque Prescriptions: New hydrocodone-acetaminophen 5-325 mg tablet 1 tablet PO Q8H PRN (Reason: pain) Qty: 20 0RF Rx Instructions: 1-2 tabs per dose No Action (DME) Dexcom G7 Sensor Device See Rx Instructions .ROUTE .MEDSUPPLY Qty: 9 3RF Rx Instructions: Use to monitor glcuose (DME) Dexcom G7 Cigarette Book Maker Misc See Rx Instructions .Route Qty: 1 1RF Rx Instructions: As directed (DME) urine glucose-ketones test Strip See Rx Instructions .ROUTE .MEDSUPPLY Qty: 50 0RF Rx Instructions: As directed Gvoke HypoPen 2-Pack 1 mg/0.2 mL auto-injector 1 mg subcut ONCE Qty: 0.4 4RF Rx Instructions: may repeat once after 15 minutes if no response insulin lispro [Humalog U-100 Insulin] 100 unit/mL solution 50 unit continuous subcutaneous infusion DAILY Qty: 50 1RF (DME) OneTouch Ultra Test Strip See Rx Instructions .Route Qty: 100 2RF Rx Instructions: QID albuterol sulfate 90 mcg/actuation aero powdr breath act w/sensor 90 mcg inhalation Q6H PRN (Reason: shortness of breath or wheezing) Qty: 1 0RF quetiapine 150 mg tablet 150 mg PO QHS Qty: 135 2RF nicotine 14 mg/24 hr patch 24 hour 1 patch transdermal DAILY Qty: 28 0RF (DME) lancets [OneTouch UltraSoft 2 Lancet] 30 gauge misc See Rx Instructions .Route Qty: 200 2RF Rx Instructions: QID (DME) blood-glucose meter [OneTouch Ultra2 Meter] Misc See Rx Instructions .ROUTE .COMPLEX Qty: 1 0RF Dose Instruction: USE DIRECTED Rx Instructions: USE DIRECTED (DME) pen needle, diabetic [TRUEplus Pen Needle] 31 gauge x 1/4 needle See Rx Instructions .ROUTE .COMPLEX Qty: 100 0RF Dose Instruction: INJECT FOUR TIMES DAILY FOR INSULIN INJECTIONS Rx Instructions: INJECT FOUR TIMES DAILY FOR INSULIN INJECTIONS famotidine 20 mg tablet See Rx Instructions .ROUTE .COMPLEX Qty: 90 3RF Dose Instruction: TAKE 1 TABLET BY MOUTH ONCE DAILY AT BEDTIME NEEDED FOR HEARTBURN Rx Instructions: TAKE 1 TABLET BY MOUTH ONCE DAILY AT BEDTIME NEEDED FOR HEARTBURN gabapentin 300 mg capsule 300 mg PO TID Qty: 90 2RF levothyroxine [Levoxyl] 100 mcg tablet 100 mcg PO .COMPLEX Qty: 90 1RF Rx Instructions: 100 mcg orally 6 days a week; escitalopram oxalate 20 mg tablet See Rx Instructions .ROUTE .COMPLEX Qty: 90 0RF Dose Instruction: Take 1 tablet by mouth once daily Rx Instructions: Take 1 tablet by mouth once daily Follow-up/Referrals: Shraddha Ward REVERBERATORY FURNACE OPERATOR [Primary Care Provider] - Time of Disposition: 17:30
[2024-10-07] MEDS: HYDROcodone/acetaminophen (*CRX) 10-325 MG TABLET 1 TAB PO (16:42)
[2024-10-07 17:20] VITALS: BP 156/82; PULSE 79; RESP 16; O2SAT 100
== END 2024-10-07 17:35 | disposition home or self-care (01) ==
PROVIDERS: Emergency Provider Emergency Medicine; PCP Nurse Practitioner Family
DX: S83.92XA Sprain of unspecified site of left knee, initial encounter (principal); S80.12XA Contusion of left lower leg, initial encounter; E10.9 Type 1 diabetes mellitus without complications; E03.9 Hypothyroidism, unspecified; F17.210 Nicotine dependence, cigarettes, uncomplicated; W06.XXXA Fall from bed, initial encounter
CPT/HCPCS: 73562; 73590; 99284; A9270

== ENCOUNTER 2024-12-27 21:52 | Observation (INO) | payer OTHER, SELFPAY ==
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
--- NOTE | ~2024-12-27 | XR_ITS ---
EXAMINATION: XR pelvis 1-2V, 12/27/2024 22:45 CDT HISTORY: fall COMPARISON: No comparisons available. Findings: No acute fracture or malalignment. No significant degenerative changes. Soft tissues unremarkable. Impression: No acute fracture or malalignment. Reviewed, dictated and finalized at location P. Impression: No acute fracture or malalignment.
--- NOTE | ~2024-12-27 | CT_ITS ---
EXAMINATION: CT cervical spine wo con COMPARISON: None HISTORY: FALL. NECK PAIN. TECHNIQUE: Axial images were obtained through the spine without IV contrast. Coronal, sagittal reconstruction images were obtained from the axial views. CT scan performed using dose optimization techniques including the following automated exposure control; adjustment of mA and/or kV; use of iterative reconstruction technique. Automatic exposure control was used to reduce radiation dose. Permanent radiation dose record is archived to PACS. FINDINGS: The vertebral heights are intact. No fracture or subluxation. The disc heights are intact. Soft tissues unremarkable. Impression: No acute abnormality. Reviewed, dictated and finalized at location P. Impression: No acute abnormality.
--- NOTE | ~2024-12-27 | XR_ITS ---
EXAMINATION: XR chest 1V portable COMPARISON: No comparisons available. HISTORY: accidental fall FINDINGS: The lungs are clear, no effusion. No pneumothorax. Heart is normal size. Mediastinal and hilar contours are within normal limits. Bony thorax no acute abnormality. Miscellaneous: None Impression: No acute cardiopulmonary abnormality. Reviewed, dictated and finalized at location P. Impression: No acute cardiopulmonary abnormality.
[2024-12-27 21:52] VITALS: BP 152/74; PULSE 77; RESP 18; TEMP 36; O2SAT 97
--- OUTSIDE RECORDS SUMMARY | 2024-12-27 21:56 | XMS_ITS | Clinical Summary ---
Author Organization [facility] Address [address] [place] [address] Care Team Providers Care Bomb Squad Officer Name Role Phone Shraddha Ward SQL CONSULTANT-HIGH WIRE ARTIST Primary Care Provid er Source Comments [facility],non-owned Affiliates and Associated Physician Practices is amultiple site organization consisting of ambulatory clinics and hospital sitesin [place], [place], [place] and [place]. This disclosure is being madepursuant to the Care Everywhere program and may not contain all information available regarding this patient. Last updated 17.[facility] Allergies Active Allergy Reactions Criticality Noted Date Comments Metformin GI Discomfort 08/20/2023 Endorses drops blood sugar instantly Medications * This document contains information received from the source organization and may not represent a complete record from that organization. * Be aware that medications may not be up to date on this document. Alwaysverify current medications with the patient. hydrOXYzine hcl (ATARAX) 50 MG tabletIndicati ons:Anxiety Take 1 tablet by mouth every 6 hours as needed Reasons: Feeling Anxious 30 tablet 1 0 Active buPROPion XL 24hr (WELLBUTRIN-XL ) 300 MG tabletIndicati ons:Depression Take 1 tablet by mouth once daily Reasons: Depression 15 tablet 1 0 Active escitalopram (LEXAPRO) 5 MG tabletIndicati ons:Generalize d Anxiety Disorder,Major Depressive Disorder Take 3 tablets by mouth once daily Reasons: Generalized Anxiety Disorder, Major Depressive Disorder 45 tablet 1 0 Active insulin aspart (NOVOLOG) penIndications :Type 2 Diabetes Mellitus Inject 6 Units subcutaneously 3 times daily with meals Reasons: Type 2 Diabetes 3 mL 0 Active insulin glargine (LANTUS) penIndications :Type 2 Diabetes Mellitus Inject 18 Units subcutaneously once daily Reasons: Type 2 Diabetes 3 mL 0 Active QUEtiapine (SEROQUEL) 100 MG tabletIndicati ons:Major Depressive Disorder,MDD Single episode Take 1 tablet by mouth at bedtime Reasons: Major Depressive Disorder, MDD Single episode 15 tablet 1 0 Active famotidine (Pepcid) 40 MG tablet Take 1 (one) tablet by mouth once daily Active oxyCODONE, immediate release, (Roxicodone) 5 MG tabletIndicati ons:Displaced transverse fracture of right patella, initial encounter for closed fracture TAKE ONE TABLET BY MOUTH EVERY 4 HOURS NEEDED FOR SEVERE PAIN 42 tablet 4 Active Additional Information Patient not taking.Reported on 01/15/2024 apixaban (Eliquis) 2.5 MG tablet TAKE ONE TABLET BY MOUTH 2 TIMES A DAY 70 tablet 4 Active Additional Information Patient not taking.Reported on 01/15/2024 acetaminophen (Tylenol) 500 MG tablet TAKE 2 TABLETS BY MOUTH EVERY 8 HOURS. MAXIMUM ALLOWABLE ACETAMINOPHEN AMOUNT: 4 GRAMS (4,000MG) PER 24 HOURS. 42 tablet 4 Active Additional Information Patient not taking.Reported on 01/15/2024 docusate sodium (Colace) 100 MG capsule TAKE ONE CAPSULE BY MOUTH ONCE DAILY NEEDED FOR CONSTIPATION 21 capsule 4 Active Additional Information Patient not taking.Reported on 01/15/2024 ibuprofen (Motrin) 200 MG tablet Take by mouth every 6 hours as needed for Pain Active Active Problems Problem Noted Date Diagnosed Date Severe major depression without psychotic featur es 02/13/2020 Immunizations Immunization Administration Dates Next Due TDAP (7yrs+) 08/20/2023 [...] drink = 0.6 oz pur e alcohol) Comments Unknown Sex and Gender Information Value Date Recorded Sex Assigned at Not on file Legal Sex Female 6:30 AM MEDICAL TYPIST Gender Identity Not on file Sexual Orientation [...] 11:00 AM CDT Height 162.6 cm (5' 4) 11/13/2023 11:21 AM CDT Body Mass Index [...] SMEAR 09/16/2023 09/15/2020 MAMMOGRAM 09/24/2023 09/23/2021, 09/23/2021 DEPRESSION SCREENING 03/20/2024 COVID-19 VACCINE (1 - 2023-2 5 season) 2024 INFLUENZA VACCINE (#1) 2024 12/29/2019 ZOSTER VACCINE (1 of 2) 2025 LIPID [...] this topic Medical Devices Implanted Type Area Laundry Operator Finishing Device Identifier Shelf Expiration Date Model / Serial / Lot Screw 3.5mm 5mm 34mm Ft Rvrs Cut Flut Implanted:Qty: 1 on 09/08/2023 by Melania Rosa MD at [facility] Right: [employer] [id number] / / Screw 3.5mm 5mm 36mm Ft Rvrs Cut Flut Implanted:Qty: 1 on 09/08/2023 by Melania Rosa MD at [facility] Right: [employer] [id number] / / Explanted Type Area Laundry Operator Finishing Device Identifier Shelf Expiration Date Model / Serial / Lot Screw 3.5mm 5mm 44mm Ft Rvrs Cut Flut Explanted:Qty: 1 on 09/08/2023 by Melania Rosa MD at [facility] Right: [employer] [id number] / / Procedures Procedure Name Priority Date/Time Associated Diagnosis Comments LIPID PROFILE Routine 02/13/2020 1:42 PM MEDICAL TYPIST from Last 3 Months or Most Recently Relevant to Health Maintenance Results * LIPID PROFILE (02/13/2020 1:42 PM MEDICAL TYPIST) Cholesterol 139 <200 mg/dL 02/13/2020 2:13 PM MEDICAL TYPIST [facility] Triglycerides 95 <150 mg/dL 02/13/2020 2:13 PM MEDICAL TYPIST [facility] HDL Cholesterol 42 >40 mg/dL 0 2:13 PM MEDICAL TYPIST [facility] LDL Calculated 78 <130 mg/dL 02/13/2020 2:13 PM MEDICAL TYPIST [facility] VLDL Calculated 19 <=30 mg/dL 0 2:13 PM MEDICAL TYPIST [facility] Chol HDL Ratio 3.3 <4.5 02/13/2020 2:13 PM MEDICAL TYPIST [facility] LDL/HDL Ratio 1.9 <5.0 02/13/2020 2:13 PM MEDICAL TYPIST [facility] Blood BLOOD SPECIMEN / Unknown Venipuncture / Unknown 02/13/2020 1:42 PM MEDICAL TYPIST 02/13/2020 1:52 PM MEDICAL TYPIST Meghan Murillo SQL CONSULTANT-HIGH WIRE ARTIST LAB - CHEMISTRY ORDERAB LES Final Result [facility] [id number] [place] [address] from Last 3 Months or Most Recently Relevant to Health Maintenance Insurance [facility] Advance Directives * Full Code (Latest Code Status on File) Date Activated Date Inactivated Comments 02/16/2020 4:16 PM 02/28/2020 3:28 PM * Full Code Date Activated Date Inactivated Comments 02/13/2020 10:40 AM 02/16/2020 4:07 PM Care Teams Bomb Squad Officer Relationship Specialty Start Date End Date Shraddha Ward, SQL CONSULTANT-HIGH WIRE ARTIST [address] [place] [address] PCP - General 03/23/20
--- NOTE | 2024-12-27 21:58 | ED_ITS ---
HPI - Fall General Chief Complaint: Fall Stated Complaint: fall/head laceration Time Seen by Provider: 12/27/24 21:57 Source: patient Mode of arrival: ambulatory Limitations: no limitations History of Present Illness HPI Narrative: 49-year-old female history of smoking, ex- substance abuse, hypertension, hypothyroidism, GERD had a couple of alcoholic drinks following which lost balance and fell. -- Unsure if she fell and lost balance or the other way around .-- Neighbor called EMS. blood sugar was noted to be in the 20s. Patient received glucagon with improvement of blood sugar -- patient fell backwards and hit her occiput. She sustained a 3 cm laceration on the occiput with adjoining head loss. -- Unsure if she passed out or not. Patient does not have any recollection of the event. Denied neck or back pain. No other injuries noted. Onset (ago): hour(s) ( 1 hour ago) Fall from: standing Fall witnessed: yes, by family Place fall occurred: home Loss of consciousness: unsure Prolonged down time: no Symptoms prior to fall: other ( unsure of the symptoms prior to the fall) Location of injury: head Associated symptoms (after fall): denies Related Data Allergies Allergy/AdvReac Type Severity Reaction Status Date / Time metformin (From Glucophage) Allergy Mild Unknown Verified 12/27/24 22:09 Review of Systems 2 Review of Systems: All systems reviewed & are unremarkable except as noted in HPI and below Constitutional: Constitutional: Reports as per HPI and Reports no additional constitutional complaints Eyes: Eyes: Reports as per HPI and Reports no additional eye complaints ENT: Reports system reviewed and no additional complaints, except as documented and Reports as per HPI Cardiovascular: Cardiovascular: Reports as per HPI and Reports no additional cardiovascular complaints Respiratory: Respiratory: Reports as per HPI and Reports no additional respiratory complaints Gastrointestinal: Gastrointestinal: Reports as per HPI and Reports no additional gastrointestinal complaints Genitourinary: Genitourinary: Reports no additional female genitourinary complaints Musculoskeletal: Musculoskeletal: Reports no additional musculoskeletal complaints and Reports as per HPI Integumentary/Breasts: Skin/Breast: Reports system reviewed and no additional complaints, except as docu and Reports as per HPI Comments: 3 cm scalp laceration Neurologic: Reports system reviewed and no additional complaints, except as documented and Reports as per HPI Comments: denied headache. No vision problems. No focal n Endocrine: Endocrine: Reports no additional endocrine complaints Hematologic/Lymphatic: Hematologic/Lymphatic: Reports no additional hematologic/lymphatic complaints Allergic/Immunologic: Allergic/Immunologic: Reports no additional allergic/immunologic complaints [facility] Past Medical History Medical History Numbness and tingling in both hands Diabetic polyneuropathy Hypothyroidism Methamphetamine abuse Amphetamine abuse Acute vaginitis Well woman exam Hypotension Elevated d-dimer Person under investigation for COVID-19 Acute renal failure (ARF) Acute dehydration UTI (urinary tract infection) Aspiration pneumonia Metabolic acidosis Atelectasis of left lung Septic shock Pneumothorax Left wrist pain Type 1 diabetes Weakness Hyperglycemia BMI 24.0-24.9, adult Tobacco dependence syndrome Depression GERD (gastroesophageal reflux disease) Type 1 diabetes Surgical History Surgical History H/O cataract removal with insertion of prosthetic lens History of delivery H/O knee surgery H/O excision of mass excision of cysts x2 06/20/24 excision of scalp cyst. Dr. Burns History of bilateral tubal ligation 2013 Family History Family History Father Family history of coronary artery disease Family history of type 2 diabetes mellitus Social History Social History Social History: denies any illicit drug use, still smokes and vapes, she does not consume any alcohol. She lives with a roommate. Smoking packs per day: 1 Smoking cigarettes per day: 20.0 Years smoked: 30 Smoking pack-years: 30.00 Smoking status: Current every day smoker Tobacco type: cigarettes Additional smoking assessment comments: Patient states she uses vape at 6mg of nicotine Alcohol intake: unknown Substance use: unknown Substance use type: former substance user Last use: 12/27/19 Do You Feel Safe in your Home?: Yes Lack of Transportation: YES Lack of Food: Never True Current Housing: I Have Housing Concerned About Future Housing: No Difficulty Paying Gas/Electric Bills: Decline to Answer Difficulty Paying for Meds: No Currently Unemployed: Decline to Answer Education: High School Diploma/GED Difficulty w/ Childcare or Family Care: No Gender identity (if verbalized by the patient): Female Spiritual care concerns: No Exam 2 Narrative: Blood pressure stable. Oxygen saturation of 97% on room air. Const: Orientation/consciousness: patient oriented x3 Limitations: no limitations HENMT: Head: normal to inspection Ears: external ears normal, TM's normal bilaterally and EAC's normal Face/Nose/Sinus: Normal external nose present Face and sinus: normal facial exam Mouth: Yes Normal oral and palatal mucosa present Throat: posterior oropharynx normal Eyes: Conjunctivae: conjunctivae normal Pupils: Equal, round and reactive pupils present EOM: EOMs intact bilaterally Direct Ophthalmoscopy: no photophobia Chest: Chest palpation & inspection: normal inspection of the chest and abnormal inspection of the chest Other: No chest wall tenderness noted. Resp: Effort & Inspection: normal respiratory effort Auscultation: clear to auscultation bilaterally Cardio: Rate: regular rate Rhythm: regular rhythm GI: Auscultation: normal bowel sounds Other: No tenderness/ rigidity /rebound. : General: Yes no CVA tenderness Back/Spine/Pelvis: Back: no CVA tenderness Skin: General skin exam: normal color Other: 3 cm scalp laceration with adjoining head loss Neuro: General: patient oriented x3, moves all extremities, no meningeal signs, no focal motor deficits and CN's II-XI intact bilaterally Cranial nerves: Yes Nystagmus not present Speech: normal speech Gait exam (Neuro): Normal gait present Extrem: General: normal to inspection, no clubbing, cyanosis or edema and no pedal edema Psych: Mental Status: mental status grossly normal Affect: normal affect Attitude: cooperative Course Course Emergency Course: alcohol use hypoglycemia-- Repeat blood sugar was noted to be 175. Currently patient is on a D10 drip. accidental fall-- CT of the head and the CT of the C-spine did not show any acute findings. X-ray of the pelvis and chest did not show any acute findings. head injury scalp laceration-- Place gricelda anemia with an H&H of 9.6/29.3. Renal insufficiency with a BUN/creatinine of 14/1.2. the patient is intoxicated. She is noted to have low blood sugars. Will admit for observation to assess her blood sugars and her mental status Vital Signs Vital signs: Vital Signs Temperature 36.0 C L 12/27/24 21:52 Pulse Rate 77 12/27/24 21:52 Respiratory Rate 18 12/27/24 21:52 Blood Pressure 152/74 H 12/27/24 21:52 Pulse Oximetry 97 12/27/24 21:52 Oxygen Delivery Room Air 12/27/24 21:52 Temperature 36.0 C L 12/27/24 21:52 Pulse Rate 77 12/27/24 21:52 Respiratory Rate 18 12/27/24 21:52 Blood Pressure 152/74 H 12/27/24 21:52 Pulse Oximetry 97 12/27/24 21:52 Oxygen Delivery Room Air 12/27/24 21:52 Procedures Laceration Laceration 1: Date: 12/27/24 Time: 23:57 Site: scalp Side (If applicable): right Size (cm): 3 Description: irregular Depth: [id number] Pre-repair: wound explored ====== Skin Level ====== Skin layer closed with: gricelda Number of sutures: 8 ====== Subcutaneous Layer ====== ====== Muscle Layer ====== ====== Tendon Layer ====== MDM - Fall MDM Narrative Medical decision making narrative: Accidental fall hypoglycemia head injury scalp laceration Differential Diagnosis Differential diagnosis: Likely concussion without loss of consciousness Medical Records Attestation: I reviewed the patient's medical records. Lab Data Attestation: I reviewed the patient's lab results. 12/27/24 22:29 12/27/24 22:29 Labs: Lab Results 12/27/24 12/27/24 Range/Units 22:13 22:29 WBC 12.0 H (4.8-10.8) K/mm3 RBC 3.33 L (4.20-5.40) M/mm3 Hgb 9.6 L (12.0-15.0) g/dL Hct 29.3 L (35.0-49.0) % MCV 88.0 (78.0-102.0) fL MCH 28.8 (27.0-31.0) pg MCHC 32.8 (32-36) g/dL RDW 13.0 (11.6-14.4) % Plt Count 341 (150-420) K/mm3 MPV 9.1 L (9.2-11.8) fl Immature Gran % (Auto) 0.4 H (0.0-0.0) % Neut % (Auto) 63.5 (50.0-70.0) % Lymph % (Auto) 28.2 (18.0-42.0) % Petroleum % (Auto) 3.9 (2.0-11.0) % Eos % (Auto) 3.2 (1.0-6.0) % Baso % (Auto) 0.8 (0.0-1.0) % Lymph # (Auto) 3.37 (1.10-4.50) K/mm3 Petroleum # (Auto) 0.47 (0.10-0.90) K/mm3 Eos # (Auto) 0.38 (0.02-0.50) K/mm3 Baso # (Auto) 0.09 (0.00-0.10) K/mm3 Abs Immat Gran (auto) 0.05 H (0.00-0.00) K/mm3 Absolute Neuts (auto) 7.59 H (1.70-7.20) K/mm3 Absolute Nucleated RBC 0.00 (0.00-0.00) K/mm3 Nucleated RBC % 0.0 (0-0.0) % PT 9.9 (9.50-12.1) Seconds INR 0.9 Sodium 141 (137-145) mmol/L Potassium 4.0 (3.4-5.0) mmol/L Chloride 107 (98-107) mmol/L Carbon Dioxide 26 (22-30) mmol/L Anion Gap 8 (4-12) mmol/L BUN 14 D (7-17) mg/dL Creatinine 1.19 H (0.7-1.0) mg/dL Estim Creat Clear Calc 50 ml/min Estimated GFR 48 L (59 - ) Glucose 135 H (65-110) mg/dL POC Capillary Glucose 153 H (65-105) mg/dl Calculated Osmolality 294 (285-295) mOsm/kg Calcium 9.0 (8.4-10.2) mg/dL Magnesium 2.2 (1.6-2.3) mg/dL Total Bilirubin 0.3 (0.2-1.3) mg/dL AST 36 (14-36) U/L ALT 27 (6-35) U/L Alkaline Phosphatase 154 H (38-126) U/L Troponin I < 0.012 (0.000-0.034) ng/mL Total Protein 6.9 (6.3-8.2) g/dL Albumin 3.7 (3.5-5.1) g/dL Lipase 43 (23-300) U/L ECG Data EKG #1: ECG completion date: 12/27/24 ECG completion time: 22:18 Interpretation: sinus tachycardia. Normal axis. Regular intervals. No ST -T-wave changes noted. No ST elevation. Discharge Plan Discharge Clinical Impression: Hypoglycemia Head injury Qualifiers: Encounter type: initial encounter Qualified Code(s): S09.90XA - Unspecified injury of head, initial encounter Laceration of scalp Qualifiers: Encounter type: initial encounter Qualified Code(s): S01.01XA - Laceration without foreign body of scalp, initial encounter Patient Disposition: Still a Patient Condition: Stable Patient Language: Estonian Prescriptions: No Action hydrocodone-acetaminophen 5-325 mg tablet 1 tablet PO Q8H PRN (Reason: pain) Qty: 20 0RF Rx Instructions: 1-2 tabs per dose (DME) Dexcom G7 Sensor Device See Rx Instructions .ROUTE .MEDSUPPLY Qty: 9 3RF Rx Instructions: Use to monitor glcuose (DME) Dexcom G7 Javascript Ui Developer Misc See Rx Instructions .Route Qty: 1 1RF Rx Instructions: As directed (DME) urine glucose-ketones test Strip See Rx Instructions .ROUTE .MEDSUPPLY Qty: 50 0RF Rx Instructions: As directed nicotine 14 mg/24 hr patch 24 hour 1 patch transdermal DAILY Qty: 28 0RF amitriptyline 25 mg tablet 25 mg PO QHS Qty: 90 2RF (DME) OneTouch Ultra Test Strip See Rx Instructions .Route Qty: 100 2RF Rx Instructions: QID albuterol sulfate 90 mcg/actuation aero powdr breath act w/sensor 90 mcg inhalation Q6H PRN (Reason: shortness of breath or wheezing) Qty: 1 0RF cephalexin 500 mg capsule 500 mg PO Q12H Qty: 14 0RF quetiapine 150 mg tablet 150 mg PO QHS Qty: 135 2RF (DME) lancets [OneTouch UltraSoft 2 Lancet] 30 gauge misc See Rx Instructions .Route Qty: 200 2RF Rx Instructions: QID (DME) blood-glucose meter [OneTouch Ultra2 Meter[place] [facility] [place] Instructions .ROUTE .COMPLEX Qty: 1 0RF Dose Instruction: USE DIRECTED Rx Instructions: USE DIRECTED (DME) pen needle, diabetic [TRUEplus Pen Needle] 31 gauge x 1/4 needle See Rx Instructions .ROUTE .COMPLEX Qty: 100 0RF Dose Instruction: INJECT FOUR TIMES DAILY FOR INSULIN INJECTIONS Rx Instructions: INJECT FOUR TIMES DAILY FOR INSULIN INJECTIONS famotidine 20 mg tablet See Rx Instructions .ROUTE .COMPLEX Qty: 90 3RF Dose Instruction: TAKE 1 TABLET BY MOUTH ONCE DAILY AT BEDTIME NEEDED FOR HEARTBURN Rx Instructions: TAKE 1 TABLET BY MOUTH ONCE DAILY AT BEDTIME NEEDED FOR HEARTBURN levothyroxine [Levoxyl] 100 mcg tablet 100 mcg PO .COMPLEX Qty: 90 1RF Rx Instructions: 100 mcg orally 6 days a week; escitalopram oxalate 20 mg tablet See Rx Instructions .ROUTE .COMPLEX Qty: 90 0RF Dose Instruction: Take 1 tablet by mouth once daily Rx Instructions: Take 1 tablet by mouth once daily gabapentin 300 mg capsule 300 mg PO TID Qty: 90 2RF Follow-up/Referrals: Shraddha Ward NP [Primary Care Provider, Family Practice] Time of Disposition: 00:03
--- NOTE | 2024-12-27 22:07 | ECG_ITS ---
Test Date: 2024-12-27 22:18:59 Measurements Intervals [place] Rate: 100 P: 42 [place]: 158 QRS: -1 QRSD: 91 T: 52 QT: 367 QTc: 474 Interpretive Statements SINUS TACHYCARDIA LOW QRS VOLTAGE IN PRECORDIAL LEADS INCOMPLETE RIGHT BUNDLE BRANCH BLOCK CONSIDER INFERIOR INFARCT, AGE INDETERMINATE ABNORMAL ECG Compared to ECG 04/14/2024 07:58:48 HEART RATE HAS DECREASED Electronically Signed On 12-28-2024 09:03:26 CDT by Moises Gerardo D.O.
[2024-12-27] MEDS: TETANUS,DIPHTHERIA,AC PERTUSSIS ADULT 0.5 ML (ADACEL) IM (22:16)
[2024-12-27] MEDS: DEXTROSE 10% 250 ML 50 ML IV CONT (22:17)
[2024-12-27 22:33] LABS: Hematocrit 29.3 % (35.0-49.0); Hemoglobin 9.6 g/dL (12.0-15.0); Immature Granulocyte Percent A 0.4 % (0.0-0.0); Lymphocytes Absolute Auto 3.37 K/mm3 (1.10-4.50); Mean Corpuscular HGB Conc 32.8 g/dL (32-36); Mean Corpuscular Hemoglobin 28.8 pg (27.0-31.0); Mean Corpuscular Volume 88.0 fL (78.0-102.0); Nucleated Red Blood Cells Absolute Auto 0.00 K/mm3 (0.00-0.00); Nucleated Red Blood Cells Perc 0.0 % (0-0.0); Platelet Count Result 341 K/mm3 (150-420); Red Blood Count 3.33 M/mm3 (4.20-5.40); White Blood Count 12.0 K/mm3 (4.8-10.8)
[2024-12-27 22:49] LABS: Alanine Aminotransferase 27 U/L (6-35); Albumin Level 3.7 g/dL (3.5-5.1); Alkaline Phosphatase 154 U/L (38-126); Anion Gap 8 mmol/L (4-12); Aspartate Amino Transferase 36 U/L (14-36); Bilirubin,Total 0.3 mg/dL (0.2-1.3); Blood Urea Nitrogen 14 mg/dL (7-17); Calcium 9.0 mg/dL (8.4-10.2); Carbon Dioxide 26 mmol/L (22-30); Chloride 107 mmol/L (98-107); Estimated CRCL calculation 50 ml/min; Estimated Glomerular Filt Rate 48; Glucose 135 mg/dL (65-110); Lipase 43 U/L (23-300); Magnesium 2.2 mg/dL (1.6-2.3); Osmolality Calculated 294 mOsm/kg (285-295); Potassium 4.0 mmol/L (3.4-5.0); Sodium 141 mmol/L (137-145); Total Protein 6.9 g/dL (6.3-8.2)
[2024-12-27 22:50] LABS: INR 0.9; Prothrombin Time 9.9 Seconds (9.50-12.1)
[2024-12-27 23:00] LABS: Troponin I < 0.012 ng/mL (0.000-0.034)
[2024-12-27 23:17] VITALS: O2SAT 99
[2024-12-27 23:30] VITALS: O2SAT 98
[2024-12-27 23:45] VITALS: O2SAT 100
[2024-12-28 00:15] VITALS: O2SAT 97
[2024-12-28] MEDS: ACETAMINOPHEN 325 MG TABLET 650 MG PO (00:20)
--- NOTE | 2024-12-28 00:30 | PC.NURSE ---
Attempted to clean up blood from pt's head. Placed pt in clean gown.
[2024-12-28 01:19] VITALS: BP 143/78; PULSE 92; RESP 20; TEMP 36.3; O2SAT 97; BMI 28.0
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
[2024-12-28] MEDS: FAMOTIDINE 20 MG TABLET PO (02:42)
[2024-12-28] MEDS: ESCITALOPRAM OXALATE 10 MG TABLET PO (02:44)
[2024-12-28] MEDS: GABAPENTIN 300 MG CAPSULE PO (02:44)
[2024-12-28] MEDS: AMITRIPTYLINE HCL 25 MG TABLET PO (02:45)
--- NOTE | 2024-12-28 04:33 | PC.NURSE ---
Dr Campuzano called to notify nurses he had ordered labs on patient and will call for mental health eval in am before he leaves.
[2024-12-28 04:55] LABS: Pregnancy On Board Control Positive
[2024-12-28 04:58] LABS: Acetaminophen < 10 ug/mL (10-30); Salicylate < 1.0 mg/dL (2-20)
[2024-12-28 05:03] LABS: Cannabinoid Screen Urine Negative (Negative)
[2024-12-28 05:47] LABS: Thyroid Stimulating Hormone 0.539 uIU/mL (0.465-4.680)
[2024-12-28] MEDS: DEXTROSE 10% 250 ML 30 ML IV CONT (06:26)
--- NOTE | 2024-12-28 06:50 | PC.NURSE ---
Moved to room 2006 for 1:1 observation and suicide precautions. Tolerated well. Patient belongings moved with her.
[2024-12-28 08:00] VITALS: BP 105/57; PULSE 85; PULSE 86; RESP 20; TEMP 36.9; O2SAT 97
--- NOTE | 2024-12-28 08:56 | PC.NURSE ---
[id number] dr. segovia on floor. claims patient is medically stable and to call [facility] for eval. talked with trish @ [facility] and they are aware. patient in room #206. constant supervision. rests quietly in bed. upset with moving rooms this am. explained the reasoning behind. claims she has no plans to cause harm.
--- NOTE | 2024-12-28 09:30 | PC.NURSE ---
Representatives from [facility] arrivwed to meet with patient. Two reps in room with patient.
--- NOTE | 2024-12-28 10:44 | P.SS_ITS ---
Same Day Admit/Disch: HPI History of Present Illness Chief complaint: Fall/lost consciousness/hypoglycemia Narrative: Lucy Arambula is a 49 year old female who presented to the emergency department via EMS after her neighbor called 911 due to patient passing out and falling striking her head. per patient she does not recall the events leading to her arrival to the emergency department but woke up in EMS after the administration of dextrose. patient was found to a blood sugar in the 20s upon EMS arrival. patient has a past medical history of type 1 diabetes on insulin pump, COPD, anxiety / depression disorder, and hypothyroidism. patient had reported to me she was having drinks with her friend and reported the last time she had a anything was 11 the previous night. Patient reports she drinks once a week on Monday with a friend. In the ED: upon arrival after administration of dextrose patient's blood sugar was 153 she was coming more alert and oriented but had a large laceration to the back of her head from her fall complete trauma workup was negative for any acute findings. patient was then admitted to the medical unit on dextrose 10 IV with Accu-Cheks q.6 and continued neuro checks. during the middle of the night patient had made some suicidal comments to nursing staff at which time the ER doc was notified and patient was placed on suicide precautions with a consult to [facility] evaluation. [facility] Past Medical History Medical History Numbness and tingling in both hands Diabetic polyneuropathy Hypothyroidism Methamphetamine abuse Amphetamine abuse Acute vaginitis Well woman exam Hypotension Elevated d-dimer Person under investigation for COVID-19 Acute renal failure (ARF) Acute dehydration UTI (urinary tract infection) Aspiration pneumonia Metabolic acidosis Atelectasis of left lung Septic shock Pneumothorax Left wrist pain Type 1 diabetes Weakness Hyperglycemia BMI 24.0-24.9, adult Tobacco dependence syndrome Depression GERD (gastroesophageal reflux disease) Type 1 diabetes Surgical History Surgical History H/O cataract removal with insertion of prosthetic lens History of delivery H/O knee surgery H/O excision of mass excision of cysts x2 06/20/24 excision of scalp cyst. Dr. Burns History of bilateral tubal ligation 2013 Family History Family History Father Type 1 diabetes Family history of coronary artery disease Family history of type 2 diabetes mellitus Mother Heart disease Sibling Alcoholism Heart disease Kidney infection Suicide Sepsis Type 1 diabetes Social History Social History Social History: denies any illicit drug use, still smokes and vapes, she does not consume any alcohol. She lives with a roommate. Smoking packs per day: 1 Smoking cigarettes per day: 20.0 Years smoked: 37 Smoking pack-years: 37.00 Smoking status: Current every day smoker Tobacco type: e-cigarettes/vaping Second hand tobacco smoke exposure: No Additional smoking assessment comments: Patient states she uses vape at 6mg of nicotine Alcohol intake: current Drinks per week: 5 Substance use: former Substance use type: marijuana, crack/cocaine, heroin and methamphetamine Other substance usage details: LSD Last use: 12/27/19 Do You Feel Safe in your Home?: Yes Lack of Transportation: No Lack of Food: Never True Current Housing: I Have Housing Concerned About Future Housing: No Difficulty Paying Gas/Electric Bills: No Difficulty Paying for Meds: No Currently Unemployed: YES Education: High School Diploma/GED Difficulty w/ Childcare or Family Care: No Gender identity (if verbalized by the patient): Female Spiritual care concerns: No Same Day Admit/Disch: Med Pre-admit Medications Home Medications ?Medication ?Instructions ?Recorded ?Confirmed ?Type lancets 30 gauge (OneTouch #200 ea 04/13/23 12/28/24 R x UltraSoft 2 Lancet) blood-glucose meter (OneTouch #1 ea 07/10/23 12/28/24 Rx Ultra2 Meter) blood sugar diagnostic (OneTouch #100 ea 12/11/2312/18 Rx Ultra Test strips) pen needle, diabetic 31 gauge x #100 ea 01/15/2412/28 Rx 1/4 (TRUEplus Pen Needle) blood-glucose sensor (Dexcom G7 #9 ea 02/21/24 5 Rx Sensor device) blood-glucose,cost accounting clerk,cont #1 ea 02/21/24 12/28/24 Rx (Dexcom G7 Repairing Calibrator) urine glucose-ketones test #50 ea 02/21/24 12/28/24 Rx quetiapine 150 mg tablet 150 mg PO QHS #135 tabs 12/1212/28/24 Rx famotidine 20 mg tablet See Rx Instructions .Route 0 06/03/24 12/28/24 Rx .COMPLEX #90 tabs albuterol sulfate 90 mcg/actuation 90 mcg inhalation Q 6H PRN 07/03/24 12/28/24 Rx breath activated powder shortness of breath or wheez ing #1 inhaler,sensor ea levothyroxine 100 mcg tablet 100 mcg PO .COMPLEX #90 t abs 09/02/24 12/28/24 Rx (Levoxyl) escitalopram oxalate 20 mg tablet See Rx Instructions .Route 10/01/24 12/28/24 Rx .COMPLEX #90 tabs hydrocodone 5 mg-acetaminophen 325 1 tablet PO Q8H PRN pain #20 tabs 10/07/24 12/28/24 Rx mg tablet Held on 12/28/24. Instructions: Patient no longer taking amitriptyline 25 mg tablet 25 mg PO QHS #90 tabs 10/1012/28/24 Rx gabapentin 300 mg capsule 300 mg PO TID #90 caps 12/2312/28/24 Rx Review of Systems Review of Systems All systems reviewed & are unremarkable except as noted in HPI and below Exam Const: General: comfortable and no acute distress HENMT: Mouth: Yes moist mucous membranes Other: 11 gricelda back of head Eyes: General: appearance normal, both eyes and all related structures Sclera: sclerae normal Pupils: Equal, round and reactive pupils present Neck: Neck: supple and no JVD Resp: Effort & Inspection: normal respiratory effort Auscultation: clear to auscultation bilaterally Cardio: Rate: regular rate Rhythm: regular rhythm GI: GI Palp: Yes Soft to palpation Auscultation: normal bowel sounds Skin: General skin exam: normal color Wounds: no wounds Neuro: General: gait normal Speech: normal speech Motor exam (neuro): 5/5 motor strength present throughout Sensory Exam: normal sensation Extrem: General: normal to inspection Psych: Mental Status: mental status grossly normal Affect: normal affect Thought process: Normal thought process present Thought content: Yes Depressive thoughts present Insight: Good insight present (Psych) Judgement: Good judgement present (Psych) Other: patient had reported some comments about suicidal ideations but with no plans DS: Data Data Completed and Pending Labs on day of discharge: Labs from last 24 hours 12/28/24 12/28/24 12/28/24 10:34 08:05 06:32 WBC RBC Hgb Hct MCV MCH MCHC RDW Plt Count MPV Immature Gran % (Auto) Neut % (Auto) Lymph % (Auto) Loup % (Auto) Eos % (Auto) Baso % (Auto) Lymph # (Auto) Loup # (Auto) Eos # (Auto) Baso # (Auto) Abs Immat Gran (auto) Absolute Neuts (auto) Absolute Nucleated RBC Nucleated RBC % PT INR Sodium Potassium Chloride Carbon Dioxide Anion Gap BUN Creatinine Estim Creat Clear Calc Estimated GFR Glucose POC Capillary Glucose 101 67 99 Calculated Osmolality Calcium Magnesium Total Bilirubin AST ALT Alkaline Phosphatase Troponin I Total Protein Albumin Lipase TSH Urine Test Salicylates Urine Opiates Screen Urine Methadone Screen Acetaminophen Ur Barbiturates Screen Ur Phencyclidine Scrn Ur Amphetamine Screen U Benzodiazepines Scrn Urine Cocaine Screen U Cannabinoids Screen Ethyl Alcohol 12/28/24 12/28/24 12/28/24 06:02 04:40 04:39 WBC RBC Hgb Hct MCV MCH MCHC RDW Plt Count MPV Immature Gran % (Auto) Neut % (Auto) Lymph % (Auto) Loup % (Auto) Eos % (Auto) Baso % (Auto) Lymph # (Auto) Loup # (Auto) Eos # (Auto) Baso # (Auto) Abs Immat Gran (auto) Absolute Neuts (auto) Absolute Nucleated RBC Nucleated RBC % PT INR Sodium Potassium Chloride Carbon Dioxide Anion Gap BUN Creatinine Estim Creat Clear Calc Estimated GFR Glucose POC Capillary Glucose 98 Calculated Osmolality Calcium Magnesium Total Bilirubin AST ALT Alkaline Phosphatase Troponin I Total Protein Albumin Lipase TSH 0.539 Urine Test Negative Salicylates < 1.0 L Urine Opiates Screen Negative Urine Methadone Screen Negative Acetaminophen < 10 L Ur Barbiturates Screen Negative Ur Phencyclidine Scrn Negative Ur Amphetamine Screen Negative U Benzodiazepines Scrn Negative Urine Cocaine Screen Negative U Cannabinoids Screen Negative Ethyl Alcohol 30 12/28/24 12/28/24 12/27/24 04:15 02:18 22:29 WBC 12.0 H RBC 3.33 L Hgb 9.6 L Hct 29.3 L MCV 88.0 MCH 28.8 MCHC 32.8 RDW 13.0 Plt Count 341 MPV 9.1 L Immature Gran % (Auto) 0.4 H Neut % (Auto) 63.5 Lymph % (Auto) 28.2 Loup % (Auto) 3.9 Eos % (Auto) 3.2 Baso % (Auto) 0.8 Lymph # (Auto) 3.37 Loup # (Auto) 0.47 Eos # (Auto) 0.38 Baso # (Auto) 0.09 Abs Immat Gran (auto) 0.05 H Absolute Neuts (auto) 7.59 H Absolute Nucleated RBC 0.00 Nucleated RBC % 0.0 PT 9.9 INR 0.9 Sodium 141 Potassium 4.0 Chloride 107 Carbon Dioxide 26 Anion Gap 8 BUN 14 D Creatinine 1.19 H Estim Creat Clear Calc 50 Estimated GFR 48 L Glucose 135 H POC Capillary Glucose 107 H 140 H Calculated Osmolality 294 Calcium 9.0 Magnesium 2.2 Total Bilirubin 0.3 AST 36 ALT 27 Alkaline Phosphatase 154 H Troponin I < 0.012 Total Protein 6.9 Albumin 3.7 Lipase 43 TSH Urine Test Salicylates Urine Opiates Screen Urine Methadone Screen Acetaminophen Ur Barbiturates Screen Ur Phencyclidine Scrn Ur Amphetamine Screen U Benzodiazepines Scrn Urine Cocaine Screen U Cannabinoids Screen Ethyl Alcohol 12/27/24 22:13 WBC RBC Hgb Hct MCV MCH MCHC RDW Plt Count MPV Immature Gran % (Auto) Neut % (Auto) Lymph % (Auto) Loup % (Auto) Eos % (Auto) Baso % (Auto) Lymph # (Auto) Loup # (Auto) Eos # (Auto) Baso # (Auto) Abs Immat Gran (auto) Absolute Neuts (auto) Absolute Nucleated RBC Nucleated RBC % PT INR Sodium Potassium Chloride Carbon Dioxide Anion Gap BUN Creatinine Estim Creat Clear Calc Estimated GFR Glucose POC Capillary Glucose 153 H Calculated Osmolality Calcium Magnesium Total Bilirubin AST ALT Alkaline Phosphatase Troponin I Total Protein Albumin Lipase TSH Urine Test Salicylates Urine Opiates Screen Urine Methadone Screen Acetaminophen Ur Barbiturates Screen Ur Phencyclidine Scrn Ur Amphetamine Screen U Benzodiazepines Scrn Urine Cocaine Screen U Cannabinoids Screen Ethyl Alcohol DS: Summary Hospital Course Reason for hospitalization: hypoglycemia/ fall with injury/ ETOH intoxication Hospital Course: Lucy Arambula is a 49 year old female who presented to the emergency department via EMS after her neighbor called 911 due to patient passing out and falling striking her head. per patient she does not recall the events leading to her arrival to the emergency department but woke up in EMS after the administration of dextrose. patient was found to a blood sugar in the 20s upon EMS arrival. patient has a past medical history of type 1 diabetes on insulin pump, COPD, anxiety / depression disorder, and hypothyroidism. patient had reported to me she was having drinks with her friend and reported the last time she had a anything was 11 the previous night. Patient reports she drinks once a week on Monday with a friend. In the ED: upon arrival after administration of dextrose patient's blood sugar was 153 she was coming more alert and oriented but had a large laceration to the back of her head from her fall complete trauma workup was negative for any acute findings. patient was then admitted to the medical unit on dextrose 10 IV with Accu-Cheks q.6 and continued neuro checks. during the middle of the night patient had made some suicidal comments to nursing staff at which time the ER doc was notified and patient was placed on suicide precautions [facility] Hospital Course: patient continues admission overnight with no acute events blood sugars remained stable. Follow up with patient following day no complaints other than mild headache denied any chest pain, shortness a breath, nausea, vomiting was tolerating all oral intake and blood sugars well controlled. no evidence of any alcohol withdrawal symptoms. Spoke with patient regarding her suicidal comments at which time she reports she has no active plan was asked if she has ever had thoughts of suicide and stated she has before but would never do that because of her children. patient had been placed on suicidal watch and precautions and had an evaluation by [facility] at which time they all agreed patient could follow up outpatient and there was no need for inpatient care at this time. patient was discharged home with family. Status at Discharge Functional status at discharge: independent ambulation Time Spent with Patient Time attestation: Total time spent providing and/or coordinating discharge services: DS: Admitting Diagnosis Discharge Date 12/28/2024 Admitting Diagnosis hypoglycemia/ fall with injury DS: Discharge Diagnosis Discharge Diagnosis (1) Hypoglycemia: Code(s): E16.2 - Hypoglycemia, unspecified Status: Acute (2) Hypothyroidism: Code(s): E03.9 - Hypothyroidism, unspecified Status: Acute (3) Insulin pump in place: Code(s): Z96.41 - Presence of insulin pump (external) (internal) Status: Acute (4) GERD (gastroesophageal reflux disease): Code(s): K21.9 - Gastro-esophageal reflux disease without esophagitis Status: Acute (5) SILVESTRE (acute kidney injury): Code(s): N17.9 - Acute kidney failure, unspecified Status: Acute (6) Iron deficiency: Code(s): E61.1 - Iron deficiency Status: Acute (7) Head injury: Qualifiers: Encounter type: initial encounter Qualified Code(s): S09.90XA - Unspecified injury of head, initial encounter Code(s): S09.90XA - Unspecified injury of head, initial encounter Status: Acute (8) Nicotine dependence: Code(s): F17.200 - Nicotine dependence, unspecified, uncomplicated Status: Acute (9) Type 1 diabetes: Qualifiers: Diabetes mellitus complication status: without complication Qualified Code(s): E10.9 - Type 1 diabetes mellitus without complications Code(s): E10.9 - Type 1 diabetes mellitus without complications Status: Acute Discharge Plan Discharge Attending physician on discharge: Carlos Levi Consulting providers: Yahaira Arevalo Discharging Clinician: Yahaira Arevalo Anticipated Discharge Date/Time: 12/28/24 10:58 Patient Disposition: Home Activity: may shower and as tolerated Diet: diabetic Discharge Instructions: 1). Diabetes/hypoglycemia * Continue close monitoring with Dexcom * Small snack at night * follow up with her guide alpine as scheduled 2). suicidal ideations/ depression/ anxiety * continue home medications * [facility] will provide information for follow up appointments 3). head laceration * May have gricelda removed in 7 to 10 days * do not immerse in long periods of water may shower How can you care for yourself at home? ? Keep track of any new symptoms or changes in your symptoms. ? Rest until you feel better. ? Be safe with medicines. Take your medicines exactly as prescribed. Call your doctor if you think you are having a problem with your medicine. ? Do not drive after taking a prescription pain medicine. ? Ensure to follow-up with primary care physician as indicated and provide updated medication list provided to you at discharge. When should you call for help? Call 911 anytime you think you may need emergency care. For example, call if: ? You passed out (lost consciousness). Call your doctor now or seek immediate medical care if: ? You have new symptoms like fever, difficulty breathing, Chest pain, vomiting, or rash. ? You have new or different pain. ? You are confused and are having trouble thinking clearly. ? Your symptoms are getting worse. Watch closely for changes in your health, and be sure to contact your doctor if: ? You do not get better as expected. Patient Instructions: Antibiotic Form, Hypoglycemia in a Person with Diabetes (DC), Staple Care (DC), Fall Prevention (DC), Head Laceration (GEN) Patient Language: Divehi Stand Alone Forms: General Discharge Information Follow-up/Referrals: Shraddha Ward NP [Primary Care Provider, [facility]] - 4 Weeks Discharge Medications: No Action hydrocodone-acetaminophen 5-325 mg tablet 1 tablet PO Q8H PRN (Reason: pain) Qty: 20 0RF Rx Instructions: 1-2 tabs per dose (DME) Dexcom G7 Sensor Device See Rx Instructions .ROUTE .MEDSUPPLY Qty: 9 3RF Rx Instructions: Use to monitor glcuose (DME) Dexcom G7 Repairing Calibrator Misc See Rx Instructions .Route Qty: 1 1RF Rx Instructions: As directed (DME) urine glucose-ketones test Strip See Rx Instructions .ROUTE .MEDSUPPLY Qty: 50 0RF Rx Instructions: As directed amitriptyline 25 mg tablet 25 mg PO QHS Qty: 90 2RF (DME) OneTouch Ultra Test Strip See Rx Instructions .Route Qty: 100 2RF Rx Instructions: QID albuterol sulfate 90 mcg/actuation aero powdr breath act w/sensor 90 mcg inhalation Q6H PRN (Reason: shortness of breath or wheezing) Qty: 1 0RF quetiapine 150 mg tablet 150 mg PO QHS Qty: 135 2RF (DME) lancets [OneTouch UltraSoft 2 Lancet] 30 gauge misc See Rx Instructions .Route Qty: 200 2RF Rx Instructions: QID (DME) blood-glucose meter [OneTouch Ultra2 Meter] Misc See Rx Instructions .ROUTE .COMPLEX Qty: 1 0RF Dose Instruction: USE DIRECTED Rx Instructions: USE DIRECTED (DME) pen needle, diabetic [TRUEplus Pen Needle] 31 gauge x 1/4 needle See Rx Instructions .ROUTE .COMPLEX Qty: 100 0RF Dose Instruction: INJECT FOUR TIMES DAILY FOR INSULIN INJECTIONS Rx Instructions: INJECT FOUR TIMES DAILY FOR INSULIN INJECTIONS famotidine 20 mg tablet See Rx Instructions .ROUTE .COMPLEX Qty: 90 3RF Dose Instruction: TAKE 1 TABLET BY MOUTH ONCE DAILY AT BEDTIME NEEDED FOR HEARTBURN Rx Instructions: TAKE 1 TABLET BY MOUTH ONCE DAILY AT BEDTIME NEEDED FOR HEARTBURN levothyroxine [Levoxyl] 100 mcg tablet 100 mcg PO .COMPLEX Qty: 90 1RF Patient Comments: does not take on Sundays Rx Instructions: 100 mcg orally 6 days a week; escitalopram oxalate 20 mg tablet See Rx Instructions .ROUTE .COMPLEX Qty: 90 0RF Dose Instruction: Take 1 tablet by mouth once daily Patient Comments: takes @ HS Rx Instructions: Take 1 tablet by mouth once daily gabapentin 300 mg capsule 300 mg PO TID Qty: 90 2RF Patient Comments: takes am, pm and hs Date of admission: 12/28/24 00:50 Primary Care Provider: Shraddha Ward Admitting Provider: Carlos Levi Attending physician on admission: Carlos Levi Condition: Stable Quality VTE Prophylaxis VTE prophylaxis: mechanical ordered -Patient's previous records reviewed on admission -ER notes reviewed in detail on admission -discussed all findings and current treatment plan with patient/Family/POA -Consultations reviewed for recommendations -Patient's disposition for safe discharge discussed with case technician -radiology imaging, EKG and test results I have personally reviewed and interpreted unless otherwise specified Dictation performed by eGood direct speech recognition software, therefore senior stereo compiler team lead variants and typographical errors may occur. Hospitalist MIPS Advance Care Plan I have confirmed that the patient's Advanced Care Plan is present, code status is documented, or surrogate decision maker is listed in patient medical record.: Yes Medication Reconciliation I have utilized all available resources to obtain, update and review the patients current medications (includes all prescriptions, OTC, herbals, cannabis, and nutritional supplements).: Yes The patient is not eligible for med reconciliation; the patient is in a emergent medical situation where delaying treatment would jeopardize the patients health.: No Heart Failure (Exclusion) Patient has history of Heart Transplant or Left Ventricular Assistive Device?: No IF YES, STOP HERE Heart Failure (Qualifier) Patient has current or prior documentation of LVEF less than or equal to 40%, or mod/servere depressed LVSF?: No IF NO, STOP HERE
--- NOTE | 2024-12-28 10:45 | PC.NURSE ---
Safety contract signed with [facility]
[2024-12-28 12:00] VITALS: BP 110/62; PULSE 92; RESP 20; TEMP 37; O2SAT 97
--- NOTE | 2024-12-28 13:15 | PC.NURSE ---
Discharge instructions reviewwed with patient, patient verbalizes understanding. Patients daughter here to pick her up, patient taken off floor per wheelchair
--- OUTSIDE RECORDS SUMMARY | 2024-12-30 07:54 | XMS_ITS | Clinical Summary ---
Author Organization [facility] Address [address] [place] [address] Care Team Providers Care Program Director Group Work Name Role Phone Shraddha Ward CLINICAL PROJECT MANAGER-MATTRESS [employer]ING [employer] Primary Care Provid er Source Comments [facility],non-owned Affiliates and Associated Physician Practices is amultiple site organization consisting of ambulatory clinics and hospital sitesin [place] and [place]. This disclosure is being madepursuant to the Care Everywhere program and may not contain all information available regarding this patient. Last updated 17.[facility] Allergies Active Allergy Reactions Criticality Noted [...] on file Legal Sex Female 6:30 AM ASSOCIATE SOFTWARE DEVELOPER Gender Identity Not on file Sexual Orientation [...] this topic Medical Devices Implanted Type Area Goggles Assembler Device Identifier Shelf Expiration Date Model / Serial / Lot Screw 3.5mm 5mm 34mm Ft Rvrs Cut Flut Implanted:Qty: 1 on 09/08/2023 by Melania Rosa MD at [facility] Right: [employer] [id number] / / Screw 3.5mm 5mm 36mm Ft Rvrs Cut Flut Implanted:Qty: 1 on 09/08/2023 by Melania Rosa MD at [facility] Right: [employer] [id number] / / Explanted Type Area Goggles Assembler Device Identifier Shelf Expiration Date Model / Serial / Lot Screw 3.5mm 5mm 44mm Ft Rvrs Cut Flut Explanted:Qty: 1 on 09/08/2023 by Melania Rosa MD at [facility] Right: [employer] [id number] / / Procedures Procedure Name Priority Date/Time Associated Diagnosis Comments LIPID PROFILE Routine 02/13/2020 1:42 PM ASSOCIATE SOFTWARE DEVELOPER from Last 3 Months or Most Recently Relevant to Health Maintenance Results * LIPID PROFILE (02/13/2020 1:42 PM ASSOCIATE SOFTWARE DEVELOPER) Cholesterol 139 <200 mg/dL 02/13/2020 2:13 PM ASSOCIATE SOFTWARE DEVELOPER [facility] Triglycerides 95 <150 mg/dL 02/13/2020 2:13 PM ASSOCIATE SOFTWARE DEVELOPER [facility] HDL Cholesterol 42 >40 mg/dL 0 2:13 PM ASSOCIATE SOFTWARE DEVELOPER [facility] LDL Calculated 78 <130 mg/dL 02/13/2020 2:13 PM ASSOCIATE SOFTWARE DEVELOPER [facility] VLDL Calculated 19 <=30 mg/dL 0 2:13 PM ASSOCIATE SOFTWARE DEVELOPER [facility] Chol HDL Ratio 3.3 <4.5 02/13/2020 2:13 PM ASSOCIATE SOFTWARE DEVELOPER [facility] LDL/HDL Ratio 1.9 <5.0 02/13/2020 2:13 PM ASSOCIATE SOFTWARE DEVELOPER [facility] Blood BLOOD SPECIMEN / Unknown Venipuncture / Unknown 02/13/2020 1:42 PM ASSOCIATE SOFTWARE DEVELOPER 02/13/2020 1:52 PM ASSOCIATE SOFTWARE DEVELOPER Meghan Murillo CLINICAL PROJECT MANAGER-[employer]TRESS [employer] [facility] - CHEMISTRY ORDERAB LES Final Result [facility] [id number] [place] [address] from Last 3 Months or Most Recently Relevant to Health Maintenance Insurance [facility] Address: [address] [address] [facility] Advance Directives * Full Code (Latest Code Status on File) Date Activated Date Inactivated Comments 02/16/2020 4:16 PM 02/28/2020 3:28 PM * Full Code Date Activated Date Inactivated Comments 02/13/2020 10:40 AM 02/16/2020 4:07 PM Care Teams Program Director Group Work Relationship Specialty Start Date End Date Shraddha Ward, CLINICAL PROJECT MANAGER-[employer]ESS [employer]ING [employer]ER [address] [place] [address] PCP - General 03/23/20
--- OUTSIDE RECORDS SUMMARY | 2024-12-30 07:54 | XMS_ITS | Encounter Summary ---
Author Organization [facility] Address [address] [place] [address] Care Team Providers Care Gas Welding Equipment Mechanic Name Role Phone EdShraddha Chaz PROFESSOR OF BIOLOGY-TOXICOLOGY TEACHER Primary Care Provid er Reason for Visit [...] [facility] - Centralized Scheduling [address] [place] [address] Melania Rosa MD [address] [place] [id number] Follow-up (Spk to Lucy, stated before she [...] file Legal Sex Female 6:30 AM MEDICAL STAFF CREDENTIALING COORDINATOR Gender Identity Not on file Sexual Orientation Not on file documented as of this encounter Functional Status * Is person deaf or have serious hearing difficulty? Answer Date of Assessment Author No 02/16/2020 4:20 PM MEDICAL STAFF CREDENTIALING COORDINATOR Joseluis Cruzia, PROFESSOR OF BIOLOGY-TOXICOLOGY TEACHER * Is person blind or have serious difficulty seeing? Answer Date of Assessment Author No 02/16/2020 4:20 PM MEDICAL STAFF CREDENTIALING COORDINATOR Joseluis Cruz eighia, PROFESSOR OF BIOLOGY-TOXICOLOGY TEACHER * Does person have serious difficulty walking/climbing stairs? Answer Date of Assessment Author No 02/16/2020 4:20 PM MEDICAL STAFF CREDENTIALING COORDINATOR Joseluis Cruzia, PROFESSOR OF BIOLOGY-TOXICOLOGY TEACHER * Does person have difficulty dressing/bathing? Answer Date of Assessment Author No 02/16/2020 4:20 PM MEDICAL STAFF CREDENTIALING COORDINATOR Joseluis Cruz, PROFESSOR OF BIOLOGY-TOXICOLOGY TEACHER * Does person have difficulty doing errands alone? Answer Date of Assessment Author No 02/16/2020 4:20 PM MEDICAL STAFF CREDENTIALING COORDINATOR Joseluis Cruz, PROFESSOR OF BIOLOGY-TOXICOLOGY TEACHER documented as of this encounter Mental Status * Does person have difficulty concentrating/remembering/making decisions? Answer Entry Date Author No 02/16/2020 4:20 PM MEDICAL STAFF CREDENTIALING COORDINATOR Joseluis Cruz, PROFESSOR OF BIOLOGY-TOXICOLOGY TEACHER documented in this encounter Miscellaneous Notes * Telephone Encounter [...] on filedocumented in this encounter Care Teams Gas Welding Equipment Mechanic Relationship Specialty Start Date End Date Shraddha Ward, PROFESSOR OF BIOLOGY-TOXICOLOGY TEACHER [address] [place] [address] PCP - General 03/23/20 documented as of this encounter
== END 2024-12-28 12:55 | disposition home or self-care (01) ==
LOC: CHSED 12-28 00:04 → CHS2ND 12-28 08:35
PROVIDERS: Admitting Provider Internal Medicine; Emergency Provider Internal Medicine Critical Care Medicine; PCP Nurse Practitioner Family; Visit Provider Internal Medicine
DX: S01.01XA Laceration without foreign body of scalp, initial encounter (principal); E10.649 Type 1 diabetes mellitus with hypoglycemia without coma; R45.851 Suicidal ideations; N17.9 Acute kidney failure, unspecified; E61.1 Iron deficiency; W18.39XA Other fall on same level, initial encounter; I10 Essential (primary) hypertension; E03.9 Hypothyroidism, unspecified; K21.9 Gastro-esophageal reflux disease without esophagitis; J44.9 Chronic obstructive pulmonary disease, unspecified; F41.9 Anxiety disorder, unspecified; F32.A Depression, unspecified; Z79.4 Long term (current) use of insulin; Z96.41 Presence of insulin pump (external) (internal); F17.210 Nicotine dependence, cigarettes, uncomplicated; F17.290 Nicotine dependence, other tobacco product, uncomplicated; Z79.899 Other long term (current) drug therapy; Z23 Encounter for immunization
CPT/HCPCS: 12002; 36415; 70450; 71045; 72125; 72170; 80053; 80143; 80179; 80307; 81025; 82077; 82948; 83690; 83735; 84443; 84484; 85025; 85610; 90471; 90715; 93005; 96365; 96366; 99285; A9270; G0378

== ENCOUNTER 2025-02-20 12:06 | Outpatient (CLI) | payer OTHER, SELFPAY ==
--- NOTE | 2025-02-20 13:00 | NEURO_ITS ---
Clinical note: Patient is 49-year-old with complaints of seizures in both lower limbs and lower back pain. She has history of diabetes mellitus since she was a child. She has had a surgery on right knee and she has had fractures of both feet in 2017. A brief neurological examination did not show any focal weakness or fasciculations. The results of the nerve conduction study and EMG are as follows. Summary of findings 1. Left and right peroneal motor response were absent over extensor digitorum brevis. Peroneal motor study was also performed over tibialis anterior which shows decreased amplitude. The conduction velocity was also moderately decreased. 2. Bilateral tibial motor over abductor hallucis were absent. 3. Bilateral sural sensory were absent. 4. Bilateral tibial H reflexes were absent. 5. EMG examination was performed using a monopolar needle electrode. Various muscles in the L3-S1 distribution were examined in both lower limbs. Related paraspinal muscles were also examined. No denervation changes were seen in paraspinal muscles. Peripheral muscles showed decreased motor unit recruitment in right tensor fascial frederic and biceps more short head. In addition decreased recruitment also seen in distal muscles such as tibialis anterior and medial gastrocnemius as described below. 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 2) Decreased motor unit recruitment was noted in the right L5-S1 distribution which may raise possibility of chronic radiculopathy however no denervation changes were seen in paraspinal muscles. Radiographic correlation may be helpful for further evaluation. Dorita Pitts MD, FAAN, FAANEM Neurology and electrodiagnostic Medicine Nerve Conduction Studies Motor Nerve Results ? Latency Amplitude F-Lat Segment Distance CV Comment Site (ms) (mV) (ms) (cm) (m/s) Left Dp Branch Fibular (TA) Motor Fib Head 3.1 1.61 Pop Fossa 5.2 1.39 Pop Fossa-Fib Head 70 33 Right Dp Branch Fibular (TA) Motor Fib Head 3.9 0.59 Pop Fossa 6.2 0.71 Pop Fossa-Fib Head 65 28 Left Peroneal (EDB) Motor Ankle NR NR Bel Fib Head NR NR Bel Fib Head-Ankle 285 NR Pop Fossa NR NR Pop Fossa-Bel Fib Head 70 NR Right Peroneal (EDB) Motor Ankle NR NR Bel Fib Head NR NR Bel Fib Head-Ankle 260 NR Pop Fossa NR NR Pop Fossa-Bel Fib Head 80 NR Left Tibial (AHB) Motor Ankle 2.1 - Knee NR NR Knee-Ankle 390 NR Right Tibial (AHB) Motor Ankle NR NR Knee NR NR Knee-Ankle 390 NR Sensory Nerve Results ? Latency (Peak) Amplitude (P-P) Segment Distance CV Comment Site (ms) (?V) (cm) (m/s) Left Sural Sensory Calf-Lat Mall NR NR Calf-Lat Mall 120 NR Right Sural Sensory Calf-Lat Mall NR NR Calf-Lat Mall 120 NR H-Reflex Results ? M-Lat H Lat H Peak-Peak Amp M Peak-Peak Amp H-M Lat Site (ms) (ms) mV mV (ms) Left Tibial H-Reflex Pop Fossa - NR - - NR Right Tibial H-Reflex Pop Fossa - NR - - NR Electromyography ?Side Muscle Nerve Ins Act Fibs Psw Amp Dur Recrt Comment Right BicepsFemS Sciatic Nml Nml Nml Nml Nml +1 Right Semimembranosus Sciatic Nml Nml Nml Nml Nml Nml Right AntTibialis Dp Br Fibular Nml Nml Nml Nml Nml +3 Right Gastroc Tibial Nml Nml Nml Nml Nml None Right VastusMed Femoral Nml Nml Nml Nml Nml Nml Right RectFemoris Femoral Nml Nml Nml Nml Nml Nml Right GluteusMax InfGluteal Nml Nml Nml Inc Inc Dec 4+ Right TensorFascLat SupGluteal Nml Nml Nml Nml >12ms +1 Left BicepsFemS Sciatic Nml Nml Nml Nml Nml Nml Increased polyphysic units Left Semimembranosus Sciatic Nml Nml Nml Nml Nml Nml Left AntTibialis Dp Br Fibular Nml Nml Nml Incr >12ms +3 Left Gastroc Tibial Nml Nml Nml Incr >12ms +4 Left VastusMed Femoral Nml Nml Nml Nml Nml Nml Left RectFemoris Femoral Nml Nml Nml Nml Nml Nml Left GluteusMax InfGluteal Nml Nml Nml Nml Nml Nml Left TensorFascLat SupGluteal Nml Nml Nml Nml Nml Nml Left L4 Parasp Rami Nml Nml Nml Nml Nml Nml Left L5 Parasp Rami Nml Nml Nml Nml Nml Nml Right L4 Parasp Rami Nml Nml Nml Nml Nml Nml Right L5 Parasp Rami Nml Nml Nml Nml Nml Nml
== END 2025-02-20 12:07 | disposition home or self-care (01) ==
LOC: ANHNEURO 12:08
PROVIDERS: PCP Nurse Practitioner Family; Visit Provider Psychiatry & Neurology Neurology
DX: E11.42 Type 2 diabetes mellitus with diabetic polyneuropathy (principal); R20.0 Anesthesia of skin; R20.2 Paresthesia of skin
CPT/HCPCS: 95886; 95910